=== PATIENT | female | born 1955 | race Caucasian/White ===

== ENCOUNTER 2016-10-15 10:05 | Outpatient (CLI) | payer OTHER, MEDICARE | END 2016-10-15 10:06 | disposition home or self-care (01) | DX: D86.0 Sarcoidosis of lung (principal) ==

== ENCOUNTER 2017-03-07 14:47 | Outpatient (CLI) | payer OTHER, MEDICARE | END 2017-03-07 14:48 | disposition home or self-care (01) | LOC: RT 14:47 | PROVIDERS: ATTEND Orthopaedic Surgery | DX: Z01.818 Encounter for other preprocedural examination (principal); N39.0 Urinary tract infection, site not specified; R73.09 Other abnormal glucose | CPT/HCPCS: 93005 ==

== ENCOUNTER 2018-04-19 14:45 | Outpatient (CLI) | payer OTHER, MEDICARE ==
[2018-04-19] MEDS ORDERED: IOPAMIDOL-300 100 ML VIAL ONE (14:52)
[2018-04-19] MEDS ORDERED: IOPAMIDOL-300 50 ML VIAL ONE (14:52)
[2018-04-19] MEDS ORDERED: IOPAMIDOL-300 100 ML VIAL IVP ONE (17:52)
[2018-04-19] MEDS ORDERED: IOPAMIDOL-300 50 ML VIAL PO ONE (17:52)
--- NOTE | 2018-04-19 22:22 | CT Report ---
Reason: ABDOMINAL PAIN, RIGHT LOWER QUADRANT Procedure Date: 04/19/2018 Accession Number: [id number] / [id number] Procedure: CT - Abdomen/Pelvis W/ CPT Code: FULL RESULT: EXAM: CT ABDOMEN AND PELVIS EXAM DATE: 04/19/2018 05:04 PM. CLINICAL HISTORY: ABDOMINAL PAIN, RIGHT LOWER QUADRANT. COMPARISONS: None. TECHNIQUE: Routine helical CT imaging was performed through the abdomen and pelvis. IV contrast: ISOVUE 300 100mL. Enteric contrast: Yes. Reconstructions: Coronal and sagittal. In accordance with CT protocol optimization, one or more of the following dose reduction techniques were utilized for this exam: automated exposure control, adjustment of mA and/or KV based on patient size, or use of iterative reconstructive technique. FINDINGS: ABDOMEN: Lung Bases: Incompletely included lower lungs are grossly clear. Calcified granuloma in the left lower lobe. Heart size is within normal limits. Dense coronary artery calcification is present. No basilar effusions. Liver: Unremarkable. Spleen: Unremarkable. Pancreas: Unremarkable aside from atrophy. Gallbladder/Bile Ducts: Gallbladder is unremarkable. Biliary tree is normal caliber. Adrenal Glands: Unremarkable. Kidneys: No mass, calculi, or hydronephrosis. Peritoneum/Mesentery/Bowel: No free fluid, free air, or collection. No intestinal obstruction or inflammation. Scattered occasional colonic diverticula. Terminal ileum appears unremarkable. Appendix not definitely identified. No pericecal inflammatory changes. No evidence for appendicitis. Lymph nodes: No mesenteric, periportal, or retroperitoneal lymphadenopathy. Vasculature: Abdominal aorta is nonaneurysmal. Portal vein is patent. Hepatic veins are patent. PELVIS: The bladder is unremarkable for the degree of distention. Uterus is absent. No free pelvic fluid. No pelvic lymphadenopathy. Bones: No suspicious osseous lesions. Total right hip arthroplasty is present. Mild lumbar levocurvature is present. Lucent structure in the T12 vertebral body is likely a hemangioma. IMPRESSION: No acute abnormalities. RADIA
== END 2018-04-19 14:46 | disposition home or self-care (01) ==
LOC: DI 14:45
PROVIDERS: ATTEND Physician Assistant Medical
DX: R10.31 Right lower quadrant pain (principal)
CPT/HCPCS: 74177; Q9967

== ENCOUNTER 2019-03-19 11:18 | Outpatient (CLI) | payer OTHER, MEDICARE ==
--- NOTE | 2019-03-20 14:28 | XRAY Report ---
Reason: FOOT SPRAIN Procedure Date: 03/19/2019 Accession Number: [id number] / [id number] Procedure: XR - Foot 3 View LT CPT Code: FULL RESULT: EXAM: LEFT FOOT RADIOGRAPHY EXAM DATE: 03/19/2019 11:39 AM. CLINICAL HISTORY: Foot sprain. Edema and pain x 1 week. Status post bunion surgery. COMPARISON: None. TECHNIQUE: 3 views. FINDINGS: Bones: Postoperative screw and screw/plate fixation of the proximal and distal first metatarsal, the heads of the second and third metatarsals, and a screw through the phalanges of the second toe. Bone loss at the lateral aspect of the first metatarsal head, and at the second metatarsophalangeal articulation, perhaps accentuated by postsurgical changes. There is moderate to severe narrowing of the first metatarsal phalangeal articulation. Joints: There is mild lateral subluxation of the third and fourth proximal phalanges at the metatarsal phalangeal articulations. Soft Tissues: Normal. No soft tissue swelling. IMPRESSION: Postoperative changes, with bone loss seen at the head of the first metatarsal and at the second metatarsophalangeal articulation. RADIA
== END 2019-03-19 11:19 | disposition home or self-care (01) ==
LOC: DI 11:18
PROVIDERS: ATTEND Podiatrist
DX: M79.672 Pain in left foot (principal); M79.89 Other specified soft tissue disorders; Z98.890 Other specified postprocedural states

== ENCOUNTER 2019-06-22 11:00 | Outpatient (CLI) | payer OTHER, MEDICARE ==
--- NOTE | 2019-06-25 10:58 | Mammography Report ---
Reason: ROUTINE MAMMO Procedure Date: 06/22/2019 Accession Number: [id number] / [id number] Procedure: MGN - Screening Mammo Dig Bilat CPT Code: Final Report FULL RESULT: EXAM: Screening Mammo Dig Bilat DATE: 06/22/2019 11:18 AM CLINICAL HISTORY: The patient is an asymptomatic 64-year-old female. Second degree family history of breast cancer. TECHNIQUE: (B) - Bilateral CC and MLO views were obtained. COMPARISON: 06/01/2016, 10/21/2014, 11/06/2012, 10/14/2009 PARENCHYMAL PATTERN: (A) - The breasts demonstrate scattered fibroglandular densities bilaterally. FINDINGS: The pattern of asymmetry is stable given positional variation. There are no suspicious masses, calcifications, or areas of distortion. IMPRESSION: Negative examination. BI-RADS category 1. RECOMMENDATION: (ANNUAL) - Recommend routine annual screening mammography. BI-RADS CATEGORY: (1) - Negative. STANDARD QUALIFYING STATEMENTS: 1. This examination was not reviewed with the aid of Computer-Aided Detection (CAD). 2. A negative or benign imaging report should not preclude biopsy if clinically suspicious findings are present. 3. Dense breasts may obscure an underlying neoplasm.
== END 2019-06-22 11:01 | disposition home or self-care (01) ==
LOC: DI.N 11:00
DX: Z12.31 Encounter for screening mammogram for malignant neoplasm of breast (principal); Z80.3 Family history of malignant neoplasm of breast
CPT/HCPCS: 77067

== ENCOUNTER 2019-08-31 12:05 | Outpatient (CLI) | payer OTHER, MEDICARE ==
--- NOTE | 2019-08-31 14:50 | MRI Report ---
Reason: LEFT FOOT DROP Procedure Date: 08/31/2019 Accession Number: [id number] / [id number] Procedure: MRI - Lumbar Spine W/O CPT Code: Final Report FULL RESULT: EXAM: MRI LUMBAR SPINE WITHOUT CONTRAST EXAM DATE: 08/31/2019 01:03 PM. CLINICAL HISTORY: Left foot drop. COMPARISON: None. TECHNIQUE: Multiplanar, multisequence T1-weighted and fluid-sensitive sequences of the lumbar spine from T12 to S1 without contrast. Other: None. FINDINGS: Spinal Canal: The conus terminates at L1. The conus medullaris and cauda equina are unremarkable. Alignment: Normal alignment. No spondylolisthesis. Bone Marrow: Five [id number]-svldbdh lumbar vertebral bodies are assumed. No gross fractures or bone lesions. No bone marrow replacement. Disk Levels/Facets: T12-L1: Unremarkable. L1-L2: Mild disk dehydration. Minimal disk bulge. No stenosis. L2-L3: Mild disk height loss and dehydration. Annular disk bulge and small osteophyte formation. Mild degenerative facet arthropathy. No significant stenosis. L3-L4: Mild disk height loss and dehydration. Annular disk bulge with tiny left paracentral protrusion and mild to moderate facet arthropathy with ligamentum flavum buckling. Mild effacement of the thecal sac. Mild inferior foraminal narrowing bilaterally. L4-L5: Mild disk height loss and dehydration. Annular disk bulge and mild degenerative facet arthropathy. No significant stenosis. L5-S1: Mild to moderate degenerative facet arthropathy. No stenosis. Musculature: Unremarkable. Other: Unremarkable. IMPRESSION: 1. Mild multilevel lumbar degenerative disk and facet arthropathy. Mild canal and foraminal narrowing most pronounced at L3-L4 without a significant degree of stenosis. Comment: The following findings are so common in adults without low back pain that while we report their presence, they must be interpreted with caution and in the context of the clinical situation. (Reference Tannerk et al, Spine 2001) Prevalence of findings in patients without low back pain: Disk degeneration (any evidence): 92% Disk desiccation/T2 signal loss: 83% Disk height loss: 56% Disk bulge: 64% Disk protrusion: 32% Annular tear/high intensity zone: 38% RADIA
== END 2019-08-31 12:06 | disposition home or self-care (01) ==
LOC: DI 12:05
PROVIDERS: ATTEND Physician Assistant Medical
DX: M51.36 Other intervertebral disc degeneration, lumbar region (principal); M47.816 Spondylosis without myelopathy or radiculopathy, lumbar region; M47.817 Spondylosis without myelopathy or radiculopathy, lumbosacral region; M51.26 Other intervertebral disc displacement, lumbar region
CPT/HCPCS: 72148

== ENCOUNTER 2019-11-15 09:49 | Outpatient (CLI) | payer OTHER, MEDICARE ==
--- NOTE | 2019-11-15 14:32 | XRAY Report ---
Reason: COUGH, ASTHMA Procedure Date: 11/15/2019 Accession Number: [id number] / [id number] Procedure: WCP - Chest 2 View X-Ray CPT Code: 52870 Final Report FULL RESULT: EXAM: CHEST RADIOGRAPHY EXAM DATE: 11/15/2019 09:49 AM. CLINICAL HISTORY: Cough, asthma. COMPARISON: CHEST 2 VIEW PA/LAT 10/15/2016 10:[address] THORAX W/ CONT 10/16/2012 9:51 AM. TECHNIQUE: 2 views. FINDINGS: Lungs/Pleura: Stable asymmetric elevation of the right hemidiaphragm. Stable appearance of moderately dense scattered areas of interstitial opacification with nodularity predominantly in the upper lungs. Previous exam indicated a history of sarcoidosis. No acute consolidations identified. Mediastinum: Heart and mediastinal contours are unremarkable. Other: None. IMPRESSION: Stable airspace opacifications in the upper lungs, compatible with a history of sarcoidosis. No new areas of consolidation identified. RADIA
== END 2019-11-15 23:59 | disposition home or self-care (01) ==
LOC: DI.WCP 09:49
PROVIDERS: ATTEND Internal Medicine
DX: R05 Cough (principal)
CPT/HCPCS: 71046

== ENCOUNTER 2020-05-27 14:33 | Outpatient (CLI) | payer OTHER, MEDICARE | END 2020-05-27 14:34 | disposition critical access hospital (66) | LOC: EMS 14:33 | PROVIDERS: ATTEND Surgery | DX: R41.89 Other symptoms and signs involving cognitive functions and awareness (principal); R25.3 Fasciculation | CPT/HCPCS: A0425; A0429 ==

== ENCOUNTER 2020-05-27 14:48 | Observation (INO) | payer OTHER, MEDICARE ==
--- NOTE | 2020-05-27 15:11 | ED Physician Documentation ---
History of Present Illness - Stated complaint Stated Complaint: MONO SYMPTOMS - Chief complaint Chief Complaint: Neuro - History obtained from History obtained from: Patient - Additonal information Additional information: 64-year-old female presents to the emergency department with chief complaint that she is not herself. She reports that for quite some time she has become increasingly forgetful and sometimes feels like she is disoriented. She reports going to the grocery store today paying for the groceries having all the groceries bag but then asking the agency cashier she needed to pay. She denies any sudden headache, no focal neuro deficits. No slurred speech arm or leg weakness. She reports that she constantly has to use the bathroom but denies dysuria. She does have a history of sarcoidosis and interstitial lung disease. She is currently taking prednisone 40 mg daily. 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 She denies any recent fevers, no new cough. She does have dyspnea with any exertion at baseline but this is not new. She denies any history of previous [place] or stroke in the past. At the time of evaluation in the room the patient appears well she has at times and inappropriate affect and will begin giggling for no reason. Pt did report to the RN that she ate a lollipop that a friend had given her Review of Systems Constitutional: reports: Fatigue. denies: Fever, Chills, Myalgias, Weight Loss Eyes: denies: Loss of vision, Decreased vision, Photophobia Ears: denies: Loss of hearing Nose: denies: Rhinorrhea / runny nose, Congestion Throat: denies: Dental pain / toothache, Oral lesions / sores, Sore throat Cardiac: denies: Chest pain / pressure, Palpitations, Pedal edema, Calf pain Respiratory: reports: Dyspnea, Cough. denies: Hemoptysis, Wheezing GI: denies: Abdominal Pain, Nausea : reports: Frequency, Hesitancy. denies: Dysuria, Unable to Void, Hematuria, LMP, Vaginal bleeding Skin: reports: Reviewed and negative Musculoskeletal: reports: Reviewed and negative Neurologic: reports: Confused. denies: Generalized weakness, Focal weakness, Numbness, Difficulty speaking, Near syncope, Syncope, Altered mental status, Unresponsive, Headache, Head injury PD PAST MEDICAL HISTORY - Past Medical History Musculoskeletal: Osteoarthritis - Past Surgical History Past Surgical History: Yes /RETORT COOLER: Hysterectomy Cardiovascular: Cardiac catheterization HEENT: Tonsil/Adenoidectomy - Present Medications Home Medications: Ambulatory Orders Medication Instructions Recorded Confirmed Adalimumab [Humira] 80 mg 01/19/14 06/20/14 Amitriptyline [Elavil] 10 mg PO DAILY 01/19/14 06/20/14 Gabapentin 600 mg PO TID 01/19/14 06/20/14 HYDROcodone/ACET 10/325 [[place] 10 1 tab PO DAILY PRN 01/19/14 06/20/14 mg/325 mg] Hydroxychloroquine [Plaquenil] 200 mg PO DAILY 01/19/14 06/20/14 Magnesium Oxide 500 mg PO DAILY PRN 01/19/14 06/20/14 Melatonin/Pyridoxine [Melatonin 3 1 tab PO DAILY 01/19/14 06/20/14 mg Tablet] Methotrexate 7.5 mg PO DAILY 01/19/14 06/20/14 Oxycodone HCl/Acetaminophen 1 - 2 each PO Q6HR PRN #14 tablet 01/19/14 06/20/14 [Percocet 5-325 mg Tablet] Simvastatin 10 mg PO DAILY 01/19/14 06/20/14 - Allergies Allergies/Adverse Reactions: Allergies Allergy/AdvReac Type Severity Reaction Status Date / Time No Known Drug Allergies Allergy Verified 05/27/20 15:00 - Social History Does the pt smoke?: No Smoking Status: Never smoker Does the pt drink ETOH?: No Does the pt have substance abuse?: No - Immunizations Immunizations are current?: Yes PD ED PE EXPANDED - General General: No acute distress - HEENT HEENT: Atraumatic, PERRL, Dry mucous membranes - Neck Neck: Supple w/out meningeal sx, No tenderness. No: Adenopathy - Cardiac Cardiac: Regular Rate, Radial strong equal, Cap refill < 2 sec - Respiratory Respiratory: Clear to ausultation prasad. No: Distress, Labored - Abdomen Abdomen: Normal Bowel sounds. No: Tender to palpation - Derm Derm: Normal color. No: Rash, Petecchiae, Purpura - Extremities Extremities: Normal - Neuro Neuro: Alert and Oriented X 3 (Ataxic gait. The patient very unbalanced unable to stand for long period of time without falling backwards. She appears to drag the left foot somewhat when allowed to ambulate. Unable to complete the Romberg.), CN deficit (tongue fasciculations with extension), Normal finger nose, Normal speech. No: Cerebellar nl, Normal gait - GCS Eye Opening: Spontaneous Motor: Obeys Commands Verbal: Oriented Total: 15 - Psych Psych: Other (Intermittently abnormal affect with bouts of giggling for no discernible reason) Results - Vitals Vitals: Vital Signs - 24 hr 05/27/20 14:50 Temperature 36.8 C Heart Rate 89 Respiratory 20 Rate Blood Pressure 159/86 H O2 Saturation 100 Oxygen O2 Source Room air - Labs Labs: Laboratory Tests 05/27/20 05/27/20 05/27/20 15:27 15:27 15:27 WBC 7.4 RBC 4.29 Hgb 14.1 Hct 43.8 MCV 102.1 H MCH 32.9 H MCHC 32.2 RDW 13.9 Plt Count 200 MPV 8.5 Neut # (Auto) 6.5 Lymph # (Auto) 0.5 L Sully # (Auto) 0.1 Eos # (Auto) 0.0 Baso # (Auto) 0.0 Absolute Nucleated RBC 0.00 Nucleated RBC % 0.0 Sodium 135 Potassium 4.1 Chloride 101 Carbon Dioxide 23 Anion Gap 11.0 BUN 23 H Creatinine 0.8 Estimated GFR (MDRD) 72 L Glucose 137 H Calcium 9.2 Total Bilirubin 0.8 AST 33 ALT 44 Alkaline Phosphatase 76 Total Protein 7.0 Albumin 4.2 Globulin 2.8 Albumin/Globulin Ratio 1.5 Lipase 25 TSH 0.37 Urine Color Urine Clarity Urine pH Ur Specific Warren Urine Protein Urine Glucose (UA) Urine Ketones Urine Occult Blood Urine Nitrite Urine Bilirubin Urine Urobilinogen Ur Leukocyte Esterase Ur Microscopic Review Urine Culture Comments Urine Opiates Screen Ur Oxycodone Screen Urine Methadone Screen Ur Propoxyphene Screen Ur Barbiturates Screen Ur Tricyclics Screen Ur Phencyclidine Scrn Ur Amphetamine Screen U Methamphetamines Scrn U Benzodiazepines Scrn Urine Cocaine Screen U Cannabinoids Screen Ethyl Alcohol < 5.0 05/27/20 16:05 WBC RBC Hgb Hct MCV MCH MCHC RDW Plt Count MPV Neut # (Auto) Lymph # (Auto) Sully # (Auto) Eos # (Auto) Baso # (Auto) Absolute Nucleated RBC Nucleated RBC % Sodium Potassium Chloride Carbon Dioxide Anion Gap BUN Creatinine Estimated GFR (MDRD) Glucose Calcium Total Bilirubin AST ALT Alkaline Phosphatase Total Protein Albumin Globulin Albumin/Globulin Ratio Lipase TSH Urine Color YELLOW Urine Clarity CLEAR Urine pH 7.5 Ur Specific Warren 1.015 Urine Protein NEGATIVE Urine Glucose (UA) NEGATIVE Urine Ketones NEGATIVE Urine Occult Blood NEGATIVE Urine Nitrite NEGATIVE Urine Bilirubin NEGATIVE Urine Urobilinogen 0.2 (NORMAL) Ur Leukocyte Esterase NEGATIVE Ur Microscopic Review NOT INDICATED Urine Culture Comments NOT INDICATED Urine Opiates Screen NEGATIVE Ur Oxycodone Screen NEGATIVE Urine Methadone Screen NEGATIVE Ur Propoxyphene Screen NEGATIVE Ur Barbiturates Screen NEGATIVE Ur Tricyclics Screen POSITIVE H Ur Phencyclidine Scrn NEGATIVE Ur Amphetamine Screen NEGATIVE U Methamphetamines Scrn NEGATIVE U Benzodiazepines Scrn NEGATIVE Urine Cocaine Screen NEGATIVE U Cannabinoids Screen NEGATIVE Ethyl Alcohol - Rads (name of study) CT head Radiology: Final report received (No acute intracranial process) PD MEDICAL DECISION MAKING - ED course Complexity details: reviewed old records, reviewed results, re-evaluated billy ent, considered differential, d/w patient, d/w family ED course: 64-year-old female presents to the emergency department because she does not feel like she is herself. She reports to me that she has become increasingly confused. She was at the grocery store this morning and though she had already paid for the grocery she asked the archival records clerk if she needed to pay for them again. She does have a history of sarcoidosis and interstitial lung disease and is currently taking prednisone 40 mg daily for control of this. On exam in the room she has an ataxia and unablanced stance. She does not have slurred speech or obvious focal neuro deficits. Urine toxicology is negative with the exception of tricyclic antidepressants. No findings consistent with a urinary tract infec tion. Head CT was negative for acute findings. I have discussed this case with Dr. Garcia the admitting hospitalist. Unfortunately this woman has had abnormal cerebellar signs ongoing for nearly 2 to 3 weeks. We will bring her in for strokelike symptoms with the plan to have an MRI completed in the a.m. and if further evaluation thereof. Departure - Departure Disposition: 65 [facility] DC/[place] Clinical Impression: Stroke-like symptoms
[2020-05-27 15:32] LABS: BASOPHILS % (AUTO) 0.4 %; EOSINOPHILS % (AUTO) 0.1 %; HGB - HEMOGLOBIN 14.1 g/dL (12.0-16.0); LYMPHOCYTES # (AUTO) 0.5 10^3/uL (1.5-3.5); LYMPHOCYTES % (AUTO) 7.2 %; MEAN CORPUSCULAR HEMOGLOBIN 32.9 pg (27.0-31.0); MEAN CORPUSCULAR HGB CONC 32.2 g/dL (32.0-36.0); MEAN CORPUSCULAR VOLUME 102.1 fL (81.0-99.0); MEAN PLATELET VOLUME 8.5 fL (7.9-10.8); MONOCYTES # (AUTO) 0.1 10^3/uL (0.0-1.0); MONOCYTES % (AUTO) 1.5 %; NEUTROPHILS # (AUTO) 6.5 10^3/uL (1.5-6.6); NEUTROPHILS % (AUTO) 88.6 %; PLT - PLATELET COUNT 200 10^3/uL (130-450); RED BLOOD COUNT 4.29 10^6/uL (4.20-5.40); RED CELL DISTRIBUTION WIDTH 13.9 % (12.0-15.0); WHITE BLOOD COUNT 7.4 x10^3/uL (4.8-10.8)
[2020-05-27 15:46] LABS: ALBUMIN 4.2 g/dL (3.2-5.5); ALBUMIN/GLOBULIN RATIO 1.5 (1.0-2.2); ALKALINE PHOSPHATASE 76 IU/L (42-121); ALT ALANINE AMINOTRANSFERASE 44 IU/L (10-60); AST ASPARTATE AMINOTRANSFERASE 33 IU/L (10-42); BILIRUBIN,TOTAL 0.8 mg/dL (0.2-1.0); BUN - BLOOD UREA NITROGEN 23 mg/dL (6-20); CALCIUM 9.2 mg/dL (8.5-10.3); CARBON DIOXIDE - CO2 23 mmol/L (21-32); CHLORIDE 101 mmol/L (101-111); CREATININE 0.8 mg/dL (0.4-1.0); GLUCOSE 137 mg/dL (70-100); LIPASE 25 U/L (22-51); SODIUM 135 mmol/L (135-145)
--- NOTE | 2020-05-27 15:47 | CT Report ---
PROCEDURE: HEAD WO INDICATIONS: confusion TECHNIQUE: Noncontrast 4.5 mm thick angled axial sections acquired from the foramen magnum to the vertex. For r adiation dose reduction, the following was used: automated exposure control, adjustment of mA and/or kV according to patient size. COMPARISON: None. FINDINGS: Image quality: Excellent. CSF spaces: Basal cisterns are patent. No extra-axial fluid collections. Ventricles are normal in size and shape. Brain: No midline shift. No intracranial masses or hemorrhage. Dolan-white matter interface is norm al. Skull and face: Calvarium and visualized facial bones are intact, without suspicious lesions. Sinuses: Visualized sinuses and mastoids are clear. IMPRESSION: No acute intracranial process. Reviewed by: Cynthia Rodriguez MD on 05/27/2020 3:46 PM [facility] Approved by: Cynthia Rodriguez MD on 05/27/2020 3:46 PM [facility] Station ID: [id number]
[2020-05-27 16:18] LABS: MUDS CUTOFF CONCENTRATIONS CUTOFF CONC BELOW:
[2020-05-27 16:22] LABS: BILIRUBIN,URINE NEGATIVE (NEGATIVE); GLUCOSE, URINE (UA) NEGATIVE (NEGATIVE); KETONES,URINE (UA) NEGATIVE (NEGATIVE); LEUKOCYTE ESTERASE, URINE NEGATIVE (NEGATIVE); NITRITE,URINE NEGATIVE (NEGATIVE); OCCULT BLOOD,URINE NEGATIVE (NEGATIVE); PH,URINE 7.5 PH (5.0-7.5); PROTEIN,URINE NEGATIVE (NEGATIVE); UROBILINOGEN,URINE 0.2 (NORMAL) E.U./dL (NORMAL)
[2020-05-27 16:23] LABS: CLARITY,URINE CLEAR (CLEAR)
[2020-05-27 16:31] LABS: AMPHETAMINE SCREEN,URINE NEGATIVE (NEGATIVE); BENZODIAZEPINES SCREEN, URINE NEGATIVE (NEGATIVE); COCAINE SCREEN URINE NEGATIVE (NEGATIVE); METHADONE SCREEN, URINE NEGATIVE (NEGATIVE); METHAMPHETAMINES SCREEN, URINE NEGATIVE (NEGATIVE); OPIATE SCREEN, URINE NEGATIVE (NEGATIVE); OXYCODONE SCREEN, URINE NEGATIVE (NEGATIVE); PROPOXYPHENE SCREEN, URINE NEGATIVE (NEGATIVE); TRICYCLIC ANTIDEPRESSANT,URINE POSITIVE (NEGATIVE)
[2020-05-27] MEDS ORDERED: ONDANSETRON 4 MG/2 ML VIAL IVP PRN (17:01)
[2020-05-27] MEDS ORDERED: SODIUM CHLORIDE FLUSH 0.9% 10 ML SYRINGE IVP PRN (17:01)
[2020-05-27] MEDS ORDERED: ACETAMINOPHEN 325 MG TABLET PO PRN (17:01)
--- NOTE | 2020-05-27 19:14 | HISTORY & PHYSICAL EXAMINATION ---
DATE OF SERVICE: 05/27/2020 Physician: Ivette Tierney MD HISTORY OF PRESENT ILLNESS: This is a 64-year-old white female with a history of sarcoidosis, on Plaquenil and 6 weeks of Prednisone, history of interstitial lung disease, who is followed by a director of exhibits. She presents with complaints of several weeks of weakness, poor gait, and most recently "feels off and forgetful." In the ER, her neurology exam was significant for having inappropriate affect with giggling and laughing occasionally. Tongue fasciculations were reported as well as a left foot dragging with walking and she could not walk, she swayed. Her head CT was unremarkable. The thought that the symptoms were about 1 day, but patient states that he was not aware of her having these for several weeks. In her past record it indicates that she had foot drop in Aug, and evaluation with diagnostic imaging in August of this year showed lumbar findings. She is also having poor sleep currently and was started on Amitriptyline for this. She states that her friend gave her a lollipop, which contained marijuana recently. Her drug screen was not positive for marijuana on presentation, however. Patient is being placed in Observation status for stroke-like symptoms, to undergo further evaluation. PAST MEDICAL HISTORY 1. Sarcoidosis, on Plaquenil and Prednisone. 2. Interstitial lung disease; her Regulatory Intern in [place] had her undergo cardiac cath with results being "normal". 3. Foot drop per the chart, as far back as 08/2019. ALLERGIES: NONE. MEDICATIONS 1. Humira 80 mg unknown frequency. 2. Amitriptyline 10 mg daily. 3. Gabapentin 600 mg t.i.d. 4. Tylenol with codeine 10/325 mg daily p.r.n. 5. Plaquenil 200 mg daily. 6. Magnesium oxide 500 mg daily. 7. Melatonin 3 mg daily. 8. Methotrexate 7.5 mg daily. 9. Simvastatin 10 mg daily. 10. Unknown prednisone dose. FAMILY HISTORY: No inherited diseases are in the family. SOCIAL HISTORY: Patient lives with her second , who weighs 400 lbs. The ex- just and she is concerned over how her son (with the erx- ) is handling that. She is a nonsmoker, who has not smoked, drinks no alcohol. No illicit drug use history. 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 REVIEW OF SYSTEMS: There has been no recent fever, she denies cough, chest complaints. She is "always short of breath and this has not changed". There is no leg edema. A comprehensive review of systems was performed, and the pertinent positives are listed. The rest are negative. PHYSICAL EXAMINATION GENERAL: Thin white female, sitting at edge of bed, who has bursts of inappropriate laughter. VITAL SIGNS: Blood pressure 160/80, heart rate 89 in sinus rhythm, afebrile, room air saturation 100%. HEENT: Unremarkable except flushed cheeks. NECK: No JVD or carotid bruits. CHEST: Scattered velcro rales. HEART: Normal heart sounds. No murmur. ABDOMEN: Soft, nontender. Normal bowel sounds. EXTREMITIES: No clubbing, cyanosis, or edema. NEUROLOGIC: Tongue is not motionless purposefully, moving left and right or has fasciculations of the muscles of the tongue. The facial muscles are symmetric without droop. Extraocular movements are intact. Other than the tongue, her cranial nerves appear intact. Motor exam is 5/5 and symmetric at rest. Her gait was not reassessed after it was done in the emergency room, but it was reported that she was ataxic ("swaying") and her left foot was "dragging". She has negative Babinski and normal DTRs. FNF was normal. LABORATORY/DATA Normal electrolytes. Normal BUN and creatinine. Normal liver tests. Normal CBC except for MCV of 102. Normal urinalysis. Her toxicology showed positive tricyclics only. Her serum alcohol was negative. CAT scan of the head showed no intracranial abnormality. No EKG was done. No Chest x-ray was done. IMPRESSION/DIAGNOSES 1. Stroke-like symptoms. 2. Sarcoidosis. 3. Interstitial lung disease. PLAN: Place patient in Observation status on telemetry watching for dysrhythmias such as atrial fibrillation. Recheck brain imaging with a brain MRI. Evaluate with PT and OT, and consider speech therapy because of the tongue findings. Check orthostatic vital signs. Obtain an Echo with Bubble study for possible cardiac source of embolus in case stroke is found on the brain imaging. Consider obtaining a baseline chest x-ray and a baseline EKG. DEEP VENOUS THROMBOSIS PROPHYLAXIS: SCDs. CODE STATUS: FULL CODE. ATTESTATION: Patient is expected to be discharged or transferred to another facility within 96 hours: Yes. TD: 05/27/2020 18:53 RAYSA
[2020-05-27] MEDS: FAMOTIDINE 20 MG TABLET PO SCH (20:23)
[2020-05-28] MEDS: SODIUM CHLORIDE FLUSH 0.9% 10 ML SYRINGE IVP SCH ×2 (00:59→08:00)
[2020-05-28 05:27] LABS: BASOPHILS # (AUTO) 0.1 10^3/uL (0.0-0.1); BASOPHILS % (AUTO) 0.9 %; EOSINOPHILS # (AUTO) 0.1 10^3/uL (0.0-0.7); EOSINOPHILS % (AUTO) 1.1 %; LYMPHOCYTES # (AUTO) 2.7 10^3/uL (1.5-3.5); LYMPHOCYTES % (AUTO) 33.8 %; MEAN CORPUSCULAR HEMOGLOBIN 32.3 pg (27.0-31.0); MEAN CORPUSCULAR HGB CONC 31.6 g/dL (32.0-36.0); MEAN CORPUSCULAR VOLUME 102.3 fL (81.0-99.0); MEAN PLATELET VOLUME 8.4 fL (7.9-10.8); MONOCYTES # (AUTO) 0.7 10^3/uL (0.0-1.0); MONOCYTES % (AUTO) 9.2 %; NEUTROPHILS # (AUTO) 4.3 10^3/uL (1.5-6.6); NEUTROPHILS % (AUTO) 53.6 %; PLT - PLATELET COUNT 230 10^3/uL (130-450); RED BLOOD COUNT 4.33 10^6/uL (4.20-5.40); RED CELL DISTRIBUTION WIDTH 13.9 % (12.0-15.0)
[2020-05-28 05:32] LABS: CALCIUM 8.8 mg/dL (8.5-10.3); CREATININE 0.8 mg/dL (0.4-1.0)
[2020-05-28] MEDS: FAMOTIDINE 20 MG TABLET PO SCH (08:00)
--- NOTE | 2020-05-28 10:37 | PHARMACY PROGRESS NOTE ---
- Best Possible Medication History Admit Date and Time: 05/27/20 1700 Processed by: Pharmacy Medication History completed: Yes Patient Interview: Completed Secondary Source(s): Physician records, Pharmacy records, Insurance records As the person ultimately responsible for medication therapy, providers are able to order a medication from an existing home medication list in [facility] via the "Reconcile Routine" prior to Confirmation of that medication by it application support analyst. Such practice is discouraged except when the physician, in their clinical judgment, deems that a medical need exists for a medication without regard to previous use. PATIENT INTERVIEWED BY HOISTING MACHINE OPERATOR. PATIENT ABLE TO CONFIRM HOME MEDICATIONS. PATIENT REPORTS METHOTREXATE AND HUMIRA ARE ON HOLD PER THE PCP PA. CAIN.
[2020-05-28] MEDS ORDERED: MELATONIN PO PRN (11:55)
[2020-05-28] MEDS ORDERED: PYRIDOXINE PO PRN (11:55)
[2020-05-28] MEDS ORDERED: ALBUTEROL NEB 2.5 MG/3 ML INH PRN (11:57)
[2020-05-28] MEDS ORDERED: HYDROXYCHLOROQUINE 200 MG TABLET PO SCH (12:00)
[2020-05-28] MEDS ORDERED: MAGNESIUM OXIDE 400 MG TABLET PO PRN (12:00)
--- NOTE | 2020-05-28 12:49 | MRI Report ---
PROCEDURE: Brain W/O INDICATIONS: ataxia TECHNIQUE: Noncontrast axial T1 spin echo, axial T2 fast spin echo, sagittal and axial FLAIR, coronal T2 fast sp in echo, axial gradient echo, axial diffusion and ADC through the brain. COMPARISON: Correlation is made with prior head CT, 05/27/2020. FINDINGS: Image quality: Excellent. CSF Spaces: Basal cisterns are patent. No extra-axial fluid collections. Ventricles are normal in size and shape. Brain: No intracranial masses or hemorrhage. Dolan/white matter interface is normal. Brainstem appe ars normal. Brain parenchymal volume loss is seen. Chronic small vessel ischemic changes are seen. Di ffusion-weighted images demonstrate no acute ischemic insult. No chronic ischemic insults. Normal i ntravascular flow voids are present. Skull and face: Calvarium has normal marrow signal. Orbits appear normal. Sinuses: Sinuses and mastoids are clear. Bilateral bj bullosa are incidentally noted. IMPRESSION: No findings of acute or subacute infarction are seen. Age-appropriate brain parenchymal volume loss and chronic small vessel ischemic change can be seen. Reviewed by: Colby Richard MD on 05/28/2020 11:47 AM [facility] Approved by: Colby Richard MD on 05/28/2020 11:47 AM [facility] Station ID: [id number]
[2020-05-28] MEDS ORDERED: GABAPENTIN 300 MG CAPSULE PO SCH ×2 (13:00→21:00)
--- NOTE | 2020-05-28 15:58 | Discharge Plan ---
Discharge Plan Problem Reviewed?: Yes Disposition: Home, Self Care Condition: Fair Diet: Low Sodium Activity Restrictions: Activity as Tolerated Shower Restrictions: No Driving Restrictions: Yes (With your poor balance, you should not be driving a car til cleared by PCP) Assistance Devices: [facility] Concerns: You were in Observation status to evaluate "abnormal gait and brain fog". The brain MRI showed "small vessel ischemic changes" but there was no signs of a stroke. You need Neurology evaluation JEFERSON, with a referral from your PCP. Please bring the MRI report, that you were provided, to the Neurology visit. You was seen by Physical Therapy and Occupational Therapy and both recommended outpatient rehab which needs to be ordered by Neurology or your PCP. Resume all your prehospital medications. Continue taking 1 baby aspirin daily. It appears that the Prednisone may be adding to the "brain fog" and raising your blood pressure. Please see your Disintegrator Feeder regarding starting a taper of Prednisone. Plan of Treatment: As above. Care Goals: Improvement in symptoms and stabilization are the goals. Assessment: She understands. This written reminder was provided at discharge. Follow-Up Care: Outpatient Rehab - PT, Outpatient Rehab - OT No Smoking: If you smoke, Please STOP! Call for help. Follow-up with: Ghazal Desir PA-C [Primary Care Provider] -
--- NOTE | 2020-05-28 16:02 | DISCHARGE SUMMARY ---
Discharge Summary Admit Date: 05/27/20 Discharge Date: 05/28/20 Discharging Provider: Dr Ivette Tierney Primary Care Provider: BOBBI Desir Code Status: Attempt Resuscitation Condition at Discharge: Fair Discharge Disposition: 01 Home, Self Care - HPI History of Present Illness: This is a 64-year-old white female with a history of sarcoidosis on Plaquenil and history of interstitial lung disease, who started prednisone 6 weeks ago by her Research Pharmacist. She complains of several months of generalized weakness, worsening gait, several falls in her home and feeling like she is forgetful and "in a brain fog". She had especially bad gait and bad memory today and therefore came to the ER, brought in by her . Her vital signs are stable, there is no orthostasis, labs are essentially normal. The head CT was unremarkable. She is being placed in Observation status for work-up of stroke- like symptoms. - HOSPITAL COURSE Hospital Course: 1) Stroke-like symptoms The patient was seen by Physical Therapy who felt she had severe ataxia and recommended outpatient rehab, after Neurology evaluation. She was seen by Occupational Therapy who agreed that she had marked limitations, was distractable and had occasionally poor memory, and recommended outpatient OT for rehab. Her brain MRI was done that showed no evidence of acute or prior stroke but small vessel chronic microangiopathy was seen. She was advised to be on 1 baby aspirin daily which she says she already takes. Possibly the Prednisone is adding to her brain fog. She needs a Neurology evaluation for further and complete evaluation of her symptoms. The brain MRI report was handed to the patient to take to her Neurologist. 2) Sarcoid She was kept on her same meds and management while here. 3) Interstitial lung disease She was kept on her same meds and management while here. She is about to re-see her Research Pharmacist in 2 weeks; I advised that they discuss starting a Prednisone taper. - ALLERGIES Allergies/Adverse Reactions: Allergies Allergy/AdvReac Type Severity Reaction Status Date / Time No Known Drug Allergies Allergy Verified 05/27/20 15:00 - MEDICATIONS Home Medications: Ambulatory Orders Medication Instructions Recorded Confirmed Gabapentin 600 mg PO .0900, 1200 01/19/14 05/28/20 Hydroxychloroquine [Plaquenil] 400 mg PO DAILY 01/19/14 05/28/20 Magnesium Oxide 500 mg PO DAILY PRN 01/19/14 05/28/20 Melatonin/Pyridoxine [Melatonin 3 1 tab PO DAILY PRN 01/19/14 05/28/20 mg Tablet] Albuterol Sulfate [Proair 2 puffs IH TID 05/28/20 05/28/20 Respiclick] Amitriptyline [Elavil] 50 mg PO QPM 05/28/20 05/28/20 Ciclesonide [Alvesco] 1 puffs INH BID 05/28/20 05/28/20 Folic Acid 2 - 5 tab PO DAILY 05/28/20 05/28/20 Gabapentin 1,200 mg PO QPM 05/28/20 05/28/20 Meloxicam [Mobic] 7.5 mg PO BID 05/28/20 05/28/20 Montelukast [Singulair] 10 mg PO DAILY 05/28/20 05/28/20 Omeprazole [PriLOSEC] 20 mg PO BID 05/28/20 05/28/20 Ropinirole HCl [Requip] 3 mg PO QPM 05/28/20 05/28/20 predniSONE [Deltasone] 40 mg PO DAILY 05/28/20 05/28/20 - PHYSICAL EXAM AT DISCHARGE General Appearance: positive: No acute distress, Alert, Other (Thin female, has flushed cheeks, appears younger than her age) Eyes Bilateral: positive: Normal inspection, EOMI ENT: positive: ENT inspection nml, No signs of dehydration Neck: positive: Nml inspection, No JVD Respiratory: positive: No respiratory distress, Rhonchi (Velcro-rales scattered in all lung schwab) Cardiovascular: positive: Regular rate & rhythm, No murmur Abdomen: positive: Non-tender, No distention Skin: positive: Warm, Dry Extremities: positive: Non-tender, No pedal edema Neurologic/Psychiatric: positive: Oriented x3, Other (Strength is normal th roughout, DTRs are normal, Romberg was normal but she had very ataxic gait) - LABS Result Diagrams: 05/28/20 05:20 05/28/20 05:20 - DIAGNOSTIC IMAGING Diagnostic Imaging Results: Final report reviewed - FOLLOW UP Follow Up: See PCP soon for a referral to Neurology soon. - TIME SPENT Time Spent in Discharge (Minutes): 30
[2020-05-28 17:45] VITALS: BP 137/89
[2020-05-28] MEDS ORDERED: MELOXICAM 7.5 MG TABLET PO SCH (21:00)
[2020-05-28] MEDS ORDERED: rOPINIRole 1 MG TABLET PO SCH (21:00)
[2020-05-28] MEDS ORDERED: AMITRIPTYLINE 25 MG TABLET PO SCH (21:00)
[2020-05-29] MEDS ORDERED: predniSONE 20 MG TABLET PO SCH (08:00)
[2020-05-29] MEDS ORDERED: FOLIC ACID 1 MG TABLET PO SCH (09:00)
[2020-05-29] MEDS ORDERED: MONTELUKAST 10 MG TABLET PO SCH (09:00)
== END 2020-05-28 17:50 | disposition home or self-care (01) ==
LOC: EDUNIT# → ED 14:48 → MS2 17:00
PROVIDERS: ADMIT Internal Medicine; ATTEND Internal Medicine
DX: R27.0 Ataxia, unspecified (principal); R41.0 Disorientation, unspecified; R41.3 Other amnesia; D86.9 Sarcoidosis, unspecified; J84.9 Interstitial pulmonary disease, unspecified; Z79.52 Long term (current) use of systemic steroids; R53.1 Weakness; M21.372 Foot drop, left foot; I67.82 Cerebral ischemia; Z20.828 Contact with and (suspected) exposure to other viral communicable diseases
CPT/HCPCS: 36415; 70450; 70551; 80048; 80306; 80320; 81003; 82607; 82746; 83690; 85025; 87635; 92523; 93306; 97162; 97165; 99284; 99285; A9270; G0378; 80053; 81001; 84443; 87086

== ENCOUNTER 2020-06-27 17:33 | Outpatient (CLI) | payer OTHER, MEDICARE ==
--- NOTE | 2020-06-27 21:17 | XRAY Report ---
PROCEDURE: Foot 3 View RT INDICATIONS: EVAL FOR CELLULITIS BWTWEEN 1,2 TOES TECHNIQUE: 3 views of the foot were acquired. COMPARISON: Not available. FINDINGS: Bones: No fractures or dislocations. No suspicious bony lesions. Bipartite medial sesamoid. Soft tissues: No tibiotalar joint effusion. Achilles tendon appears normal. Soft tissue swelling a djacent to the base of the wrist and second toes. Possible subcutaneous gas in the area. IMPRESSION: Soft tissue swelling and possible subcutaneous gas at the base of the first and second toes. Reviewed by: Darnell Ragland MD on 06/27/2020 9:16 PM PST Approved by: Darnell Ragland MD on 06/27/2020 9:16 PM PST Station ID: [id number]
== END 2020-06-27 17:34 | disposition home or self-care (01) ==
LOC: DI 17:33
PROVIDERS: ATTEND Physician Assistant Medical
DX: L03.115 Cellulitis of right lower limb (principal)

== ENCOUNTER → 2020-06-27 | Outpatient (CLI) | payer OTHER, MEDICARE | LOC: LAB.WCP 08:00 | PROVIDERS: ATTEND Physician Assistant Medical | DX: L03.115 Cellulitis of right lower limb (principal) | CPT/HCPCS: 87070; 87077; 87181; 87205 ==

== ENCOUNTER 2020-07-23 14:08 | Outpatient (CLI) | payer MEDICARE ==
[2020-07-23 14:36] LABS: CALCIUM 9.1 mg/dL (8.5-10.3); CREATININE 0.8 mg/dL (0.4-1.0); POTASSIUM 4.1 mmol/L (3.5-5.0)
== END 2020-07-23 14:09 | disposition home or self-care (01) ==
LOC: LAB 14:08
PROVIDERS: ATTEND Psychiatry & Neurology Neurology
DX: R27.0 Ataxia, unspecified (principal)
CPT/HCPCS: 36415; 80048

== ENCOUNTER 2020-07-24 13:23 | Outpatient (CLI) | payer MEDICARE ==
--- NOTE | 2020-07-24 14:23 | DEXA Report ---
PROCEDURE: Dexa Spine and/or Hip INDICATIONS: POSTMENOPAUSAL TECHNIQUE: Dual energy x-ray absorptiometry (DXA) was performed on a Miira System. Regions measur ed are the AP Spine, femoral neck, and if needed forearm. COMPARISON: None. FINDINGS: Lumbar Spine: Bone Mineral Density 1.179 g/cm/cm,T score 0.0, normal Left total Hip: Bone Mineral Density 0.850 g/cm/cm,T score -1.3, osteopenia Left Femoral Neck: Bone Mineral Density 0.896 g/cm/cm, T score -1.0, normal (T score greater or equal to -1.0: NORMAL) (T score from -1.1 to -2.4: OSTEOPENIA) (T score less than or equal to -2.5 to: OSTEOPOROSIS) Impression: Bone mineral density consistent with osteopenia. Patients with diagnosis of osteoporosis or osteopenia should have regular bone mineral density assess ment. For those eligible for Medicare, routine testing is allowed once every 2 years. Testing frequ ency can be increased for patients who have rapidly progressing disease or for those who are receivin g medical therapy to restore bone mass. Reviewed by: Ramy Moralez on 07/24/2020 2:21 PM PST Approved by: Ramy Moralez on 07/24/2020 2:21 PM PST Station ID: [id number]
== END 2020-07-24 13:24 | disposition home or self-care (01) ==
LOC: DI 13:23
PROVIDERS: ATTEND Physician Assistant Medical
DX: M85.89 Other specified disorders of bone density and structure, multiple sites (principal); Z78.0 Asymptomatic menopausal state

== ENCOUNTER 2020-08-05 15:43 | Outpatient (CLI) | payer MEDICARE ==
[2020-08-05] MEDS ORDERED: GADOBUTROL 7.5 MMOL/7.5 ML VIAL ONE (16:06)
[2020-08-05] MEDS ORDERED: GADOBUTROL 7.5 MMOL/7.5 ML VIAL IVP ONE (17:57)
--- NOTE | 2020-08-05 18:40 | MRI Report ---
PROCEDURE: Brain W/WO INDICATIONS: ATAXIA, BILAT ARM WEAKNESS CONTRAST: IV CONTRAST: Gadavist ml: 6 TECHNIQUE: Noncontrast axial T1 spin echo, axial T2 fast spin echo, sagittal and axial FLAIR, coronal T2 fast sp in echo, axial gradient echo, axial diffusion and ADC through the brain. After the administration of contrast, axial and coronal T1 spin echo with fat saturation through the brain. COMPARISON: Prior brain MRI, 05/28/2020. Relation is also made with the prior head CT, 05/27/2020. C orrelation is also made with the accompanying cervical spine MRI, 08/05/2020. FINDINGS: Image quality: Excellent. CSF spaces: Basal cisterns are patent. No extra-axial fluid collections. Ventricles are normal in size and shape. Brain: No midline shift. No intracranial bleeds or masses. No abnormal intracranial enhancement. There is cerebral volume loss for age. Scattered, stable T2 hyperintense white matter lesions are see n. The brainstem appears normal. Diffusion-weighted images demonstrate no acute ischemic insults. N o chronic ischemic insults. Normal intravascular flow voids are present. Skull and face: Calvarial marrow is normal in signal. Orbits appear normal. Sinuses: Sinuses and mastoids appear clear. Bilateral bj bullosa are incidentally noted. IMPRESSION: No significant intracranial abnormality is seen. No masses or abnormal enhancement can be seen. No findings of acute or subacute infarction are seen. T2 hyperintense white matter lesions are seen. In a patient of this age, these are most consistent wi th chronic small vessel ischemic change. A demyelinating process is possible, yet considered to be le ss likely. Age-appropriate brain parenchymal volume loss can be seen. Reviewed by: Colby Richard MD on 08/05/2020 5:39 PM [place] Approved by: Colby Richard MD on 08/05/2020 5:39 PM [facility] Station ID: [id number]
--- NOTE | 2020-08-05 18:45 | MRI Report ---
PROCEDURE: Cervical Spine W/O INDICATIONS: ATAXIA, BILAT ARM WEAKNESS TECHNIQUE: Noncontrast sagittal T1 spin echo and T2 fast spin echo, sagittal STIR, foraminal oblique sagittal T2 fast spin echo, and axial gradient echo or T2 fast spin echo through the cervical spine. COMPARISON: Correlation is made with prior cervical spine radiographs, 08/25/2017. Correlation is al so made with the accompanying brain MRI, 08/05/2020. FINDINGS: Image quality: Excellent. Alignment and Curvature: There is normal bony alignment. Bone Marrow: Marrow demonstrates normal overall signal. Spinal Cord: Visualized spinal cord has normal size and signal. No cerebellar tonsillar herniation. Paraspinous Soft Tissues: No paravertebral masses. Prevertebral soft tissues are normal in thicknes s. C2-C3: Normal in appearance. C3-C4: The disc height is well-preserved. There is loss of disc signal seen. Mild disc osteophyte complex is seen. There is moderate to prominent right-sided and moderate left-sided facet hypertrop hy seen. There is at least moderate bilateral neuroforaminal narrowing seen. Minimal central canal na rrowing is seen. C4-C5: The disc height is well-preserved. There is loss of disc signal seen. Mild disc osteophyte c omplex is seen. There is moderate right-sided and mild left-sided facet hypertrophy seen. There is m ild left-sided and no significant right-sided neuroforaminal narrowing seen. No significant central c anal narrowing is seen. C5-C6: Mild to moderate loss of disc height and disc signal can be seen. Mild to moderate disc osteo phyte complex is seen. Uncovertebral joint hypertrophy is seen at this level. Moderate facet hyper trophy is seen, left worse than right. There is moderate right-sided and moderate to severe left-side d neuroforaminal narrowing seen. Mild central canal narrowing is seen. C6-C7: Mild to moderate loss of disc height and disc signal can be seen. Mild disc osteophyte compl ex is seen. There is moderate left-sided and [id number] right-sided neuroforaminal narrowing s een. Mild central canal narrowing is seen. C7-T1: The disc height is well-preserved. There is loss of disc signal seen. No significant neural f oraminal or central canal narrowing can be seen. IMPRESSION: Multiple levels of cervical spine degenerative change are seen, which are most prominent at C5-C6 and C6-C7. Reviewed by: Colby Richard MD on 08/05/2020 5:43 PM [facility] Approved by: Colby Richard MD on 08/05/2020 5:43 PM [facility] Station ID: [id number]
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
== END 2020-08-05 15:44 | disposition home or self-care (01) ==
LOC: DI 15:43
PROVIDERS: ATTEND Psychiatry & Neurology Neurology
DX: R27.0 Ataxia, unspecified (principal); R29.898 Other symptoms and signs involving the musculoskeletal system; D86.9 Sarcoidosis, unspecified; M47.812 Spondylosis without myelopathy or radiculopathy, cervical region
CPT/HCPCS: 70553; 72141; A9585

== ENCOUNTER 2020-09-11 13:57 | Outpatient (CLI) | payer MEDICARE ==
--- NOTE | 2020-09-15 10:17 | Mammography Report ---
BILATERAL DIGITAL SCREENING MAMMOGRAM 3D/2D: 09/11/2020 CLINICAL: Routine screening. Comparison is made to exams dated: 06/22/2019 mammogram, 06/01/2016 mammogram, and 10/24/2014 mammogram - [facility]. The tissue of both breasts is predominantly fatty. No significant masses, calcifications, or other findings are seen in either breast. There has been no significant interval change. IMPRESSION: NEGATIVE There is no mammographic evidence of malignancy. A 1 year screening mammogram is recommended. This exam was interpreted at Station ID: [id number]. NOTE: For mammograms, a report in lay terms will be sent to the patient. Approximately 15% of breast malignancies will not be visualized mammographically. In the management of a palpable breast mass, a negative mammogram must not discourage biopsy of a clinically suspicious lesion. Electronically Signed By: Ramy Moralez acr/penrad:09/12/2020 19:31:23 ACR BI-RADS Category 1: Negative 3341F PARENCHYMAL PATTERN: (F) - The breast(s) demonstrate(s) diffuse fatty replacement. BI-RADS CATEGORY: (1) - 1 RECOMMENDATION: (ANNUAL) - Recommend routine annual screening mammography. [id number] 1 year screening LATERALITY: (B)
== END 2020-09-11 13:58 | disposition home or self-care (01) ==
LOC: DI 13:57
DX: Z12.31 Encounter for screening mammogram for malignant neoplasm of breast (principal)

== ENCOUNTER 2020-09-26 09:34 | Outpatient (CLI) | payer MEDICARE ==
--- NOTE | 2020-09-26 14:59 | XRAY Report ---
PROCEDURE: Hand 3 View BILAT INDICATIONS: BLAT HAND PAIN TECHNIQUE: 4 views of each hand acquired. COMPARISON: None. FINDINGS: Bones: No fractures or dislocations. There is bilateral narrowing of the proximal and distal interp halangeal joints including moderate narrowing of the left third and fourth proximal interphalangeal j oints with associated subchondral cystic changes and sclerosis. Milder degeneration demonstrated in t he remaining interphalangeal joints. No definite bony erosions. There is a small circumscribed cyst w ithin the right. Metacarpal head likely representing a ganglion cyst. There is mild degeneration at t he first carpal metacarpal joints bilaterally. Soft tissues: No suspicious soft tissue calcifications. IMPRESSION: 1. Bilateral osteoarthritic changes of the interphalangeal joints most prominent in the left third an d fourth PIP joints. Reviewed by: Hector Hutton MD on 09/26/2020 1:58 PM AKST Approved by: Hector Hutton MD on 09/26/2020 1:58 PM [place] Station ID: [id number]
--- NOTE | 2020-09-26 15:02 | XRAY Report ---
PROCEDURE: Hip w/Pelvis 2-3V LT INDICATIONS: BLAT HAND L HIP PAIN TECHNIQUE: AP pelvis with lateral view of the left hip. COMPARISON: None. FINDINGS: Bones: No fractures or dislocations. There is severe axial joint space narrowing in the left hip wi th subchondral sclerosis and cystic changes and osteophytosis. A right hip prosthesis is present and partially visualized. Pelvic ring appears intact. No suspicious bony lesions. Soft tissues: The visualized bowel gas pattern is normal. No suspicious soft tissue calcifications. IMPRESSION: 1. Severe osteoarthritic changes of the left hip. Reviewed by: Hector Hutton MD on 09/26/2020 2:01 PM [place] Approved by: Hector Hutton MD on 09/26/2020 2:01 PM [place] Station ID: [id number]
== END 2020-09-26 09:35 | disposition home or self-care (01) ==
LOC: DI 09:34
PROVIDERS: ATTEND Internal Medicine Rheumatology
DX: M16.12 Unilateral primary osteoarthritis, left hip (principal); M18.0 Bilateral primary osteoarthritis of first carpometacarpal joints; M19.042 Primary osteoarthritis, left hand; M19.041 Primary osteoarthritis, right hand

== ENCOUNTER 2021-03-20 10:45 | Outpatient (CLI) | payer MEDICARE | END 2021-03-20 10:46 | disposition short-term general hospital (02) | LOC: EMS 10:45 | DX: M25.552 Pain in left hip (principal) | CPT/HCPCS: A0425; A0429 ==

== ENCOUNTER 2022-03-26 15:56 | Outpatient (CLI) | payer MEDICARE | END 2022-03-26 15:57 | disposition short-term general hospital (02) | LOC: EMS 15:56 | DX: M25.552 Pain in left hip (principal); W18.39XA Other fall on same level, initial encounter; Y92.000 Kitchen of unspecified non-institutional (private) residence as the place of occurrence of the external cause; Z96.643 Presence of artificial hip joint, bilateral | CPT/HCPCS: A0425; A0427 ==

== ENCOUNTER 2022-05-26 16:00 | Outpatient (CLI) | payer MEDICARE, OTHER | END 2022-05-26 16:01 | disposition critical access hospital (66) | LOC: EMS 16:00 | DX: M25.552 Pain in left hip (principal); Z96.642 Presence of left artificial hip joint | CPT/HCPCS: A0425; A0429 ==

== ENCOUNTER 2022-05-26 16:38 | Emergency (ER) | payer MEDICARE, OTHER ==
[2022-05-26] MEDS ORDERED: HYDROmorphone 1 MG/ML CARPUJECT IVP STA (16:42)
[2022-05-26] MEDS ORDERED: PROPOFOL 200 MG/20 ML VIAL IVP STA (16:42)
--- NOTE | 2022-05-26 16:45 | ED Physician Documentation ---
PD HPI LOWER EXT INJURY - Stated complaint Stated Complaint: DISLOCATED - History obtained from History obtained from: Patient, EMS - History of Present Illness PD HPI LOW EXT INJURY LOCATION: Left, Hip - Additional information Additional information: Had L THR about 1 year ago by Evelyn Orourke. Had dislocation x 1. Dislocated today just standing there. Severe L hip pain. No meds or IV [employer]. 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 : None HEENT: None Psych: None Musculoskeletal: Osteoarthritis Derm: None - Past Surgical History Past Surgical History: Yes Ortho: Hip replacement /SAIL REPAIRER: Hysterectomy Cardiovascular: Cardiac catheterization HEENT: Tonsil/Adenoidectomy - Present Medications Home Medications: Ambulatory Orders Medication Instructions Recorded Confirmed Gabapentin 600 mg PO .0900, 1200 01/19/14 05/28/20 Hydroxychloroquine [Plaquenil] 400 mg PO DAILY 01/19/14 05/28/20 Magnesium Oxide 500 mg PO DAILY PRN 01/19/14 05/28/20 Melatonin/Pyridoxine [Melatonin 3 1 tab PO DAILY PRN 01/19/14 05/28/20 mg Tablet] Albuterol Sulfate [Proair 2 puffs IH TID 05/28/20 05/28/20 Respiclick] Amitriptyline [Elavil] 50 mg PO QPM 05/28/20 05/28/20 Ciclesonide [Alvesco] 1 puffs INH BID 05/28/20 05/28/20 Folic Acid 2 - 5 tab PO DAILY 05/28/20 05/28/20 Gabapentin 1,200 mg PO QPM 05/28/20 05/28/20 Meloxicam [Mobic] 7.5 mg PO BID 05/28/20 05/28/20 Montelukast [Singulair] 10 mg PO DAILY 05/28/20 05/28/20 Omeprazole [PriLOSEC] 20 mg PO BID 05/28/20 05/28/20 Ropinirole HCl [Requip] 3 mg PO QPM 05/28/20 05/28/20 predniSONE [Deltasone] 40 mg PO DAILY 05/28/20 05/28/20 Oxycodone HCl/Acetaminophen 1 - 2 each PO Q6H PRN #14 tablet 05/26/22 [Percocet 5-325 mg Tablet] - Allergies Allergies/Adverse Reactions: Allergies Allergy/AdvReac Type Severity Reaction Status Date / Time No Known Drug Allergies Allergy Verified 05/26/22 16:45 - Social History Does the pt smoke?: No Smoking Status: Never smoker Does the pt drink ETOH?: No Does the pt have substance abuse?: No - Immunizations Immunizations are current?: Yes PD ED PE NORMAL - Vitals Vital signs reviewed: Yes - General General: Alert and oriented X 3, Other (Laying R lat decum, svere pain with any motion.) - HEENT HEENT: PERRL, EOMI, Other (mallampati 1) - Cardiac Cardiac: RRR, No murmur - Respiratory Respiratory: No respiratory distress, Clear bilaterally - Abdomen Abdomen: Soft, Non tender - Back Back: No CVA TTP, No spinal TTP - Derm Derm: Normal color, Warm and dry - Extremities Extremities: Other (Can't range LLE at all) - Neuro Neuro: Alert and oriented X 3 Eye Opening: Spontaneous Motor: Obeys Commands Verbal: Oriented GCS Score: 15 - Psych Psych: Normal mood, Normal affect Results - Vitals Vitals: Vital Signs - 24 hr 05/26/22 05/26/22 05/26/22 16:43 16:59 17:42 Temperature 36.7 C Heart Rate 83 78 88 Respiratory 16 16 16 Rate Blood Pressure 134/66 H 134/64 H 130/68 O2 Saturation 98 94 98 If not protocol : Oxygen Flow, liters/minute 05/26/22 05/26/22 05/26/22 17:55 18:03 18:06 Temperature Heart Rate 77 91 81 Respiratory 16 14 12 Rate Blood Pressure 120/77 131/74 H 126/87 H O2 Saturation 99 99 If not protocol 2 : Oxygen Flow, liters/minute 05/26/22 05/26/22 18:14 18:17 Temperature Heart Rate 86 81 Respiratory 16 14 Rate Blood Pressure 111/65 114/66 O2 Saturation 97 98 If not protocol 2 : Oxygen Flow, liters/minute Oxygen O2 Source Nasal cannula Procedures - Reduction Body part reduced: Left, Hip, prosthetic Fracture or dislocation: Dislocation Hip reduction technique: Allis - flex/pull/rotate Reduction aftercare: Xray confirms reduction - Procedural sedation Sedation prep: Informed consent, Time out completed, Last meal (12PM), PE performed, ASA 1 - healthy Sedation Medications: propofol (TOTAL 200MG IN DIVIDIED DOSING) Mallampati classification: I Patient status during sedation: Responds to tactile Time in sedation (Minutes): 15 Departure - Departure Disposition: 01 Home, Self Care Clinical Impression: Hip dislocation, left Qualifiers: Encounter type: initial encounter Qualified Code(s): S73.005A - Unspecified dislocation of left hip, initial encounter Condition: Good Record reviewed to determine appropriate education?: Yes Instructions: ED Hip Replace Dislocation Reduc Prescriptions: Oxycodone HCl/Acetaminophen [Percocet 5-325 mg Tablet] 1 - 2 each PO Q6H PRN #14 tablet PRN Reason: pain Comments: I sent your prescription electronically to [facility] in [place]. Follow-up with Dr. 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 I am prescribing a short course of narcotic pain medication for you. These are potentially dangerous and addictive medications that should be used carefully. These medications may constipate you. Take an [id number] stool softener (docusate) twice daily with plenty of water while taking these medications. If you go 24 hours without a bowel movement, take [id number] miralax, per package instructions. Do not drink or drive while taking these medications. If you received narcotic or sedating medications while in the emergency de partment, do not drive for 24 hours. Store this medication in a safe, secure place and out of reach of children. It is a violation of federal law to give or sell this medication to another person or to use in a manner other than prescribed. The ED will not refill narcotic prescriptions, including prescriptions lost or stolen. To dispose of unwanted medications: 1. [facility] at [address] in [place] has a medication drop box. They accept prescription medications (in pill form) Tuesday through Tuesday 9:00 a.m. to 5:00 p.m. 2. The [facility] accepts prescription medications (in pill form only) for disposal year round. Call for more information. 3. Contact the [facility] for the next [facility] sponsored prescription drug collection event. , [phone], or [phone]; Note that many narcotic pain relievers also contain Tylenol/acetaminophen. Please ensure that your total dose of acetaminophen from all sources does not exceed 3 g (3000 mg) per day.
--- NOTE | 2022-05-26 17:05 | XRAY Report ---
PROCEDURE: Hip w/Pelvis 2-3V LT INDICATIONS: dislocation TECHNIQUE: AP pelvis with lateral view(s) of the left hip(s). COMPARISON: None. FINDINGS: Bones: Patient is status post prior bilateral total hip arthroplasty. There is superior and likely a nterior dislocation at left hip joint. No gross acute fracture is seen. Pelvic ring appears intact. No suspicious bony lesions. Soft tissues: The visualized bowel gas pattern is normal. No suspicious soft tissue calcifications. IMPRESSION: Prior bilateral total hip arthroplasty with superior dislocation of left hip joint. No gr oss fracture is seen. Reviewed by: Mauro Adame MD on 05/26/2022 5:04 PM PDT Approved by: Mauro Adame MD on 05/26/2022 5:04 PM PDT Station ID: [id number]
--- OUTSIDE RECORDS SUMMARY | 2022-05-26 17:57 | EXTERNAL MEDICAL SUMMARY RPT | Continuity of Care Document ---
:1955 Author Organization [facility] Address [address] [place] [address] Phone Care Team Providers Name Role Phone Ghazal Desir Unavailable Unavailable Allergies No information. Encounters No information. Functional Status No information. Immunizations No information. Medications No information. Problems No information. Procedures date description facility [id number] XR hip w pel if done LT 2V [facility] pital Results/Labs test date author facility value unit interpret ation Result panel 1 (unknown) (no (unknown) (unknown) (no value) (units (unk nown) date) unknown) (unknown) (no (unknown) (unknown) 03/26/22 (units (unkno wn) date) unknown) (unknown) (no (unknown) (unknown) [address] [place] [address] (units (unknown) date) unknown) (unknown) (no (unknown) (unknown) Accession (units (unkn own) date) Number: unknown) [id number] (unknown) (no (unknown) (unknown) Age/Sex: 66 / F (units (unknown) date) Date of Service: unknown) (unknown) (no (unknown) (unknown) [place], [place] (units ( unknown) date) [id number] unknown) (unknown) (no (unknown) (unknown) Approved by: (units (u nknown) date) akosua Munguia M.D. on 03/26/2022 at 16:56 (unknown) (no (unknown) (unknown) Bones: Bilateral (units (unknown) date) hip prosthesis unknown) present. There is superior dislocation of the (unknown) (no (unknown) (unknown) COMPARISON: (units (un known) date) , unknown) CR, XR HIP W PEL IF DONE LT 2V, 03/20/2021, 12:24. (unknown) (no (unknown) (unknown) : 1955 (units (unknown) date) Acct:[id number] unknown) (unknown) (no (unknown) (unknown) Dislocated left (units (unknown) date) total hip unknown) arthroplasty (unknown) (no (unknown) (unknown) FINDINGS: (units (unkn own) date) unknown) (unknown) (no (unknown) (unknown) IMPRESSION: (units (un known) date) unknown) (unknown) (no (unknown) (unknown) INDICATIONS: hip (units (unknown) date) pain,short/rotate unknown) d (unknown) (no (unknown) (unknown) (units (unknown) date) unknown) (unknown) (no (unknown) (unknown) Loc: ED (units (unkno wn) date) unknown) (unknown) (no (unknown) (unknown) [id number] (units (unk nown) date) unknown) (unknown) (no (unknown) (unknown) Ordering (units (unkno wn) date) Provider: unknown) Christopher Watson D.O. (unknown) (no (unknown) (unknown) Osteopenia (units (unk nown) date) without fracture unknown) (unknown) (no (unknown) (unknown) PROCEDURE: XR (units ( unknown) date) HIP W PEL IF DONE unknown) LT 2V (unknown) (no (unknown) (unknown) Patient: (units (unkno wn) date) Gita Garcia unknown) A MR#: (unknown) (no (unknown) (unknown) Procedure: XR (units ( unknown) date) hip w pel if done unknown) LT 2V (unknown) (no (unknown) (unknown) Signed (units (unkno wn) date) unknown) (unknown) (no (unknown) (unknown) Soft tissues: No (units (unknown) date) suspicious soft unknown) tissue calcifications or masses. (unknown) (no (unknown) (unknown) TECHNIQUE: 2 (units (u nknown) date) views of the hip unknown) were acquired. (unknown) (no (unknown) (unknown) Total right hip (units (unknown) date) arthroplasty in unknown) place (unknown) (no (unknown) (unknown) XRay Report (units (un known) date) unknown) (unknown) (no (unknown) (unknown) in (units (unkno wn) date) unknown) (unknown) (no (unknown) (unknown) left (units (unkno wn) date) unknown) (unknown) (no (unknown) (unknown) osseous (units (unkno wn) date) mineralization unknown) noted. (unknown) (no (unknown) (unknown) prosthesis. No (units (unknown) date) evidence of unknown) fracture. Pelvic ring intact. Generalized decrease Result panel 2 (unknown) (no (unknown) (unknown) (no value) (units (unk nown) date) unknown) (unknown) (no (unknown) (unknown) 03/26/22 (units (unkno wn) date) unknown) (unknown) (no (unknown) (unknown) [address] [place] [address] (units (unknown) date) unknown) (unknown) (no (unknown) (unknown) Accession (units (unkn own) date) Number: unknown) [id number] (unknown) (no (unknown) (unknown) Age/Sex: 66 / F (units (unknown) date) Date of Service: unknown) (unknown) (no (unknown) (unknown) [place] (units ( unknown) date) [id number] unknown) (unknown) (no (unknown) (unknown) Approved by: (units (u nknown) date) ricky Haynes) Denilson on 03/26/2022 at 19:06 (unknown) (no (unknown) (unknown) Bones: (units (unkno wn) date) Postreduction unknown) views demonstrate interval reduction of the left hip (unknown) (no (unknown) (unknown) COMPARISON: (units (un known) date) , unknown) CR, XR HIP W PEL IF DONE LT 2V, 03/26/2022, 16:52. (unknown) (no (unknown) (unknown) : 1955 (units (unknown) date) Acct:[id number] unknown) (unknown) (no (unknown) (unknown) Dictated by: (units (u nknown) date) ricky Haynes) Denilson on 03/26/2022 at 19:06 (unknown) (no (unknown) (unknown) FINDINGS: (units (unkn own) date) unknown) (unknown) (no (unknown) (unknown) IMPRESSION: (units (un known) date) Successful unknown) reduction of the left hip replacement. (unknown) (no (unknown) (unknown) INDICATIONS: (units (u nknown) date) post reduction unknown) (unknown) (no (unknown) (unknown) (units (unknown) date) unknown) (unknown) (no (unknown) (unknown) Loc: ED (units (unkno wn) date) unknown) (unknown) (no (unknown) (unknown) [id number] (units (unk nown) date) unknown) (unknown) (no (unknown) (unknown) Ordering (units (unkno wn) date) Provider: unknown) Sami Mcmahan D.O. (unknown) (no (unknown) (unknown) PROCEDURE: XR (units ( unknown) date) HIP W PEL IF DONE unknown) LT 2V (unknown) (no (unknown) (unknown) Patient: (units (unkno wn) date) Gita Garcia unknown) Dk MR#: (unknown) (no (unknown) (unknown) Procedure: XR (units ( unknown) date) hip w pel if done unknown) LT 2V (unknown) (no (unknown) (unknown) Signed (units (unkno wn) date) unknown) (unknown) (no (unknown) (unknown) Soft tissues: (units ( unknown) date) Overlying unknown) postoperative changes are noted. No suspicious soft (unknown) (no (unknown) (unknown) TECHNIQUE: 2 (units (u nknown) date) view(s) of the unknown) hip acquired. (unknown) (no (unknown) (unknown) XRay Report (units (un known) date) unknown) (unknown) (no (unknown) (unknown) densities. (units (unk nown) date) unknown) (unknown) (no (unknown) (unknown) dislocation. (units (u nknown) date) unknown) (unknown) (no (unknown) (unknown) prosthesis (units (unk nown) date) unknown) (unknown) (no (unknown) (unknown) tissue (units (unkno wn) date) unknown) Result panel 3 (unknown) (no (unknown) (unknown) (no value) (units (unk nown) date) unknown) (unknown) (no (unknown) (unknown) (4-6) #60 tabs (units (unknown) date) unknown) (unknown) (no (unknown) (unknown) (Neurontin) (units (un known) date) unknown) (unknown) (no (unknown) (unknown) (Plaquenil) (units (un known) date) unknown) (unknown) (no (unknown) (unknown) 03/26/22 16:50 (units (unknown) date) unknown) (unknown) (no (unknown) (unknown) 03/26/22 18:30 (units (unknown) date) unknown) (unknown) (no (unknown) (unknown) 03/26/22 (units (unkno wn) date) unknown) (unknown) (no (unknown) (unknown) 1 - 5 mg PO DAILY (units (unknown) date) unknown) (unknown) (no (unknown) (unknown) 1 puff INHALATION (units (unknown) date) BID unknown) (unknown) (no (unknown) (unknown) 1-3 tablets p.o. (units (unknown) date) every 3 hours as unknown) needed for pain (unknown) (no (unknown) (unknown) 10 mg PO BID (units (u nknown) date) unknown) (unknown) (no (unknown) (unknown) 10 mg PO DAILY Qty: (unit s (unknown) date) 10 0RF unknown) (unknown) (no (unknown) (unknown) 10 mg PO TID PRN (units (unknown) date) (Reason: Muscle unknown) Spasm) Qty: 0 (unknown) (no (unknown) (unknown) 16:48 (units (unkno wn) date) unknown) (unknown) (no (unknown) (unknown) 17 gm PO DAILY PRN (units (unknown) date) (Reason: unknown) Constipation) Qty: 10 0RF (unknown) (no (unknown) (unknown) 2 puff INHALATION (units (unknown) date) Q4-6H PRN (Reason: unknown) Shortness Of Breath) (unknown) (no (unknown) (unknown) 20 mg PO BID (units (u nknown) date) unknown) (unknown) (no (unknown) (unknown) 220 mg PO BID PRN (units (unknown) date) (Reason: Pain) unknown) (unknown) (no (unknown) (unknown) 3 mg PO BEDTIME (units (unknown) date) unknown) (unknown) (no (unknown) (unknown) 400 mg PO QDAY Qty: (unit s (unknown) date) 0 unknown) (unknown) (no (unknown) (unknown) 5 mg PO BID (units (un known) date) unknown) (unknown) (no (unknown) (unknown) 5 mg PO Q3HR PRN (units (unknown) date) (Reason: Pain, unknown) Moderate (4-6)) Qty: 60 0RF (unknown) (no (unknown) (unknown) 50 mg PO BEDTIME (units (unknown) date) unknown) (unknown) (no (unknown) (unknown) 50 mg PO BID (units (u nknown) date) unknown) (unknown) (no (unknown) (unknown) 600 mg PO SEEINSTR (units (unknown) date) Qty: 0 unknown) (unknown) (no (unknown) (unknown) 600mg qam, qnoon, (units (unknown) date) 900mg hs unknown) (unknown) (no (unknown) (unknown) 650 mg PO TID Qty: (units (unknown) date) 60 0RF unknown) (unknown) (no (unknown) (unknown) 81 mg PO BID Qty: (units (unknown) date) 60 0RF unknown) (unknown) (no (unknown) (unknown) Abrasion (02/16/21) (unit s (unknown) date) unknown) (unknown) (no (unknown) (unknown) Age/Sex: 66 / F (units (unknown) date) unknown) (unknown) (no (unknown) (unknown) Alcohol type: wine (units (unknown) date) unknown) (unknown) (no (unknown) (unknown) Allergies (units (unkn own) date) unknown) (unknown) (no (unknown) (unknown) Allergy/AdvReac (units (unknown) date) Type Severity unknown) Reaction Status Date / Time (unknown) (no (unknown) (unknown) Anxiety (units (unkno wn) date) unknown) (unknown) (no (unknown) (unknown) Asthma (units (unkno wn) date) unknown) (unknown) (no (unknown) (unknown) Blood Pressure (units (unknown) date) 172/72 H 03/26/22 unknown) 16:48 (unknown) (no (unknown) (unknown) Blood Pressure (units (unknown) date) 172/72 H unknown) (unknown) (no (unknown) (unknown) Cancer (units (unkno wn) date) unknown) (unknown) (no (unknown) (unknown) Chief Complaint: (units (unknown) date) Fall unknown) (unknown) (no (unknown) (unknown) Chronic pain (units (u nknown) date) disorder unknown) (unknown) (no (unknown) (unknown) Course (units (unkno wn) date) unknown) (unknown) (no (unknown) (unknown) : 1955 (units (unknown) date) Acct:[id number] unknown) (unknown) (no (unknown) (unknown) Date of Service: (units (unknown) date) 03/26/22 unknown) (unknown) (no (unknown) (unknown) Departure (units (unkn own) date) unknown) (unknown) (no (unknown) (unknown) Depression (units (unk nown) date) unknown) (unknown) (no (unknown) (unknown) Discharge Plan (units (unknown) date) unknown) (unknown) (no (unknown) (unknown) Discontinued (units (u nknown) date) Medications unknown) (unknown) (no (unknown) (unknown) ED Orders (units (unkn own) date) unknown) (unknown) (no (unknown) (unknown) ER Physician: (units ( unknown) date) Sami Mcmahan D.O. unknown) (unknown) (no (unknown) (unknown) Easy bruisability (units (unknown) date) unknown) (unknown) (no (unknown) (unknown) Elevated coronary (units (unknown) date) artery calcium score unknown) (unknown) (no (unknown) (unknown) Emergency Report (units (unknown) date) unknown) (unknown) (no (unknown) (unknown) Exam (units (unkno wn) date) unknown) (unknown) (no (unknown) (unknown) Family History (units (unknown) date) (Reviewed 02/21/21 @ unknown) 09:57 by Isidro Ordaz PA-C) (unknown) (no (unknown) (unknown) Father (units (unknown) date) Aneurysm unknown) (unknown) (no (unknown) (unknown) Fibromyalgia (units (u nknown) date) unknown) (unknown) (no (unknown) (unknown) GERD (units (unkno wn) date) (gastroesophageal unknown) reflux disease) (unknown) (no (unknown) (unknown) General (units (unkno wn) date) unknown) (unknown) (no (unknown) (unknown) H/O total hip (units ( unknown) date) arthroplasty unknown) (04/12/17) (unknown) (no (unknown) (unknown) HPI - Fall (units (unk nown) date) unknown) (unknown) (no (unknown) (unknown) HTN (hypertension) (units (unknown) date) unknown) (unknown) (no (unknown) (unknown) History of (units (unk nown) date) bunionectomy of left unknown) great toe (09/2015) (unknown) (no (unknown) (unknown) History of (units (unk nown) date) hysterectomy unknown) (unknown) (no (unknown) (unknown) History of lung (units (unknown) date) biopsy unknown) (unknown) (no (unknown) (unknown) Home Medications (units (unknown) date) unknown) (unknown) (no (unknown) (unknown) Hx of cardiac cath (units (unknown) date) unknown) (unknown) (no (unknown) (unknown) Hx of tonsillectomy (unit s (unknown) date) unknown) (unknown) (no (unknown) (unknown) Hyperlipidemia (units (unknown) date) unknown) (unknown) (no (unknown) (unknown) Hypertension (units (u nknown) date) unknown) (unknown) (no (unknown) (unknown) ILD (interstitial (units (unknown) date) lung disease) unknown) (unknown) (no (unknown) (unknown) Initial Vital Signs (unit s (unknown) date) unknown) (unknown) (no (unknown) (unknown) Initial Vital (units ( unknown) date) Signs: unknown) (unknown) (no (unknown) (unknown) (units (unknown) date) [address] unknown) [place] [address] (unknown) (no (unknown) (unknown) [id number] (units (unk nown) date) unknown) (unknown) (no (unknown) (unknown) Medical History (units (unknown) date) (Reviewed 02/21/21 @ unknown) 09:57 by Isidro Ordaz PA-C) (unknown) (no (unknown) (unknown) Medication (units (unk nown) date) Instructions unknown) Recorded Confirmed (unknown) (no (unknown) (unknown) Medication (units (unk nown) date) Instructions unknown) Recorded (unknown) (no (unknown) (unknown) Mother (units (unknown) date) COPD (chronic unknown) obstructive pulmonary disease) (unknown) (no (unknown) (unknown) No Action (units (unkn own) date) unknown) (unknown) (no (unknown) (unknown) Ordered: (units (unkno wn) date) unknown) (unknown) (no (unknown) (unknown) Orders (units (unkno wn) date) unknown) (unknown) (no (unknown) (unknown) Osteoarthritis (units (unknown) date) unknown) (unknown) (no (unknown) (unknown) Oxygen Delivery (units (unknown) date) Method 03/26/22 unknown) 16:48 (unknown) (no (unknown) (unknown) Oxygen Delivery (units (unknown) date) Method Room Air unknown) (unknown) (no (unknown) (unknown) Patient History (units (unknown) date) unknown) (unknown) (no (unknown) (unknown) Patient: (units (unkno wn) date) Gita Garcia unknown) MR#: (unknown) (no (unknown) (unknown) Prescriptions: (units (unknown) date) unknown) (unknown) (no (unknown) (unknown) Previous Rx's (units ( unknown) date) unknown) (unknown) (no (unknown) (unknown) Propofol (Propofol (units (unknown) date) 200 Mg/20 Ml Vial) unknown) 130 mg 2 mg/kg (130 mg) IV NOW ONE (unknown) (no (unknown) (unknown) Pulse Oximetry 97 (units (unknown) date) 03/26/22 16:48 unknown) (unknown) (no (unknown) (unknown) Pulse Oximetry 97 (units (unknown) date) unknown) (unknown) (no (unknown) (unknown) Pulse Rate 78 (units ( unknown) date) 03/26/22 16:48 unknown) (unknown) (no (unknown) (unknown) Pulse Rate 78 (units ( unknown) date) unknown) (unknown) (no (unknown) (unknown) RBBB (right bundle (units (unknown) date) branch block) unknown) (unknown) (no (unknown) (unknown) Referrals: (units (unk nown) date) unknown) (unknown) (no (unknown) (unknown) Related Data (units (u nknown) date) unknown) (unknown) (no (unknown) (unknown) Respiratory Rate 16 (unit s (unknown) date) 03/26/22 16:48 unknown) (unknown) (no (unknown) (unknown) Respiratory Rate 16 (unit s (unknown) date) unknown) (unknown) (no (unknown) (unknown) Rx Instructions: (units (unknown) date) unknown) (unknown) (no (unknown) (unknown) Sarcoid neuropathy (units (unknown) date) unknown) (unknown) (no (unknown) (unknown) Sarcoidosis (units (un known) date) unknown) (unknown) (no (unknown) (unknown) Signed By: (units (unk nown) date) unknown) (unknown) (no (unknown) (unknown) Smoking Status: (units (unknown) date) Never smoker unknown) (unknown) (no (unknown) (unknown) Social History (units (unknown) date) (Reviewed 02/21/21 @ unknown) 09:57 by Isidro Ordaz PA-C) (unknown) (no (unknown) (unknown) Stated Complaint: (units (unknown) date) GLF Left hip unknown) (unknown) (no (unknown) (unknown) Stop: 03/26/22 (units (unknown) date) 18:12 unknown) (unknown) (no (unknown) (unknown) Substance Use Type: (unit s (unknown) date) does not use unknown) (unknown) (no (unknown) (unknown) Surgical History (units (unknown) date) (Reviewed 02/21/21 @ unknown) 09:57 by Isidro Ordaz PA-C) (unknown) (no (unknown) (unknown) Temperature 97.8 F (units (unknown) date) 03/26/22 16:48 unknown) (unknown) (no (unknown) (unknown) Temperature 97.8 F (units (unknown) date) unknown) (unknown) (no (unknown) (unknown) Time Seen by (units (u nknown) date) Provider: 03/26/22 unknown) 18:04 (unknown) (no (unknown) (unknown) Vital Signs - 8 hr (units (unknown) date) unknown) (unknown) (no (unknown) (unknown) Vital Signs (units (un known) date) unknown) (unknown) (no (unknown) (unknown) Vital signs: (units (u nknown) date) unknown) (unknown) (no (unknown) (unknown) XR hip LT 1V Stat (units (unknown) date) unknown) (unknown) (no (unknown) (unknown) XR hip w pel if (units (unknown) date) done LT 2V Stat unknown) (unknown) (no (unknown) (unknown) Ghazal Desir, (units (unknown) date) PA-C [Primary Care unknown) Provider] (unknown) (no (unknown) (unknown) acetaminophen 325 (units (unknown) date) mg Tablet unknown) (unknown) (no (unknown) (unknown) acetaminophen 325 (units (unknown) date) mg tablet 650 mg PO unknown) TID #60 tabs 02/21/21 (unknown) (no (unknown) (unknown) adhesive AdvReac (units (unknown) date) Mild Rash Verified unknown) 02/19/21 06:49 (unknown) (no (unknown) (unknown) aerosol inhaler (units (unknown) date) Shortness Of Breath unknown) (unknown) (no (unknown) (unknown) aerosol inhaler (units (unknown) date) unknown) (unknown) (no (unknown) (unknown) albuterol sulfate 90 (unit s (unknown) date) mcg/actuation 2 puff unknown) inhalation Q4-6H PRN 02/17/21 02/19/21 (unknown) (no (unknown) (unknown) albuterol sulfate (units (unknown) date) 90 mcg/actuation Hfa unknown) Aerosol Inhaler (unknown) (no (unknown) (unknown) alcohol intake (units (unknown) date) frequency: 0-2 unknown) drinks per day (unknown) (no (unknown) (unknown) alcohol intake: (units (unknown) date) current (1 glass of unknown) wine Qnight) (unknown) (no (unknown) (unknown) amitriptyline 50 mg (unit s (unknown) date) Tablet unknown) (unknown) (no (unknown) (unknown) amitriptyline 50 mg (unit s (unknown) date) tablet 50 mg PO unknown) BEDTIME 02/17/21 02/19/21 (unknown) (no (unknown) (unknown) amlodipine 5 mg (units (unknown) date) Tablet unknown) (unknown) (no (unknown) (unknown) amlodipine 5 mg (units (unknown) date) tablet 5 mg PO BID unknown) 02/17/21 02/19/21 (unknown) (no (unknown) (unknown) aspirin 81 mg (units ( unknown) date) Tablet,Delayed unknown) Release (Dr/Ec) (unknown) (no (unknown) (unknown) aspirin 81 mg (units ( unknown) date) tablet,delayed 81 mg unknown) PO BID #60 tabs 02/21/21 (unknown) (no (unknown) (unknown) ciclesonide 80 (units (unknown) date) mcg/actuation 1 puff unknown) inhalation BID 02/17/21 02/19/21 (unknown) (no (unknown) (unknown) ciclesonide 80 (units (unknown) date) mcg/actuation Hfa unknown) Aerosol Inhaler (unknown) (no (unknown) (unknown) cyclobenzaprine 10 (units (unknown) date) MG tablet unknown) (unknown) (no (unknown) (unknown) cyclobenzaprine 10 (units (unknown) date) mg tablet 10 mg PO unknown) TID PRN Muscle Spasm ##0 03/22/17 02/19/21 (unknown) (no (unknown) (unknown) folic acid 1 mg (units (unknown) date) Tablet unknown) (unknown) (no (unknown) (unknown) folic acid 1 mg (units (unknown) date) tablet 1 - 5 mg PO unknown) DAILY Mouth sores 02/17/21 02/19/21 (unknown) (no (unknown) (unknown) gabapentin 600 mg (units (unknown) date) tablet 600 mg PO unknown) SEEINSTR ##0 03/22/17 02/19/21 (unknown) (no (unknown) (unknown) gabapentin (units (unk nown) date) [Neurontin] 600 MG unknown) tablet (unknown) (no (unknown) (unknown) household members: (units (unknown) date) children unknown) (unknown) (no (unknown) (unknown) hydroxychloroquine (units (unknown) date) 200 mg tablet 400 mg unknown) PO QDAY ##0 03/22/17 02/19/21 (unknown) (no (unknown) (unknown) hydroxychloroquine (units (unknown) date) [Plaquenil] 200 MG unknown) tablet (unknown) (no (unknown) (unknown) losartan 50 mg (units (unknown) date) Tablet unknown) (unknown) (no (unknown) (unknown) losartan 50 mg (units (unknown) date) tablet 50 mg PO BID unknown) 02/17/21 02/19/21 (unknown) (no (unknown) (unknown) montelukast 10 mg (units (unknown) date) Tablet unknown) (unknown) (no (unknown) (unknown) montelukast 10 mg (units (unknown) date) tablet 10 mg PO BID unknown) 02/17/21 02/19/21 (unknown) (no (unknown) (unknown) naproxen sodium 220 (unit s (unknown) date) mg Tablet unknown) (unknown) (no (unknown) (unknown) naproxen sodium 220 (unit s (unknown) date) mg tablet 220 mg PO unknown) BID PRN Pain 02/17/21 02/19/21 (unknown) (no (unknown) (unknown) occupational (units (u nknown) date) status: other unknown) (Retired) (unknown) (no (unknown) (unknown) omeprazole 20 mg (units (unknown) date) Tablet,Delayed unknown) Release (Dr/Ec) (unknown) (no (unknown) (unknown) omeprazole 20 mg (units (unknown) date) tablet,delayed 20 mg unknown) PO BID 02/17/21 02/19/21 (unknown) (no (unknown) (unknown) oral powder packet (units (unknown) date) #10 ea unknown) (unknown) (no (unknown) (unknown) oxycodone 5 mg (units (unknown) date) Tablet unknown) (unknown) (no (unknown) (unknown) oxycodone 5 mg (units (unknown) date) tablet 5 mg PO Q3HR unknown) PRN Pain, Moderate 02/21/21 (unknown) (no (unknown) (unknown) polyethylene glycol (unit s (unknown) date) 3350 17 gram 17 gm unknown) PO DAILY PRN Constipation 02/21/21 (unknown) (no (unknown) (unknown) polyethylene glycol (unit s (unknown) date) 3350 17 gram Powder unknown) In Packet (unknown) (no (unknown) (unknown) prednisone 10 mg (units (unknown) date) tablet 10 mg PO unknown) DAILY #10 tabs 02/21/21 (unknown) (no (unknown) (unknown) prednisone 10 mg (units (unknown) date) tablet unknown) (unknown) (no (unknown) (unknown) release (units (unkno wn) date) unknown) (unknown) (no (unknown) (unknown) ropinirole 3 mg (units (unknown) date) Tablet unknown) (unknown) (no (unknown) (unknown) ropinirole 3 mg (units (unknown) date) tablet 3 mg PO unknown) BEDTIME RLS 02/17/21 02/19/21 Result panel 4 (unknown) (no (unknown) (unknown) (no value) (units (unk nown) date) unknown) (unknown) (no (unknown) (unknown) (4-6) #60 tabs (units (unknown) date) unknown) (unknown) (no (unknown) (unknown) (Neurontin) (units (un known) date) unknown) (unknown) (no (unknown) (unknown) (Plaquenil) (units (un known) date) unknown) (unknown) (no (unknown) (unknown) * please resume (units (unknown) date) precautions that unknown) were given in the postoperative phase which (unknown) (no (unknown) (unknown) *Please continue to (unit s (unknown) date) take your regular unknown) medications as directed. (unknown) (no (unknown) (unknown) *Please follow up (units (unknown) date) with your primary unknown) orthopedic provider in 2-3 days, call for an (unknown) (no (unknown) (unknown) *Return to (units (unk nown) date) Emergency Department unknown) if you should have any new, worsening or (unknown) (no (unknown) (unknown) *What to do: (units (u nknown) date) unknown) (unknown) (no (unknown) (unknown) *You have been (units (unknown) date) diagnosed with [left unknown) hip dislocation with successful reduction (unknown) (no (unknown) (unknown) 03/26/22 16:50 (units (unknown) date) unknown) (unknown) (no (unknown) (unknown) 03/26/22 18:30 (units (unknown) date) unknown) (unknown) (no (unknown) (unknown) 03/26/22 (units (unkno wn) date) unknown) (unknown) (no (unknown) (unknown) 1 - 5 mg PO DAILY (units (unknown) date) unknown) (unknown) (no (unknown) (unknown) 1 puff INHALATION (units (unknown) date) BID unknown) (unknown) (no (unknown) (unknown) 1-3 tablets p.o. (units (unknown) date) every 3 hours as unknown) needed for pain (unknown) (no (unknown) (unknown) 10 mg PO BID (units (u nknown) date) unknown) (unknown) (no (unknown) (unknown) 10 mg PO DAILY Qty: (unit s (unknown) date) 10 0RF unknown) (unknown) (no (unknown) (unknown) 10 mg PO TID PRN (units (unknown) date) (Reason: Muscle unknown) Spasm) Qty: 0 (unknown) (no (unknown) (unknown) 12 point review of (units (unknown) date) systems is negative unknown) except for those stated above (unknown) (no (unknown) (unknown) 16:48 (units (unkno wn) date) unknown) (unknown) (no (unknown) (unknown) 17 gm PO DAILY PRN (units (unknown) date) (Reason: unknown) Constipation) Qty: 10 0RF (unknown) (no (unknown) (unknown) 2 puff INHALATION (units (unknown) date) Q4-6H PRN (Reason: unknown) Shortness Of Breath) (unknown) (no (unknown) (unknown) 20 mg PO BID (units (u nknown) date) unknown) (unknown) (no (unknown) (unknown) 220 mg PO BID PRN (units (unknown) date) (Reason: Pain) unknown) (unknown) (no (unknown) (unknown) 3 mg PO BEDTIME (units (unknown) date) unknown) (unknown) (no (unknown) (unknown) 400 mg PO QDAY Qty: (unit s (unknown) date) 0 unknown) (unknown) (no (unknown) (unknown) 5 mg PO BID (units (un known) date) unknown) (unknown) (no (unknown) (unknown) 5 mg PO Q3HR PRN (units (unknown) date) (Reason: Pain, unknown) Moderate (4-6)) Qty: 60 0RF (unknown) (no (unknown) (unknown) 50 mg PO BEDTIME (units (unknown) date) unknown) (unknown) (no (unknown) (unknown) 50 mg PO BID (units (u nknown) date) unknown) (unknown) (no (unknown) (unknown) 600 mg PO SEEINSTR (units (unknown) date) Qty: 0 unknown) (unknown) (no (unknown) (unknown) 600mg qam, qnoon, (units (unknown) date) 900mg hs unknown) (unknown) (no (unknown) (unknown) 650 mg PO TID Qty: (units (unknown) date) 60 0RF unknown) (unknown) (no (unknown) (unknown) 66-year-old female (units (unknown) date) nonsmoker with unknown) history of left hip arthroplasty presents with (unknown) (no (unknown) (unknown) 81 mg PO BID Qty: (units (unknown) date) 60 0RF unknown) (unknown) (no (unknown) (unknown) Abrasion (02/16/21) (unit s (unknown) date) unknown) (unknown) (no (unknown) (unknown) Activity (units (unkno wn) date) Restrictions/Additio unknown) nal Instructions: (unknown) (no (unknown) (unknown) Age/Sex: 66 / F (units (unknown) date) unknown) (unknown) (no (unknown) (unknown) Alcohol type: wine (units (unknown) date) unknown) (unknown) (no (unknown) (unknown) Allergies (units (unkn own) date) unknown) (unknown) (no (unknown) (unknown) Allergy/AdvReac (units (unknown) date) Type Severity unknown) Reaction Status Date / Time (unknown) (no (unknown) (unknown) Anxiety (units (unkno wn) date) unknown) (unknown) (no (unknown) (unknown) Asthma (units (unkno wn) date) unknown) (unknown) (no (unknown) (unknown) BACK: Nontender (units (unknown) date) without deformity or unknown) crepitance. No flank tenderness. (unknown) (no (unknown) (unknown) Blood Pressure (units (unknown) date) 172/72 H 03/26/22 unknown) 16:48 (unknown) (no (unknown) (unknown) Blood Pressure (units (unknown) date) 172/72 H unknown) (unknown) (no (unknown) (unknown) CARDIOVASCULAR: (units (unknown) date) Denies chest pain, unknown) palpitations, orthopnea, edema, (unknown) (no (unknown) (unknown) CARDIOVASCULAR: (units (unknown) date) Regular rate and unknown) rhythm without murmurs, gallops, or rubs. (unknown) (no (unknown) (unknown) Cancer (units (unkno wn) date) unknown) (unknown) (no (unknown) (unknown) Chief Complaint: (units (unknown) date) Fall unknown) (unknown) (no (unknown) (unknown) Chronic pain (units (u nknown) date) disorder unknown) (unknown) (no (unknown) (unknown) Clinical (units (unkno wn) date) Impression: unknown) (unknown) (no (unknown) (unknown) Course (units (unkno wn) date) unknown) (unknown) (no (unknown) (unknown) : 1955 (units (unknown) date) Acct:[id number] unknown) (unknown) (no (unknown) (unknown) Date of Service: (units (unknown) date) 03/26/22 unknown) (unknown) (no (unknown) (unknown) Departure (units (unkn own) date) unknown) (unknown) (no (unknown) (unknown) Depression (units (unk nown) date) unknown) (unknown) (no (unknown) (unknown) Discharge Plan (units (unknown) date) unknown) (unknown) (no (unknown) (unknown) Discontinued (units (u nknown) date) Medications unknown) (unknown) (no (unknown) (unknown) ED Orders (units (unkn own) date) unknown) (unknown) (no (unknown) (unknown) ENT: Nose without (units (unknown) date) bleeding, purulent unknown) drainage. Throat without erythema, (unknown) (no (unknown) (unknown) ER Physician: (units ( unknown) date) Sami Mcmahan D.O. unknown) (unknown) (no (unknown) (unknown) EXTREMITIES: (units (u nknown) date) Shortening external unknown) rotation of left hip with tenderness to (unknown) (no (unknown) (unknown) EYES: Pupils equal (units (unknown) date) round and reactive. unknown) Extraocular motions intact. No scleral (unknown) (no (unknown) (unknown) Easy bruisability (units (unknown) date) unknown) (unknown) (no (unknown) (unknown) Elevated coronary (units (unknown) date) artery calcium score unknown) (unknown) (no (unknown) (unknown) Emergency Report (units (unknown) date) unknown) (unknown) (no (unknown) (unknown) Exam Narrative: (units (unknown) date) unknown) (unknown) (no (unknown) (unknown) Exam (units (unkno wn) date) unknown) (unknown) (no (unknown) (unknown) Family History (units (unknown) date) (Reviewed 03/26/22 @ unknown) 18:37 by Sami Mcmahan DO) (unknown) (no (unknown) (unknown) Father (units (unknown) date) Aneurysm unknown) (unknown) (no (unknown) (unknown) Fibromyalgia (units (u nknown) date) unknown) (unknown) (no (unknown) (unknown) GASTROINTESTINAL: (units (unknown) date) Abdomen soft, unknown) non-tender, nondistended. (unknown) (no (unknown) (unknown) GASTROINTESTINAL: (units (unknown) date) Denies nausea, unknown) vomiting, abdominal pain, diarrhea, (unknown) (no (unknown) (unknown) GENERAL: Denies (units (unknown) date) chills, fatigue, unknown) malaise, fever, sweats. (unknown) (no (unknown) (unknown) GENERAL: [66] year (units (unknown) date) old patient appears unknown) stated age. Well-developed patient, in (unknown) (no (unknown) (unknown) GERD (units (unkno wn) date) (gastroesophageal unknown) reflux disease) (unknown) (no (unknown) (unknown) : Denies dysuria, (unit s (unknown) date) frequency, unknown) incontinence, hematuria, urinary retention. (unknown) (no (unknown) (unknown) General (units (unkno wn) date) unknown) (unknown) (no (unknown) (unknown) H/O total hip (units ( unknown) date) arthroplasty unknown) (04/12/17) (unknown) (no (unknown) (unknown) HEAD: Atraumatic. (units (unknown) date) Normocephalic. unknown) (unknown) (no (unknown) (unknown) HEENT: Denies sinus (unit s (unknown) date) pain, ear pain, sore unknown) throat, difficulty swallowing, (unknown) (no (unknown) (unknown) HPI - Fall (units (unk nown) date) unknown) (unknown) (no (unknown) (unknown) HPI Narrative: (units (unknown) date) unknown) (unknown) (no (unknown) (unknown) HTN (hypertension) (units (unknown) date) unknown) (unknown) (no (unknown) (unknown) Hip dislocation, (units (unknown) date) left unknown) (unknown) (no (unknown) (unknown) History of Present (units (unknown) date) Illness unknown) (unknown) (no (unknown) (unknown) History of (units (unk nown) date) bunionectomy of left unknown) great toe (09/2015) (unknown) (no (unknown) (unknown) History of (units (unk nown) date) hysterectomy unknown) (unknown) (no (unknown) (unknown) History of lung (units (unknown) date) biopsy unknown) (unknown) (no (unknown) (unknown) Home Medications (units (unknown) date) unknown) (unknown) (no (unknown) (unknown) Hx of cardiac cath (units (unknown) date) unknown) (unknown) (no (unknown) (unknown) Hx of tonsillectomy (unit s (unknown) date) unknown) (unknown) (no (unknown) (unknown) Hyperlipidemia (units (unknown) date) unknown) (unknown) (no (unknown) (unknown) Hypertension (units (u nknown) date) unknown) (unknown) (no (unknown) (unknown) ILD (interstitial (units (unknown) date) lung disease) unknown) (unknown) (no (unknown) (unknown) Initial Vital Signs (unit s (unknown) date) unknown) (unknown) (no (unknown) (unknown) Initial Vital (units ( unknown) date) Signs: unknown) (unknown) (no (unknown) (unknown) Instructions: DI (units (unknown) date) for Hip Dislocation unknown) -- Adult (unknown) (no (unknown) (unknown) (units (unknown) date) [address] [place] [address] Street unknown) [place] [address] (unknown) (no (unknown) (unknown) [id number] (units (unk nown) date) unknown) (unknown) (no (unknown) (unknown) MUSCULOSKELETAL: (units (unknown) date) See HPI unknown) (unknown) (no (unknown) (unknown) Medical History (units (unknown) date) (Reviewed 03/26/22 @ unknown) 18:37 by Sami Mcmahan DO) (unknown) (no (unknown) (unknown) Medication (units (unk nown) date) Instructions unknown) Recorded Confirmed (unknown) (no (unknown) (unknown) Medication (units (unk nown) date) Instructions unknown) Recorded (unknown) (no (unknown) (unknown) Mother (units (unknown) date) COPD (chronic unknown) obstructive pulmonary disease) (unknown) (no (unknown) (unknown) NECK: Trachea (units ( unknown) date) midline. Non tender unknown) (unknown) (no (unknown) (unknown) NEURO: AOx3. (units (u nknown) date) unknown) (unknown) (no (unknown) (unknown) NEUROLOGIC: Denies (units (unknown) date) weakness, headache, unknown) numbness, change in speech, confusion, (unknown) (no (unknown) (unknown) Narrative (units (unkn own) date) unknown) (unknown) (no (unknown) (unknown) Narrative: (units (unk nown) date) unknown) (unknown) (no (unknown) (unknown) No Action (units (unkn own) date) unknown) (unknown) (no (unknown) (unknown) Ordered: (units (unkno wn) date) unknown) (unknown) (no (unknown) (unknown) Orders (units (unkno wn) date) unknown) (unknown) (no (unknown) (unknown) Osteoarthritis (units (unknown) date) unknown) (unknown) (no (unknown) (unknown) Oxygen Delivery (units (unknown) date) Method 03/26/22 unknown) 16:48 (unknown) (no (unknown) (unknown) Oxygen Delivery (units (unknown) date) Method Room Air unknown) (unknown) (no (unknown) (unknown) PSYCHIATRIC: No (units (unknown) date) concerning unknown) psychosocial issues. (unknown) (no (unknown) (unknown) Patient (units (unkno wn) date) Disposition: Home unknown) (unknown) (no (unknown) (unknown) Patient History (units (unknown) date) unknown) (unknown) (no (unknown) (unknown) Patient: (units (unkno wn) date) Gita Garcia unknown) MR#: (unknown) (no (unknown) (unknown) Prescriptions: (units (unknown) date) unknown) (unknown) (no (unknown) (unknown) Previous Rx's (units ( unknown) date) unknown) (unknown) (no (unknown) (unknown) Propofol (Propofol (units (unknown) date) 200 Mg/20 Ml Vial) unknown) 130 mg 2 mg/kg (130 mg) IV NOW ONE (unknown) (no (unknown) (unknown) Pulse Oximetry 97 (units (unknown) date) 03/26/22 16:48 unknown) (unknown) (no (unknown) (unknown) Pulse Oximetry 97 (units (unknown) date) unknown) (unknown) (no (unknown) (unknown) Pulse Rate 78 (units ( unknown) date) 03/26/22 16:48 unknown) (unknown) (no (unknown) (unknown) Pulse Rate 78 (units ( unknown) date) unknown) (unknown) (no (unknown) (unknown) RBBB (right bundle (units (unknown) date) branch block) unknown) (unknown) (no (unknown) (unknown) RESPIRATORY: Clear (units (unknown) date) to auscultation. unknown) Breath sounds equal bilaterally. No wheezes, (unknown) (no (unknown) (unknown) RESPIRATORY: Denies (unit s (unknown) date) dyspnea, cough, unknown) wheezing, hemoptysis, sputum. (unknown) (no (unknown) (unknown) Referrals: (units (unk nown) date) unknown) (unknown) (no (unknown) (unknown) Related Data (units (u nknown) date) unknown) (unknown) (no (unknown) (unknown) Respiratory Rate 16 (unit s (unknown) date) 03/26/22 16:48 unknown) (unknown) (no (unknown) (unknown) Respiratory Rate 16 (unit s (unknown) date) unknown) (unknown) (no (unknown) (unknown) Review of Systems (units (unknown) date) unknown) (unknown) (no (unknown) (unknown) Rx Instructions: (units (unknown) date) unknown) (unknown) (no (unknown) (unknown) SKIN: Denies rash, (units (unknown) date) skin lesions, or unknown) other (unknown) (no (unknown) (unknown) SKIN: No rash or (units (unknown) date) erythema of visible unknown) areas (unknown) (no (unknown) (unknown) Sarcoid neuropathy (units (unknown) date) unknown) (unknown) (no (unknown) (unknown) Sarcoidosis (units (un known) date) unknown) (unknown) (no (unknown) (unknown) Signed By: (units (unk nown) date) unknown) (unknown) (no (unknown) (unknown) Smoking Status: (units (unknown) date) Never smoker unknown) (unknown) (no (unknown) (unknown) Social History (units (unknown) date) (Reviewed 03/26/22 @ unknown) 18:37 by Sami Mcmahan DO) (unknown) (no (unknown) (unknown) Stated Complaint: (units (unknown) date) GLF Left hip unknown) (unknown) (no (unknown) (unknown) Stop: 03/26/22 (units (unknown) date) 18:12 unknown) (unknown) (no (unknown) (unknown) Substance Use Type: (unit s (unknown) date) does not use unknown) (unknown) (no (unknown) (unknown) Surgical History (units (unknown) date) (Reviewed 03/26/22 @ unknown) 18:37 by Sami Mcmahan DO) (unknown) (no (unknown) (unknown) Temperature 97.8 F (units (unknown) date) 03/26/22 16:48 unknown) (unknown) (no (unknown) (unknown) Temperature 97.8 F (units (unknown) date) unknown) (unknown) (no (unknown) (unknown) Time Seen by (units (u nknown) date) Provider: 03/26/22 unknown) 18:04 (unknown) (no (unknown) (unknown) Vital Signs - 8 hr (units (unknown) date) unknown) (unknown) (no (unknown) (unknown) Vital Signs (units (un known) date) unknown) (unknown) (no (unknown) (unknown) Vital signs: (units (u nknown) date) unknown) (unknown) (no (unknown) (unknown) XR hip LT 1V Stat (units (unknown) date) unknown) (unknown) (no (unknown) (unknown) XR hip w pel if (units (unknown) date) done LT 2V Stat unknown) (unknown) (no (unknown) (unknown) Ghazal Desir, (units (unknown) date) [facility] [Primary Care unknown) Provider] (unknown) (no (unknown) (unknown) [ ] New medication (units (unknown) date) prescriptions sent unknown) to your pharmacy: [ ] (unknown) (no (unknown) (unknown) [ ] New medication (units (unknown) date) written as a paper unknown) prescription (unknown) (no (unknown) (unknown) [ ] No new (units (unk nown) date) medications given unknown) (unknown) (no (unknown) (unknown) a chief complaint (units (unknown) date) of severe left hip unknown) pain after reaching and feeling a pop in (unknown) (no (unknown) (unknown) acetaminophen 325 (units (unknown) date) mg Tablet unknown) (unknown) (no (unknown) (unknown) acetaminophen 325 (units (unknown) date) mg tablet 650 mg PO unknown) TID #60 tabs 02/21/21 (unknown) (no (unknown) (unknown) adhesive AdvReac (units (unknown) date) Mild Rash Verified unknown) 02/19/21 06:49 (unknown) (no (unknown) (unknown) aerosol inhaler (units (unknown) date) Shortness Of Breath unknown) (unknown) (no (unknown) (unknown) aerosol inhaler (units (unknown) date) unknown) (unknown) (no (unknown) (unknown) albuterol sulfate 90 (unit s (unknown) date) mcg/actuation 2 puff unknown) inhalation Q4-6H PRN 02/17/21 02/19/21 (unknown) (no (unknown) (unknown) albuterol sulfate (units (unknown) date) 90 mcg/actuation Hfa unknown) Aerosol Inhaler (unknown) (no (unknown) (unknown) alcohol intake (units (unknown) date) frequency: 0-2 unknown) drinks per day (unknown) (no (unknown) (unknown) alcohol intake: (units (unknown) date) current (1 glass of unknown) wine Qnight) (unknown) (no (unknown) (unknown) amitriptyline 50 mg (unit s (unknown) date) Tablet unknown) (unknown) (no (unknown) (unknown) amitriptyline 50 mg (unit s (unknown) date) tablet 50 mg PO unknown) BEDTIME 02/17/21 02/19/21 (unknown) (no (unknown) (unknown) amlodipine 5 mg (units (unknown) date) Tablet unknown) (unknown) (no (unknown) (unknown) amlodipine 5 mg (units (unknown) date) tablet 5 mg PO BID unknown) 02/17/21 02/19/21 (unknown) (no (unknown) (unknown) appointment. Let (units (unknown) date) them know you were unknown) seen in the Emergency Department and that we (unknown) (no (unknown) (unknown) ask that you be (units (unknown) date) seen in follow up. unknown) We will electronically transmit a record of (unknown) (no (unknown) (unknown) aspirin 81 mg (units ( unknown) date) Tablet,Delayed unknown) Release (Dr/Ec) (unknown) (no (unknown) (unknown) aspirin 81 mg (units ( unknown) date) tablet,delayed 81 mg unknown) PO BID #60 tabs 02/21/21 (unknown) (no (unknown) (unknown) ciclesonide 80 (units (unknown) date) mcg/actuation 1 puff unknown) inhalation BID 02/17/21 02/19/21 (unknown) (no (unknown) (unknown) ciclesonide 80 (units (unknown) date) mcg/actuation Hfa unknown) Aerosol Inhaler (unknown) (no (unknown) (unknown) concerning (units (unk nown) date) symptoms, such as unknown) [fever greater than 101 F, shaking chills, (unknown) (no (unknown) (unknown) constipation, (units ( unknown) date) melena. unknown) (unknown) (no (unknown) (unknown) cyclobenzaprine 10 (units (unknown) date) MG tablet unknown) (unknown) (no (unknown) (unknown) cyclobenzaprine 10 (units (unknown) date) mg tablet 10 mg PO unknown) TID PRN Muscle Spasm ##0 03/22/17 02/19/21 (unknown) (no (unknown) (unknown) dislocations. She (units (unknown) date) is otherwise well unknown) and free of complaint (unknown) (no (unknown) (unknown) dizziness. (units (unk nown) date) unknown) (unknown) (no (unknown) (unknown) folic acid 1 mg (units (unknown) date) Tablet unknown) (unknown) (no (unknown) (unknown) folic acid 1 mg (units (unknown) date) tablet 1 - 5 mg PO unknown) DAILY Mouth sores 02/17/21 02/19/21 (unknown) (no (unknown) (unknown) gabapentin 600 mg (units (unknown) date) tablet 600 mg PO unknown) SEEINSTR ##0 03/22/17 02/19/21 (unknown) (no (unknown) (unknown) gabapentin (units (unk nown) date) [Neurontin] 600 MG unknown) tablet (unknown) (no (unknown) (unknown) her hip. She now (units (unknown) date) has significant pain unknown) and inability to ambulate due to this (unknown) (no (unknown) (unknown) household members: (units (unknown) date) children unknown) (unknown) (no (unknown) (unknown) hydroxychloroquine (units (unknown) date) 200 mg tablet 400 mg unknown) PO QDAY ##0 03/22/17 02/19/21 (unknown) (no (unknown) (unknown) hydroxychloroquine (units (unknown) date) [Plaquenil] 200 MG unknown) tablet (unknown) (no (unknown) (unknown) icterus. No (units (un known) date) injection or unknown) drainage. (unknown) (no (unknown) (unknown) includes being (units ( unknown) date) careful when your unknown) flexing at the hip, getting out of chairs etc.. (unknown) (no (unknown) (unknown) losartan 50 mg (units (unknown) date) Tablet unknown) (unknown) (no (unknown) (unknown) losartan 50 mg (units (unknown) date) tablet 50 mg PO BID unknown) 02/17/21 02/19/21 (unknown) (no (unknown) (unknown) mild distress. (units (unknown) date) unknown) (unknown) (no (unknown) (unknown) montelukast 10 mg (units (unknown) date) Tablet unknown) (unknown) (no (unknown) (unknown) montelukast 10 mg (units (unknown) date) tablet 10 mg PO BID unknown) 02/17/21 02/19/21 (unknown) (no (unknown) (unknown) naproxen sodium 220 (unit s (unknown) date) mg Tablet unknown) (unknown) (no (unknown) (unknown) naproxen sodium 220 (unit s (unknown) date) mg tablet 220 mg PO unknown) BID PRN Pain 02/17/21 02/19/21 (unknown) (no (unknown) (unknown) occupational (units (u nknown) date) status: other unknown) (Retired) (unknown) (no (unknown) (unknown) omeprazole 20 mg (units (unknown) date) Tablet,Delayed unknown) Release (Dr/Ec) (unknown) (no (unknown) (unknown) omeprazole 20 mg (units (unknown) date) tablet,delayed 20 mg unknown) PO BID 02/17/21 02/19/21 (unknown) (no (unknown) (unknown) oral powder packet (units (unknown) date) #10 ea unknown) (unknown) (no (unknown) (unknown) oxycodone 5 mg (units (unknown) date) Tablet unknown) (unknown) (no (unknown) (unknown) oxycodone 5 mg (units (unknown) date) tablet 5 mg PO Q3HR unknown) PRN Pain, Moderate 02/21/21 (unknown) (no (unknown) (unknown) pain. Denies any (units (unknown) date) numbness, tingling unknown) or weakness. She denies any prior (unknown) (no (unknown) (unknown) pain. She denies (units (unknown) date) any other injury or unknown) complaints. She has no head neck or back (unknown) (no (unknown) (unknown) palpation (units (unkn own) date) unknown) (unknown) (no (unknown) (unknown) polyethylene glycol (unit s (unknown) date) 3350 17 gram 17 gm unknown) PO DAILY PRN Constipation 02/21/21 (unknown) (no (unknown) (unknown) polyethylene glycol (unit s (unknown) date) 3350 17 gram Powder unknown) In Packet (unknown) (no (unknown) (unknown) prednisone 10 mg (units (unknown) date) tablet 10 mg PO unknown) DAILY #10 tabs 02/21/21 (unknown) (no (unknown) (unknown) prednisone 10 mg (units (unknown) date) tablet unknown) (unknown) (no (unknown) (unknown) rales, or rhonchi. (units (unknown) date) unknown) (unknown) (no (unknown) (unknown) release (units (unkno wn) date) unknown) (unknown) (no (unknown) (unknown) ropinirole 3 mg (units (unknown) date) Tablet unknown) (unknown) (no (unknown) (unknown) ropinirole 3 mg (units (unknown) date) tablet 3 mg PO unknown) BEDTIME RLS 02/17/21 02/19/21 (unknown) (no (unknown) (unknown) seizures, (units (unkn own) date) incoordination. unknown) (unknown) (no (unknown) (unknown) today's note if (units (unknown) date) your PCP is in our unknown) system (unknown) (no (unknown) (unknown) tonsillar (units (unkn own) date) hypertrophy or unknown) exudate. Airway patent. (unknown) (no (unknown) (unknown) worsening pain, (units (unknown) date) persistent vomiting unknown) or other bothersome symptoms] Result panel 5 (unknown) (no (unknown) (unknown) (no value) (units (unk nown) date) unknown) (unknown) (no (unknown) (unknown) (4-6) #60 tabs (units (unknown) date) unknown) (unknown) (no (unknown) (unknown) (Neurontin) (units (un known) date) unknown) (unknown) (no (unknown) (unknown) (Plaquenil) (units (un known) date) unknown) (unknown) (no (unknown) (unknown) * please resume (units (unknown) date) precautions that unknown) were given in the postoperative phase which (unknown) (no (unknown) (unknown) *Please continue to (unit s (unknown) date) take your regular unknown) medications as directed. (unknown) (no (unknown) (unknown) *Please follow up (units (unknown) date) with your primary unknown) orthopedic provider in 2-3 days, call for an (unknown) (no (unknown) (unknown) *Return to (units (unk nown) date) Emergency Department unknown) if you should have any new, worsening or (unknown) (no (unknown) (unknown) *What to do: (units (u nknown) date) unknown) (unknown) (no (unknown) (unknown) *You have been (units (unknown) date) diagnosed with [left unknown) hip dislocation with successful reduction (unknown) (no (unknown) (unknown) 03/26/22 (units (unkno wn) date) unknown) (unknown) (no (unknown) (unknown) 1 - 5 mg PO DAILY (units (unknown) date) unknown) (unknown) (no (unknown) (unknown) 1 puff INHALATION (units (unknown) date) BID unknown) (unknown) (no (unknown) (unknown) 1-3 tablets p.o. (units (unknown) date) every 3 hours as unknown) needed for pain (unknown) (no (unknown) (unknown) 10 mg PO BID (units (u nknown) date) unknown) (unknown) (no (unknown) (unknown) 10 mg PO DAILY Qty: (unit s (unknown) date) 10 0RF unknown) (unknown) (no (unknown) (unknown) 10 mg PO TID PRN (units (unknown) date) (Reason: Muscle unknown) Spasm) Qty: 0 (unknown) (no (unknown) (unknown) 12 point review of (units (unknown) date) systems is negative unknown) except for those stated above (unknown) (no (unknown) (unknown) 16:48 (units (unkno wn) date) unknown) (unknown) (no (unknown) (unknown) 17 gm PO DAILY PRN (units (unknown) date) (Reason: unknown) Constipation) Qty: 10 0RF (unknown) (no (unknown) (unknown) 2 puff INHALATION (units (unknown) date) Q4-6H PRN (Reason: unknown) Shortness Of Breath) (unknown) (no (unknown) (unknown) 20 mg PO BID (units (u nknown) date) unknown) (unknown) (no (unknown) (unknown) 220 mg PO BID PRN (units (unknown) date) (Reason: Pain) unknown) (unknown) (no (unknown) (unknown) 3 mg PO BEDTIME (units (unknown) date) unknown) (unknown) (no (unknown) (unknown) 400 mg PO QDAY Qty: (unit s (unknown) date) 0 unknown) (unknown) (no (unknown) (unknown) 5 mg PO BID (units (un known) date) unknown) (unknown) (no (unknown) (unknown) 5 mg PO Q3HR PRN (units (unknown) date) (Reason: Pain, unknown) Moderate (4-6)) Qty: 60 0RF (unknown) (no (unknown) (unknown) 50 mg PO BEDTIME (units (unknown) date) unknown) (unknown) (no (unknown) (unknown) 50 mg PO BID (units (u nknown) date) unknown) (unknown) (no (unknown) (unknown) 600 mg PO SEEINSTR (units (unknown) date) Qty: 0 unknown) (unknown) (no (unknown) (unknown) 600mg qam, qnoon, (units (unknown) date) 900mg hs unknown) (unknown) (no (unknown) (unknown) 650 mg PO TID Qty: (units (unknown) date) 60 0RF unknown) (unknown) (no (unknown) (unknown) 66-year-old female (units (unknown) date) nonsmoker with unknown) history of left hip arthroplasty presents with (unknown) (no (unknown) (unknown) 81 mg PO BID Qty: (units (unknown) date) 60 0RF unknown) (unknown) (no (unknown) (unknown) Abrasion (02/16/21) (unit s (unknown) date) unknown) (unknown) (no (unknown) (unknown) Activity (units (unkno wn) date) Restrictions/Additio unknown) nal Instructions: (unknown) (no (unknown) (unknown) Age/Sex: 66 / F (units (unknown) date) unknown) (unknown) (no (unknown) (unknown) Alcohol type: wine (units (unknown) date) unknown) (unknown) (no (unknown) (unknown) Allergies (units (unkn own) date) unknown) (unknown) (no (unknown) (unknown) Allergy/AdvReac (units (unknown) date) Type Severity unknown) Reaction Status Date / Time (unknown) (no (unknown) (unknown) Anxiety (units (unkno wn) date) unknown) (unknown) (no (unknown) (unknown) Asthma (units (unkno wn) date) unknown) (unknown) (no (unknown) (unknown) BACK: Nontender (units (unknown) date) without deformity or unknown) crepitance. No flank tenderness. (unknown) (no (unknown) (unknown) Blood Pressure (units (unknown) date) 172/72 H unknown) (unknown) (no (unknown) (unknown) CARDIOVASCULAR: (units (unknown) date) Denies chest pain, unknown) palpitations, orthopnea, edema, (unknown) (no (unknown) (unknown) CARDIOVASCULAR: (units (unknown) date) Regular rate and unknown) rhythm without murmurs, gallops, or rubs. (unknown) (no (unknown) (unknown) Cancer (units (unkno wn) date) unknown) (unknown) (no (unknown) (unknown) Chief Complaint: (units (unknown) date) Fall unknown) (unknown) (no (unknown) (unknown) Chronic pain (units (u nknown) date) disorder unknown) (unknown) (no (unknown) (unknown) Clinical (units (unkno wn) date) Impression: unknown) (unknown) (no (unknown) (unknown) Course (units (unkno wn) date) unknown) (unknown) (no (unknown) (unknown) : 1955 (units (unknown) date) Acct:[id number] unknown) (unknown) (no (unknown) (unknown) Date of Service: (units (unknown) date) 03/26/22 unknown) (unknown) (no (unknown) (unknown) Departure (units (unkn own) date) unknown) (unknown) (no (unknown) (unknown) Depression (units (unk nown) date) unknown) (unknown) (no (unknown) (unknown) Discharge Plan (units (unknown) date) unknown) (unknown) (no (unknown) (unknown) Discontinued (units (u nknown) date) Medications unknown) (unknown) (no (unknown) (unknown) Documented By: CTS (units (unknown) date) unknown) (unknown) (no (unknown) (unknown) ENT: Nose without (units (unknown) date) bleeding, purulent unknown) drainage. Throat without erythema, (unknown) (no (unknown) (unknown) ER Physician: (units ( unknown) date) Sami Mcmahan D.O. unknown) (unknown) (no (unknown) (unknown) EXTREMITIES: (units (u nknown) date) Shortening external unknown) rotation of left hip with tenderness to (unknown) (no (unknown) (unknown) EYES: Pupils equal (units (unknown) date) round and reactive. unknown) Extraocular motions intact. No scleral (unknown) (no (unknown) (unknown) Easy bruisability (units (unknown) date) unknown) (unknown) (no (unknown) (unknown) Elevated coronary (units (unknown) date) artery calcium score unknown) (unknown) (no (unknown) (unknown) Emergency Report (units (unknown) date) unknown) (unknown) (no (unknown) (unknown) Exam Narrative: (units (unknown) date) unknown) (unknown) (no (unknown) (unknown) Exam (units (unkno wn) date) unknown) (unknown) (no (unknown) (unknown) Family History (units (unknown) date) (Reviewed 03/26/22 @ unknown) 18:37 by Sami Mcmahan DO) (unknown) (no (unknown) (unknown) Father (units (unknown) date) Aneurysm unknown) (unknown) (no (unknown) (unknown) Fibromyalgia (units (u nknown) date) unknown) (unknown) (no (unknown) (unknown) GASTROINTESTINAL: (units (unknown) date) Abdomen soft, unknown) non-tender, nondistended. (unknown) (no (unknown) (unknown) GASTROINTESTINAL: (units (unknown) date) Denies nausea, unknown) vomiting, abdominal pain, diarrhea, (unknown) (no (unknown) (unknown) GENERAL: Denies (units (unknown) date) chills, fatigue, unknown) malaise, fever, sweats. (unknown) (no (unknown) (unknown) GENERAL: [66] year (units (unknown) date) old patient appears unknown) stated age. Well-developed patient, in (unknown) (no (unknown) (unknown) GERD (units (unkno wn) date) (gastroesophageal unknown) reflux disease) (unknown) (no (unknown) (unknown) : Denies dysuria, (unit s (unknown) date) frequency, unknown) incontinence, hematuria, urinary retention. (unknown) (no (unknown) (unknown) General (units (unkno wn) date) unknown) (unknown) (no (unknown) (unknown) H/O total hip (units ( unknown) date) arthroplasty unknown) (04/12/17) (unknown) (no (unknown) (unknown) HEAD: Atraumatic. (units (unknown) date) Normocephalic. unknown) (unknown) (no (unknown) (unknown) HEENT: Denies sinus (unit s (unknown) date) pain, ear pain, sore unknown) throat, difficulty swallowing, (unknown) (no (unknown) (unknown) HPI - Fall (units (unk nown) date) unknown) (unknown) (no (unknown) (unknown) HPI Narrative: (units (unknown) date) unknown) (unknown) (no (unknown) (unknown) HTN (hypertension) (units (unknown) date) unknown) (unknown) (no (unknown) (unknown) Hip dislocation, (units (unknown) date) left unknown) (unknown) (no (unknown) (unknown) History of Present (units (unknown) date) Illness unknown) (unknown) (no (unknown) (unknown) History of (units (unk nown) date) bunionectomy of left unknown) great toe (09/2015) (unknown) (no (unknown) (unknown) History of (units (unk nown) date) hysterectomy unknown) (unknown) (no (unknown) (unknown) History of lung (units (unknown) date) biopsy unknown) (unknown) (no (unknown) (unknown) Home Medications (units (unknown) date) unknown) (unknown) (no (unknown) (unknown) Hx of cardiac cath (units (unknown) date) unknown) (unknown) (no (unknown) (unknown) Hx of tonsillectomy (unit s (unknown) date) unknown) (unknown) (no (unknown) (unknown) Hyperlipidemia (units (unknown) date) unknown) (unknown) (no (unknown) (unknown) Hypertension (units (u nknown) date) unknown) (unknown) (no (unknown) (unknown) ILD (interstitial (units (unknown) date) lung disease) unknown) (unknown) (no (unknown) (unknown) Initial Vital Signs (unit s (unknown) date) unknown) (unknown) (no (unknown) (unknown) Initial Vital (units ( unknown) date) Signs: unknown) (unknown) (no (unknown) (unknown) Instructions: DI (units (unknown) date) for Hip Dislocation unknown) -- Adult (unknown) (no (unknown) (unknown) (units (unknown) date) [address] unknown) [place] [address] (unknown) (no (unknown) (unknown) Lab Data (units (unkno wn) date) unknown) (unknown) (no (unknown) (unknown) Labs: (units (unkno wn) date) unknown) (unknown) (no (unknown) (unknown) Last Admin: (units (un known) date) 03/26/22 18:23 Dose: unknown) 140 mg (unknown) (no (unknown) (unknown) Last Admin: (units (un known) date) 03/26/22 18:49 Dose: unknown) Not Given (unknown) (no (unknown) (unknown) [id number] (units (unk nown) date) unknown) (unknown) (no (unknown) (unknown) MDM - Fall (units (unk nown) date) unknown) (unknown) (no (unknown) (unknown) MUSCULOSKELETAL: (units (unknown) date) See HPI unknown) (unknown) (no (unknown) (unknown) Medical History (units (unknown) date) (Reviewed 03/26/22 @ unknown) 18:37 by Sami Mcmahan DO) (unknown) (no (unknown) (unknown) Medication (units (unk nown) date) Instructions unknown) Recorded Confirmed (unknown) (no (unknown) (unknown) Medication (units (unk nown) date) Instructions unknown) Recorded (unknown) (no (unknown) (unknown) Mother (units (unknown) date) COPD (chronic unknown) obstructive pulmonary disease) (unknown) (no (unknown) (unknown) NECK: Trachea (units ( unknown) date) midline. Non tender unknown) (unknown) (no (unknown) (unknown) NEURO: AOx3. (units (u nknown) date) unknown) (unknown) (no (unknown) (unknown) NEUROLOGIC: Denies (units (unknown) date) weakness, headache, unknown) numbness, change in speech, confusion, (unknown) (no (unknown) (unknown) Narrative (units (unkn own) date) unknown) (unknown) (no (unknown) (unknown) Narrative: (units (unk nown) date) unknown) (unknown) (no (unknown) (unknown) No Action (units (unkn own) date) unknown) (unknown) (no (unknown) (unknown) Ordered: (units (unkno wn) date) unknown) (unknown) (no (unknown) (unknown) Orders (units (unkno wn) date) unknown) (unknown) (no (unknown) (unknown) Osteoarthritis (units (unknown) date) unknown) (unknown) (no (unknown) (unknown) Oxygen Delivery (units (unknown) date) Method Room Air unknown) (unknown) (no (unknown) (unknown) PSYCHIATRIC: No (units (unknown) date) concerning unknown) psychosocial issues. (unknown) (no (unknown) (unknown) Patient (units (unkno wn) date) Disposition: Home unknown) (unknown) (no (unknown) (unknown) Patient History (units (unknown) date) unknown) (unknown) (no (unknown) (unknown) Patient: (units (unkno wn) date) Gita Garcia A unknown) MR#: (unknown) (no (unknown) (unknown) Point of Care (units ( unknown) date) Testing unknown) (unknown) (no (unknown) (unknown) Test (units (unknown) date) Results Negative unknown) (unknown) (no (unknown) (unknown) Prescriptions: (units (unknown) date) unknown) (unknown) (no (unknown) (unknown) Previous Rx's (units ( unknown) date) unknown) (unknown) (no (unknown) (unknown) Propofol (Propofol (units (unknown) date) 200 Mg/20 Ml Vial) unknown) 130 mg 2 mg/kg (130 mg) IV NOW ONE (unknown) (no (unknown) (unknown) Propofol (Propofol (units (unknown) date) 200 Mg/20 Ml Vial) unknown) 140 mg IV NOW ONE (unknown) (no (unknown) (unknown) Pulse Oximetry 95 (units (unknown) date) 03/26/22 16:47 unknown) (unknown) (no (unknown) (unknown) Pulse Oximetry 97 (units (unknown) date) unknown) (unknown) (no (unknown) (unknown) Pulse Rate 78 (units ( unknown) date) unknown) (unknown) (no (unknown) (unknown) RBBB (right bundle (units (unknown) date) branch block) unknown) (unknown) (no (unknown) (unknown) RESPIRATORY: Clear (units (unknown) date) to auscultation. unknown) Breath sounds equal bilaterally. No wheezes, (unknown) (no (unknown) (unknown) RESPIRATORY: Denies (unit s (unknown) date) dyspnea, cough, unknown) wheezing, hemoptysis, sputum. (unknown) (no (unknown) (unknown) Referrals: (units (unk nown) date) unknown) (unknown) (no (unknown) (unknown) Related Data (units (u nknown) date) unknown) (unknown) (no (unknown) (unknown) Respiratory Rate 16 (unit s (unknown) date) unknown) (unknown) (no (unknown) (unknown) Review of Systems (units (unknown) date) unknown) (unknown) (no (unknown) (unknown) Rx Instructions: (units (unknown) date) unknown) (unknown) (no (unknown) (unknown) SKIN: Denies rash, (units (unknown) date) skin lesions, or unknown) other (unknown) (no (unknown) (unknown) SKIN: No rash or (units (unknown) date) erythema of visible unknown) areas (unknown) (no (unknown) (unknown) Sarcoid neuropathy (units (unknown) date) unknown) (unknown) (no (unknown) (unknown) Sarcoidosis (units (un known) date) unknown) (unknown) (no (unknown) (unknown) Signed By: (units (unk nown) date) unknown) (unknown) (no (unknown) (unknown) Smoking Status: (units (unknown) date) Never smoker unknown) (unknown) (no (unknown) (unknown) Social History (units (unknown) date) (Reviewed 03/26/22 @ unknown) 18:37 by Sami Mcmahan DO) (unknown) (no (unknown) (unknown) Stated Complaint: (units (unknown) date) GLF Left hip unknown) (unknown) (no (unknown) (unknown) Stop: 03/26/22 (units (unknown) date) 18:12 unknown) (unknown) (no (unknown) (unknown) Stop: 03/26/22 (units (unknown) date) 18:49 unknown) (unknown) (no (unknown) (unknown) Substance Use Type: (unit s (unknown) date) does not use unknown) (unknown) (no (unknown) (unknown) Surgical History (units (unknown) date) (Reviewed 03/26/22 @ unknown) 18:37 by Sami Mcmahan DO) (unknown) (no (unknown) (unknown) Temperature 97.8 F (units (unknown) date) unknown) (unknown) (no (unknown) (unknown) Time Seen by (units (u nknown) date) Provider: 03/26/22 unknown) 18:04 (unknown) (no (unknown) (unknown) Visit Report Forms: (unit s (unknown) date) Patient Portal/API unknown) (unknown) (no (unknown) (unknown) Vital Signs - 8 hr (units (unknown) date) unknown) (unknown) (no (unknown) (unknown) Vital Signs (units (un known) date) unknown) (unknown) (no (unknown) (unknown) Vital signs: (units (u nknown) date) unknown) (unknown) (no (unknown) (unknown) Ghazal Desir, (units (unknown) date) TYLER [Primary Care unknown) Provider] (unknown) (no (unknown) (unknown) [ ] New medication (units (unknown) date) prescriptions sent unknown) to your pharmacy: [ ] (unknown) (no (unknown) (unknown) [ ] New medication (units (unknown) date) written as a paper unknown) prescription (unknown) (no (unknown) (unknown) [x ] No new (units (un known) date) medications given unknown) (unknown) (no (unknown) (unknown) a chief complaint (units (unknown) date) of severe left hip unknown) pain after reaching and feeling a pop in (unknown) (no (unknown) (unknown) acetaminophen 325 (units (unknown) date) mg Tablet unknown) (unknown) (no (unknown) (unknown) acetaminophen 325 (units (unknown) date) mg tablet 650 mg PO unknown) TID #60 tabs 02/21/21 (unknown) (no (unknown) (unknown) adhesive AdvReac (units (unknown) date) Mild Rash Verified unknown) 02/19/21 06:49 (unknown) (no (unknown) (unknown) aerosol inhaler (units (unknown) date) Shortness Of Breath unknown) (unknown) (no (unknown) (unknown) aerosol inhaler (units (unknown) date) unknown) (unknown) (no (unknown) (unknown) albuterol sulfate 90 (unit s (unknown) date) mcg/actuation 2 puff unknown) inhalation Q4-6H PRN 02/17/21 02/19/21 (unknown) (no (unknown) (unknown) albuterol sulfate (units (unknown) date) 90 mcg/actuation Hfa unknown) Aerosol Inhaler (unknown) (no (unknown) (unknown) alcohol intake (units (unknown) date) frequency: 0-2 unknown) drinks per day (unknown) (no (unknown) (unknown) alcohol intake: (units (unknown) date) current (1 glass of unknown) wine Qnight) (unknown) (no (unknown) (unknown) amitriptyline 50 mg (unit s (unknown) date) Tablet unknown) (unknown) (no (unknown) (unknown) amitriptyline 50 mg (unit s (unknown) date) tablet 50 mg PO unknown) BEDTIME 02/17/21 02/19/21 (unknown) (no (unknown) (unknown) amlodipine 5 mg (units (unknown) date) Tablet unknown) (unknown) (no (unknown) (unknown) amlodipine 5 mg (units (unknown) date) tablet 5 mg PO BID unknown) 02/17/21 02/19/21 (unknown) (no (unknown) (unknown) appointment. Let (units (unknown) date) them know you were unknown) seen in the Emergency Department and that we (unknown) (no (unknown) (unknown) ask that you be (units (unknown) date) seen in follow up. unknown) We will electronically transmit a record of (unknown) (no (unknown) (unknown) aspirin 81 mg (units ( unknown) date) Tablet,Delayed unknown) Release (Dr/Ec) (unknown) (no (unknown) (unknown) aspirin 81 mg (units ( unknown) date) tablet,delayed 81 mg unknown) PO BID #60 tabs 02/21/21 (unknown) (no (unknown) (unknown) ciclesonide 80 (units (unknown) date) mcg/actuation 1 puff unknown) inhalation BID 02/17/21 02/19/21 (unknown) (no (unknown) (unknown) ciclesonide 80 (units (unknown) date) mcg/actuation Hfa unknown) Aerosol Inhaler (unknown) (no (unknown) (unknown) concerning (units (unk nown) date) symptoms, such as unknown) [fever greater than 101 F, shaking chills, (unknown) (no (unknown) (unknown) constipation, (units ( unknown) date) melena. unknown) (unknown) (no (unknown) (unknown) cyclobenzaprine 10 (units (unknown) date) MG tablet unknown) (unknown) (no (unknown) (unknown) cyclobenzaprine 10 (units (unknown) date) mg tablet 10 mg PO unknown) TID PRN Muscle Spasm ##0 03/22/17 02/19/21 (unknown) (no (unknown) (unknown) dislocations. She (units (unknown) date) is otherwise well unknown) and free of complaint (unknown) (no (unknown) (unknown) dizziness. (units (unk nown) date) unknown) (unknown) (no (unknown) (unknown) folic acid 1 mg (units (unknown) date) Tablet unknown) (unknown) (no (unknown) (unknown) folic acid 1 mg (units (unknown) date) tablet 1 - 5 mg PO unknown) DAILY Mouth sores 02/17/21 02/19/21 (unknown) (no (unknown) (unknown) gabapentin 600 mg (units (unknown) date) tablet 600 mg PO unknown) SEEINSTR ##0 03/22/17 02/19/21 (unknown) (no (unknown) (unknown) gabapentin (units (unk nown) date) [Neurontin] 600 MG unknown) tablet (unknown) (no (unknown) (unknown) her hip. She now (units (unknown) date) has significant pain unknown) and inability to ambulate due to this (unknown) (no (unknown) (unknown) household members: (units (unknown) date) children unknown) (unknown) (no (unknown) (unknown) hydroxychloroquine (units (unknown) date) 200 mg tablet 400 mg unknown) PO QDAY ##0 03/22/17 02/19/21 (unknown) (no (unknown) (unknown) hydroxychloroquine (units (unknown) date) [Plaquenil] 200 MG unknown) tablet (unknown) (no (unknown) (unknown) icterus. No (units (un known) date) injection or unknown) drainage. (unknown) (no (unknown) (unknown) includes being (units ( unknown) date) careful when your unknown) flexing at the hip, getting out of chairs etc.. (unknown) (no (unknown) (unknown) losartan 50 mg (units (unknown) date) Tablet unknown) (unknown) (no (unknown) (unknown) losartan 50 mg (units (unknown) date) tablet 50 mg PO BID unknown) 02/17/21 02/19/21 (unknown) (no (unknown) (unknown) mild distress. (units (unknown) date) unknown) (unknown) (no (unknown) (unknown) montelukast 10 mg (units (unknown) date) Tablet unknown) (unknown) (no (unknown) (unknown) montelukast 10 mg (units (unknown) date) tablet 10 mg PO BID unknown) 02/17/21 02/19/21 (unknown) (no (unknown) (unknown) naproxen sodium 220 (unit s (unknown) date) mg Tablet unknown) (unknown) (no (unknown) (unknown) naproxen sodium 220 (unit s (unknown) date) mg tablet 220 mg PO unknown) BID PRN Pain 02/17/21 02/19/21 (unknown) (no (unknown) (unknown) occupational (units (u nknown) date) status: other unknown) (Retired) (unknown) (no (unknown) (unknown) omeprazole 20 mg (units (unknown) date) Tablet,Delayed unknown) Release (Dr/Ec) (unknown) (no (unknown) (unknown) omeprazole 20 mg (units (unknown) date) tablet,delayed 20 mg unknown) PO BID 02/17/21 02/19/21 (unknown) (no (unknown) (unknown) oral powder packet (units (unknown) date) #10 ea unknown) (unknown) (no (unknown) (unknown) oxycodone 5 mg (units (unknown) date) Tablet unknown) (unknown) (no (unknown) (unknown) oxycodone 5 mg (units (unknown) date) tablet 5 mg PO Q3HR unknown) PRN Pain, Moderate 02/21/21 (unknown) (no (unknown) (unknown) pain. Denies any (units (unknown) date) numbness, tingling unknown) or weakness. She denies any prior (unknown) (no (unknown) (unknown) pain. She denies (units (unknown) date) any other injury or unknown) complaints. She has no head neck or back (unknown) (no (unknown) (unknown) palpation (units (unkn own) date) unknown) (unknown) (no (unknown) (unknown) polyethylene glycol (unit s (unknown) date) 3350 17 gram 17 gm unknown) PO DAILY PRN Constipation 02/21/21 (unknown) (no (unknown) (unknown) polyethylene glycol (unit s (unknown) date) 3350 17 gram Powder unknown) In Packet (unknown) (no (unknown) (unknown) prednisone 10 mg (units (unknown) date) tablet 10 mg PO unknown) DAILY #10 tabs 02/21/21 (unknown) (no (unknown) (unknown) prednisone 10 mg (units (unknown) date) tablet unknown) (unknown) (no (unknown) (unknown) rales, or rhonchi. (units (unknown) date) unknown) (unknown) (no (unknown) (unknown) release (units (unkno wn) date) unknown) (unknown) (no (unknown) (unknown) ropinirole 3 mg (units (unknown) date) Tablet unknown) (unknown) (no (unknown) (unknown) ropinirole 3 mg (units (unknown) date) tablet 3 mg PO unknown) BEDTIME RLS 02/17/21 02/19/21 (unknown) (no (unknown) (unknown) seizures, (units (unkn own) date) incoordination. unknown) (unknown) (no (unknown) (unknown) today's note if (units (unknown) date) your PCP is in our unknown) system (unknown) (no (unknown) (unknown) tonsillar (units (unkn own) date) hypertrophy or unknown) exudate. Airway patent. (unknown) (no (unknown) (unknown) worsening pain, (units (unknown) date) persistent vomiting unknown) or other bothersome symptoms] Result panel 6 (unknown) (no (unknown) (unknown) (no value) (units (unk nown) date) unknown) (unknown) (no (unknown) (unknown) <Electronically (units (unknown) date) signed by Sami unknown) Maribeth Mcmahan> (unknown) (no (unknown) (unknown) (4-6) #60 tabs (units (unknown) date) unknown) (unknown) (no (unknown) (unknown) (Neurontin) (units (un known) date) unknown) (unknown) (no (unknown) (unknown) (Plaquenil) (units (un known) date) unknown) (unknown) (no (unknown) (unknown) * please resume (units (unknown) date) precautions that unknown) were given in the postoperative phase which (unknown) (no (unknown) (unknown) *Please continue to (unit s (unknown) date) take your regular unknown) medications as directed. (unknown) (no (unknown) (unknown) *Please follow up (units (unknown) date) with your primary unknown) orthopedic provider in 2-3 days, call for an (unknown) (no (unknown) (unknown) *Return to (units (unk nown) date) Emergency Department unknown) if you should have any new, worsening or (unknown) (no (unknown) (unknown) *What to do: (units (u nknown) date) unknown) (unknown) (no (unknown) (unknown) *You have been (units (unknown) date) diagnosed with [left unknown) hip dislocation with successful reduction (unknown) (no (unknown) (unknown) 10/25/20 (units (unkno wn) date) unknown) (unknown) (no (unknown) (unknown) 01/05/21 (units (unkno wn) date) unknown) (unknown) (no (unknown) (unknown) 02/19/21 (units (unkno wn) date) unknown) (unknown) (no (unknown) (unknown) 03/07/17 (units (unkno wn) date) unknown) (unknown) (no (unknown) (unknown) 03/20/21 (units (unkno wn) date) unknown) (unknown) (no (unknown) (unknown) 03/26/22 (units (unkno wn) date) unknown) (unknown) (no (unknown) (unknown) 03/27/22 0546 (units ( unknown) date) unknown) (unknown) (no (unknown) (unknown) 1 - 5 mg PO DAILY (units (unknown) date) unknown) (unknown) (no (unknown) (unknown) 1 puff INHALATION (units (unknown) date) BID unknown) (unknown) (no (unknown) (unknown) 1-3 tablets p.o. (units (unknown) date) every 3 hours as unknown) needed for pain (unknown) (no (unknown) (unknown) 10 mg PO BID (units (u nknown) date) unknown) (unknown) (no (unknown) (unknown) 10 mg PO DAILY Qty: (unit s (unknown) date) 10 0RF unknown) (unknown) (no (unknown) (unknown) 10 mg PO TID PRN (units (unknown) date) (Reason: Muscle unknown) Spasm) Qty: 0 (unknown) (no (unknown) (unknown) 06/04/19 (units (unkno wn) date) unknown) (unknown) (no (unknown) (unknown) 12 point review of (units (unknown) date) systems is negative unknown) except for those stated above (unknown) (no (unknown) (unknown) 07/24/19 (units (unkno wn) date) unknown) (unknown) (no (unknown) (unknown) [address] [place] [address] (units (unknown) date) unknown) (unknown) (no (unknown) (unknown) 16:48 (units (unkno wn) date) unknown) (unknown) (no (unknown) (unknown) 17 gm PO DAILY PRN (units (unknown) date) (Reason: unknown) Constipation) Qty: 10 0RF (unknown) (no (unknown) (unknown) 2 puff INHALATION (units (unknown) date) Q4-6H PRN (Reason: unknown) Shortness Of Breath) (unknown) (no (unknown) (unknown) 20 mg PO BID (units (u nknown) date) unknown) (unknown) (no (unknown) (unknown) 220 mg PO BID PRN (units (unknown) date) (Reason: Pain) unknown) (unknown) (no (unknown) (unknown) 3 mg PO BEDTIME (units (unknown) date) unknown) (unknown) (no (unknown) (unknown) 400 mg PO QDAY Qty: (unit s (unknown) date) 0 unknown) (unknown) (no (unknown) (unknown) 5 mg PO BID (units (un known) date) unknown) (unknown) (no (unknown) (unknown) 5 mg PO Q3HR PRN (units (unknown) date) (Reason: Pain, unknown) Moderate (4-6)) Qty: 60 0RF (unknown) (no (unknown) (unknown) 50 mg PO BEDTIME (units (unknown) date) unknown) (unknown) (no (unknown) (unknown) 50 mg PO BID (units (u nknown) date) unknown) (unknown) (no (unknown) (unknown) 600 mg PO SEEINSTR (units (unknown) date) Qty: 0 unknown) (unknown) (no (unknown) (unknown) 600mg qam, qnoon, (units (unknown) date) 900mg hs unknown) (unknown) (no (unknown) (unknown) 650 mg PO TID Qty: (units (unknown) date) 60 0RF unknown) (unknown) (no (unknown) (unknown) 66-year-old female (units (unknown) date) nonsmoker with unknown) history of left hip arthroplasty presents with (unknown) (no (unknown) (unknown) 81 mg PO BID Qty: (units (unknown) date) 60 0RF unknown) (unknown) (no (unknown) (unknown) ? (units (unkno wn) date) unknown) (unknown) (no (unknown) (unknown) ? (units (unkno wn) date) unknown) (unknown) (no (unknown) (unknown) ASA Class: II (units ( unknown) date) unknown) (unknown) (no (unknown) (unknown) Abrasion (02/16/21) (unit s (unknown) date) unknown) (unknown) (no (unknown) (unknown) Accession Number: (units (unknown) date) [id number] ?? unknown) (unknown) (no (unknown) (unknown) Accession Number: (units (unknown) date) [id number] ?? unknown) (unknown) (no (unknown) (unknown) Acct:[id number] (units (unknown) date) unknown) (unknown) (no (unknown) (unknown) Activity (units (unkno wn) date) Restrictions/Additio unknown) nal Instructions: (unknown) (no (unknown) (unknown) Age/Sex: 66 / F (units (unknown) date) unknown) (unknown) (no (unknown) (unknown) Alcohol type: wine (units (unknown) date) unknown) (unknown) (no (unknown) (unknown) Allergies (units (unkn own) date) unknown) (unknown) (no (unknown) (unknown) Allergy/Adv: (units (u nknown) date) adhesive unknown) (unknown) (no (unknown) (unknown) Allergy/AdvReac (units (unknown) date) Type Severity unknown) Reaction Status Date / Time (unknown) (no (unknown) (unknown) [place] [address] (unit s (unknown) date) unknown) (unknown) (no (unknown) (unknown) Anxiety (units (unkno wn) date) unknown) (unknown) (no (unknown) (unknown) Approved by: Ramy (unit s (unknown) date) Denilson Moralez on unknown) 03/26/2022 at 19:06 ? (unknown) (no (unknown) (unknown) Approved by: Brandin (units (unknown) date) Denilson [place] on unknown) 03/26/2022 at 16:56? (unknown) (no (unknown) (unknown) Asthma (units (unkno wn) date) unknown) (unknown) (no (unknown) (unknown) BACK: Nontender (units (unknown) date) without deformity or unknown) crepitance. No flank tenderness. (unknown) (no (unknown) (unknown) Blood Pressure (units (unknown) date) 172/72 H unknown) (unknown) (no (unknown) (unknown) Bones:? Bilateral (units (unknown) date) hip prosthesis unknown) present.? There is superior dislocation of the (unknown) (no (unknown) (unknown) Bones:? (units (unkno wn) date) Postreduction views unknown) demonstrate interval reduction of the left hip (unknown) (no (unknown) (unknown) CARDIOVASCULAR: (units (unknown) date) Denies chest pain, unknown) palpitations, orthopnea, edema, (unknown) (no (unknown) (unknown) CARDIOVASCULAR: (units (unknown) date) Regular rate and unknown) rhythm without murmurs, gallops, or rubs. (unknown) (no (unknown) (unknown) COMPARISON: [place] (units (unknown) date) [facility], CR, XR HIP unknown) W PEL IF DONE LT 2V, 03/26/2022, 16:52. (unknown) (no (unknown) (unknown) COMPARISON:? [place] (unit s (unknown) date) [facility], CR, XR HIP unknown) W PEL IF DONE LT 2V, 03/20/2021, 12:24. (unknown) (no (unknown) (unknown) Cancer (units (unkno wn) date) unknown) (unknown) (no (unknown) (unknown) Cervical Spine MRI (units (unknown) date) (Signed) unknown) (unknown) (no (unknown) (unknown) Chief Complaint: (units (unknown) date) Fall unknown) (unknown) (no (unknown) (unknown) Chronic pain (units (u nknown) date) disorder unknown) (unknown) (no (unknown) (unknown) Clinical (units (unkno wn) date) Impression: unknown) (unknown) (no (unknown) (unknown) Close (units (unkno wn) date) unknown) (unknown) (no (unknown) (unknown) Complications: none (unit s (unknown) date) unknown) (unknown) (no (unknown) (unknown) Consent signed: Yes (unit s (unknown) date) unknown) (unknown) (no (unknown) (unknown) Course (units (unkno wn) date) unknown) (unknown) (no (unknown) (unknown) : 1955 (units (unknown) date) Acct:[id number] unknown) (unknown) (no (unknown) (unknown) : 1955 (units (unknown) date) unknown) (unknown) (no (unknown) (unknown) Date of Service: (units (unknown) date) 03/26/22 unknown) (unknown) (no (unknown) (unknown) Departure (units (unkn own) date) unknown) (unknown) (no (unknown) (unknown) Depression (units (unk nown) date) unknown) (unknown) (no (unknown) (unknown) Dictated by: Ramy (unit s (unknown) date) Denilson Moralez on unknown) 03/26/2022 at 19:06 ? ? (unknown) (no (unknown) (unknown) Discharge Plan (units (unknown) date) unknown) (unknown) (no (unknown) (unknown) Discontinued (units (u nknown) date) Medications unknown) (unknown) (no (unknown) (unknown) Dislocated left (units (unknown) date) total hip unknown) arthroplasty (unknown) (no (unknown) (unknown) Documented By: CTS (units (unknown) date) unknown) (unknown) (no (unknown) (unknown) ED Sedation Level: (units (unknown) date) Moderate (Concious) unknown) (unknown) (no (unknown) (unknown) ENT: Nose without (units (unknown) date) bleeding, purulent unknown) drainage. Throat without erythema, (unknown) (no (unknown) (unknown) ER Physician: (units ( unknown) date) [place],Sami D.O. unknown) (unknown) (no (unknown) (unknown) EXTREMITIES: (units (u nknown) date) Shortening external unknown) rotation of left hip with tenderness to (unknown) (no (unknown) (unknown) EYES: Pupils equal (units (unknown) date) round and reactive. unknown) Extraocular motions intact. No scleral (unknown) (no (unknown) (unknown) Easy bruisability (units (unknown) date) unknown) (unknown) (no (unknown) (unknown) Elevated coronary (units (unknown) date) artery calcium score unknown) (unknown) (no (unknown) (unknown) Emergency Report (units (unknown) date) unknown) (unknown) (no (unknown) (unknown) Exam Narrative: (units (unknown) date) unknown) (unknown) (no (unknown) (unknown) Exam (units (unkno wn) date) unknown) (unknown) (no (unknown) (unknown) Extremity x-ray #1: (unit s (unknown) date) unknown) (unknown) (no (unknown) (unknown) Extremity x-ray #2: (unit s (unknown) date) unknown) (unknown) (no (unknown) (unknown) FINDINGS:? (units (unk nown) date) unknown) (unknown) (no (unknown) (unknown) Family History (units (unknown) date) (Reviewed 03/26/22 @ unknown) 18:37 by Sami Mcmahan DO) (unknown) (no (unknown) (unknown) Father (units (unknown) date) Aneurysm unknown) (unknown) (no (unknown) (unknown) Fibromyalgia (units (u nknown) date) unknown) (unknown) (no (unknown) (unknown) GASTROINTESTINAL: (units (unknown) date) Abdomen soft, unknown) non-tender, nondistended. (unknown) (no (unknown) (unknown) GASTROINTESTINAL: (units (unknown) date) Denies nausea, unknown) vomiting, abdominal pain, diarrhea, (unknown) (no (unknown) (unknown) GENERAL: Denies (units (unknown) date) chills, fatigue, unknown) malaise, fever, sweats. (unknown) (no (unknown) (unknown) GENERAL: [66] year (units (unknown) date) old patient appears unknown) stated age. Well-developed patient, in (unknown) (no (unknown) (unknown) GERD (units (unkno wn) date) (gastroesophageal unknown) reflux disease) (unknown) (no (unknown) (unknown) : Denies dysuria, (unit s (unknown) date) frequency, unknown) incontinence, hematuria, urinary retention. (unknown) (no (unknown) (unknown) General (units (unkno wn) date) unknown) (unknown) (no (unknown) (unknown) H/O total hip (units ( unknown) date) arthroplasty unknown) (04/12/17) (unknown) (no (unknown) (unknown) HEAD: Atraumatic. (units (unknown) date) Normocephalic. unknown) (unknown) (no (unknown) (unknown) HEENT: Denies sinus (unit s (unknown) date) pain, ear pain, sore unknown) throat, difficulty swallowing, (unknown) (no (unknown) (unknown) HPI - Fall (units (unk nown) date) unknown) (unknown) (no (unknown) (unknown) HPI Narrative: (units (unknown) date) unknown) (unknown) (no (unknown) (unknown) HTN (hypertension) (units (unknown) date) unknown) (unknown) (no (unknown) (unknown) Hip MRI (Signed) (units (unknown) date) unknown) (unknown) (no (unknown) (unknown) Hip X-Ray (Signed) (units (unknown) date) unknown) (unknown) (no (unknown) (unknown) Hip dislocation, (units (unknown) date) left unknown) (unknown) (no (unknown) (unknown) History of Present (units (unknown) date) Illness unknown) (unknown) (no (unknown) (unknown) History of (units (unk nown) date) bunionectomy of left unknown) great toe (09/2015) (unknown) (no (unknown) (unknown) History of (units (unk nown) date) hysterectomy unknown) (unknown) (no (unknown) (unknown) History of lung (units (unknown) date) biopsy unknown) (unknown) (no (unknown) (unknown) Home Medications (units (unknown) date) unknown) (unknown) (no (unknown) (unknown) Hx of cardiac cath (units (unknown) date) unknown) (unknown) (no (unknown) (unknown) Hx of tonsillectomy (unit s (unknown) date) unknown) (unknown) (no (unknown) (unknown) Hyperlipidemia (units (unknown) date) unknown) (unknown) (no (unknown) (unknown) Hypertension (units (u nknown) date) unknown) (unknown) (no (unknown) (unknown) ILD (interstitial (units (unknown) date) lung disease) unknown) (unknown) (no (unknown) (unknown) IMPRESSION:? (units (u nknown) date) Successful reduction unknown) of the left hip replacement. (unknown) (no (unknown) (unknown) IMPRESSION:? (units (u nknown) date) unknown) (unknown) (no (unknown) (unknown) INDICATIONS:? hip (units (unknown) date) pain,short/rotated unknown) (unknown) (no (unknown) (unknown) INDICATIONS:? post (units (unknown) date) reduction unknown) (unknown) (no (unknown) (unknown) IV Propofol dose (units (unknown) date) (mg): 140 unknown) (unknown) (no (unknown) (unknown) Imaging Data (units (u nknown) date) unknown) (unknown) (no (unknown) (unknown) Indication: (units (un known) date) fracture/dislocation unknown) reduction (unknown) (no (unknown) (unknown) Initial Vital Signs (unit s (unknown) date) unknown) (unknown) (no (unknown) (unknown) Initial Vital (units ( unknown) date) Signs: unknown) (unknown) (no (unknown) (unknown) Instructions: DI (units (unknown) date) for Hip Dislocation unknown) -- Adult (unknown) (no (unknown) (unknown) Intraservice (units (u nknown) date) time/total sedation unknown) time (min): 11 (unknown) (no (unknown) (unknown) (units (unknown) date) [address] unknown) [place] [address] (unknown) (no (unknown) (unknown) (units (unknown) date) unknown) (unknown) (no (unknown) (unknown) Joint #1: (units (unkn own) date) unknown) (unknown) (no (unknown) (unknown) Joint Reduction (units (unknown) date) Location: hip unknown) (unknown) (no (unknown) (unknown) [place] (units ( unknown) date) unknown) (unknown) (no (unknown) (unknown) Lab Data (units (unkno wn) date) unknown) (unknown) (no (unknown) (unknown) Labs: (units (unkno wn) date) unknown) (unknown) (no (unknown) (unknown) Last Admin: (units (un known) date) 03/26/22 18:23 Dose: unknown) 140 mg (unknown) (no (unknown) (unknown) Last Admin: (units (un known) date) 03/26/22 18:49 Dose: unknown) Not Given (unknown) (no (unknown) (unknown) Launch?Image (units (u nknown) date) unknown) (unknown) (no (unknown) (unknown) Mauro Adame (units (unkno wn) date) unknown) (unknown) (no (unknown) (unknown) Loc: ED (units (unkno wn) date) unknown) (unknown) (no (unknown) (unknown) Lower Extremity (units (unknown) date) Ultrasound (Signed) unknown) (unknown) (no (unknown) (unknown) Lumbar Spine MRI (units (unknown) date) (Signed) unknown) (unknown) (no (unknown) (unknown) [id number] (units (unk nown) date) unknown) (unknown) (no (unknown) (unknown) MDM - Fall (units (unk nown) date) unknown) (unknown) (no (unknown) (unknown) MR#: [id number] (units (unknown) date) unknown) (unknown) (no (unknown) (unknown) MUSCULOSKELETAL: (units (unknown) date) See HPI unknown) (unknown) (no (unknown) (unknown) Mallampati Airway (units (unknown) date) Classification: unknown) Class II (unknown) (no (unknown) (unknown) Medical History (units (unknown) date) (Reviewed 03/26/22 @ unknown) 18:37 by Sami Mcmahan DO) (unknown) (no (unknown) (unknown) Medication (units (unk nown) date) Instructions unknown) Recorded Confirmed (unknown) (no (unknown) (unknown) Medication (units (unk nown) date) Instructions unknown) Recorded (unknown) (no (unknown) (unknown) Mother (units (unknown) date) COPD (chronic unknown) obstructive pulmonary disease) (unknown) (no (unknown) (unknown) NECK: Trachea (units ( unknown) date) midline. Non tender unknown) (unknown) (no (unknown) (unknown) NEURO: AOx3. (units (u nknown) date) unknown) (unknown) (no (unknown) (unknown) NEUROLOGIC: Denies (units (unknown) date) weakness, headache, unknown) numbness, change in speech, confusion, (unknown) (no (unknown) (unknown) Narrative (units (unkn own) date) unknown) (unknown) (no (unknown) (unknown) Narrative: (units (unk nown) date) unknown) (unknown) (no (unknown) (unknown) No Action (units (unkn own) date) unknown) (unknown) (no (unknown) (unknown) Ordered: (units (unkno wn) date) unknown) (unknown) (no (unknown) (unknown) Ordering Provider: (units (unknown) date) Sami Mcmahan D.O. unknown) (unknown) (no (unknown) (unknown) Ordering Provider: (units (unknown) date) Christopher Watson D.O. unknown) (unknown) (no (unknown) (unknown) Orders (units (unkno wn) date) unknown) (unknown) (no (unknown) (unknown) Orthopedic Joint (units (unknown) date) Reduction unknown) (unknown) (no (unknown) (unknown) Osteoarthritis (units (unknown) date) unknown) (unknown) (no (unknown) (unknown) Osteopenia without (units (unknown) date) fracture unknown) (unknown) (no (unknown) (unknown) Outside EKG (units (un known) date) unknown) (unknown) (no (unknown) (unknown) Oxygen Delivery (units (unknown) date) Method Room Air unknown) (unknown) (no (unknown) (unknown) PROCEDURE:? XR HIP (units (unknown) date) W PEL IF DONE LT 2V unknown) (unknown) (no (unknown) (unknown) PSYCHIATRIC: No (units (unknown) date) concerning unknown) psychosocial issues. (unknown) (no (unknown) (unknown) Patient (units (unkno wn) date) Disposition: Home unknown) (unknown) (no (unknown) (unknown) Patient History (units (unknown) date) unknown) (unknown) (no (unknown) (unknown) Patient Tolerated (units (unknown) date) Procedure: Well unknown) (unknown) (no (unknown) (unknown) Patient: (units (unkno wn) date) Gita Gacria unknown) MR#: (unknown) (no (unknown) (unknown) Patient: (units (unkno wn) date) Gita Garcia unknown) (unknown) (no (unknown) (unknown) Point of Care (units ( unknown) date) Testing unknown) (unknown) (no (unknown) (unknown) Post Reduction (units (unknown) date) X-Ray Obtained: Yes unknown) (unknown) (no (unknown) (unknown) Post Reduction (units (unknown) date) X-Ray Results: unknown) reduced (unknown) (no (unknown) (unknown) Post-reduction (units (unknown) date) neuro exam: intact unknown) (unknown) (no (unknown) (unknown) Post-reduction (units (unknown) date) vascular: intact unknown) (unknown) (no (unknown) (unknown) Test (units (unknown) date) Results Negative unknown) (unknown) (no (unknown) (unknown) Prescriptions: (units (unknown) date) unknown) (unknown) (no (unknown) (unknown) Previous Rx's (units ( unknown) date) unknown) (unknown) (no (unknown) (unknown) Procedural Sedation (unit s (unknown) date) unknown) (unknown) (no (unknown) (unknown) Procedure: XR hip w (unit s (unknown) date) pel if done LT 2V unknown) (unknown) (no (unknown) (unknown) Procedures (units (unk nown) date) unknown) (unknown) (no (unknown) (unknown) Propofol (Propofol (units (unknown) date) 200 Mg/20 Ml Vial) unknown) 130 mg 2 mg/kg (130 mg) IV NOW ONE (unknown) (no (unknown) (unknown) Propofol (Propofol (units (unknown) date) 200 Mg/20 Ml Vial) unknown) 140 mg IV NOW ONE (unknown) (no (unknown) (unknown) Pulse Oximetry 95 (units (unknown) date) 03/26/22 16:47 unknown) (unknown) (no (unknown) (unknown) Pulse Oximetry 97 (units (unknown) date) unknown) (unknown) (no (unknown) (unknown) Pulse Rate 78 (units ( unknown) date) unknown) (unknown) (no (unknown) (unknown) RBBB (right bundle (units (unknown) date) branch block) unknown) (unknown) (no (unknown) (unknown) RESPIRATORY: Clear (units (unknown) date) to auscultation. unknown) Breath sounds equal bilaterally. No wheezes, (unknown) (no (unknown) (unknown) RESPIRATORY: Denies (unit s (unknown) date) dyspnea, cough, unknown) wheezing, hemoptysis, sputum. (unknown) (no (unknown) (unknown) Radiologist's (units ( unknown) date) Impression: unknown) (unknown) (no (unknown) (unknown) Referrals: (units (unk nown) date) unknown) (unknown) (no (unknown) (unknown) Related Data (units (u nknown) date) unknown) (unknown) (no (unknown) (unknown) Respiratory Rate 16 (unit s (unknown) date) unknown) (unknown) (no (unknown) (unknown) Review of Systems (units (unknown) date) unknown) (unknown) (no (unknown) (unknown) Aleks Dee (units (unknown) date) unknown) (unknown) (no (unknown) (unknown) aRmy Moralez (units (unknown) date) unknown) (unknown) (no (unknown) (unknown) Rx Instructions: (units (unknown) date) unknown) (unknown) (no (unknown) (unknown) SKIN: Denies rash, (units (unknown) date) skin lesions, or unknown) other (unknown) (no (unknown) (unknown) SKIN: No rash or (units (unknown) date) erythema of visible unknown) areas (unknown) (no (unknown) (unknown) Sarcoid neuropathy (units (unknown) date) unknown) (unknown) (no (unknown) (unknown) Sarcoidosis (units (un known) date) unknown) (unknown) (no (unknown) (unknown) Side: left (units (unk nown) date) unknown) (unknown) (no (unknown) (unknown) Signed By: (units (unk nown) date) unknown) (unknown) (no (unknown) (unknown) Signed (units (unkno wn) date) unknown) (unknown) (no (unknown) (unknown) Smoking Status: (units (unknown) date) Never smoker unknown) (unknown) (no (unknown) (unknown) Social History (units (unknown) date) (Reviewed 03/26/22 @ unknown) 18:37 by Sami Mcmahan DO) (unknown) (no (unknown) (unknown) Soft tissues:? No (units (unknown) date) suspicious soft unknown) tissue calcifications or masses.? (unknown) (no (unknown) (unknown) Soft tissues:? (units (unknown) date) Overlying unknown) postoperative changes are noted.? No suspicious soft (unknown) (no (unknown) (unknown) Splint Applied: No (units (unknown) date) unknown) (unknown) (no (unknown) (unknown) Stated Complaint: (units (unknown) date) GLF Left hip unknown) (unknown) (no (unknown) (unknown) Stop: 03/26/22 (units (unknown) date) 18:12 unknown) (unknown) (no (unknown) (unknown) Stop: 03/26/22 (units (unknown) date) 18:49 unknown) (unknown) (no (unknown) (unknown) Gita Garcia (units (unknown) date) [id number]??[id number] unknown) (unknown) (no (unknown) (unknown) Substance Use Type: (unit s (unknown) date) does not use unknown) (unknown) (no (unknown) (unknown) Surgical History (units (unknown) date) (Reviewed 03/26/22 @ unknown) 18:37 by Sami Mcmahan DO) (unknown) (no (unknown) (unknown) TECHNIQUE:? 2 (units ( unknown) date) view(s) of the hip unknown) acquired.? (unknown) (no (unknown) (unknown) TECHNIQUE:? 2 views (unit s (unknown) date) of the hip were unknown) acquired.? (unknown) (no (unknown) (unknown) Technique used: (units (unknown) date) direct manipulation unknown) (unknown) (no (unknown) (unknown) Temperature 97.8 F (units (unknown) date) unknown) (unknown) (no (unknown) (unknown) Time Out Performed: (unit s (unknown) date) Yes unknown) (unknown) (no (unknown) (unknown) Time Seen by (units (u nknown) date) Provider: 03/26/22 unknown) 18:04 (unknown) (no (unknown) (unknown) Time out performed: (unit s (unknown) date) Yes unknown) (unknown) (no (unknown) (unknown) Total right hip (units (unknown) date) arthroplasty in unknown) place (unknown) (no (unknown) (unknown) Visit Report Forms: (unit s (unknown) date) Patient Portal/API unknown) (unknown) (no (unknown) (unknown) Vital Signs - 8 hr (units (unknown) date) unknown) (unknown) (no (unknown) (unknown) Vital Signs (units (un known) date) unknown) (unknown) (no (unknown) (unknown) Vital signs: (units (u nknown) date) unknown) (unknown) (no (unknown) (unknown) Brandin [place] (units (u nknown) date) unknown) (unknown) (no (unknown) (unknown) Gabriel Barahona (units (unk nown) date) unknown) (unknown) (no (unknown) (unknown) XRay Report (units (un known) date) unknown) (unknown) (no (unknown) (unknown) Henry Ragland (units (unkn own) date) unknown) (unknown) (no (unknown) (unknown) Ghazal Desir, (units (unknown) date) [facility] [Primary Care unknown) Provider] (unknown) (no (unknown) (unknown) [ ] New medication (units (unknown) date) prescriptions sent unknown) to your pharmacy: [ ] (unknown) (no (unknown) (unknown) [ ] New medication (units (unknown) date) written as a paper unknown) prescription (unknown) (no (unknown) (unknown) [x ] No new (units (un known) date) medications given unknown) (unknown) (no (unknown) (unknown) a chief complaint (units (unknown) date) of severe left hip unknown) pain after reaching and feeling a pop in (unknown) (no (unknown) (unknown) acetaminophen 325 (units (unknown) date) mg Tablet unknown) (unknown) (no (unknown) (unknown) acetaminophen 325 (units (unknown) date) mg tablet 650 mg PO unknown) TID #60 tabs 02/21/21 (unknown) (no (unknown) (unknown) adhesive AdvReac (units (unknown) date) Mild Rash Verified unknown) 02/19/21 06:49 (unknown) (no (unknown) (unknown) aerosol inhaler (units (unknown) date) Shortness Of Breath unknown) (unknown) (no (unknown) (unknown) aerosol inhaler (units (unknown) date) unknown) (unknown) (no (unknown) (unknown) albuterol sulfate 90 (unit s (unknown) date) mcg/actuation 2 puff unknown) inhalation Q4-6H PRN 02/17/21 02/19/21 (unknown) (no (unknown) (unknown) albuterol sulfate (units (unknown) date) 90 mcg/actuation Hfa unknown) Aerosol Inhaler (unknown) (no (unknown) (unknown) alcohol intake (units (unknown) date) frequency: 0-2 unknown) drinks per day (unknown) (no (unknown) (unknown) alcohol intake: (units (unknown) date) current (1 glass of unknown) wine Qnight) (unknown) (no (unknown) (unknown) amitriptyline 50 mg (unit s (unknown) date) Tablet unknown) (unknown) (no (unknown) (unknown) amitriptyline 50 mg (unit s (unknown) date) tablet 50 mg PO unknown) BEDTIME 02/17/21 02/19/21 (unknown) (no (unknown) (unknown) amlodipine 5 mg (units (unknown) date) Tablet unknown) (unknown) (no (unknown) (unknown) amlodipine 5 mg (units (unknown) date) tablet 5 mg PO BID unknown) 02/17/21 02/19/21 (unknown) (no (unknown) (unknown) appointment. Let (units (unknown) date) them know you were unknown) seen in the Emergency Department and that we (unknown) (no (unknown) (unknown) ask that you be (units (unknown) date) seen in follow up. unknown) We will electronically transmit a record of (unknown) (no (unknown) (unknown) aspirin 81 mg (units ( unknown) date) Tablet,Delayed unknown) Release (Dr/Ec) (unknown) (no (unknown) (unknown) aspirin 81 mg (units ( unknown) date) tablet,delayed 81 mg unknown) PO BID #60 tabs 02/21/21 (unknown) (no (unknown) (unknown) ciclesonide 80 (units (unknown) date) mcg/actuation 1 puff unknown) inhalation BID 02/17/21 02/19/21 (unknown) (no (unknown) (unknown) ciclesonide 80 (units (unknown) date) mcg/actuation Hfa unknown) Aerosol Inhaler (unknown) (no (unknown) (unknown) concerning (units (unk nown) date) symptoms, such as unknown) [fever greater than 101 F, shaking chills, (unknown) (no (unknown) (unknown) constipation, (units ( unknown) date) melena. unknown) (unknown) (no (unknown) (unknown) cyclobenzaprine 10 (units (unknown) date) MG tablet unknown) (unknown) (no (unknown) (unknown) cyclobenzaprine 10 (units (unknown) date) mg tablet 10 mg PO unknown) TID PRN Muscle Spasm ##0 03/22/17 02/19/21 (unknown) (no (unknown) (unknown) densities.? (units (un known) date) unknown) (unknown) (no (unknown) (unknown) dislocation. (units (u nknown) date) unknown) (unknown) (no (unknown) (unknown) dislocations. She (units (unknown) date) is otherwise well unknown) and free of complaint (unknown) (no (unknown) (unknown) dizziness. (units (unk nown) date) unknown) (unknown) (no (unknown) (unknown) folic acid 1 mg (units (unknown) date) Tablet unknown) (unknown) (no (unknown) (unknown) folic acid 1 mg (units (unknown) date) tablet 1 - 5 mg PO unknown) DAILY Mouth sores 02/17/21 02/19/21 (unknown) (no (unknown) (unknown) gabapentin 600 mg (units (unknown) date) tablet 600 mg PO unknown) SEEINSTR ##0 03/22/17 02/19/21 (unknown) (no (unknown) (unknown) gabapentin (units (unk nown) date) [Neurontin] 600 MG unknown) tablet (unknown) (no (unknown) (unknown) her hip. She now (units (unknown) date) has significant pain unknown) and inability to ambulate due to this (unknown) (no (unknown) (unknown) household members: (units (unknown) date) children unknown) (unknown) (no (unknown) (unknown) hydroxychloroquine (units (unknown) date) 200 mg tablet 400 mg unknown) PO QDAY ##0 03/22/17 02/19/21 (unknown) (no (unknown) (unknown) hydroxychloroquine (units (unknown) date) [Plaquenil] 200 MG unknown) tablet (unknown) (no (unknown) (unknown) icterus. No (units (un known) date) injection or unknown) drainage. (unknown) (no (unknown) (unknown) in (units (unkno wn) date) unknown) (unknown) (no (unknown) (unknown) includes being (units ( unknown) date) careful when your unknown) flexing at the hip, getting out of chairs etc.. (unknown) (no (unknown) (unknown) left (units (unkno wn) date) unknown) (unknown) (no (unknown) (unknown) losartan 50 mg (units (unknown) date) Tablet unknown) (unknown) (no (unknown) (unknown) losartan 50 mg (units (unknown) date) tablet 50 mg PO BID unknown) 02/17/21 02/19/21 (unknown) (no (unknown) (unknown) mild distress. (units (unknown) date) unknown) (unknown) (no (unknown) (unknown) montelukast 10 mg (units (unknown) date) Tablet unknown) (unknown) (no (unknown) (unknown) montelukast 10 mg (units (unknown) date) tablet 10 mg PO BID unknown) 02/17/21 02/19/21 (unknown) (no (unknown) (unknown) naproxen sodium 220 (unit s (unknown) date) mg Tablet unknown) (unknown) (no (unknown) (unknown) naproxen sodium 220 (unit s (unknown) date) mg tablet 220 mg PO unknown) BID PRN Pain 02/17/21 02/19/21 (unknown) (no (unknown) (unknown) occupational (units (u nknown) date) status: other unknown) (Retired) (unknown) (no (unknown) (unknown) omeprazole 20 mg (units (unknown) date) Tablet,Delayed unknown) Release (Dr/Ec) (unknown) (no (unknown) (unknown) omeprazole 20 mg (units (unknown) date) tablet,delayed 20 mg unknown) PO BID 02/17/21 02/19/21 (unknown) (no (unknown) (unknown) oral powder packet (units (unknown) date) #10 ea unknown) (unknown) (no (unknown) (unknown) osseous (units (unkno wn) date) mineralization unknown) noted. (unknown) (no (unknown) (unknown) oxycodone 5 mg (units (unknown) date) Tablet unknown) (unknown) (no (unknown) (unknown) oxycodone 5 mg (units (unknown) date) tablet 5 mg PO Q3HR unknown) PRN Pain, Moderate 02/21/21 (unknown) (no (unknown) (unknown) pain. Denies any (units (unknown) date) numbness, tingling unknown) or weakness. She denies any prior (unknown) (no (unknown) (unknown) pain. She denies (units (unknown) date) any other injury or unknown) complaints. She has no head neck or back (unknown) (no (unknown) (unknown) palpation (units (unkn own) date) unknown) (unknown) (no (unknown) (unknown) polyethylene glycol (unit s (unknown) date) 3350 17 gram 17 gm unknown) PO DAILY PRN Constipation 02/21/21 (unknown) (no (unknown) (unknown) polyethylene glycol (unit s (unknown) date) 3350 17 gram Powder unknown) In Packet (unknown) (no (unknown) (unknown) prednisone 10 mg (units (unknown) date) tablet 10 mg PO unknown) DAILY #10 tabs 02/21/21 (unknown) (no (unknown) (unknown) prednisone 10 mg (units (unknown) date) tablet unknown) (unknown) (no (unknown) (unknown) prosthesis (units (unk nown) date) unknown) (unknown) (no (unknown) (unknown) prosthesis.? No (units (unknown) date) evidence of unknown) fracture.? Pelvic ring intact. Generalized decrease (unknown) (no (unknown) (unknown) rales, or rhonchi. (units (unknown) date) unknown) (unknown) (no (unknown) (unknown) release (units (unkno wn) date) unknown) (unknown) (no (unknown) (unknown) ropinirole 3 mg (units (unknown) date) Tablet unknown) (unknown) (no (unknown) (unknown) ropinirole 3 mg (units (unknown) date) tablet 3 mg PO unknown) BEDTIME RLS 02/17/21 02/19/21 (unknown) (no (unknown) (unknown) seizures, (units (unkn own) date) incoordination. unknown) (unknown) (no (unknown) (unknown) tissue (units (unkno wn) date) unknown) (unknown) (no (unknown) (unknown) today's note if (units (unknown) date) your PCP is in our unknown) system (unknown) (no (unknown) (unknown) tonsillar (units (unkn own) date) hypertrophy or unknown) exudate. Airway patent. (unknown) (no (unknown) (unknown) worsening pain, (units (unknown) date) persistent vomiting unknown) or other bothersome symptoms] Social History date description facility +0000 Never smoked tobacco ([facility] Vital Signs date measurement value units +0000 BMI BMI 24.9 kg/m2 +0000 BP_diastolic BP_diastolic 71 mmHg +0000 BP_systolic BP_systolic 165 mmHg +0000 heart_rate heart_rate 72 /min +0000 height_metric height_metric 162.56 cm +0000 height_standard height_standard 64 in +0000 respiration_rate respiration_rate 16 /min +0000 temperature_metric temperature_metric 36.56 C +0000 temperature_standard temperature_standard 9 7.8 F +0000 weight_metric weight_metric 65.77 kg [id number]+0000 weight_standard weight_standard 145 lb
[2022-05-26] MEDS ORDERED: PROPOFOL 200 MG/20 ML VIAL IVP ONE (18:06)
--- NOTE | 2022-05-26 18:33 | XRAY Report ---
PROCEDURE: Hip w/Pelvis 2-3V LT INDICATIONS: POST REDUCTION TECHNIQUE: AP pelvis with lateral view(s) of the left hip(s). COMPARISON: None. FINDINGS: Bones: There is interval reduction of earlier noted left hip prosthesis dislocation. Left hip alignme nt is now anatomic. No acute fracture is seen. No gross hardware loosening or failure. Pelvic ring ap pears intact. No suspicious bony lesions. Soft tissues: The visualized bowel gas pattern is normal. No suspicious soft tissue calcifications. IMPRESSION: Interval reduction of early and noted left hip prosthesis dislocation. Left hip alignment is now anatomic. No gross acute fracture is seen. Reviewed by: Mauro Adame MD on 05/26/2022 6:32 PM PDT Approved by: Mauro Adame MD on 05/26/2022 6:32 PM PDT Station ID: [id number]
[2022-05-26 19:45] VITALS: BP 119/81
== END 2022-05-26 19:51 | disposition home or self-care (01) ==
LOC: EDUNIT# → ED 16:38
DX: T84.021A Dislocation of internal left hip prosthesis, initial encounter (principal); X58.XXXA Exposure to other specified factors, initial encounter; Y93.89 Activity, other specified
CPT/HCPCS: 27265; 73502; 96374; 99152; 99282; 99285; J1170; 94770

== ENCOUNTER → 2022-07-07 | Outpatient (CLI) | payer MEDICARE, OTHER | END | disposition critical access hospital (66) | LOC: EMS 18:10 | DX: T84.021A Dislocation of internal left hip prosthesis, initial encounter (principal) | CPT/HCPCS: A0425; A0427; A0888 ==

== ENCOUNTER 2022-08-06 23:39 | Outpatient (CLI) | payer MEDICARE, OTHER | END 2022-08-06 23:40 | disposition critical access hospital (66) | LOC: EMS 23:39 | DX: R45.851 Suicidal ideations (principal) | CPT/HCPCS: A0425; A0429 ==

== ENCOUNTER 2022-08-06 23:54 | Emergency (ER) | payer MEDICARE, OTHER ==
--- NOTE | 2022-08-06 23:59 | ED Physician Documentation ---
PD HPI MHE - Stated complaint Stated Complaint: MHE - History obtained from History obtained from: Patient, EMS - History of Present Illness Primary symptom: Suicidal ideation, Anxiety Pain level now: 8 Contributing factors: Sig other Recently seen: Surgery - Additional information Additional information: Patient is brought in by ambulance for anxiety and suicidal ideation. HPI is gathered from patient as well as from EMS report. Patient tells me that her called 911 manuel. When I ask why he did so, she says "I do not know, you have to ask him". EMS report indicates that patient has admitted to having suicidal thoughts manuel, and went I asked her about this, she does admit to having suicidal thoughts manuel and tells me "I have done it before, I can do it again". She says to me that she had been admitted many years ago to a hospital in [place] for suicidal ideation and intentional overdose. Note that much of my HPI is limited due to patient being in obvious distress, anxious and crying throughout the H&P. 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 Patient tells me part of her frustration that led to manuel's visit is due to feeling like she was discharged too early as well as denied SNF placement, which patient says is due to insurance coverage issues. Furthermore, patient says she feels that her spouse had not been supportive of late, and, as she is her 's primary caregiver, she feels all the more frustrated with what she says is a lack of support at home even though she is only few days postoperative. Patient told ED RN during triage process that if she were to try to kill herself, she would overdose on pain medications.EMS that she had "1 glass of wine" tonbeena. Review of Systems Unable to obtain: Other (Patient is able to provide some ROS information, although it is limited due to sobbing and obvious anxiety.) Constitutional: denies: Fever Psychiatric: reports: Depressed, Suicidal, Anxiety, Insomnia PD PAST MEDICAL HISTORY - Past Medical History Cardiovascular: None Respiratory: None Neuro: Tremors Endocrine/Autoimmune: None GI: None HEALTH DATA ADMINISTRATOR: None : None HEENT: None Psych: None Musculoskeletal: Osteoarthritis Derm: None - Past Surgical History Past Surgical History: Yes Ortho: Hip replacement /HEALTH DATA ADMINISTRATOR: Hysterectomy Cardiovascular: Cardiac catheterization HEENT: Tonsil/Adenoidectomy - Present Medications Home Medications: Ambulatory Orders Medication Instructions Recorded Confirmed Gabapentin 600 mg PO .0900, 1200 01/19/14 08/07/22 Hydroxychloroquine [Plaquenil] 400 mg PO DAILY 01/19/14 08/07/22 Magnesium Oxide 500 mg PO DAILY PRN 01/19/14 08/07/22 Melatonin/Pyridoxine [Melatonin 3 1 tab PO DAILY PRN 01/19/14 08/07/22 mg Tablet] Albuterol Sulfate [Proair 2 puffs IH TID 05/28/20 08/07/22 Respiclick] Amitriptyline [Elavil] 50 mg PO QPM 05/28/20 08/07/22 Ciclesonide [Alvesco] 1 puffs INH BID 05/28/20 08/07/22 Folic Acid 2 - 5 tab PO DAILY 05/28/20 08/07/22 Gabapentin 1,200 mg PO QPM 05/28/20 08/07/22 Meloxicam [Mobic] 7.5 mg PO BID 05/28/20 08/07/22 Montelukast [Singulair] 10 mg PO DAILY 05/28/20 08/07/22 Omeprazole [PriLOSEC] 20 mg PO BID 05/28/20 08/07/22 Ropinirole HCl [Requip] 3 mg PO QPM 05/28/20 08/07/22 predniSONE [Deltasone] 40 mg PO DAILY 05/28/20 08/07/22 Oxycodone HCl/Acetaminophen 1 - 2 each PO Q6H PRN #14 tablet 05/26/22 08/07/22 [Percocet 5-325 mg Tablet] - Allergies Allergies/Adverse Reactions: Allergies Allergy/AdvReac Type Severity Reaction Status Date / Time No Known Drug Allergies Allergy Verified 08/07/22 00:13 - Social History Does the pt smoke?: No Smoking Status: Never smoker Does the pt drink ETOH?: No Does the pt have substance abuse?: No - Immunizations Immunizations are current?: Yes PD ED PE NORMAL - Vitals Vital signs reviewed: Yes - General General: Alert and oriented X 3, Well developed/nourished, Other (Restless throughout HPI and exam, also she is crying through most of the H&P. She is obviously anxious and distressed, but she is polite and cooperative.) - HEENT HEENT: Moist mucous membranes - Neck Neck: Supple, no meningeal sign - Cardiac Cardiac: RRR, No murmur - Respiratory Respiratory: No respiratory distress, Clear bilaterally - Abdomen Abdomen: Soft, Non tender - Extremities Extremities: Other (Left hip surgical site dressing has a small amount of blood on the dressing; there is no significant surrounding swelling and there is no erythema noted.) PD ED PE EXPANDED - Psych Psych: Depressed, Tearful, Anxious Results - Vitals Vitals: Vital Signs - 24 hr 08/07/22 08/07/22 08/07/22 06:30 12:38 16:24 Temperature 36.6 C 36.7 C 36.9 C Heart Rate 82 88 86 Respiratory 16 20 20 Rate Blood Pressure 143/70 H 137/91 H 137/53 H O2 Saturation 98 95 97 08/08/22 00:00 Temperature 36.7 C Heart Rate 75 Respiratory 15 Rate Blood Pressure 144/57 H O2 Saturation 93 Oxygen O2 Source Room air - Labs Labs: Laboratory Tests 08/07/22 08/07/22 08/07/22 00:17 01:05 01:05 WBC RBC Hgb Hct MCV MCH MCHC RDW Plt Count MPV Neut # (Auto) Lymph # (Auto) Russell # (Auto) Eos # (Auto) Baso # (Auto) Absolute Nucleated RBC Nucleated RBC % Sodium 140 Potassium 3.9 Chloride 103 Carbon Dioxide 24 Anion Gap 13.0 BUN 24 H Creatinine 0.6 Estimated GFR (MDRD) 99 Glucose 81 Calcium 8.9 Total Bilirubin 0.6 AST 27 ALT 19 Alkaline Phosphatase 70 Total Protein 6.1 L Albumin 3.4 Globulin 2.7 Albumin/Globulin Ratio 1.3 Lipase 24 TSH 2.86 Urine Color YELLOW Urine Clarity CLEAR Urine pH 6.0 Ur Specific Whitman 1.025 Urine Protein NEGATIVE Urine Glucose (UA) NEGATIVE Urine Ketones NEGATIVE Urine Occult Blood NEGATIVE Urine Nitrite NEGATIVE Urine Bilirubin NEGATIVE Urine Urobilinogen 0.2 (NORMAL) Ur Leukocyte Esterase NEGATIVE Ur Microscopic Review NOT INDICATED Urine Culture Comments NOT INDICATED Salicylates < 6.0 Urine Opiates Screen NEGATIVE Ur Oxycodone Screen POSITIVE H Urine Methadone Screen NEGATIVE Ur Propoxyphene Screen NEGATIVE Acetaminophen < 10 L Ur Barbiturates Screen NEGATIVE Ur Tricyclics Screen POSITIVE H Ur Phencyclidine Scrn NEGATIVE Ur Amphetamine Screen NEGATIVE U Methamphetamines Scrn NEGATIVE U Benzodiazepines Scrn NEGATIVE Urine Cocaine Screen NEGATIVE U Cannabinoids Screen NEGATIVE Ethyl Alcohol < 5.0 08/07/22 01:31 WBC 11.5 H RBC 4.17 L Hgb 12.7 Hct 40.2 MCV 96.4 MCH 30.5 MCHC 31.6 L RDW 16.2 H Plt Count 285 MPV 9.0 Neut # (Auto) 8.7 H Lymph # (Auto) 1.5 Russell # (Auto) 1.1 H Eos # (Auto) 0.1 Baso # (Auto) 0.0 Absolute Nucleated RBC 0.00 Nucleated RBC % 0.0 Sodium Potassium Chloride Carbon Dioxide Anion Gap BUN Creatinine Estimated GFR (MDRD) Glucose Calcium Total Bilirubin AST ALT Alkaline Phosphatase Total Protein Albumin Globulin Albumin/Globulin Ratio Lipase TSH Urine Color Urine Clarity Urine pH Ur Specific Whitman Urine Protein Urine Glucose (UA) Urine Ketones Urine Occult Blood Urine Nitrite Urine Bilirubin Urine Urobilinogen Ur Leukocyte Esterase Ur Microscopic Review Urine Culture Comments Salicylates Urine Opiates Screen Ur Oxycodone Screen Urine Methadone Screen Ur Propoxyphene Screen Acetaminophen Ur Barbiturates Screen Ur Tricyclics Screen Ur Phencyclidine Scrn Ur Amphetamine Screen U Methamphetamines Scrn U Benzodiazepines Scrn Urine Cocaine Screen U Cannabinoids Screen Ethyl Alcohol PD Medical Decision Making - ED course Complexity details: reviewed old records (Discharge summary and operative report from [facility] (08/03/22) is requested from , faxed to [facility] ED , and reviewed by me), reviewed results, re-evaluated patient, considered differential, d/w patient ED course: Tests ordered and results reviewed by me: CBC, ER abdominal panel, urine drug screen, acetaminophen level, salicylate level, ethanol level. There are no concerning findings on any of these tests, and notably, her ethanol level is undetectable. Telepsychiatry consult was obtained and recommendation is voluntary inpatient treatment. I reevaluated patient and patient confirms that she would like inpatient treatment for her anxiety, depression, and SI. Early in her ED stay, she is given 5 mg p.o. oxycodone as well as 1 mg p.o. Ativan, and on reevaluation, she is significantly improved in regards to her anxiety and tearfulness and she reports feeling improved as well. Social work consult was ordered and should take place later this morning. Dis position is pending at end of my shift and care of patient is turned over to the oncoming emergency physician.
--- OUTSIDE RECORDS SUMMARY | 2022-08-07 00:05 | EXTERNAL MEDICAL SUMMARY RPT | Continuity of Care Document ---
:1955 Author Organization [facility] Address [address] [place] [address] Phone Care Team Providers Name Role Phone Unavailable Unavailable Unavailable Ghazal Desir Unavailable Unavailable Allergies and Intolerances date description facility type (no date) [facility] (unknown) (no date) adhesive [facility] (unknown) Encounters No information. Functional Status No information. Immunizations No information. Medications date description facility 2022-08-05 00:00 Oxycodone [facility] 2022-08-03 00:00 Methotrexate Sodium [facility] 2022-08-03 00:00 Fluticasone Propion-Salmeterol [facility] 2022-08-05 00:00 Aspirin [facility] 2022-07-07 00:00 Hydrocodone-Acetaminophen [facility] Problems date description facility 2022-07-07 00:00 [facility] 2022-07-26 20:51 Age-related osteoporosis without [facility] pathological fractu 2022-07-27 13:31 Unspecified dislocation of left hip, in [facility] encounter 2022-07-27 14:35 Age-related osteoporosis without [facility] pathological fractu 2022-07-29 00:00 Dislocation of hip [facility] 2022-08-03 08[facility]36 [facility]:36 Presence of left artificial hip joint [facility] 2022-08-03 08:39 [facility]03 08:39 Presence of left artificial hip joint [facility] 2022-08-03 10:27 Unspecified complication of internal or opedic [facility] prosthetic d 2022-08-03 10:27 Presence of left artificial hip joint [facility] 2022-08-03 11:52 [facility] 11:52 Presence of left artificial hip joint [facility] 2022-08-03 14:26 Unspecified complication of internal or thopedic [facility] prosthetic d 2022-08-03 14:26 Presence of left artificial hip joint [facility] 2022-08-04 09:31 Unspecified dislocation of unspecified hip, [facility] initial encounte 2022-08-04 09:31 Unspecified complication of internal or thopedic [facility] prosthetic d 2022-08-04 09:31 Presence of left artificial hip joint [facility] 2022-08-04 09:31 Presence of unspecified artificial hip joint [facility] 2022-08-04 10:26 Unspecified dislocation of unspecified hip, [facility] initial encounte 2022-08-04 10:26 Unspecified complication of internal or thopedic [facility] prosthetic d 2022-08-04 10:26 Presence of left artificial hip joint [facility] 2022-08-04 10:26 Presence of unspecified artificial hip joint [facility] 2022-08-04 11:01 Unspecified dislocation of unspecified hip, [facility] initial encounte 2022-08-04 11:01 Unspecified complication of internal or thopedic [facility] prosthetic d 2022-08-04 11:01 Presence of left artificial hip joint [facility] 2022-08-04 11:01 Presence of unspecified artificial hip joint [facility] 2022-08-04 15:16 Unspecified dislocation of unspecified hip, [facility] initial encounte 2022-08-04 15:16 Unspecified complication of internal or thopedic [facility] prosthetic d 2022-08-04 15:16 Presence of left artificial hip joint [facility] 2022-08-04 15:16 Presence of unspecified artificial hip joint [facility] 2022-08-05 09:31 Unspecified dislocation of unspecified hip, [facility] initial encounte 2022-08-05 09:31 Unspecified complication of internal or thopedic [facility] prosthetic d 2022-08-05 09:31 Presence of left artificial hip joint [facility] 2022-08-05 09:31 Presence of unspecified artificial hip joint [facility] 2022-08-05 11:06 Unspecified dislocation of unspecified hip, [facility] initial encounte 2022-08-05 11:06 Unspecified complication of internal or thopedic [facility] prosthetic d 2022-08-05 11:06 Presence of left artificial hip joint [facility] 2022-08-05 11:06 Presence of unspecified artificial hip joint [facility] 2022-08-05 11:10 Unspecified dislocation of unspecified hip, [facility] initial encounte 2022-08-05 11:10 Unspecified complication of internal or thopedic [facility] prosthetic d 2022-08-05 11:10 Presence of left artificial hip joint [facility] 2022-08-05 11:10 Presence of unspecified artificial hip joint [facility] 2022-08-05 12:33 Unspecified dislocation of unspecified hip, [facility] initial encounte 2022-08-05 12:33 Unspecified complication of internal or thopedic [facility] prosthetic d 2022-08-05 12:33 Presence of left artificial hip joint [facility] 2022-08-05 12:33 Presence of unspecified artificial hip joint [facility] 2022-08-05 13:08 Unspecified dislocation of unspecified hip, [facility] initial encounte 2022-08-05 13:08 Unspecified complication of internal or thopedic [facility] prosthetic d 2022-08-05 13:08 Presence of left artificial hip joint [facility] 2022-08-05 13:08 Presence of unspecified artificial hip joint [facility] 2022-08-06 08:43 Unspecified dislocation of unspecified hip, [facility] initial encounte 2022-08-06 08:43 Unspecified complication of internal or thopedic [facility] prosthetic d 2022-08-06 08:43 Presence of left artificial hip joint [facility] 2022-08-06 08:43 Presence of unspecified artificial hip joint [facility] 2022-08-06 12:48 Unspecified dislocation of unspecified hip, [facility] initial encounte 2022-08-06 12:48 Unspecified complication of internal or thopedic [facility] prosthetic d 2022-08-06 12:48 Presence of left artificial hip joint [facility] 2022-08-06 12:48 Presence of unspecified artificial hip joint [facility] 2022-08-06 13:24 Unspecified dislocation of unspecified hip, [facility] initial encounte 2022-08-06 13:24 Unspecified complication of internal or thopedic [facility] prosthetic d 2022-08-06 13:24 Presence of left artificial hip joint [facility] 2022-08-06 13:24 Presence of unspecified artificial hip joint [facility] Procedures date description facility 2022-08-03 00:00 Removal of Synthetic Substitute from Le ft Hip [facility] Joint, Open Approach 2022-08-03 00:00 Replacement of Left Hip Joint with Synt hetic [facility] Substitute, Open Approach 2022-08-06 00:00 Anaerobic Culture [facility] 2022-06-16 00:00 Computed tomography of left lower extre [facility] without contrast 2022-07-27 00:00 Dual energy x-ray photon absorptiometry (DEXA) [facility] scan of axial skeleton 2022-07-07 00:00 XR pelvis, 1-2 views [facility] 2022-07-07 00:00 Computed tomography of head or brain wi [facility] contrast 2022-08-06 00:00 Gram Stain [facility] 2022-06-16 00:00 CT pelvis wo [facility] 2022-07-07 00:00 X-ray of chest, single [facility] 2022-07-07 00:00 Computed tomography of cervical spine w [facility] contrast 2022-07-07 00:00 Unilateral x-ray of hip, two views, wit h x-ray [facility] of pelvis 2022-08-03 00:00 Unilateral x-ray of hip, two views, [facility] x-ray [facility] of pelvis Results/Labs test date author facility value unit interpret ation Result panel 1 (unknown) (no date) (unknown[facility] Result panel 2 (unknown) (no date) (unknown) [facility] Result panel 3 (unknown) (no date) (unknown[facility]) Result panel 4 (unknown) (no date) (unknown[facility]) Result panel 5 (unknown) (no date) (unknown[facility]) Result panel 6 (unknown) (no date) (unknown) [facility]) Result panel 7 (unknown) (no date) (unknown[facility]) Result panel 8 (unknown) (no date) (unknown[facility]) Result panel 9 (unknown) (no date) (unknown[facility]) Result panel 10 (unknown) (no date) (unknown[facility]) Result panel 11 (unknown) (no date) (unknown[facility] Result panel 12 (unknown) (no date) (unknown[facility]) Result panel 13 (unknown) (no date) (unknown[facility] Result panel 14 (unknown) (no date) (unknown[facility]) Result panel 15 (unknown) (no date) (unknown[facility]) Result panel 16 (unknown) (no date) (unknown[facility]) Result panel 17 (unknown) (no date) (unknown[facility]) Result panel 18 (unknown) (no date) (unknown[facility]) Result panel 19 (unknown) (no date) (unknown[facility]) Result panel 20 (unknown) (no date) (unknown[facility]) Result panel 21 (unknown) (no date) (unknown[facility]) Result panel 22 (unknown) (no date) (unknown[facility]) Result panel 23 (unknown) (no date) (unknown[facility]) Result panel 24 (unknown) (no date) (unknown[facility]) Result panel 25 (unknown) (no date) (unknown[facility]) Result panel 26 (unknown) (no date) (unknown[facility]) Result panel 27 (unknown) (no date) (unknown[facility]) Result panel 28 (unknown) (no date) (unknown[facility]) Result panel 29 (unknown) (no date) (unknown[facility]) Result panel 30 (unknown) (no date) (unknown[facility]) Result panel 31 (unknown) (no date) (unknown[facility]) Result panel 32 (unknown) (no date) (unknown[facility]) Result panel 33 (unknown) (no date) (unknown[facility]) Result panel 34 (unknown) (no date) (unknown) [facility]) Result panel 35 (unknown) (no date) (unknown[facility]) Result panel 36 (unknown) (no date) (unknown[facility]) Result panel 37 (unknown) (no date) (unknown[facility]) Result panel 38 (unknown) (no date) (unknown[facility]) Result panel 39 (unknown) (no date) (unknown[facility]) Result panel 40 (unknown) (no date) (unknown) [facility]) Result panel 41 (unknown) (no date) (unknown[facility]) Result panel 42 (unknown) (no date) (unknown[facility]) Result panel 43 (unknown) (no date) (unknown[facility]) Result panel 44 (unknown) (no date) (unknown[facility]) Result panel 45 (unknown) (no date) (unknown[facility]) Result panel 46 (unknown) (no date) (unknown[facility]) Result panel 47 (unknown) (no date) (unknown) [facility]) Result panel 48 (unknown) (no date) (unknown[facility]) Result panel 49 (unknown) (no date) (unknown) [facility]) Result panel 50 (unknown) (no date) (unknown) [facility]) Result panel 51 (unknown) (no date) (unknown) [facility]) Result panel 52 (unknown) (no date) (unknown) [facility]) Result panel 53 (unknown) (no date) (unknown) [facility]) Result panel 54 (unknown) (no date) (unknown) [facility]) Result panel 55 (unknown) (no date) (unknown[facility]) Result panel 56 (unknown) (no date) (unknown) [facility]) Result panel 57 (unknown) (no date) (unknown) [facility]) Result panel 58 (unknown) (no date) (unknown) [facility]) Result panel 59 (unknown) (no date) (unknown) [facility]) Result panel 60 (unknown) (no date) (unknown) [facility]) Result panel 61 (unknown) (no date) (unknown) [facility]) Result panel 62 (unknown) (no date) (unknown) [facility]) Result panel 63 (unknown) (no date) (unknown) [facility]) Result panel 64 (unknown) (no date) (unknown) [facility]) Result panel 65 (unknown) (no date) (unknown) [facility]) Result panel 66 (unknown) (no date) (unknown) [facility]) Result panel 67 (unknown) (no date) (unknown) [facility]) Result panel 68 (unknown) (no date) (unknown) [facility]) Result panel 69 (unknown) (no date) (unknown[facility]) Result panel 70 (unknown) (no date) (unknown) [facility]) Result panel 71 (unknown) (no date) (unknown) [facility]) Result panel 72 (unknown) (no date) (unknown) [facility]) Result panel 73 (unknown) (no date) (unknown[facility]) Result panel 74 (unknown) (no date) (unknown) [facility]) Result panel 75 (unknown) (no date) (unknown) [facility]) Result panel 76 (unknown) (no date) (unknown) [facility]) Result panel 77 (unknown) (no date) (unknown) [facility]) Result panel 78 (unknown) (no date) (unknown) [facility]) Result panel 79 (unknown) (no date) (unknown) [facility]) Result panel 80 (unknown) (no date) (unknown) [facility]) Result panel 81 (unknown) (no date) (unknown) [facility]) Result panel 82 (unknown) (no date) (unknown[facility]) Result panel 83 (unknown) (no date) (unknown[facility]) Result panel 84 (unknown) (no date) (unknown[facility]) Result panel 85 (unknown) (no date) (unknown[facility]) Result panel 86 (unknown) (no date) (unknown[facility]) Result panel 87 (unknown) (no date) (unknown[facility]) Result panel 88 (unknown) (no date) (unknown[facility]) Result panel 89 (unknown) (no date) (unknown[facility]) Result panel 90 (unknown) (no date) (unknown[facility]) Result panel 91 (unknown) (no date) (unknown[facility]) Result panel 92 (unknown) (no date) (unknown) [facility]) Result panel 93 (unknown) (no date) (unknown) [facility]) Result panel 94 (unknown) (no date) (unknown) [facility]) Result panel 95 (unknown) (no date) (unknown[facility]) Result panel 96 (unknown) (no date) (unknown) [facility]) Result panel 97 (unknown) (no date) (unknown) [facility]) Result panel 98 (unknown) (no date) (unknown) [facility]) Result panel 99 (unknown) (no date) (unknown) [facility]) Result panel 100 (unknown) (no date) (unknown) [facility]) Result panel 101 (unknown) (no date) (unknown[facility]) Result panel 102 (unknown) (no date) (unknown) [facility]) Result panel 103 (unknown) (no date) (unknown) [facility]) Result panel 104 (unknown) (no date) (unknown) [facility]) Result panel 105 (unknown) (no date) (unknown) [facility]) Result panel 106 (unknown) (no date) (unknown) [facility]) Result panel 107 (unknown) (no date) (unknown) [facility]) Result panel 108 (unknown) (no date) (unknown) [facility]) Result panel 109 (unknown) (no date) (unknown) [facility]) Result panel 110 (unknown) (no date) (unknown) [facility]) Result panel 111 (unknown) (no date) (unknown) [facility]) Result panel 112 (unknown) (no date) (unknown) [facility]) Result panel 113 (unknown) (no date) (unknown) [facility]) Result panel 114 (unknown) (no date) (unknown) [facility]) Result panel 115 (unknown) (no date) (unknown) [facility]) Result panel 116 (unknown) (no date) (unknown) [facility]) Result panel 117 (unknown) (no date) (unknown) [facility]) Result panel 118 (unknown) (no date) (unknown) [facility]) Result panel 119 (unknown) (no date) (unknown) [facility]) Result panel 120 (unknown) (no date) (unknown) [facility]) Result panel 121 (unknown) (no date) (unknown) [facility]) Result panel 122 (unknown) (no date) (unknown) [facility]) Result panel 123 (unknown) (no date) (unknown) [facility]) Result panel 124 (unknown) (no date) (unknown) [facility]) Result panel 125 (unknown) (no date) (unknown) [facility]) Result panel 126 (unknown) (no date) (unknown) [facility]) Result panel 127 (unknown) (no date) (unknown) [facility]) Result panel 128 (unknown) (no date) (unknown[facility]) Result panel 129 (unknown) (no date) (unknown) [facility]) Result panel 130 (unknown) (no date) (unknown) [facility]) Result panel 131 (unknown) (no date) (unknown) [facility]) Result panel 132 (unknown) (no date) (unknown) [facility]) Result panel 133 (unknown) (no date) (unknown) [facility]) Result panel 134 (unknown) (no date) (unknown) [facility]) Result panel 135 (unknown) (no date) (unknown) [facility]) Result panel 136 (unknown) (no date) (unknown) [facility]) Result panel 137 (unknown) (no date) (unknown) [facility]) Result panel 138 (unknown) (no date) (unknown) [facility]) Result panel 139 (unknown) (no date) (unknown) [facility]) Result panel 140 (unknown) (no date) (unknown) [facility]) Result panel 141 (unknown) (no date) (unknown) [facility]) Result panel 142 (unknown) (no date) (unknown) [facility]) Result panel 143 (unknown) (no date) (unknown) [facility]) Result panel 144 (unknown) (no date) (unknown) [facility]) Result panel 145 (unknown) (no date) (unknown) [facility]) Result panel 146 (unknown) (no date) (unknown) [facility]) Result panel 147 (unknown) (no date) (unknown) [facility]) Result panel 148 (unknown) (no date) (unknown) [facility]) Result panel 149 (unknown) (no date) (unknown) [facility]) Result panel 150 (unknown) (no date) (unknown) [facility]) Result panel 151 (unknown) (no date) (unknown) [facility]) Result panel 152 (unknown) (no date) (unknown) [facility]) Result panel 153 (unknown) (no date) (unknown) [facility]) Result panel 154 (unknown) (no date) (unknown) [facility]) Result panel 155 (unknown) (no (unknown) (unknown) (no value) (units (unk nown) date) unknown) (unknown) (no (unknown) (unknown) 1. Postsurgical (units (unknown) date) changes from unknown) bilateral hip arthroplasties. No acute hardware (unknown) (no (unknown) (unknown) 06/16/22 (units (unkno wn) date) unknown) (unknown) (no (unknown) (unknown) [address] [place] [address] (units (unknown) date) unknown) (unknown) (no (unknown) (unknown) 2. Colonic (units (unk nown) date) diverticulosis. unknown) (unknown) (no (unknown) (unknown) Accession (units (unkn own) date) Number: unknown) [id number] (unknown) (no (unknown) (unknown) Accession (units (unkn own) date) Number: unknown) [id number] (unknown) (no (unknown) (unknown) Age/Sex: 66 / F (units (unknown) date) Date of Service: unknown) (unknown) (no (unknown) (unknown) [place] (units ( unknown) date) [id number] unknown) (unknown) (no (unknown) (unknown) Approved by: (units (u nknown) date) akosua Glaser M.D. on 06/16/2022 at 20:21 (unknown) (no (unknown) (unknown) Bones: (units (unkno wn) date) Postsurgical unknown) changes are again seen from left total hip arthroplasty. (unknown) (no (unknown) (unknown) Bones: (units (unkno wn) date) Postsurgical unknown) changes are seen from bilateral hip arthroplasties with (unknown) (no (unknown) (unknown) COMPARISON: [facility] (units (unknown) date) Outside Film, CR, unknown) XR HIP 2 VIEWS LEFT, 05/26/2022, 17:36. (unknown) (no (unknown) (unknown) CT Scan Report (units (unknown) date) unknown) (unknown) (no (unknown) (unknown) : 1955 (units (unknown) date) Acct:[id number] unknown) (unknown) (no (unknown) (unknown) FINDINGS: (units (unkn own) date) unknown) (unknown) (no (unknown) (unknown) IMPRESSION: (units (un known) date) unknown) (unknown) (no (unknown) (unknown) INDICATIONS: (units (u nknown) date) Left hip anterior unknown) instability (unknown) (no (unknown) (unknown) Image quality: (units (unknown) date) Excellent. unknown) (unknown) (no (unknown) (unknown) [facility] (units (unknown) date) unknown) (unknown) (no (unknown) (unknown) Loc: CT (units (unkno wn) date) unknown) (unknown) (no (unknown) (unknown) [id number] (units (unk nown) date) unknown) (unknown) (no (unknown) (unknown) Metallic (units (unkno wn) date) unknown) (unknown) (no (unknown) (unknown) Musculature (units (un known) date) unknown) (unknown) (no (unknown) (unknown) Noncontrast 3 mm (units (unknown) date) axial sections unknown) acquired through the bony pelvis, with coronal (unknown) (no (unknown) (unknown) Noncontrast 3 mm (units (unknown) date) axial sections unknown) acquired through the bony pelvis. Additional 3 (unknown) (no (unknown) (unknown) Ordering (units (unkno wn) date) Provider: unknown) Evelyn Orourke MD (unknown) (no (unknown) (unknown) PROCEDURE: CT LE (units (unknown) date) LT W CON unknown) (unknown) (no (unknown) (unknown) PROCEDURE: CT (units ( unknown) date) PEL WO CON unknown) (unknown) (no (unknown) (unknown) Patient: (units (unkno wn) date) Gita Garcia unknown) A MR#: (unknown) (no (unknown) (unknown) Postsurgical (units (u nknown) date) changes from left unknown) hip arthroplasty with hardware components in (unknown) (no (unknown) (unknown) Procedure: CT LE (units (unknown) date) LT wo con unknown) (unknown) (no (unknown) (unknown) Procedure: CT (units ( unknown) date) pelvis wo con unknown) (unknown) (no (unknown) (unknown) Signed (units (unkno wn) date) unknown) (unknown) (no (unknown) (unknown) Soft tissues: No (units (unknown) date) significant left unknown) hip effusion or periarticular mass. (unknown) (no (unknown) (unknown) Soft tissues: (units ( unknown) date) The musculature unknown) surrounding the hips is normal in bulk. Soft (unknown) (no (unknown) (unknown) Status post (units (un known) date) hysterectomy. unknown) (unknown) (no (unknown) (unknown) TECHNIQUE: (units (unk nown) date) unknown) (unknown) (no (unknown) (unknown) and (units (unkno wn) date) unknown) (unknown) (no (unknown) (unknown) associated (units (unk nown) date) unknown) (unknown) (no (unknown) (unknown) centered within (units (unknown) date) unknown) (unknown) (no (unknown) (unknown) changes are (units (un known) date) unknown) (unknown) (no (unknown) (unknown) complication or (units (unknown) date) osseous fracture unknown) identified. (unknown) (no (unknown) (unknown) component (units (unkn own) date) appears unknown) (unknown) (no (unknown) (unknown) demonstrate (units (un known) date) colonic unknown) diverticulosis. (unknown) (no (unknown) (unknown) diverticulitis. (units (unknown) date) unknown) (unknown) (no (unknown) (unknown) expected (units (unkno wn) date) unknown) (unknown) (no (unknown) (unknown) fracture. (units (unkn own) date) unknown) (unknown) (no (unknown) (unknown) hardware (units (unkno wn) date) components are unknown) intact without signs of loosening. Acetabular (unknown) (no (unknown) (unknown) in the (units (unkno wn) date) unknown) (unknown) (no (unknown) (unknown) intact. (units (unkno wn) date) unknown) (unknown) (no (unknown) (unknown) left medial (units (un known) date) femorotibial unknown) compartment. Visualized osseous structures otherwise (unknown) (no (unknown) (unknown) loosening or (units (u nknown) date) perihardware unknown) fracture. Pelvic bones are intact. Degenerative (unknown) (no (unknown) (unknown) metallic streak (units (unknown) date) artifact. unknown) Hardware alignment appears normal bilaterally (unknown) (no (unknown) (unknown) mm axial (units (unkno wn) date) unknown) (unknown) (no (unknown) (unknown) normally (units (unkno wn) date) positioned unknown) without malrotation. Femoral head component is well (unknown) (no (unknown) (unknown) pelvis (units (unkno wn) date) unknown) (unknown) (no (unknown) (unknown) positions. No (units ( unknown) date) acute hardware unknown) complication identified. No acute osseous (unknown) (no (unknown) (unknown) reformats. (units (unk nown) date) unknown) (unknown) (no (unknown) (unknown) sagittal (units (unkno wn) date) reformatting. unknown) (unknown) (no (unknown) (unknown) sections (units (unkno wn) date) acquired through unknown) the symptomatic hip joint, with coronal and sagittal (unknown) (no (unknown) (unknown) seen in the (units (un known) date) lower lumbar unknown) spine. (unknown) (no (unknown) (unknown) surrounding the (units (unknown) date) left hip is unknown) normal in bulk. The included soft tissues of the (unknown) (no (unknown) (unknown) the acetabular (units (unknown) date) cup. No acute unknown) osseous fracture. Joint space narrowing is seen (unknown) (no (unknown) (unknown) the pelvis (units (unk nown) date) demonstrate unknown) colonic diverticulosis without signs of acute (unknown) (no (unknown) (unknown) tissues of (units (unk nown) date) unknown) (unknown) (no (unknown) (unknown) without signs of (units (unknown) date) unknown) Result panel 156 (unknown) (no date) (unknown) (unknown) (no value) (units (un known) unknown) (unknown) (no date) (unknown) (unknown) 07/07/22 (units (unkn own) unknown) (unknown) (no date) (unknown) (unknown) [address] (units (unk nown) [address] unknown) (unknown) (no date) (unknown) (unknown) Accession (units (unk nown) Number: unknown) [id number] (unknown) (no date) (unknown) (unknown) Age/Sex: 67 / (units (unknown) F Date of unknown) Service: (unknown) (no date) (unknown) (unknown) [place], [place] (units (unknown) [address] unknown) (unknown) (no date) (unknown) (unknown) Approved by: (units ( unknown) ricky Buchanan) Denilson on 07/07/2022 at 20:02 (unknown) (no date) (unknown) (unknown) Bilateral (units (unk nown) total hip unknown) arthroplasties. Complete superior dislocation of the left (unknown) (no date) (unknown) (unknown) [facility], XR HIP W PEL IF DONE LT 2V, 03/26/2022, 18:27. (unknown) (no date) (unknown) (unknown) : (units (unkn own) 1955 unknown) Acct:[id number] (unknown) (no date) (unknown) (unknown) Dictated by: (units ( unknown) akosua Buchanan M.D. on 07/07/2022 at 19:59 (unknown) (no date) (unknown) (unknown) FINDINGS: (units (unk nown) unknown) (unknown) (no date) (unknown) (unknown) IMPRESSION: (units (u nknown) Complete unknown) superior dislocation of the left hip prosthesis femoral (unknown) (no date) (unknown) (unknown) INDICATIONS: (units ( unknown) left hip unknown) dislocation. History of same (unknown) (no date) (unknown) (unknown) [facility] (unknown) (no date) (unknown) (unknown) Loc: ED (units (unkn own) unknown) (unknown) (no date) (unknown) (unknown) [id number] (units (un known) unknown) (unknown) (no date) (unknown) (unknown) Ordering (units (unkn own) Provider: unknown) Lisandra Roy D.O. (unknown) (no date) (unknown) (unknown) PROCEDURE: XR (units (unknown) HIP W PEL IF unknown) DONE LT 2V (unknown) (no date) (unknown) (unknown) Patient: (units (unkn own) Asmita Garcia unknown) tyler Root MR#: (unknown) (no date) (unknown) (unknown) Procedure: XR (units (unknown) hip w pel if unknown) done LT 2V (unknown) (no date) (unknown) (unknown) Signed (units (unkn own) unknown) (unknown) (no date) (unknown) (unknown) TECHNIQUE: Two (units (unknown) views of the unknown) hip were acquired. (unknown) (no date) (unknown) (unknown) XRay Report (units (u nknown) unknown) (unknown) (no date) (unknown) (unknown) component. (units (un known) unknown) (unknown) (no date) (unknown) (unknown) hip (units (unkn own) unknown) (unknown) (no date) (unknown) (unknown) prosthesis (units (un known) femoral unknown) component. Result panel 157 (unknown) (no (unknown) (unknown) (no value) (units (unk nown) date) unknown) (unknown) (no (unknown) (unknown) (4-6) #60 tabs (units (unknown) date) unknown) (unknown) (no (unknown) (unknown) (Neurontin) (units (un known) date) unknown) (unknown) (no (unknown) (unknown) (Plaquenil) (units (un known) date) unknown) (unknown) (no (unknown) (unknown) 1 [...] Spasm) Qty: 0 (unknown) (no (unknown) (unknown) 07/07/22 18:55 (units (unknown) date) unknown) (unknown) (no (unknown) (unknown) 17 [...] date) unknown) (unknown) (no (unknown) (unknown) Age/Sex: 67 / F (units (unknown) date) unknown) (unknown) [...] wn) date) unknown) (unknown) (no (unknown) (unknown) Cancer (units (unkno wn) date) unknown) (unknown) (no (unknown) (unknown) Chief Complaint: (units (unknown) date) Extremity Injury, unknown) Lower (unknown) (no (unknown) (unknown) Chronic pain (units (u nknown) date) disorder unknown) (unknown) (no (unknown) (unknown) Course (units (unkno wn) date) unknown) (unknown) (no (unknown) (unknown) : 1955 (units (unknown) date) Acct:[id number] unknown) (unknown) (no (unknown) (unknown) Date of Service: (units (unknown) date) 07/07/22 unknown) (unknown) (no (unknown) (unknown) Departure (units (unkn own) date) unknown) (unknown) (no (unknown) (unknown) Depression (units (unk nown) date) unknown) (unknown) (no (unknown) (unknown) Discharge Plan (units (unknown) date) unknown) (unknown) (no (unknown) (unknown) ED Orders (units (unkn own) date) unknown) (unknown) (no (unknown) (unknown) ER Physician: (units ( unknown) date) Lisandra Roy D.O. unknown) (unknown) (no (unknown) (unknown) Easy bruisability (units (unknown) date) unknown) (unknown) (no (unknown) (unknown) Elevated coronary (units (unknown) date) artery calcium score unknown) (unknown) (no (unknown) (unknown) Emergency Report (units (unknown) date) unknown) (unknown) (no (unknown) (unknown) Family [...] (04/12/17) (unknown) (no (unknown) (unknown) HPI - Extremity (units (unknown) date) Injury (Lower) unknown) (unknown) (no (unknown) (unknown) HTN (hypertension) [...] lung disease) unknown) (unknown) (no (unknown) (unknown) [facility] (units (unknown) date) [address] [place] [address] Street unknown) [place] [address] (unknown) (no (unknown) (unknown) [id number] (units (unk nown) date) unknown) (unknown) (no (unknown) (unknown) Medical History (units (unknown) date) (Reviewed 03/26/22 @ unknown) 18:37 by Sami Mcmahan DO) (unknown) (no (unknown) (unknown) Medication (units (unk nown) date) Instructions unknown) Recorded Confirmed (unknown) (no (unknown) (unknown) Medication (units (unk nown) date) Instructions unknown) Recorded (unknown) (no (unknown) (unknown) Mode of arrival: (units (unknown) date) EMS unknown) (unknown) (no (unknown) (unknown) Mother (units (unknown) date) COPD (chronic unknown) obstructive pulmonary disease) (unknown) (no (unknown) (unknown) No Action (units (unkn own) date) unknown) (unknown) (no (unknown) (unknown) Ordered: (units (unkno wn) date) unknown) (unknown) (no (unknown) (unknown) Orders (units (unkno wn) date) unknown) (unknown) (no (unknown) (unknown) Osteoarthritis (units (unknown) date) unknown) (unknown) (no (unknown) (unknown) Patient History [...] nknown) date) unknown) (unknown) (no (unknown) (unknown) Rx [...] Sami Mcmahan DO) (unknown) (no (unknown) (unknown) Source: EMS (units (un known) date) unknown) (unknown) (no (unknown) (unknown) Stated Complaint: (units (unknown) date) Left hip dislocation unknown) (unknown) (no (unknown) (unknown) Substance Use Type: (unit s (unknown) date) does not use unknown) (unknown) (no (unknown) (unknown) Surgical History (units (unknown) date) (Reviewed 03/26/22 @ unknown) 18:37 by Sami Mcmahan DO) (unknown) (no (unknown) (unknown) Time Seen by (units (u nknown) date) Provider: 07/07/22 unknown) 18:51 (unknown) (no (unknown) (unknown) XR hip w [...] unknown) BEDTIME RLS 02/17/21 02/19/21 Result panel 158 (unknown) (no (unknown) (unknown) (no value) (units (unk nown) date) unknown) (unknown) (no (unknown) (unknown) 07/07/22 (units (unkno wn) date) unknown) (unknown) (no (unknown) (unknown) [address] [place] [address] (units (unknown) date) unknown) (unknown) (no (unknown) (unknown) Accession Number: (units (unknown) date) [id number] unknown) (unknown) (no (unknown) (unknown) Accession Number: (units (unknown) date) [id number] unknown) (unknown) (no (unknown) (unknown) Age/Sex: 67 / F (units (unknown) date) Date of Service: unknown) (unknown) (no (unknown) (unknown) [place], [place] (units ( unknown) date) [address] unknown) (unknown) (no (unknown) (unknown) Approved by: (units (u nknown) date) Eduardo Swartz M.D. unknown) on 07/07/2022 at 19:29 (unknown) (no (unknown) (unknown) Approved by: (units (u nknown) date) Eduardo Swartz M.D. unknown) on 07/07/2022 at 19:32 (unknown) (no (unknown) (unknown) Brain: No (units (unkn own) date) intracranial unknown) bleeds or masses. There is cerebral volume loss for (unknown) (no (unknown) (unknown) COMPARISON: (units (un known) date) [facility], unknown) CR, XR CHEST 1V, 07/07/2022, 19:15. (unknown) (no (unknown) (unknown) COMPARISON: None. (units (unknown) date) unknown) (unknown) (no (unknown) (unknown) CSF spaces: Basal (units (unknown) date) cisterns are unknown) patent. No extra-axial fluid collections. The (unknown) (no (unknown) (unknown) CT Scan Report (units (unknown) date) unknown) (unknown) (no (unknown) (unknown) : 1955 (units (unknown) date) Acct:[id number] unknown) (unknown) (no (unknown) (unknown) Dictated by: (units (u nknown) date) Eduardo Swartz M.D. unknown) on 07/07/2022 at 19:28 (unknown) (no (unknown) (unknown) Dictated by: (units (u nknown) date) Eduardo Swartz M.D. unknown) on 07/07/2022 at 19:29 (unknown) (no (unknown) (unknown) FINDINGS: (units (unkn own) date) unknown) (unknown) (no (unknown) (unknown) IMPRESSION: No CT (units (unknown) date) evidence of acute unknown) traumatic cervical spine injury. (unknown) (no (unknown) (unknown) IMPRESSION: No (units (unknown) date) acute intracranial unknown) finding. (unknown) (no (unknown) (unknown) INDICATIONS: Fall (units (unknown) date) unknown) (unknown) (no (unknown) (unknown) INDICATIONS: (units (u nknown) date) Trauma, fall unknown) (unknown) (no (unknown) (unknown) Image quality: (units (unknown) date) Excellent. unknown) (unknown) (no (unknown) (unknown) [facility] (units (unknown) date) unknown) (unknown) (no (unknown) (unknown) Loc: ED (units (unkno wn) date) unknown) (unknown) (no (unknown) (unknown) [id number] (units (unk nown) date) unknown) (unknown) (no (unknown) (unknown) No acute (units (unkno wn) date) fracture. unknown) Vertebral body heights maintained. Presumably degenerative (unknown) (no (unknown) (unknown) Noncontrast 3 mm (units (unknown) date) thick sections unknown) acquired from the skull base to the T4 level. (unknown) (no (unknown) (unknown) Noncontrast 4.5 (units (unknown) date) mm thick angled unknown) axial sections acquired from the foramen magnum (unknown) (no (unknown) (unknown) Normal (units (unkno wn) date) unknown) (unknown) (no (unknown) (unknown) Ordering (units (unkno wn) date) Provider: unknown) Lisandra Roy D.O. (unknown) (no (unknown) (unknown) PROCEDURE: CT (units ( unknown) date) CERVICAL SPINE WO unknown) CON (unknown) (no (unknown) (unknown) PROCEDURE: CT (units ( unknown) date) HEAD/BRAIN WO CON unknown) (unknown) (no (unknown) (unknown) Patient: (units (unkno wn) date) Gita Garcia A unknown) MR#: (unknown) (no (unknown) (unknown) Procedure: CT (units ( unknown) date) cervical spine wo unknown) con (unknown) (no (unknown) (unknown) Procedure: CT (units ( unknown) date) head/brain wo con unknown) (unknown) (no (unknown) (unknown) Sagittal (units (unkno wn) date) unknown) (unknown) (no (unknown) (unknown) Signed (units (unkno wn) date) unknown) (unknown) (no (unknown) (unknown) Sinuses: (units (unkno wn) date) Visualized sinuses unknown) and mastoids are clear. (unknown) (no (unknown) (unknown) Skull and face: (units (unknown) date) Calvarium and unknown) visualized facial bones appear intact, without (unknown) (no (unknown) (unknown) TECHNIQUE: (units (unk nown) date) unknown) (unknown) (no (unknown) (unknown) age, with (units (unkn own) date) unknown) (unknown) (no (unknown) (unknown) and coronal (units (un known) date) reformats were unknown) then constructed. For radiation dose reduction, the (unknown) (no (unknown) (unknown) anterolisthesis (units (unknown) date) of C3 on C4 unknown) measuring 3 mm and of C4 on C5 measuring 6 mm. (unknown) (no (unknown) (unknown) artery (units (unkno wn) date) atherosclerosis. unknown) (unknown) (no (unknown) (unknown) carotid (units (unkno wn) date) unknown) (unknown) (no (unknown) (unknown) configuration of (units (unknown) date) the craniocervical unknown) junction. No suspicious bone lesion. (unknown) (no (unknown) (unknown) deep white (units (unk nown) date) unknown) (unknown) (no (unknown) (unknown) following (units (unkn own) date) unknown) (unknown) (no (unknown) (unknown) lesions. (units (unkno wn) date) unknown) (unknown) (no (unknown) (unknown) matter chronic (units (unknown) date) small vessel unknown) ischemic changes. There is intracranial internal (unknown) (no (unknown) (unknown) patient (units (unkno wn) date) unknown) (unknown) (no (unknown) (unknown) resultant (units (unkn own) date) ventricular and unknown) sulcal prominence. There are periventricular and (unknown) (no (unknown) (unknown) size. (units (unkno wn) date) unknown) (unknown) (no (unknown) (unknown) suspicious (units (unk nown) date) unknown) (unknown) (no (unknown) (unknown) to the (units (unkno wn) date) unknown) (unknown) (no (unknown) (unknown) ventricles are (units (unknown) date) symmetric in size unknown) and shape. (unknown) (no (unknown) (unknown) vertex, with (units (u nknown) date) coronal and unknown) sagittal reformats. For radiation dose reduction, the (unknown) (no (unknown) (unknown) was used: (units (unkn own) date) automated exposure unknown) control, adjustment of mA and/or kV according to Result panel 159 (unknown) (no (unknown) (unknown) (no value) (units (unk nown) date) unknown) (unknown) (no (unknown) (unknown) 07/07/22 (units (unkno wn) date) unknown) (unknown) (no (unknown) (unknown) [address] (units (unkn own) date) Street unknown) (unknown) (no (unknown) (unknown) Accession (units (unkn own) date) Number: unknown) [id number] (unknown) (no (unknown) (unknown) Age/Sex: 67 / F (units (unknown) date) Date of Service: unknown) (unknown) (no (unknown) (unknown) [place] (units ( unknown) date) [address] unknown) (unknown) (no (unknown) (unknown) Approved by: (units (u nknown) date) ricky Buchanan) Denilson on 07/07/2022 at 20:04 (unknown) (no (unknown) (unknown) COMPARISON: (units (un known) date) None. unknown) (unknown) (no (unknown) (unknown) : 1955 (units (unknown) date) Acct:[id number] unknown) (unknown) (no (unknown) (unknown) Dictated by: (units (u nknown) date) ricky Buchanan) Denilson on 07/07/2022 at 20:03 (unknown) (no (unknown) (unknown) Exam limited by (units (unknown) date) patient body unknown) habitus. Bilateral airspace opacities which are (unknown) (no (unknown) (unknown) FINDINGS: (units (unkn own) date) unknown) (unknown) (no (unknown) (unknown) IMPRESSION: (units (un known) date) Exam limited by unknown) body habitus and single-view technique. No (unknown) (no (unknown) (unknown) INDICATIONS: (units (u nknown) date) Trauma, fall unknown) (unknown) (no (unknown) (unknown) [facility] (units (unknown) date) unknown) (unknown) (no (unknown) (unknown) Loc: ED (units (unkno wn) date) unknown) (unknown) (no (unknown) (unknown) [id number] (units (unk nown) date) unknown) (unknown) (no (unknown) (unknown) Ordering (units (unkno wn) date) Provider: unknown) Lisandra Roy D.O. (unknown) (no (unknown) (unknown) PROCEDURE: XR (units ( unknown) date) CHEST 1V unknown) (unknown) (no (unknown) (unknown) Patient: (units (unkno wn) date) Gita Garcia unknown) A MR#: (unknown) (no (unknown) (unknown) Procedure: XR (units ( unknown) date) chest 1V unknown) (unknown) (no (unknown) (unknown) Signed (units (unkno wn) date) unknown) (unknown) (no (unknown) (unknown) TECHNIQUE: One (units (unknown) date) view of the unknown) chest was acquired. (unknown) (no (unknown) (unknown) XRay Report (units (un known) date) unknown) (unknown) (no (unknown) (unknown) abnormality. (units (u nknown) date) unknown) (unknown) (no (unknown) (unknown) comparison (units (unk nown) date) examination. unknown) (unknown) (no (unknown) (unknown) no (units (unkno wn) date) unknown) (unknown) (no (unknown) (unknown) nonspecific. No (units (unknown) date) pleural effusion unknown) or pneumothorax. No obvious bone (unknown) (no (unknown) (unknown) obvious (units (unkno wn) date) unknown) (unknown) (no (unknown) (unknown) traumatic (units (unkn own) date) finding. unknown) Nonspecific bilateral interstitial airspace opacities with Result panel 160 (unknown) (no date) (unknown) (unknown) Negative (units (unkn own) unknown) (unknown) (no date) (unknown) (unknown) Negative (units (unkn own) unknown) Result panel 161 (unknown) (no date) (unknown) (unknown) 1.2 % (unkn own) (unknown) (no date) (unknown) (unknown) 1.5 % (unkn own) (unknown) (no date) (unknown) (unknown) 100 /ul (unkn own) (unknown) (no date) (unknown) (unknown) 100 /ul (unkn own) (unknown) (no date) (unknown) (unknown) 11.5 g/dl (unkn own) (unknown) (no date) (unknown) (unknown) 1100 /ul (unkn own) (unknown) (no date) (unknown) (unknown) 14.0 % (unkn own) (unknown) (no date) (unknown) (unknown) 17.2 % (unkn own) (unknown) (no date) (unknown) (unknown) 3.73 x10 6/ul (unkn own) (unknown) (no date) (unknown) (unknown) 30.8 pg (unkn own) (unknown) (no date) (unknown) (unknown) 313 x10 3/ul (unkn own) (unknown) (no date) (unknown) (unknown) 33.0 % (unkn own) (unknown) (no date) (unknown) (unknown) 34.8 % (unkn own) (unknown) (no date) (unknown) (unknown) 5700 /ul (unkn own) (unknown) (no date) (unknown) (unknown) 600 /ul (unkn own) (unknown) (no date) (unknown) (unknown) 7.3 % (unkn own) (unknown) (no date) (unknown) (unknown) 7.5 x10 3/ul (unkn own) (unknown) (no date) (unknown) (unknown) 76.0 % (unkn own) (unknown) (no date) (unknown) (unknown) 93.5 fl (unkn own) Result panel 162 (unknown) (no (unknown) (unknown) (no value) (units (unk nown) date) unknown) (unknown) (no (unknown) (unknown) (4-6) #60 tabs (units (unknown) date) unknown) (unknown) (no (unknown) (unknown) (Neurontin) (units (un known) date) unknown) (unknown) (no (unknown) (unknown) (Plaquenil) (units (un known) date) unknown) (unknown) (no (unknown) (unknown) 1 [...] Spasm) Qty: 0 (unknown) (no (unknown) (unknown) 07/07/22 07/07/22 (units (unknown) date) Range/Units unknown) (unknown) (no (unknown) (unknown) 07/07/22 18:55 (units (unknown) date) unknown) (unknown) (no (unknown) (unknown) 07/07/22 19:04 (units (unknown) date) unknown) (unknown) (no (unknown) (unknown) 07/07/22 19:06 (units (unknown) date) unknown) (unknown) (no (unknown) (unknown) 07/07/22 19:12 (units (unknown) date) unknown) (unknown) (no (unknown) (unknown) 07/07/22 20:49 (units (unknown) date) unknown) (unknown) (no (unknown) (unknown) 07/07/22 20:50 (units (unknown) date) unknown) (unknown) (no (unknown) (unknown) 07/07/22 (units (unkno wn) date) unknown) (unknown) (no (unknown) (unknown) 17 gm PO DAILY PRN (units (unknown) date) (Reason: unknown) Constipation) Qty: 10 0RF (unknown) (no (unknown) (unknown) 18:53 07/07/22 (units (unknown) date) unknown) (unknown) (no (unknown) (unknown) 19:06 20:50 (units (un known) date) unknown) (unknown) (no (unknown) (unknown) 19:35 07/07/22 (units (unknown) date) unknown) (unknown) (no (unknown) (unknown) 2 puff INHALATION (units (unknown) date) Q4-6H PRN (Reason: unknown) Shortness Of Breath) (unknown) (no (unknown) (unknown) 20 mg PO BID (units (u nknown) date) unknown) (unknown) (no (unknown) (unknown) 20:55 (units (unkno wn) date) unknown) (unknown) (no (unknown) (unknown) 220 [...] date) unknown) (unknown) (no (unknown) (unknown) Age/Sex: 67 / F (units (unknown) date) unknown) (unknown) [...] wn) date) unknown) (unknown) (no (unknown) (unknown) Baso # (Auto) 100 (units (unknown) date) (0-100) /uL unknown) (unknown) (no (unknown) (unknown) Baso % (Auto) 1.2 (units (unknown) date) (0-2) % unknown) (unknown) (no (unknown) (unknown) Blood Pressure (units (unknown) date) 178/71 H 07/07/22 unknown) 18:53 (unknown) (no (unknown) (unknown) Blood Pressure (units (unknown) date) 178/71 H 146/67 H unknown) 162/75 H (unknown) (no (unknown) (unknown) CBC Auto Diff (units ( unknown) date) [Complete Blood unknown) Count AUTO DIFF] Stat (unknown) (no (unknown) (unknown) CMP [Comprehensive (units (unknown) date) Metabolic Panel] unknown) Stat (unknown) (no (unknown) (unknown) COVID19 -Nasal (units (unknown) date) RAPID/Pre-Proc Stat unknown) (unknown) (no (unknown) (unknown) CT cervical spine (units (unknown) date) wo con Stat unknown) (unknown) (no (unknown) (unknown) CT head/brain wo (units (unknown) date) con Stat unknown) (unknown) (no (unknown) (unknown) Cancer (units (unkno wn) date) unknown) (unknown) (no (unknown) (unknown) Chest [XR chest 1V] (unit s (unknown) date) Stat unknown) (unknown) (no (unknown) (unknown) Chief Complaint: (units (unknown) date) Extremity Injury, unknown) Lower (unknown) (no (unknown) (unknown) Chronic pain (units (u nknown) date) disorder unknown) (unknown) (no (unknown) (unknown) Course (units (unkno wn) date) unknown) (unknown) (no (unknown) (unknown) : 1955 (units (unknown) date) Acct:[id number] unknown) (unknown) (no (unknown) (unknown) Date of Service: (units (unknown) date) 07/07/22 unknown) (unknown) (no (unknown) (unknown) Departure (units (unkn own) date) unknown) (unknown) (no (unknown) (unknown) Depression (units (unk nown) date) unknown) (unknown) (no (unknown) (unknown) Discharge Plan (units (unknown) date) unknown) (unknown) (no (unknown) (unknown) Discontinued (units (u nknown) date) Medications unknown) (unknown) (no (unknown) (unknown) ED Orders (units (unkn own) date) unknown) (unknown) (no (unknown) (unknown) ER Physician: (units ( unknown) date) Lisandra Roy D.O. unknown) (unknown) (no (unknown) (unknown) Easy bruisability (units (unknown) date) unknown) (unknown) (no (unknown) (unknown) Elevated coronary (units (unknown) date) artery calcium score unknown) (unknown) (no (unknown) (unknown) Emergency Report (units (unknown) date) unknown) (unknown) (no (unknown) (unknown) Eos # (Auto) 100 (units (unknown) date) (0-450) /uL unknown) (unknown) (no (unknown) (unknown) Eos % (Auto) 1.5 L (units (unknown) date) (2-4) % unknown) (unknown) (no (unknown) (unknown) Exam (units [...] (04/12/17) (unknown) (no (unknown) (unknown) HPI - Extremity (units (unknown) date) Injury (Lower) unknown) (unknown) (no (unknown) (unknown) HTN (hypertension) (units (unknown) date) unknown) (unknown) (no (unknown) (unknown) Hct 34.8 L (36-46) (units (unknown) date) % unknown) (unknown) (no (unknown) (unknown) Hgb 11.5 L (units (unk nown) date) (12.0-16.0) g/dL unknown) (unknown) (no (unknown) (unknown) History of [...] date) Signs: unknown) (unknown) (no (unknown) (unknown) [facility] (units (unknown) date) [address] unknown) [place] [address] (unknown) (no (unknown) (unknown) Lab Data (units (unkno wn) date) unknown) (unknown) (no (unknown) (unknown) Lab Results (units (un known) date) unknown) (unknown) (no (unknown) (unknown) Labs: (units (unkno wn) date) unknown) (unknown) (no (unknown) (unknown) Lymph # (Auto) 1100 (unit s (unknown) date) ([phone]) /uL unknown) (unknown) (no (unknown) (unknown) Lymph % (Auto) 14.0 (unit s (unknown) date) L (25-40) % unknown) (unknown) (no (unknown) (unknown) [id number] (units (unk nown) date) unknown) (unknown) (no (unknown) (unknown) MCH 30.8 (26-34) PG (unit s (unknown) date) unknown) (unknown) (no (unknown) (unknown) MCHC 33.0 (30-36) % (unit s (unknown) date) unknown) (unknown) (no (unknown) (unknown) MCV 93.5 (80-100) (units (unknown) date) fL unknown) (unknown) (no (unknown) (unknown) MDM - Extremity (units (unknown) date) Injury (Lower) unknown) (unknown) (no (unknown) (unknown) Medical History (units (unknown) date) (Reviewed 03/26/22 @ unknown) 18:37 by Sami Mcmahan DO) (unknown) (no (unknown) (unknown) Medication (units (unk nown) date) Instructions unknown) Recorded Confirmed (unknown) (no (unknown) (unknown) Medication (units (unk nown) date) Instructions unknown) Recorded (unknown) (no (unknown) (unknown) Mode of arrival: (units (unknown) date) EMS unknown) (unknown) (no (unknown) (unknown) [place] # (Auto) 600 (units (unknown) date) (0-900) /uL unknown) (unknown) (no (unknown) (unknown) [place] % (Auto) 7.3 (units (unknown) date) (3-14) % unknown) (unknown) (no (unknown) (unknown) Mother (units (unknown) date) COPD (chronic unknown) obstructive pulmonary disease) (unknown) (no (unknown) (unknown) Neut # (Auto) 5700 (units (unknown) date) (6646-7844) /uL unknown) (unknown) (no (unknown) (unknown) Neut % (Auto) 76.0 (units (unknown) date) H (50-75) % unknown) (unknown) (no (unknown) (unknown) No Action (units (unkn own) date) unknown) (unknown) (no (unknown) (unknown) Ordered: (units (unkno wn) date) unknown) (unknown) (no (unknown) (unknown) Orders (units (unkno wn) date) unknown) (unknown) (no (unknown) (unknown) Osteoarthritis (units (unknown) date) unknown) (unknown) (no (unknown) (unknown) Oxygen Delivery (units (unknown) date) Method 07/07/22 unknown) 18:53 (unknown) (no (unknown) (unknown) Oxygen Delivery (units (unknown) date) Method Room Air Room unknown) Air (unknown) (no (unknown) (unknown) Patient History (units (unknown) date) unknown) (unknown) (no (unknown) (unknown) Patient: (units (unkno wn) date) Gita Garcia unknown) MR#: (unknown) (no (unknown) (unknown) Plt Count 313 (units ( unknown) date) (150-400) X103/uL unknown) (unknown) (no (unknown) (unknown) Point of Care (units ( unknown) date) Testing unknown) (unknown) (no (unknown) (unknown) Test (units (unknown) date) Results Not unknown) applicable (unknown) (no (unknown) (unknown) Prescriptions: (units (unknown) date) unknown) (unknown) (no (unknown) (unknown) Previous Rx's (units ( unknown) date) unknown) (unknown) (no (unknown) (unknown) Propofol (Propofol (units (unknown) date) 200 Mg/20 Ml Vial) unknown) 135 mg 2 mg/kg (135 mg) IV NOW ONE (unknown) (no (unknown) (unknown) Propofol (Propofol (units (unknown) date) 200 Mg/20 Ml Vial) unknown) 70 mg 1 mg/kg (70 mg) IV NOW ONE (unknown) (no (unknown) (unknown) Pulse Oximetry 99 (units (unknown) date) 07/07/22 18:53 unknown) (unknown) (no (unknown) (unknown) Pulse Oximetry 99 (units (unknown) date) 94 98 unknown) (unknown) (no (unknown) (unknown) Pulse Rate 78 (units ( unknown) date) 07/07/22 18:53 unknown) (unknown) (no (unknown) (unknown) Pulse Rate 78 77 80 (unit s (unknown) date) unknown) (unknown) (no (unknown) (unknown) RBBB (right bundle (units (unknown) date) branch block) unknown) (unknown) (no (unknown) (unknown) RBC 3.73 L (units (unk nown) date) (4.0-5.2) X106/uL unknown) (unknown) (no (unknown) (unknown) RDW 17.2 H (units (unk nown) date) (11.6-14.8) % unknown) (unknown) (no (unknown) (unknown) Referrals: (units (unk nown) date) unknown) (unknown) (no (unknown) (unknown) Related Data (units (u nknown) date) unknown) (unknown) (no (unknown) (unknown) Respiratory Rate 18 (unit s (unknown) date) 07/07/22 18:53 unknown) (unknown) (no (unknown) (unknown) Respiratory Rate 18 (unit s (unknown) date) 24 24 unknown) (unknown) (no (unknown) (unknown) Result diagrams: (units (unknown) date) unknown) (unknown) (no (unknown) (unknown) Rx Instructions: (units (unknown) date) unknown) (unknown) (no (unknown) (unknown) SARS-CoV-2 (PCR) (units (unknown) date) Negative (Negative) unknown) (unknown) (no (unknown) (unknown) Sarcoid neuropathy [...] Sami Mcmahan DO) (unknown) (no (unknown) (unknown) Source: EMS (units (un known) date) unknown) (unknown) (no (unknown) (unknown) Stated Complaint: (units (unknown) date) Left hip dislocation unknown) (unknown) (no (unknown) (unknown) Stop: 07/07/22 (units (unknown) date) 20:37 unknown) (unknown) (no (unknown) (unknown) Stop: 07/07/22 (units (unknown) date) 20:51 unknown) (unknown) (no (unknown) (unknown) Substance Use Type: (unit s (unknown) date) does not use unknown) (unknown) (no (unknown) (unknown) Surgical History (units (unknown) date) (Reviewed 03/26/22 @ unknown) 18:37 by Sami Mcmahan DO) (unknown) (no (unknown) (unknown) Temperature 98.1 F (units (unknown) date) 07/07/22 18:53 unknown) (unknown) (no (unknown) (unknown) Temperature 98.1 F (units (unknown) date) unknown) (unknown) (no (unknown) (unknown) Time Seen by (units (u nknown) date) Provider: 07/07/22 unknown) 18:51 (unknown) (no (unknown) (unknown) Vital Signs - 8 hr (units (unknown) date) unknown) (unknown) (no (unknown) (unknown) Vital Signs (units (un known) date) unknown) (unknown) (no (unknown) (unknown) Vital signs: (units (u nknown) date) unknown) (unknown) (no (unknown) (unknown) WBC 7.5 (4.5-11.0) (units (unknown) date) X103/uL unknown) (unknown) (no (unknown) (unknown) XR hip w pel if (units (unknown) date) done LT 2V Stat unknown) (unknown) (no (unknown) (unknown) Ghazal Desir, (units (unknown) date) [facility] [Primary Care unknown) Provider] (unknown) (no (unknown) (unknown) [Embedded Image Not (unit s (unknown) date) Available] unknown) (unknown) (no (unknown) (unknown) acetaminophen 325 [...] unknown) BEDTIME RLS 02/17/21 02/19/21 Result panel 163 (unknown) (no date) (unknown) (unknown) > 60 ml/min (unkn own) (unknown) (no date) (unknown) (unknown) > 60 ml/min (unkn own) (unknown) (no date) (unknown) (unknown) 0.2 mg/dl (unkn own) (unknown) (no date) (unknown) (unknown) 0.76 mg/dl (unkn own) (unknown) (no date) (unknown) (unknown) 1.6 (units unknown) (unknown) (unknown) (no date) (unknown) (unknown) 102 mmol/l (unkn own) (unknown) (no date) (unknown) (unknown) 138 mmol/l (unkn own) (unknown) (no date) (unknown) (unknown) 18 mg/dl (unkn own) (unknown) (no date) (unknown) (unknown) 2.5 g/dl (unkn own) (unknown) (no date) (unknown) (unknown) 23.7 (units unknown) (unknown) (unknown) (no date) (unknown) (unknown) 24 mmol/l (unkn own) (unknown) (no date) (unknown) (unknown) 29 iu/l (unkn own) (unknown) (no date) (unknown) (unknown) 33 iu/l (unkn own) (unknown) (no date) (unknown) (unknown) 4.0 g/dl (unkn own) (unknown) (no date) (unknown) (unknown) 4.0 mmol/l (unkn own) (unknown) (no date) (unknown) (unknown) 6.5 g/dl (unkn own) (unknown) (no date) (unknown) (unknown) 8.5 mg/dl (unkn own) (unknown) (no date) (unknown) (unknown) 84 mg/dl (unkn own) (unknown) (no date) (unknown) (unknown) 84 mg/dl (unkn own) (unknown) (no date) (unknown) (unknown) 92 u/l (unkn own) Result panel 164 (unknown) (no date) (unknown) (unknown) (no value) (units (un known) unknown) (unknown) (no date) (unknown) (unknown) 1. Interval (units (u nknown) reduction of unknown) the previously dislocated left hip prosthesis. (unknown) (no date) (unknown) (unknown) 07/07/22 (units (unkn own) unknown) (unknown) (no date) (unknown) (unknown) [address]units (unk nown) [address] unknown) (unknown) (no date) (unknown) (unknown) 19:06. (units (unkn own) unknown) (unknown) (no date) (unknown) (unknown) Accession (units (unk nown) Number: unknown) [id number] (unknown) (no date) (unknown) (unknown) Age/Sex: 67 / (units (unknown) F Date of unknown) Service: (unknown) (no date) (unknown) (unknown) [place] (units (unknown) [address] unknown) (unknown) (no date) (unknown) (unknown) Approved by: (units ( unknown) Hector Hutton, unknown) [place] on 07/07/2022 at 23:24 (unknown) (no date) (unknown) (unknown) Bones: There (units ( unknown) is interval unknown) reduction of the previously dislocated left hip (unknown) (no date) (unknown) (unknown) [facility], XR HIP W PEL IF DONE LT 2V, 07/07/2022, (unknown) (no date) (unknown) (unknown) : (units (unkn own) 1955 unknown) Acct:[id number] (unknown) (no date) (unknown) (unknown) Dictated by: (units ( unknown) Hector Hutton, unknown) Denilson on 07/07/2022 at 23:23 (unknown) (no date) (unknown) (unknown) FINDINGS: (units (unk nown) unknown) (unknown) (no date) (unknown) (unknown) IMPRESSION: (units (u nknown) unknown) (unknown) (no date) (unknown) (unknown) INDICATIONS: (units ( unknown) POST REDUCTION unknown) (unknown) (no date) (unknown) (unknown) [facility] (unknown) (no date) (unknown) (unknown) Loc: ED (units (unkn own) unknown) (unknown) (no date) (unknown) (unknown) [id number] (units (un known) unknown) (unknown) (no date) (unknown) (unknown) Ordering (units (unkn own) Provider: unknown) Lisandra Roy D.O. (unknown) (no date) (unknown) (unknown) PROCEDURE: XR (units (unknown) PELVIS 1-2V unknown) (unknown) (no date) (unknown) (unknown) Patient: (units (unkn own) Asmita Garcia unknown) tyler Root MR#: (unknown) (no date) (unknown) (unknown) Procedure: XR (units (unknown) pelvis 1-2V unknown) (unknown) (no date) (unknown) (unknown) Signed (units (unkn own) unknown) (unknown) (no date) (unknown) (unknown) Soft tissues: (units (unknown) Visualized unknown) bowel gas pattern is normal. No suspicious soft (unknown) (no date) (unknown) (unknown) TECHNIQUE: (units (un known) Single-view of unknown) the pelvis acquired. (unknown) (no date) (unknown) (unknown) XRay Report (units (u nknown) unknown) (unknown) (no date) (unknown) (unknown) calcifications (units (unknown) . unknown) (unknown) (no date) (unknown) (unknown) definite (units (unkn own) fracture unknown) identified on the current limited study. Right hip (unknown) (no date) (unknown) (unknown) prosthesis is (units (unknown) unknown) (unknown) (no date) (unknown) (unknown) prosthesis. No (units (unknown) unknown) (unknown) (no date) (unknown) (unknown) redemonstrated (units (unknown) . unknown) (unknown) (no date) (unknown) (unknown) tissue (units (unkn own) unknown) Result panel 165 (unknown) (no (unknown) (unknown) (no value) (units (unk nown) date) unknown) (unknown) (no (unknown) (unknown) (4-6) #60 tabs (units (unknown) date) unknown) (unknown) (no (unknown) (unknown) (Neurontin) (units (un known) date) unknown) (unknown) (no (unknown) (unknown) ([place]) (units (un known) date) unknown) (unknown) (no (unknown) (unknown) 1 [...] Spasm) Qty: 0 (unknown) (no (unknown) (unknown) 07/07/22 07/07/22 (units (unknown) date) 07/07/22 Range/Units unknown) (unknown) (no (unknown) (unknown) 07/07/22 18:55 (units (unknown) date) unknown) (unknown) (no (unknown) (unknown) 07/07/22 19:04 (units (unknown) date) unknown) (unknown) (no (unknown) (unknown) 07/07/22 19:06 (units (unknown) date) unknown) (unknown) (no (unknown) (unknown) 07/07/22 19:12 (units (unknown) date) unknown) (unknown) (no (unknown) (unknown) 07/07/22 20:50 (units (unknown) date) unknown) (unknown) (no (unknown) (unknown) 07/07/22 21:18 (units (unknown) date) unknown) (unknown) (no (unknown) (unknown) 07/07/22 (units (unkno wn) date) unknown) (unknown) (no (unknown) (unknown) 17 gm PO DAILY PRN (units (unknown) date) (Reason: unknown) Constipation) Qty: 10 0RF (unknown) (no (unknown) (unknown) 18:53 07/07/22 (units (unknown) date) unknown) (unknown) (no (unknown) (unknown) 19:06 20:50 20:50 (units (unknown) date) unknown) (unknown) (no (unknown) (unknown) 19:35 07/07/22 (units (unknown) date) unknown) (unknown) (no (unknown) (unknown) 2 puff INHALATION (units (unknown) date) Q4-6H PRN (Reason: unknown) Shortness Of Breath) (unknown) (no (unknown) (unknown) 20 mg PO BID (units (u nknown) date) unknown) (unknown) (no (unknown) (unknown) 20:55 (units (unkno wn) date) unknown) (unknown) (no (unknown) (unknown) 21:06 07/07/22 (units (unknown) date) unknown) (unknown) (no (unknown) (unknown) 21:10 (units (unkno wn) date) unknown) (unknown) (no (unknown) (unknown) 21:15 07/07/22 (units (unknown) date) unknown) (unknown) (no (unknown) (unknown) 21:20 07/07/22 (units (unknown) date) unknown) (unknown) (no (unknown) (unknown) 21:25 (units (unkno wn) date) unknown) (unknown) (no (unknown) (unknown) 21:34 07/07/22 (units (unknown) date) unknown) (unknown) (no (unknown) (unknown) 21:36 07/07/22 (units (unknown) date) unknown) (unknown) (no (unknown) (unknown) 21:40 07/07/22 (units (unknown) date) unknown) (unknown) (no (unknown) (unknown) 21:45 (units (unkno wn) date) unknown) (unknown) (no (unknown) (unknown) 21:50 07/07/22 (units (unknown) date) unknown) (unknown) (no (unknown) (unknown) 220 mg PO BID PRN (units (unknown) date) (Reason: Pain) unknown) (unknown) (no (unknown) (unknown) 22:00 07/07/22 (units (unknown) date) unknown) (unknown) (no (unknown) (unknown) 22:09 (units (unkno wn) date) unknown) (unknown) (no (unknown) (unknown) 22:15 07/07/22 (units (unknown) date) unknown) (unknown) (no (unknown) (unknown) 22:30 (units (unkno wn) date) unknown) (unknown) (no (unknown) (unknown) 3 mg [...] 60 0RF unknown) (unknown) (no (unknown) (unknown) ALT 29 (<35) IU/L (units (unknown) date) unknown) (unknown) (no (unknown) (unknown) AST 33 (14-36) IU/L (unit s (unknown) date) unknown) (unknown) (no (unknown) (unknown) Abrasion (02/16/21) (unit s (unknown) date) unknown) (unknown) (no (unknown) (unknown) Age/Sex: 67 / F (units (unknown) date) unknown) (unknown) (no (unknown) (unknown) Albumin 4.0 (units (un known) date) (3.5-5.0) g/dL unknown) (unknown) (no (unknown) (unknown) Albumin/Globulin (units (unknown) date) Ratio 1.6 (1.0-2.8) unknown) (unknown) (no (unknown) (unknown) Alcohol type: wine (units (unknown) date) unknown) (unknown) (no (unknown) (unknown) Alkaline (units (unkno wn) date) Phosphatase 92 unknown) (38-126) U/L (unknown) (no (unknown) (unknown) Allergies (units (unkn own) date) unknown) (unknown) (no (unknown) (unknown) Allergy/AdvReac (units (unknown) date) Type Severity unknown) Reaction Status Date / Time (unknown) (no (unknown) (unknown) Anxiety (units (unkno wn) date) unknown) (unknown) (no (unknown) (unknown) Asthma (units (unkno wn) date) unknown) (unknown) (no (unknown) (unknown) BUN 18 H (7-17) (units (unknown) date) mg/dL unknown) (unknown) (no (unknown) (unknown) BUN/Creatinine (units (unknown) date) Ratio 23.7 H (6-22) unknown) (unknown) (no (unknown) (unknown) Baso # (Auto) 100 (units (unknown) date) (0-100) /uL unknown) (unknown) (no (unknown) (unknown) Baso % (Auto) 1.2 (units (unknown) date) (0-2) % unknown) (unknown) (no (unknown) (unknown) Blood Pressure (units (unknown) date) 130/60 118/62 135/63 unknown) (unknown) (no (unknown) (unknown) Blood Pressure (units (unknown) date) 138/68 138/68 unknown) (unknown) (no (unknown) (unknown) Blood Pressure (units (unknown) date) 139/69 142/65 H unknown) 156/68 H (unknown) (no (unknown) (unknown) Blood Pressure (units (unknown) date) 147/70 H 142/67 H unknown) 133/64 (unknown) (no (unknown) (unknown) Blood Pressure (units (unknown) date) 164/76 H 132/78 unknown) 166/82 H (unknown) (no (unknown) (unknown) Blood Pressure (units (unknown) date) 178/71 H 12/ unknown) 18:53 (unknown) (no (unknown) (unknown) Blood Pressure (units (unknown) date) 178/71 H 146/67 H unknown) 162/75 H (unknown) (no (unknown) (unknown) Blood Pressure (units (unknown) date) unknown) (unknown) (no (unknown) (unknown) CBC Auto Diff (units ( unknown) date) [Complete Blood unknown) Count AUTO DIFF] Stat (unknown) (no (unknown) (unknown) CMP [Comprehensive (units (unknown) date) Metabolic Panel] unknown) Stat (unknown) (no (unknown) (unknown) COVID19 -Nasal (units (unknown) date) RAPID/Pre-Proc Stat unknown) (unknown) (no (unknown) (unknown) CT cervical spine (units (unknown) date) wo con Stat unknown) (unknown) (no (unknown) (unknown) CT head/brain wo (units (unknown) date) con Stat unknown) (unknown) (no (unknown) (unknown) Calcium 8.5 (units (un known) date) (8.4-10.2) mg/dL unknown) (unknown) (no (unknown) (unknown) Cancer (units (unkno wn) date) unknown) (unknown) (no (unknown) (unknown) Carbon Dioxide 24 (units (unknown) date) (22-32) mmol/L unknown) (unknown) (no (unknown) (unknown) Chest [XR chest 1V] (unit s (unknown) date) Stat unknown) (unknown) (no (unknown) (unknown) Chief Complaint: (units (unknown) date) Extremity Injury, unknown) Lower (unknown) (no (unknown) (unknown) Chloride 102 (units (u nknown) date) (98-107) mmol/L unknown) (unknown) (no (unknown) (unknown) Chronic pain (units (u nknown) date) disorder unknown) (unknown) (no (unknown) (unknown) Course (units (unkno wn) date) unknown) (unknown) (no (unknown) (unknown) Creatinine 0.76 (units (unknown) date) (0.52-1.04) mg/dL unknown) (unknown) (no (unknown) (unknown) : 1955 (units (unknown) date) Acct:[id number] unknown) (unknown) (no (unknown) (unknown) Date of Service: (units (unknown) date) 07/07/22 unknown) (unknown) (no (unknown) (unknown) Departure (units (unkn own) date) unknown) (unknown) (no (unknown) (unknown) Depression (units (unk nown) date) unknown) (unknown) (no (unknown) (unknown) Discharge Plan (units (unknown) date) unknown) (unknown) (no (unknown) (unknown) Discontinued (units (u nknown) date) Medications unknown) (unknown) (no (unknown) (unknown) Documented By: OW (units (unknown) date) unknown) (unknown) (no (unknown) (unknown) ED Orders (units (unkn own) date) unknown) (unknown) (no (unknown) (unknown) ER Physician: (units ( unknown) date) Lisandra Roy D.O. unknown) (unknown) (no (unknown) (unknown) Easy bruisability (units (unknown) date) unknown) (unknown) (no (unknown) (unknown) Elevated coronary (units (unknown) date) artery calcium score unknown) (unknown) (no (unknown) (unknown) Emergency Report (units (unknown) date) unknown) (unknown) (no (unknown) (unknown) Eos # (Auto) 100 (units (unknown) date) (0-450) /uL unknown) (unknown) (no (unknown) (unknown) Eos % (Auto) 1.5 L (units (unknown) date) (2-4) % unknown) (unknown) (no (unknown) (unknown) Estimated GFR > 60 (units (unknown) date) (>60) mL/min unknown) (unknown) (no (unknown) (unknown) Exam (units [...] wn) date) unknown) (unknown) (no (unknown) (unknown) Globulin 2.5 (units (u nknown) date) (1.7-4.1) g/dL unknown) (unknown) (no (unknown) (unknown) Glucose 84 (80-110) (unit s (unknown) date) mg/dL unknown) (unknown) (no (unknown) (unknown) H/O total hip (units ( unknown) date) arthroplasty unknown) (04/12/17) (unknown) (no (unknown) (unknown) HPI - Extremity (units (unknown) date) Injury (Lower) unknown) (unknown) (no (unknown) (unknown) HTN (hypertension) (units (unknown) date) unknown) (unknown) (no (unknown) (unknown) Hct 34.8 L (36-46) (units (unknown) date) % unknown) (unknown) (no (unknown) (unknown) Hgb 11.5 L (units (unk nown) date) (12.0-16.0) g/dL unknown) (unknown) (no (unknown) (unknown) History of [...] date) Signs: unknown) (unknown) (no (unknown) (unknown) [facility] (units (unknown) date) [address] unknown) [place] [address] (unknown) (no (unknown) (unknown) Ketorolac (units (unkn own) date) Tromethamine unknown) (Ketorolac 30 Mg/Ml Vial) 15 mg IV NOW ONE (unknown) (no (unknown) (unknown) Lab Data (units (unkno wn) date) unknown) (unknown) (no (unknown) (unknown) Lab Results (units (un known) date) unknown) (unknown) (no (unknown) (unknown) Labs: (units (unkno wn) date) unknown) (unknown) (no (unknown) (unknown) Last Admin: (units (un known) date) 07/07/22 21:06 Dose: unknown) 70 mg (unknown) (no (unknown) (unknown) Last Admin: (units (un known) date) 07/07/22 21:38 Dose: unknown) 130 mg (unknown) (no (unknown) (unknown) Last Admin: (units (un known) date) 07/07/22 21:45 Dose: unknown) 100 mg (unknown) (no (unknown) (unknown) Last Admin: (units (un known) date) 07/07/22 22:09 Dose: unknown) 15 mg (unknown) (no (unknown) (unknown) Lymph # (Auto) 1100 (unit s (unknown) date) ([id number]) /uL unknown) (unknown) (no (unknown) (unknown) Lymph % (Auto) 14.0 (unit s (unknown) date) L (25-40) % unknown) (unknown) (no (unknown) (unknown) [id number] (units (unk nown) date) unknown) (unknown) (no (unknown) (unknown) MCH 30.8 (26-34) PG (unit s (unknown) date) unknown) (unknown) (no (unknown) (unknown) MCHC 33.0 (30-36) % (unit s (unknown) date) unknown) (unknown) (no (unknown) (unknown) MCV 93.5 (80-100) (units (unknown) date) fL unknown) (unknown) (no (unknown) (unknown) MDM - Extremity (units (unknown) date) Injury (Lower) unknown) (unknown) (no (unknown) (unknown) Medical History (units (unknown) date) (Reviewed 03/26/22 @ unknown) 18:37 by Sami Mcmahan DO) (unknown) (no (unknown) (unknown) Medication (units (unk nown) date) Instructions unknown) Recorded Confirmed (unknown) (no (unknown) (unknown) Medication (units (unk nown) date) Instructions unknown) Recorded (unknown) (no (unknown) (unknown) Mode of arrival: (units (unknown) date) EMS unknown) (unknown) (no (unknown) (unknown) [place] # (Auto) 600 (units (unknown) date) (0-900) /uL unknown) (unknown) (no (unknown) (unknown) [place] % (Auto) 7.3 (units (unknown) date) (3-14) % unknown) (unknown) (no (unknown) (unknown) Mother (units (unknown) date) COPD (chronic unknown) obstructive pulmonary disease) (unknown) (no (unknown) (unknown) Neut # (Auto) 5700 (units (unknown) date) (1429-6915) /uL unknown) (unknown) (no (unknown) (unknown) Neut % (Auto) 76.0 (units (unknown) date) H (50-75) % unknown) (unknown) (no (unknown) (unknown) No Action (units (unkn own) date) unknown) (unknown) (no (unknown) (unknown) Ordered: (units (unkno wn) date) unknown) (unknown) (no (unknown) (unknown) Orders (units (unkno wn) date) unknown) (unknown) (no (unknown) (unknown) Osteoarthritis (units (unknown) date) unknown) (unknown) (no (unknown) (unknown) Oxygen Delivery (units (unknown) date) Method 07/07/22 unknown) 18:53 (unknown) (no (unknown) (unknown) Oxygen Delivery (units (unknown) date) Method Nasal Cannula unknown) Nasal Cannula Nasal Cannula (unknown) (no (unknown) (unknown) Oxygen Delivery (units (unknown) date) Method Nasal Cannula unknown) Nasal Cannula (unknown) (no (unknown) (unknown) Oxygen Delivery (units (unknown) date) Method Nasal Cannula unknown) (unknown) (no (unknown) (unknown) Oxygen Delivery (units (unknown) date) Method Room Air Room unknown) Air Room Air (unknown) (no (unknown) (unknown) Oxygen Delivery (units (unknown) date) Method Room Air Room unknown) Air (unknown) (no (unknown) (unknown) Oxygen Delivery (units (unknown) date) Method Room Air unknown) (unknown) (no (unknown) (unknown) Oxygen Delivery (units (unknown) date) Method unknown) (unknown) (no (unknown) (unknown) Oxygen Flow Rate 2 (units (unknown) date) 2 2 unknown) (unknown) (no (unknown) (unknown) Oxygen Flow Rate 2 (units (unknown) date) unknown) (unknown) (no (unknown) (unknown) Oxygen Flow Rate (units (unknown) date) unknown) (unknown) (no (unknown) (unknown) Patient History (units (unknown) date) unknown) (unknown) (no (unknown) (unknown) Patient: (units (unkno wn) date) Gita Garcia A unknown) MR#: (unknown) (no (unknown) (unknown) Plt Count 313 (units ( unknown) date) (150-400) X103/uL unknown) (unknown) (no (unknown) (unknown) Point of Care (units ( unknown) date) Testing unknown) (unknown) (no (unknown) (unknown) Potassium 4.0 (units ( unknown) date) (3.4-5.1) mmol/L unknown) (unknown) (no (unknown) (unknown) Test (units (unknown) date) Results Not unknown) applicable (unknown) (no (unknown) (unknown) Prescriptions: (units (unknown) date) unknown) (unknown) (no (unknown) (unknown) Previous Rx's (units ( unknown) date) unknown) (unknown) (no (unknown) (unknown) Propofol (Propofol (units (unknown) date) 200 Mg/20 Ml Vial) unknown) 135 mg 2 mg/kg (135 mg) IV NOW ONE (unknown) (no (unknown) (unknown) Propofol (Propofol (units (unknown) date) 200 Mg/20 Ml Vial) unknown) 70 mg 1 mg/kg (70 mg) IV NOW ONE (unknown) (no (unknown) (unknown) Pulse Oximetry 81 L (unit s (unknown) date) 98 91 unknown) (unknown) (no (unknown) (unknown) Pulse Oximetry 88 L (unit s (unknown) date) 96 unknown) (unknown) (no (unknown) (unknown) Pulse Oximetry 94 (units (unknown) date) 97 97 unknown) (unknown) (no (unknown) (unknown) Pulse Oximetry 95 (units (unknown) date) 98 97 unknown) (unknown) (no (unknown) (unknown) Pulse Oximetry 96 (units (unknown) date) unknown) (unknown) (no (unknown) (unknown) Pulse Oximetry 98 (units (unknown) date) unknown) (unknown) (no (unknown) (unknown) Pulse Oximetry 99 (units (unknown) date) 07/07/22 18:53 unknown) (unknown) (no (unknown) (unknown) Pulse Oximetry 99 (units (unknown) date) 94 98 unknown) (unknown) (no (unknown) (unknown) Pulse Rate 76 80 (units (unknown) date) unknown) (unknown) (no (unknown) (unknown) Pulse Rate 77 78 77 (unit s (unknown) date) unknown) (unknown) (no (unknown) (unknown) Pulse Rate 77 (units ( unknown) date) unknown) (unknown) (no (unknown) (unknown) Pulse Rate 78 (units ( unknown) date) 07/07/22 18:53 unknown) (unknown) (no (unknown) (unknown) Pulse Rate 78 77 80 (unit s (unknown) date) unknown) (unknown) (no (unknown) (unknown) Pulse Rate 79 79 (units (unknown) date) unknown) (unknown) (no (unknown) (unknown) Pulse Rate 81 78 83 (unit s (unknown) date) unknown) (unknown) (no (unknown) (unknown) Pulse Rate 82 81 80 (unit s (unknown) date) unknown) (unknown) (no (unknown) (unknown) RBBB (right bundle (units (unknown) date) branch block) unknown) (unknown) (no (unknown) (unknown) RBC 3.73 L (units (unk nown) date) (4.0-5.2) X106/uL unknown) (unknown) (no (unknown) (unknown) RDW 17.2 H (units (unk n) date) (11.6-14.8) % unknown) (unknown) (no (unknown) (unknown) Referrals: (units (unk nown) date) unknown) (unknown) (no (unknown) (unknown) Related Data (units (u nknown) date) unknown) (unknown) (no (unknown) (unknown) Respiratory Rate 15 (unit s (unknown) date) 22 unknown) (unknown) (no (unknown) (unknown) Respiratory Rate 18 (unit s (unknown) date) 07/07/22 18:53 unknown) (unknown) (no (unknown) (unknown) Respiratory Rate 18 (unit s (unknown) date) 18 16 unknown) (unknown) (no (unknown) (unknown) Respiratory Rate 18 (unit s (unknown) date) 20 20 unknown) (unknown) (no (unknown) (unknown) Respiratory Rate 18 (unit s (unknown) date) 24 24 unknown) (unknown) (no (unknown) (unknown) Respiratory Rate 18 (unit s (unknown) date) unknown) (unknown) (no (unknown) (unknown) Respiratory Rate 20 (unit s (unknown) date) 20 26 H unknown) (unknown) (no (unknown) (unknown) Respiratory Rate 20 (unit s (unknown) date) 21 unknown) (unknown) (no (unknown) (unknown) Result diagrams: (units (unknown) date) unknown) (unknown) (no (unknown) (unknown) Rx Instructions: (units (unknown) date) unknown) (unknown) (no (unknown) (unknown) SARS-CoV-2 (PCR) (units (unknown) date) Negative (Negative) unknown) (unknown) (no (unknown) (unknown) Sarcoid neuropathy [...] Sami Mcmahan DO) (unknown) (no (unknown) (unknown) Sodium 138 (units (unk nown) date) (137-145) mmol/L unknown) (unknown) (no (unknown) (unknown) Source: EMS (units (un known) date) unknown) (unknown) (no (unknown) (unknown) Stated Complaint: (units (unknown) date) Left hip dislocation unknown) (unknown) (no (unknown) (unknown) Stop: 07/07/22 (units (unknown) date) 20:37 unknown) (unknown) (no (unknown) (unknown) Stop: 07/07/22 (units (unknown) date) 20:51 unknown) (unknown) (no (unknown) (unknown) Stop: 07/07/22 (units (unknown) date) 21:23 unknown) (unknown) (no (unknown) (unknown) Stop: 07/07/22 (units (unknown) date) 22:01 unknown) (unknown) (no (unknown) (unknown) Substance Use Type: (unit s (unknown) date) does not use unknown) (unknown) (no (unknown) (unknown) Surgical History (units (unknown) date) (Reviewed 03/26/22 @ unknown) 18:37 by Sami Mcmahan DO) (unknown) (no (unknown) (unknown) Temperature 98.1 F (units (unknown) date) 07/07/22 18:53 unknown) (unknown) (no (unknown) (unknown) Temperature 98.1 F (units (unknown) date) unknown) (unknown) (no (unknown) (unknown) Temperature (units (un known) date) unknown) (unknown) (no (unknown) (unknown) Time Seen by (units (u nknown) date) Provider: 07/07/22 unknown) 18:51 (unknown) (no (unknown) (unknown) Total Bilirubin 0.2 (unit s (unknown) date) (0.2-1.3) mg/dL unknown) (unknown) (no (unknown) (unknown) Total Protein 6.5 (units (unknown) date) (6.3-8.2) g/dL unknown) (unknown) (no (unknown) (unknown) Vital Signs - 8 hr (units (unknown) date) unknown) (unknown) (no (unknown) (unknown) Vital Signs (units (un known) date) unknown) (unknown) (no (unknown) (unknown) Vital signs: (units (u nknown) date) unknown) (unknown) (no (unknown) (unknown) WBC 7.5 (4.5-11.0) (units (unknown) date) X103/uL unknown) (unknown) (no (unknown) (unknown) XR hip w pel if (units (unknown) date) done LT 2V Stat unknown) (unknown) (no (unknown) (unknown) XR pelvis 1-2V Stat (unit s (unknown) date) unknown) (unknown) (no (unknown) (unknown) Ghazal Desir, (units (unknown) date) PA-C [Primary Care unknown) Provider] (unknown) (no (unknown) (unknown) [Embedded Image Not (unit s (unknown) date) Available] unknown) (unknown) (no (unknown) (unknown) acetaminophen 325 [...] unknown) BEDTIME RLS 02/17/21 02/19/21 Result panel 166 (unknown) (no (unknown) (unknown) (no value) (units (unk nown) date) unknown) (unknown) (no (unknown) (unknown) (4-6) #60 tabs (units (unknown) date) unknown) (unknown) (no (unknown) (unknown) (Neurontin) (units (un known) date) unknown) (unknown) (no (unknown) (unknown) ([place]) (units (un known) date) unknown) (unknown) (no (unknown) (unknown) 1 [...] Spasm) Qty: 0 (unknown) (no (unknown) (unknown) 07/07/22 07/07/22 (units (unknown) date) 07/07/22 Range/Units unknown) (unknown) (no (unknown) (unknown) 07/07/22 18:55 (units (unknown) date) unknown) (unknown) (no (unknown) (unknown) 07/07/22 19:04 (units (unknown) date) unknown) (unknown) (no (unknown) (unknown) 07/07/22 19:06 (units (unknown) date) unknown) (unknown) (no (unknown) (unknown) 07/07/22 19:12 (units (unknown) date) unknown) (unknown) (no (unknown) (unknown) 07/07/22 20:50 (units (unknown) date) unknown) (unknown) (no (unknown) (unknown) 07/07/22 21:18 (units (unknown) date) unknown) (unknown) (no (unknown) (unknown) 07/07/22 (units (unkno wn) date) unknown) (unknown) (no (unknown) (unknown) 17 gm PO DAILY PRN (units (unknown) date) (Reason: unknown) Constipation) Qty: 10 0RF (unknown) (no (unknown) (unknown) 18:53 07/07/22 (units (unknown) date) unknown) (unknown) (no (unknown) (unknown) 19:06 20:50 20:50 (units (unknown) date) unknown) (unknown) (no (unknown) (unknown) 19:35 07/07/22 (units (unknown) date) unknown) (unknown) (no (unknown) (unknown) 2 puff INHALATION (units (unknown) date) Q4-6H PRN (Reason: unknown) Shortness Of Breath) (unknown) (no (unknown) (unknown) 20 mg PO BID (units (u nknown) date) unknown) (unknown) (no (unknown) (unknown) 20:55 (units (unkno wn) date) unknown) (unknown) (no (unknown) (unknown) 21:06 07/07/22 (units (unknown) date) unknown) (unknown) (no (unknown) (unknown) 21:10 (units (unkno wn) date) unknown) (unknown) (no (unknown) (unknown) 21:15 07/07/22 (units (unknown) date) unknown) (unknown) (no (unknown) (unknown) 21:20 07/07/22 (units (unknown) date) unknown) (unknown) (no (unknown) (unknown) 21:25 (units (unkno wn) date) unknown) (unknown) (no (unknown) (unknown) 21:34 07/07/22 (units (unknown) date) unknown) (unknown) (no (unknown) (unknown) 21:36 07/07/22 (units (unknown) date) unknown) (unknown) (no (unknown) (unknown) 21:40 07/07/22 (units (unknown) date) unknown) (unknown) (no (unknown) (unknown) 21:45 (units (unkno wn) date) unknown) (unknown) (no (unknown) (unknown) 21:50 07/07/22 (units (unknown) date) unknown) (unknown) (no (unknown) (unknown) 220 mg PO BID PRN (units (unknown) date) (Reason: Pain) unknown) (unknown) (no (unknown) (unknown) 22:00 07/07/22 (units (unknown) date) unknown) (unknown) (no (unknown) (unknown) 22:09 (units (unkno wn) date) unknown) (unknown) (no (unknown) (unknown) 22:15 07/07/22 (units (unknown) date) unknown) (unknown) (no (unknown) (unknown) 22:30 (units (unkno wn) date) unknown) (unknown) (no (unknown) (unknown) 3 mg [...] 60 0RF unknown) (unknown) (no (unknown) (unknown) 8 point review of (units (unknown) date) systems is negative unknown) except for those stated above and HPI (unknown) (no (unknown) (unknown) 81 mg PO BID Qty: (units (unknown) date) 60 0RF unknown) (unknown) (no (unknown) (unknown) ABDOMEN: Soft, (units (unknown) date) nontender. unknown) Normoactive bowel sounds all 4 quadrants. No (unknown) (no (unknown) (unknown) ALT 29 (<35) IU/L (units (unknown) date) unknown) (unknown) (no (unknown) (unknown) AST 33 (14-36) IU/L (unit s (unknown) date) unknown) (unknown) (no (unknown) (unknown) Abrasion (02/16/21) (unit s (unknown) date) unknown) (unknown) (no (unknown) (unknown) Age/Sex: 67 / F (units (unknown) date) unknown) (unknown) (no (unknown) (unknown) Albumin 4.0 (units (un known) date) (3.5-5.0) g/dL unknown) (unknown) (no (unknown) (unknown) Albumin/Globulin (units (unknown) date) Ratio 1.6 (1.0-2.8) unknown) (unknown) (no (unknown) (unknown) Alcohol type: wine (units (unknown) date) unknown) (unknown) (no (unknown) (unknown) Alkaline (units (unkno wn) date) Phosphatase 92 unknown) (38-126) U/L (unknown) (no (unknown) (unknown) Allergies (units (unkn own) date) unknown) (unknown) (no (unknown) (unknown) Allergy/AdvReac (units (unknown) date) Type Severity unknown) Reaction Status Date / Time (unknown) (no (unknown) (unknown) Anxiety (units (unkno wn) date) unknown) (unknown) (no (unknown) (unknown) Asthma (units (unkno wn) date) unknown) (unknown) (no (unknown) (unknown) BUN 18 H (7-17) (units (unknown) date) mg/dL unknown) (unknown) (no (unknown) (unknown) BUN/Creatinine (units (unknown) date) Ratio 23.7 H (6-22) unknown) (unknown) (no (unknown) (unknown) Baso # (Auto) 100 (units (unknown) date) (0-100) /uL unknown) (unknown) (no (unknown) (unknown) Baso % (Auto) 1.2 (units (unknown) date) (0-2) % unknown) (unknown) (no (unknown) (unknown) Blood Pressure (units (unknown) date) 130/60 118/62 135/63 unknown) (unknown) (no (unknown) (unknown) Blood Pressure (units (unknown) date) 138/68 138/68 unknown) (unknown) (no (unknown) (unknown) Blood Pressure (units (unknown) date) 139/69 142/65 H unknown) 156/68 H (unknown) (no (unknown) (unknown) Blood Pressure (units (unknown) date) 147/70 H 142/67 H unknown) 133/64 (unknown) (no (unknown) (unknown) Blood Pressure (units (unknown) date) 164/76 H 132/78 unknown) 166/82 H (unknown) (no (unknown) (unknown) Blood Pressure (units (unknown) date) 178/71 H 12 unknown) 18:53 (unknown) (no (unknown) (unknown) Blood Pressure (units (unknown) date) 178/71 H 146/67 H unknown) 162/75 H (unknown) (no (unknown) (unknown) Blood Pressure (units (unknown) date) unknown) (unknown) (no (unknown) (unknown) CARDIOVASCULAR: (units (unknown) date) Denies chest pain, unknown) palpitations (unknown) (no (unknown) (unknown) CARDIOVASCULAR: (units (unknown) date) Regular rate and unknown) rhythm without murmurs, rubs or gallops. (unknown) (no (unknown) (unknown) CBC Auto Diff (units ( unknown) date) [Complete Blood unknown) Count AUTO DIFF] Stat (unknown) (no (unknown) (unknown) CMP [Comprehensive (units (unknown) date) Metabolic Panel] unknown) Stat (unknown) (no (unknown) (unknown) COVID19 -Nasal (units (unknown) date) RAPID/Pre-Proc Stat unknown) (unknown) (no (unknown) (unknown) CT cervical spine (units (unknown) date) wo con Stat unknown) (unknown) (no (unknown) (unknown) CT head/brain wo (units (unknown) date) con Stat unknown) (unknown) (no (unknown) (unknown) Calcium 8.5 (units (un known) date) (8.4-10.2) mg/dL unknown) (unknown) (no (unknown) (unknown) Cancer (units (unkno wn) date) unknown) (unknown) (no (unknown) (unknown) Carbon Dioxide 24 (units (unknown) date) (22-32) mmol/L unknown) (unknown) (no (unknown) (unknown) Chest [XR chest 1V] (unit s (unknown) date) Stat unknown) (unknown) (no (unknown) (unknown) Chief Complaint: (units (unknown) date) Extremity Injury, unknown) Lower (unknown) (no (unknown) (unknown) Chloride 102 (units (u nknown) date) (98-107) mmol/L unknown) (unknown) (no (unknown) (unknown) Chronic pain (units (u nknown) date) disorder unknown) (unknown) (no (unknown) (unknown) Course (units (unkno wn) date) unknown) (unknown) (no (unknown) (unknown) Creatinine 0.76 (units (unknown) date) (0.52-1.04) mg/dL unknown) (unknown) (no (unknown) (unknown) : 1955 (units (unknown) date) Acct:[id number] unknown) (unknown) (no (unknown) (unknown) Date of Service: (units (unknown) date) 07/07/22 unknown) (unknown) (no (unknown) (unknown) Departure (units (unkn own) date) unknown) (unknown) (no (unknown) (unknown) Depression (units (unk nown) date) unknown) (unknown) (no (unknown) (unknown) Discharge Plan (units (unknown) date) unknown) (unknown) (no (unknown) (unknown) Discontinued (units (u nknown) date) Medications unknown) (unknown) (no (unknown) (unknown) Documented By: OW (units (unknown) date) unknown) (unknown) (no (unknown) (unknown) ED Orders (units (unkn own) date) unknown) (unknown) (no (unknown) (unknown) ER Physician: (units ( unknown) date) Lisandra Roy D.O. unknown) (unknown) (no (unknown) (unknown) EXTREMITIES: Normal (unit s (unknown) date) range of motion, no unknown) clubbing or edema. Neurovascularly (unknown) (no (unknown) (unknown) Easy bruisability (units (unknown) date) unknown) (unknown) (no (unknown) (unknown) Elevated coronary (units (unknown) date) artery calcium score unknown) (unknown) (no (unknown) (unknown) Emergency Report (units (unknown) date) unknown) (unknown) (no (unknown) (unknown) [place] # (Auto) 100 (units (unknown) date) (0-450) /uL unknown) (unknown) (no (unknown) (unknown) E[place] % (Auto) 1.5 L (units (unknown) date) (2-4) % unknown) (unknown) (no (unknown) (unknown) Estimated GFR > 60 (units (unknown) date) (>60) mL/min unknown) (unknown) (no (unknown) (unknown) Exam (units (unkno wn) date) unknown) (unknown) (no (unknown) (unknown) Family History (units (unknown) date) (Reviewed 07/07/22 @ unknown) 22:43 by Lisandra Roy DO) (unknown) (no (unknown) (unknown) Father (units (unknown) date) Aneurysm unknown) (unknown) (no (unknown) (unknown) Fibromyalgia (units (u nknown) date) unknown) (unknown) (no (unknown) (unknown) GASTROINTESTINAL: (units (unknown) date) Denies nausea, unknown) vomiting (unknown) (no (unknown) (unknown) GENERAL: Alert (units (unknown) date) pleasant 67-year-old unknown) female and in no acute distress. (unknown) (no (unknown) (unknown) GENERAL: Denies (units (unknown) date) chills,fever unknown) (unknown) (no (unknown) (unknown) GERD (units (unkno wn) date) (gastroesophageal unknown) reflux disease) (unknown) (no (unknown) (unknown) General (units (unkno wn) date) unknown) (unknown) (no (unknown) (unknown) Globulin 2.5 (units (u nknown) date) (1.7-4.1) g/dL unknown) (unknown) (no (unknown) (unknown) Glucose 84 (80-110) (unit s (unknown) date) mg/dL unknown) (unknown) (no (unknown) (unknown) H/O total hip (units ( unknown) date) arthroplasty unknown) (04/12/17) (unknown) (no (unknown) (unknown) HEENT: Denies (units ( unknown) date) throat pain unknown) (unknown) (no (unknown) (unknown) HEENT: Head (units (un known) date) atraumatic,EOMI, unknown) pupils reactive, face symmetric, moist mucous (unknown) (no (unknown) (unknown) HPI - Extremity (units (unknown) date) Injury (Lower) unknown) (unknown) (no (unknown) (unknown) HPI Narrative: (units (unknown) date) unknown) (unknown) (no (unknown) (unknown) HTN (hypertension) (units (unknown) date) unknown) (unknown) (no (unknown) (unknown) Hct 34.8 L (36-46) (units (unknown) date) % unknown) (unknown) (no (unknown) (unknown) Hgb 11.5 L (units (unk nown) date) (12.0-16.0) g/dL unknown) (unknown) (no (unknown) (unknown) History of [...] date) Signs: unknown) (unknown) (no (unknown) (unknown) [facility] (units (unknown) date) [address] unknown) [place] [address] (unknown) (no (unknown) (unknown) Ketorolac (units (unkn own) date) Tromethamine unknown) (Ketorolac 30 Mg/Ml Vial) 15 mg IV NOW ONE (unknown) (no (unknown) (unknown) Lab Data (units (unkno wn) date) unknown) (unknown) (no (unknown) (unknown) Lab Results (units (un known) date) unknown) (unknown) (no (unknown) (unknown) Labs: (units (unkno wn) date) unknown) (unknown) (no (unknown) (unknown) Last Admin: (units (un known) date) 07/07/22 21:06 Dose: unknown) 70 mg (unknown) (no (unknown) (unknown) Last Admin: (units (un known) date) 07/07/22 21:38 Dose: unknown) 130 mg (unknown) (no (unknown) (unknown) Last Admin: (units (un known) date) 07/07/22 21:45 Dose: unknown) 100 mg (unknown) (no (unknown) (unknown) Last Admin: (units (un known) date) 07/07/22 22:09 Dose: unknown) 15 mg (unknown) (no (unknown) (unknown) Left leg shortened (units (unknown) date) externally rotated unknown) (unknown) (no (unknown) (unknown) Lymph # (Auto) 1100 (unit s (unknown) date) (6754-1716) /uL unknown) (unknown) (no (unknown) (unknown) Lymph % (Auto) 14.0 (unit s (unknown) date) L (25-40) % unknown) (unknown) (no (unknown) (unknown) [id number] (units (unk nown) date) unknown) (unknown) (no (unknown) (unknown) MCH 30.8 (26-34) PG (unit s (unknown) date) unknown) (unknown) (no (unknown) (unknown) MCHC 33.0 (30-36) % (unit s (unknown) date) unknown) (unknown) (no (unknown) (unknown) MCV 93.5 (80-100) (units (unknown) date) fL unknown) (unknown) (no (unknown) (unknown) MDM - Extremity (units (unknown) date) Injury (Lower) unknown) (unknown) (no (unknown) (unknown) MUSCULOSKELETAL: (units (unknown) date) See HPI unknown) (unknown) (no (unknown) (unknown) Medical History (units (unknown) date) (Reviewed 07/07/22 @ unknown) 22:43 by Lisandra Roy DO) (unknown) (no (unknown) (unknown) Medication (units (unk nown) date) Instructions unknown) Recorded Confirmed (unknown) (no (unknown) (unknown) Medication (units (unk nown) date) Instructions unknown) Recorded (unknown) (no (unknown) (unknown) Mode of arrival: (units (unknown) date) EMS unknown) (unknown) (no (unknown) (unknown) [place] # (Auto) 600 (units (unknown) date) (0-900) /uL unknown) (unknown) (no (unknown) (unknown) [place] % (Auto) 7.3 (units (unknown) date) (3-14) % unknown) (unknown) (no (unknown) (unknown) Mother (units (unknown) date) COPD (chronic unknown) obstructive pulmonary disease) (unknown) (no (unknown) (unknown) NEUROLOGIC: Denies (units (unknown) date) weakness, dizziness, unknown) headache, numbness (unknown) (no (unknown) (unknown) NEUROLOGICAL: Alert (unit s (unknown) date) and oriented x4 unknown) (unknown) (no (unknown) (unknown) Narrative: (units (unk nown) date) unknown) (unknown) (no (unknown) (unknown) Neut # (Auto) 5700 (units (unknown) date) (4597-8129) /uL unknown) (unknown) (no (unknown) (unknown) Neut % (Auto) 76.0 (units (unknown) date) H (50-75) % unknown) (unknown) (no (unknown) (unknown) No Action (units (unkn own) date) unknown) (unknown) (no (unknown) (unknown) Ordered: (units (unkno wn) date) unknown) (unknown) (no (unknown) (unknown) Orders (units (unkno wn) date) unknown) (unknown) (no (unknown) (unknown) Osteoarthritis (units (unknown) date) unknown) (unknown) (no (unknown) (unknown) Oxygen Delivery (units (unknown) date) Method 07/07/22 unknown) 18:53 (unknown) (no (unknown) (unknown) Oxygen Delivery (units (unknown) date) Method Nasal Cannula unknown) Nasal Cannula Nasal Cannula (unknown) (no (unknown) (unknown) Oxygen Delivery (units (unknown) date) Method Nasal Cannula unknown) Nasal Cannula (unknown) (no (unknown) (unknown) Oxygen Delivery (units (unknown) date) Method Nasal Cannula unknown) (unknown) (no (unknown) (unknown) Oxygen Delivery (units (unknown) date) Method Room Air Room unknown) Air Room Air (unknown) (no (unknown) (unknown) Oxygen Delivery (units (unknown) date) Method Room Air Room unknown) Air (unknown) (no (unknown) (unknown) Oxygen Delivery (units (unknown) date) Method Room Air unknown) (unknown) (no (unknown) (unknown) Oxygen Delivery (units (unknown) date) Method unknown) (unknown) (no (unknown) (unknown) Oxygen Flow Rate 2 (units (unknown) date) 2 2 unknown) (unknown) (no (unknown) (unknown) Oxygen Flow Rate 2 (units (unknown) date) unknown) (unknown) (no (unknown) (unknown) Oxygen Flow Rate (units (unknown) date) unknown) (unknown) (no (unknown) (unknown) Patient History (units (unknown) date) unknown) (unknown) (no (unknown) (unknown) Patient is a (units (u nknown) date) 67-year-old female unknown) with history of bilateral hip replacement the (unknown) (no (unknown) (unknown) Patient: (units (unkno wn) date) Gita Garcia unknown) MR#: (unknown) (no (unknown) (unknown) Plt Count 313 (units ( unknown) date) (150-400) X103/uL unknown) (unknown) (no (unknown) (unknown) Point of Care (units ( unknown) date) Testing unknown) (unknown) (no (unknown) (unknown) Potassium 4.0 (units ( unknown) date) (3.4-5.1) mmol/L unknown) (unknown) (no (unknown) (unknown) Test (units (unknown) date) Results Not unknown) applicable (unknown) (no (unknown) (unknown) Prescriptions: (units (unknown) date) unknown) (unknown) (no (unknown) (unknown) Previous Rx's (units ( unknown) date) unknown) (unknown) (no (unknown) (unknown) Propofol (Propofol (units (unknown) date) 200 Mg/20 Ml Vial) unknown) 135 mg 2 mg/kg (135 mg) IV NOW ONE (unknown) (no (unknown) (unknown) Propofol (Propofol (units (unknown) date) 200 Mg/20 Ml Vial) unknown) 70 mg 1 mg/kg (70 mg) IV NOW ONE (unknown) (no (unknown) (unknown) Pulse Oximetry 81 L (unit s (unknown) date) 98 91 unknown) (unknown) (no (unknown) (unknown) Pulse Oximetry 88 L (unit s (unknown) date) 96 unknown) (unknown) (no (unknown) (unknown) Pulse Oximetry 94 (units (unknown) date) 97 97 unknown) (unknown) (no (unknown) (unknown) Pulse Oximetry 95 (units (unknown) date) 98 97 unknown) (unknown) (no (unknown) (unknown) Pulse Oximetry 96 (units (unknown) date) unknown) (unknown) (no (unknown) (unknown) Pulse Oximetry 98 (units (unknown) date) unknown) (unknown) (no (unknown) (unknown) Pulse Oximetry 99 (units (unknown) date) 07/07/22 18:53 unknown) (unknown) (no (unknown) (unknown) Pulse Oximetry 99 (units (unknown) date) 94 98 unknown) (unknown) (no (unknown) (unknown) Pulse Rate 76 80 (units (unknown) date) unknown) (unknown) (no (unknown) (unknown) Pulse Rate 77 78 77 (unit s (unknown) date) unknown) (unknown) (no (unknown) (unknown) Pulse Rate 77 (units ( unknown) date) unknown) (unknown) (no (unknown) (unknown) Pulse Rate 78 (units ( unknown) date) 07/07/22 18:53 unknown) (unknown) (no (unknown) (unknown) Pulse Rate 78 77 80 (unit s (unknown) date) unknown) (unknown) (no (unknown) (unknown) Pulse Rate 79 79 (units (unknown) date) unknown) (unknown) (no (unknown) (unknown) Pulse Rate 81 78 83 (unit s (unknown) date) unknown) (unknown) (no (unknown) (unknown) Pulse Rate 82 81 80 (unit s (unknown) date) unknown) (unknown) (no (unknown) (unknown) 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 (unknown) (no (unknown) (unknown) RESPIRATORY: Denies (unit s (unknown) date) dyspnea, cough, unknown) wheezing (unknown) (no (unknown) (unknown) Referrals: (units (unk nown) date) unknown) (unknown) (no (unknown) (unknown) Related Data (units (u nknown) date) unknown) (unknown) (no (unknown) (unknown) Respiratory Rate 15 (unit s (unknown) date) 22 unknown) (unknown) (no (unknown) (unknown) Respiratory Rate 18 (unit s (unknown) date) 07/07/22 18:53 unknown) (unknown) (no (unknown) (unknown) Respiratory Rate 18 (unit s (unknown) date) 18 16 unknown) (unknown) (no (unknown) (unknown) Respiratory Rate 18 (unit s (unknown) date) 20 20 unknown) (unknown) (no (unknown) (unknown) Respiratory Rate 18 (unit s (unknown) date) 24 24 unknown) (unknown) (no (unknown) (unknown) Respiratory Rate 18 (unit s (unknown) date) unknown) (unknown) (no (unknown) (unknown) Respiratory Rate 20 (unit s (unknown) date) 20 26 H unknown) (unknown) (no (unknown) (unknown) Respiratory Rate 20 (unit s (unknown) date) 21 unknown) (unknown) (no (unknown) (unknown) Result diagrams: (units (unknown) date) unknown) (unknown) (no (unknown) (unknown) Review of Systems (units (unknown) date) unknown) (unknown) (no (unknown) (unknown) Rx Instructions: (units (unknown) date) unknown) (unknown) (no (unknown) (unknown) SARS-CoV-2 (PCR) (units (unknown) date) Negative (Negative) unknown) (unknown) (no (unknown) (unknown) SKIN: No rash, no (units (unknown) date) laceration, no unknown) pruritus (unknown) (no (unknown) (unknown) SKIN: Warm, dry, no (unit s (unknown) date) laceration, no unknown) petechiae, no rashes or lesions. (unknown) (no (unknown) (unknown) Sarcoid neuropathy (units (unknown) date) unknown) (unknown) (no (unknown) (unknown) Sarcoidosis (units (un known) date) unknown) (unknown) (no (unknown) (unknown) She does admit to (units (unknown) date) drinking some wine unknown) tonight. She did hit her head does not (unknown) (no (unknown) (unknown) Signed By: (units (unk nown) date) unknown) (unknown) (no (unknown) (unknown) Smoking Status: (units (unknown) date) Never smoker unknown) (unknown) (no (unknown) (unknown) Social History (units (unknown) date) (Reviewed 07/07/22 @ unknown) 22:43 by Lisandra Roy DO) (unknown) (no (unknown) (unknown) Sodium 138 (units (unk nown) date) (137-145) mmol/L unknown) (unknown) (no (unknown) (unknown) Source: EMS (units (un known) date) unknown) (unknown) (no (unknown) (unknown) Stated Complaint: (units (unknown) date) Left hip dislocation unknown) (unknown) (no (unknown) (unknown) Stop: 07/07/22 (units (unknown) date) 20:37 unknown) (unknown) (no (unknown) (unknown) Stop: 07/07/22 (units (unknown) date) 20:51 unknown) (unknown) (no (unknown) (unknown) Stop: 07/07/22 (units (unknown) date) 21:23 unknown) (unknown) (no (unknown) (unknown) Stop: 07/07/22 (units (unknown) date) 22:01 unknown) (unknown) (no (unknown) (unknown) Substance Use Type: (unit s (unknown) date) does not use unknown) (unknown) (no (unknown) (unknown) Surgical History (units (unknown) date) (Reviewed 07/07/22 @ unknown) 22:43 by Lisandra Roy DO) (unknown) (no (unknown) (unknown) Temperature 98.1 F (units (unknown) date) 07/07/22 18:53 unknown) (unknown) (no (unknown) (unknown) Temperature 98.1 F (units (unknown) date) unknown) (unknown) (no (unknown) (unknown) Temperature (units (un known) date) unknown) (unknown) (no (unknown) (unknown) Time Seen by (units (u nknown) date) Provider: 07/07/22 unknown) 18:51 (unknown) (no (unknown) (unknown) Total Bilirubin 0.2 (unit s (unknown) date) (0.2-1.3) mg/dL unknown) (unknown) (no (unknown) (unknown) Total Protein 6.5 (units (unknown) date) (6.3-8.2) g/dL unknown) (unknown) (no (unknown) (unknown) Vital Signs - 8 hr (units (unknown) date) unknown) (unknown) (no (unknown) (unknown) Vital Signs (units (un known) date) unknown) (unknown) (no (unknown) (unknown) Vital signs: (units (u nknown) date) unknown) (unknown) (no (unknown) (unknown) WBC 7.5 (4.5-11.0) (units (unknown) date) X103/uL unknown) (unknown) (no (unknown) (unknown) XR hip w pel if (units (unknown) date) done LT 2V Stat unknown) (unknown) (no (unknown) (unknown) XR pelvis 1-2V Stat (unit s (unknown) date) unknown) (unknown) (no (unknown) (unknown) Ghazal Desir, (units (unknown) date) PA-C [Primary Care unknown) Provider] (unknown) (no (unknown) (unknown) [Embedded Image Not (unit s (unknown) date) Available] unknown) (unknown) (no (unknown) (unknown) acetaminophen 325 [...] MG unknown) tablet (unknown) (no (unknown) (unknown) guarding or (units (un known) date) rebound. unknown) (unknown) (no (unknown) (unknown) household members: (units (unknown) date) children unknown) (unknown) (no (unknown) (unknown) hydroxychloroquine (units (unknown) date) 200 mg tablet 400 mg unknown) PO QDAY ##0 03/22/17 02/19/21 (unknown) (no (unknown) (unknown) hydroxychloroquine (units (unknown) date) [Plaquenil] 200 MG unknown) tablet (unknown) (no (unknown) (unknown) intact (units (unkno wn) date) unknown) (unknown) (no (unknown) (unknown) left was done about (unit s (unknown) date) 1 year ago it has unknown) dislocated twice before. She says she was (unknown) (no (unknown) (unknown) losartan 50 mg (units (unknown) date) Tablet unknown) (unknown) (no (unknown) (unknown) losartan 50 mg (units (unknown) date) tablet 50 mg PO BID unknown) 02/17/21 02/19/21 (unknown) (no (unknown) (unknown) membranes (units (unkn own) date) unknown) (unknown) (no (unknown) (unknown) montelukast [...] BID 02/17/21 02/19/21 (unknown) (no (unknown) (unknown) or shortness of (units (unknown) date) breath. unknown) (unknown) (no (unknown) (unknown) oral powder packet [...] RLS 02/17/21 02/19/21 (unknown) (no (unknown) (unknown) standing at the (units (unknown) date) kitchen counter unknown) cutting bread when it suddenly went out on her. (unknown) (no (unknown) (unknown) think she would (units (unknown) date) loss of unknown) consciousness. She denies any chest pain palpitations Result panel 167 (unknown) (no (unknown) (unknown) (no value) (units (unk nown) date) unknown) (unknown) (no (unknown) (unknown) (4-6) #60 tabs (units (unknown) date) unknown) (unknown) (no (unknown) (unknown) (Neurontin) (units (un known) date) unknown) (unknown) (no (unknown) (unknown) (Plaquenil) (units (un known) date) unknown) (unknown) (no (unknown) (unknown) 1 [...] Spasm) Qty: 0 (unknown) (no (unknown) (unknown) 07/07/22 07/07/22 (units (unknown) date) 07/07/22 Range/Units unknown) (unknown) (no (unknown) (unknown) 07/07/22 18:55 (units (unknown) date) unknown) (unknown) (no (unknown) (unknown) 07/07/22 19:04 (units (unknown) date) unknown) (unknown) (no (unknown) (unknown) 07/07/22 19:06 (units (unknown) date) unknown) (unknown) (no (unknown) (unknown) 07/07/22 19:12 (units (unknown) date) unknown) (unknown) (no (unknown) (unknown) 07/07/22 20:50 (units (unknown) date) unknown) (unknown) (no (unknown) (unknown) 07/07/22 21:18 (units (unknown) date) unknown) (unknown) (no (unknown) (unknown) 07/07/22 (units (unkno wn) date) unknown) (unknown) (no (unknown) (unknown) [address] [place] [address] (units (unknown) date) unknown) (unknown) (no (unknown) (unknown) 17 gm PO DAILY PRN (units (unknown) date) (Reason: unknown) Constipation) Qty: 10 0RF (unknown) (no (unknown) (unknown) 18:53 07/07/22 (units (unknown) date) unknown) (unknown) (no (unknown) (unknown) 19:06 20:50 20:50 (units (unknown) date) unknown) (unknown) (no (unknown) (unknown) 19:35 07/07/22 (units (unknown) date) unknown) (unknown) (no (unknown) (unknown) 2 puff INHALATION (units (unknown) date) Q4-6H PRN (Reason: unknown) Shortness Of Breath) (unknown) (no (unknown) (unknown) 20 mg PO BID (units (u nknown) date) unknown) (unknown) (no (unknown) (unknown) 20:55 (units (unkno wn) date) unknown) (unknown) (no (unknown) (unknown) 21:06 07/07/22 (units (unknown) date) unknown) (unknown) (no (unknown) (unknown) 21:10 (units (unkno wn) date) unknown) (unknown) (no (unknown) (unknown) 21:15 07/07/22 (units (unknown) date) unknown) (unknown) (no (unknown) (unknown) 21:20 07/07/22 (units (unknown) date) unknown) (unknown) (no (unknown) (unknown) 21:25 (units (unkno wn) date) unknown) (unknown) (no (unknown) (unknown) 21:34 07/07/22 (units (unknown) date) unknown) (unknown) (no (unknown) (unknown) 21:36 07/07/22 (units (unknown) date) unknown) (unknown) (no (unknown) (unknown) 21:40 07/07/22 (units (unknown) date) unknown) (unknown) (no (unknown) (unknown) 21:45 (units (unkno wn) date) unknown) (unknown) (no (unknown) (unknown) 21:50 07/07/22 (units (unknown) date) unknown) (unknown) (no (unknown) (unknown) 220 mg PO BID PRN (units (unknown) date) (Reason: Pain) unknown) (unknown) (no (unknown) (unknown) 22:00 07/07/22 (units (unknown) date) unknown) (unknown) (no (unknown) (unknown) 22:09 (units (unkno wn) date) unknown) (unknown) (no (unknown) (unknown) 22:15 07/07/22 (units (unknown) date) unknown) (unknown) (no (unknown) (unknown) 22:30 (units (unkno wn) date) unknown) (unknown) (no (unknown) (unknown) 3 mg [...] 60 0RF unknown) (unknown) (no (unknown) (unknown) 8 point review of (units (unknown) date) systems is negative unknown) except for those stated above and HPI (unknown) (no (unknown) (unknown) 81 mg PO BID Qty: (units (unknown) date) 60 0RF unknown) (unknown) (no (unknown) (unknown) ? (units (unkno wn) date) unknown) (unknown) (no (unknown) (unknown) ABDOMEN: Soft, (units (unknown) date) nontender. unknown) Normoactive bowel sounds all 4 quadrants. No (unknown) (no (unknown) (unknown) ALT 29 (<35) IU/L (units (unknown) date) unknown) (unknown) (no (unknown) (unknown) AST 33 (14-36) IU/L (unit s (unknown) date) unknown) (unknown) (no (unknown) (unknown) Abrasion (02/16/21) (unit s (unknown) date) unknown) (unknown) (no (unknown) (unknown) Accession Number: (units (unknown) date) [id number] ?? unknown) (unknown) (no (unknown) (unknown) Accession Number: (units (unknown) date) [id number] ?? unknown) (unknown) (no (unknown) (unknown) Accession Number: (units (unknown) date) [id number] ?? unknown) (unknown) (no (unknown) (unknown) Accession Number: (units (unknown) date) [id number] ?? unknown) (unknown) (no (unknown) (unknown) Acct:[id number] (units (unknown) date) unknown) (unknown) (no (unknown) (unknown) Age/Sex: 67 / F (units (unknown) date) unknown) (unknown) (no (unknown) (unknown) Albumin 4.0 (units (un known) date) (3.5-5.0) g/dL unknown) (unknown) (no (unknown) (unknown) Albumin/Globulin (units (unknown) date) Ratio 1.6 (1.0-2.8) unknown) (unknown) (no (unknown) (unknown) Alcohol type: wine (units (unknown) date) unknown) (unknown) (no (unknown) (unknown) Alkaline (units (unkno wn) date) Phosphatase 92 unknown) (38-126) U/L (unknown) (no (unknown) (unknown) Allergies (units (unkn own) date) unknown) (unknown) (no (unknown) (unknown) Allergy/AdvReac (units (unknown) date) Type Severity unknown) Reaction Status Date / Time (unknown) (no (unknown) (unknown) [place] [address] (unit s (unknown) date) unknown) (unknown) (no (unknown) (unknown) Anxiety (units (unkno wn) date) unknown) (unknown) (no (unknown) (unknown) Approved by: Eduardo (units (unknown) date) Denilson Swartz on unknown) 07/07/2022 at 19:29 ? (unknown) (no (unknown) (unknown) Approved by: Eduardo (units (unknown) date) Denilosn Swartz on unknown) 07/07/2022 at 20:04 ? 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 unknown) Complete superior dislocation of the left (unknown) (no (unknown) (unknown) Blood Pressure (units (unknown) date) 130/60 118/62 135/63 unknown) (unknown) (no (unknown) (unknown) Blood Pressure (units (unknown) date) 138/68 138/68 unknown) (unknown) (no (unknown) (unknown) Blood Pressure (units (unknown) date) 139/69 142/65 H unknown) 156/68 H (unknown) (no (unknown) (unknown) Blood Pressure (units (unknown) date) 147/70 H 142/67 H unknown) 133/64 (unknown) (no (unknown) (unknown) Blood Pressure (units (unknown) date) 164/76 H 132/78 unknown) 166/82 H (unknown) (no (unknown) (unknown) Blood Pressure (units (unknown) date) 178/71 H 07/07/22 unknown) 18:53 (unknown) (no (unknown) (unknown) Blood Pressure (units (unknown) date) 178/71 H 146/67 H unknown) 162/75 H (unknown) (no (unknown) (unknown) Blood Pressure (units (unknown) date) unknown) (unknown) (no (unknown) (unknown) Brain:? No (units (unk nown) date) intracranial bleeds unknown) or masses.? There is cerebral volume loss for (unknown) (no (unknown) (unknown) CARDIOVASCULAR: (units (unknown) date) Denies chest pain, unknown) palpitations (unknown) (no (unknown) (unknown) CARDIOVASCULAR: (units (unknown) date) Regular rate and unknown) rhythm without murmurs, rubs or gallops. (unknown) (no (unknown) (unknown) CBC Auto Diff (units ( unknown) date) [Complete Blood unknown) Count AUTO DIFF] Stat (unknown) (no (unknown) (unknown) CMP [Comprehensive (units (unknown) date) Metabolic Panel] unknown) Stat (unknown) (no (unknown) (unknown) COMPARISON:? [facility] (unit s (unknown) date) [facility], CR, XR unknown) CHEST 1V, 07/07/2022, 19:15. (unknown) (no (unknown) (unknown) COMPARISON:? [facility] (unit s (unknown) date) [facility], CR, XR HIP unknown) W PEL IF DONE LT 2V, 03/26/2022, 18:27. (unknown) (no (unknown) (unknown) COMPARISON:? None. (units (unknown) date) unknown) (unknown) (no (unknown) (unknown) COVID19 -Nasal (units (unknown) date) RAPID/Pre-Proc Stat unknown) (unknown) (no (unknown) (unknown) CSF spaces:? Basal (units (unknown) date) cisterns are unknown) patent.? No extra-axial fluid collections.? The (unknown) (no (unknown) (unknown) CT - cervical (units ( unknown) date) spine: unknown) (unknown) (no (unknown) (unknown) CT cervical spine (units (unknown) date) wo con Stat unknown) (unknown) (no (unknown) (unknown) CT head/brain wo (units (unknown) date) con Stat unknown) (unknown) (no (unknown) (unknown) CT scan - head: (units (unknown) date) unknown) (unknown) (no (unknown) (unknown) Calcium 8.5 (units (un known) date) (8.4-10.2) mg/dL unknown) (unknown) (no (unknown) (unknown) Cancer (units (unkno wn) date) unknown) (unknown) (no (unknown) (unknown) Carbon Dioxide 24 (units (unknown) date) (22-32) mmol/L unknown) (unknown) (no (unknown) (unknown) Chest [XR chest 1V] (unit s (unknown) date) Stat unknown) (unknown) (no (unknown) (unknown) Chest x-ray: (units (u nknown) date) unknown) (unknown) (no (unknown) (unknown) Chief Complaint: (units (unknown) date) Extremity Injury, unknown) Lower (unknown) (no (unknown) (unknown) Chloride 102 (units (u nknown) date) (98-107) mmol/L unknown) (unknown) (no (unknown) (unknown) Chronic pain (units (u nknown) date) disorder unknown) (unknown) (no (unknown) (unknown) Clinical (units (unkno wn) date) Impression: unknown) (unknown) (no (unknown) (unknown) Course (units (unkno wn) date) unknown) (unknown) (no (unknown) (unknown) Creatinine 0.76 (units (unknown) date) (0.52-1.04) mg/dL unknown) (unknown) (no (unknown) (unknown) : 1955 (units (unknown) date) Acct:[id number] unknown) (unknown) (no (unknown) (unknown) : 1955 (units (unknown) date) unknown) (unknown) (no (unknown) (unknown) Date of Service: (units (unknown) date) 07/07/22 unknown) (unknown) (no (unknown) (unknown) Departure (units (unkn own) date) unknown) (unknown) (no (unknown) (unknown) Depression (units (unk nown) date) unknown) (unknown) (no (unknown) (unknown) Dictated by: Eduardo (units (unknown) date) Denilson Swartz on unknown) 07/07/2022 at 19:28 ? ? (unknown) (no (unknown) (unknown) Dictated by: Eduardo (units (unknown) date) Denilson Swartz on unknown) 07/07/2022 at 19:29 ?? (unknown) (no (unknown) (unknown) Dictated by: Eduardo (units (unknown) date) Denilson Swartz on unknown) 07/07/2022 at 19:59 ? ? (unknown) (no (unknown) (unknown) Dictated by: Eduardo (units (unknown) date) Denilson Swartz on unknown) 07/07/2022 at 20:03 ? ? (unknown) (no (unknown) (unknown) Discharge Plan (units (unknown) date) unknown) (unknown) (no (unknown) (unknown) Discontinued (units (u nknown) date) Medications unknown) (unknown) (no (unknown) (unknown) Documented By: OW (units (unknown) date) unknown) (unknown) (no (unknown) (unknown) ED Orders (units (unkn own) date) unknown) (unknown) (no (unknown) (unknown) ER Physician: (units ( unknown) date) Lisandra Roy D.O. unknown) (unknown) (no (unknown) (unknown) EXTREMITIES: Normal (unit s (unknown) date) range of motion, no unknown) clubbing or edema. Neurovascularly (unknown) (no (unknown) (unknown) Easy bruisability (units (unknown) date) unknown) (unknown) (no (unknown) (unknown) Elevated coronary (units (unknown) date) artery calcium score unknown) (unknown) (no (unknown) (unknown) Emergency Report (units (unknown) date) unknown) (unknown) (no (unknown) (unknown) Eos # (Auto) 100 (units (unknown) date) (0-450) /uL unknown) (unknown) (no (unknown) (unknown) Eos % (Auto) 1.5 L (units (unknown) date) (2-4) % unknown) (unknown) (no (unknown) (unknown) Estimated GFR > 60 (units (unknown) date) (>60) mL/min unknown) (unknown) (no (unknown) (unknown) Exam limited by (units (unknown) date) patient body unknown) habitus.? Bilateral airspace opacities which are (unknown) (no (unknown) (unknown) Exam (units (unkno wn) date) unknown) (unknown) (no (unknown) (unknown) Extremity x-ray #1: (unit s (unknown) date) unknown) (unknown) (no (unknown) (unknown) FINDINGS:? (units (unk nown) date) unknown) (unknown) (no (unknown) (unknown) Family History (units (unknown) date) (Reviewed 07/07/22 @ unknown) 22:43 by Lisandra Roy DO) (unknown) (no (unknown) (unknown) Father (units (unknown) date) Aneurysm unknown) (unknown) (no (unknown) (unknown) Fibromyalgia (units (u nknown) date) unknown) (unknown) (no (unknown) (unknown) GASTROINTESTINAL: (units (unknown) date) Denies nausea, unknown) vomiting (unknown) (no (unknown) (unknown) GENERAL: Alert (units (unknown) date) pleasant 67-year-old unknown) female and in no acute distress. (unknown) (no (unknown) (unknown) GENERAL: Denies (units (unknown) date) chills,fever unknown) (unknown) (no (unknown) (unknown) GERD (units (unkno wn) date) (gastroesophageal unknown) reflux disease) (unknown) (no (unknown) (unknown) General (units (unkno wn) date) unknown) (unknown) (no (unknown) (unknown) Globulin 2.5 (units (u nknown) date) (1.7-4.1) g/dL unknown) (unknown) (no (unknown) (unknown) Glucose 84 (80-110) (unit s (unknown) date) mg/dL unknown) (unknown) (no (unknown) (unknown) H/O total hip (units ( unknown) date) arthroplasty unknown) (04/12/17) (unknown) (no (unknown) (unknown) HEENT: Denies (units ( unknown) date) throat pain unknown) (unknown) (no (unknown) (unknown) HEENT: Head (units (un known) date) atraumatic,EOMI, unknown) pupils reactive, face symmetric, moist mucous (unknown) (no (unknown) (unknown) HPI - Extremity (units (unknown) date) Injury (Lower) unknown) (unknown) (no (unknown) (unknown) HPI Narrative: (units (unknown) date) unknown) (unknown) (no (unknown) (unknown) HTN (hypertension) (units (unknown) date) unknown) (unknown) (no (unknown) (unknown) Hct 34.8 L (36-46) (units (unknown) date) % unknown) (unknown) (no (unknown) (unknown) Hgb 11.5 L (units (unk nown) date) (12.0-16.0) g/dL unknown) (unknown) (no (unknown) (unknown) Hip dislocation, [...] (unknown) (unknown) IMPRESSION:? (units (u nknown) date) Complete superior unknown) dislocation of the left hip prosthesis femoral (unknown) (no (unknown) (unknown) IMPRESSION:? Exam (units (unknown) date) limited by body unknown) habitus and single-view technique.? No obvious (unknown) (no (unknown) (unknown) IMPRESSION:? No CT (units (unknown) date) evidence of acute unknown) traumatic cervical spine injury. (unknown) (no (unknown) (unknown) IMPRESSION:? No (units (unknown) date) acute intracranial unknown) finding. (unknown) (no (unknown) (unknown) INDICATIONS:? Fall (units (unknown) date) unknown) (unknown) (no (unknown) (unknown) INDICATIONS:? (units ( unknown) date) Trauma, fall unknown) (unknown) (no (unknown) (unknown) INDICATIONS:? left (units (unknown) date) hip dislocation. unknown) History of same (unknown) (no (unknown) (unknown) Image quality:? (units (unknown) date) Excellent.? unknown) (unknown) (no (unknown) (unknown) Imaging Data (units (u nknown) date) unknown) (unknown) (no (unknown) (unknown) Initial Vital Signs (unit s (unknown) date) unknown) (unknown) (no (unknown) (unknown) Initial Vital (units ( unknown) date) Signs: unknown) (unknown) (no (unknown) (unknown) Initial attempt of (units (unknown) date) left hip reduction unknown) was unsuccessful. Kindly consulted (unknown) (no (unknown) (unknown) [facility] (units (unknown) date) [address] [place] [address] unknown) [place] [address] (unknown) (no (unknown) (unknown) [facility] (units (unknown) date) unknown) (unknown) (no (unknown) (unknown) Ketorolac (units (unkn own) date) Tromethamine unknown) (Ketorolac 30 Mg/Ml Vial) 15 mg IV NOW ONE (unknown) (no (unknown) (unknown) Lab Data (units (unkno wn) date) unknown) (unknown) (no (unknown) (unknown) Lab Results (units (un known) date) unknown) (unknown) (no (unknown) (unknown) Labs: (units (unkno wn) date) unknown) (unknown) (no (unknown) (unknown) Last Admin: (units (un known) date) 07/07/22 21:06 Dose: unknown) 70 mg (unknown) (no (unknown) (unknown) Last Admin: (units (un known) date) 07/07/22 21:38 Dose: unknown) 130 mg (unknown) (no (unknown) (unknown) Last Admin: (units (un known) date) 07/07/22 21:45 Dose: unknown) 100 mg (unknown) (no (unknown) (unknown) Last Admin: (units (un known) date) 07/07/22 22:09 Dose: unknown) 15 mg (unknown) (no (unknown) (unknown) Left leg shortened (units (unknown) date) externally rotated unknown) (unknown) (no (unknown) (unknown) Loc: ED (units (unkno wn) date) unknown) (unknown) (no (unknown) (unknown) Lymph # (Auto) 1100 (unit s (unknown) date) (4275-1576) /uL unknown) (unknown) (no (unknown) (unknown) Lymph % (Auto) 14.0 (unit s (unknown) date) L (25-40) % unknown) (unknown) (no (unknown) (unknown) [id number] (units (unk nown) date) unknown) (unknown) (no (unknown) (unknown) MCH 30.8 (26-34) PG (unit s (unknown) date) unknown) (unknown) (no (unknown) (unknown) MCHC 33.0 (30-36) % (unit s (unknown) date) unknown) (unknown) (no (unknown) (unknown) MCV 93.5 (80-100) (units (unknown) date) fL unknown) (unknown) (no (unknown) (unknown) MDM - Extremity (units (unknown) date) Injury (Lower) unknown) (unknown) (no (unknown) (unknown) MDM Narrative (units ( unknown) date) unknown) (unknown) (no (unknown) (unknown) MR#: [id number] (units (unknown) date) unknown) (unknown) (no (unknown) (unknown) MUSCULOSKELETAL: (units (unknown) date) See HPI unknown) (unknown) (no (unknown) (unknown) Medical History (units (unknown) date) (Reviewed 07/07/22 @ unknown) 22:43 by Lisandra Roy DO) (unknown) (no (unknown) (unknown) Medical decision (units (unknown) date) making narrative: unknown) (unknown) (no (unknown) (unknown) Medication (units (unk nown) date) Instructions unknown) Recorded Confirmed (unknown) (no (unknown) (unknown) Medication (units (unk nown) date) Instructions unknown) Recorded (unknown) (no (unknown) (unknown) Mode of arrival: (units (unknown) date) EMS unknown) (unknown) (no (unknown) (unknown) [place] # (Auto) 600 (units (unknown) date) (0-900) /uL unknown) (unknown) (no (unknown) (unknown) [place] % (Auto) 7.3 (units (unknown) date) (3-14) % unknown) (unknown) (no (unknown) (unknown) Mother (units (unknown) date) COPD (chronic unknown) obstructive pulmonary disease) (unknown) (no (unknown) (unknown) NEUROLOGIC: Denies (units (unknown) date) weakness, dizziness, unknown) headache, numbness (unknown) (no (unknown) (unknown) NEUROLOGICAL: Alert (unit s (unknown) date) and oriented x4 unknown) (unknown) (no (unknown) (unknown) Narrative: (units (unk nown) date) unknown) (unknown) (no (unknown) (unknown) Neut # (Auto) 5700 (units (unknown) date) (5846-2519) /uL unknown) (unknown) (no (unknown) (unknown) Neut % (Auto) 76.0 (units (unknown) date) H (50-75) % unknown) (unknown) (no (unknown) (unknown) No Action (units (unkn own) date) unknown) (unknown) (no (unknown) (unknown) No acute fracture.? (unit s (unknown) date) Vertebral body unknown) heights maintained.? Presumably degenerative (unknown) (no (unknown) (unknown) Noncontrast 3 mm (units (unknown) date) thick sections unknown) acquired from the skull base to the T4 level.? (unknown) (no (unknown) (unknown) Noncontrast 4.5 mm (units (unknown) date) thick angled axial unknown) sections acquired from the foramen magnum (unknown) (no (unknown) (unknown) Normal (units (unkno wn) date) unknown) (unknown) (no (unknown) (unknown) Ordered: (units (unkno wn) date) unknown) (unknown) (no (unknown) (unknown) Ordering Provider: (units (unknown) date) Lisandra Roy D.O. unknown) (unknown) (no (unknown) (unknown) Orders (units (unkno wn) date) unknown) (unknown) (no (unknown) (unknown) Osteoarthritis (units (unknown) date) unknown) (unknown) (no (unknown) (unknown) Oxygen Delivery (units (unknown) date) Method 07/07/22 unknown) 18:53 (unknown) (no (unknown) (unknown) Oxygen Delivery (units (unknown) date) Method Nasal Cannula unknown) Nasal Cannula Nasal Cannula (unknown) (no (unknown) (unknown) Oxygen Delivery (units (unknown) date) Method Nasal Cannula unknown) Nasal Cannula (unknown) (no (unknown) (unknown) Oxygen Delivery (units (unknown) date) Method Nasal Cannula unknown) (unknown) (no (unknown) (unknown) Oxygen Delivery (units (unknown) date) Method Room Air Room unknown) Air Room Air (unknown) (no (unknown) (unknown) Oxygen Delivery (units (unknown) date) Method Room Air Room unknown) Air (unknown) (no (unknown) (unknown) Oxygen Delivery (units (unknown) date) Method Room Air unknown) (unknown) (no (unknown) (unknown) Oxygen Delivery (units (unknown) date) Method unknown) (unknown) (no (unknown) (unknown) Oxygen Flow Rate 2 (units (unknown) date) 2 2 unknown) (unknown) (no (unknown) (unknown) Oxygen Flow Rate 2 (units (unknown) date) unknown) (unknown) (no (unknown) (unknown) Oxygen Flow Rate (units (unknown) date) unknown) (unknown) (no (unknown) (unknown) PROCEDURE:? CT (units (unknown) date) CERVICAL SPINE WO unknown) CON (unknown) (no (unknown) (unknown) PROCEDURE:? CT (units (unknown) date) HEAD/BRAIN WO CON unknown) (unknown) (no (unknown) (unknown) PROCEDURE:? XR (units (unknown) date) CHEST 1V unknown) (unknown) (no (unknown) (unknown) PROCEDURE:? XR HIP (units (unknown) date) W PEL IF DONE LT 2V unknown) (unknown) (no (unknown) (unknown) Patient (units (unkno wn) date) Disposition: Home unknown) (unknown) (no (unknown) (unknown) Patient History (units (unknown) date) unknown) (unknown) (no (unknown) (unknown) Patient is a (units (u nknown) date) 67-year-old female unknown) with history of bilateral hip replacement the (unknown) (no (unknown) (unknown) Patient: (units (unkno wn) date) Gita Garcia unknown) MR#: (unknown) (no (unknown) (unknown) Patient: (units (unkno wn) date) Gita Garcia unknown) (unknown) (no (unknown) (unknown) Plt Count 313 (units ( unknown) date) (150-400) X103/uL unknown) (unknown) (no (unknown) (unknown) Point of Care (units ( unknown) date) Testing unknown) (unknown) (no (unknown) (unknown) Potassium 4.0 (units ( unknown) date) (3.4-5.1) mmol/L unknown) (unknown) (no (unknown) (unknown) Test (units (unknown) date) Results Not unknown) applicable (unknown) (no (unknown) (unknown) Prescriptions: (units (unknown) date) unknown) (unknown) (no (unknown) (unknown) Previous Rx's (units ( unknown) date) unknown) (unknown) (no (unknown) (unknown) Procedure: CT (units ( unknown) date) cervical spine wo unknown) con (unknown) (no (unknown) (unknown) Procedure: CT (units ( unknown) date) head/brain wo con unknown) (unknown) (no (unknown) (unknown) Procedure: XR chest (unit s (unknown) date) 1V unknown) (unknown) (no (unknown) (unknown) Procedure: XR hip w (unit s (unknown) date) pel if done LT 2V unknown) (unknown) (no (unknown) (unknown) Propofol (Propofol (units (unknown) date) 200 Mg/20 Ml Vial) unknown) 135 mg 2 mg/kg (135 mg) IV NOW ONE (unknown) (no (unknown) (unknown) Propofol (Propofol (units (unknown) date) 200 Mg/20 Ml Vial) unknown) 70 mg 1 mg/kg (70 mg) IV NOW ONE (unknown) (no (unknown) (unknown) Pulse Oximetry 81 L (unit s (unknown) date) 98 91 unknown) (unknown) (no (unknown) (unknown) Pulse Oximetry 88 L (unit s (unknown) date) 96 unknown) (unknown) (no (unknown) (unknown) Pulse Oximetry 94 (units (unknown) date) 97 97 unknown) (unknown) (no (unknown) (unknown) Pulse Oximetry 95 (units (unknown) date) 98 97 unknown) (unknown) (no (unknown) (unknown) Pulse Oximetry 96 (units (unknown) date) unknown) (unknown) (no (unknown) (unknown) Pulse Oximetry 98 (units (unknown) date) unknown) (unknown) (no (unknown) (unknown) Pulse Oximetry 99 (units (unknown) date) 07/07/22 18:53 unknown) (unknown) (no (unknown) (unknown) Pulse Oximetry 99 (units (unknown) date) 94 98 unknown) (unknown) (no (unknown) (unknown) Pulse Rate 76 80 (units (unknown) date) unknown) (unknown) (no (unknown) (unknown) Pulse Rate 77 78 77 (unit s (unknown) date) unknown) (unknown) (no (unknown) (unknown) Pulse Rate 77 (units ( unknown) date) unknown) (unknown) (no (unknown) (unknown) Pulse Rate 78 (units ( unknown) date) 07/07/22 18:53 unknown) (unknown) (no (unknown) (unknown) Pulse Rate 78 77 80 (unit s (unknown) date) unknown) (unknown) (no (unknown) (unknown) Pulse Rate 79 79 (units (unknown) date) unknown) (unknown) (no (unknown) (unknown) Pulse Rate 81 78 83 (unit s (unknown) date) unknown) (unknown) (no (unknown) (unknown) Pulse Rate 82 81 80 (unit s (unknown) date) unknown) (unknown) (no (unknown) (unknown) 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 (unknown) (no (unknown) (unknown) RESPIRATORY: Denies (unit s (unknown) date) dyspnea, cough, unknown) wheezing (unknown) (no (unknown) (unknown) Radiologist's (units ( unknown) date) Impression: unknown) (unknown) (no (unknown) (unknown) Referrals: (units (unk nown) date) unknown) (unknown) (no (unknown) (unknown) Related Data (units (u nknown) date) unknown) (unknown) (no (unknown) (unknown) Respiratory Rate 15 (unit s (unknown) date) 22 unknown) (unknown) (no (unknown) (unknown) Respiratory Rate 18 (unit s (unknown) date) 07/07/22 18:53 unknown) (unknown) (no (unknown) (unknown) Respiratory Rate 18 (unit s (unknown) date) 18 16 unknown) (unknown) (no (unknown) (unknown) Respiratory Rate 18 (unit s (unknown) date) 20 20 unknown) (unknown) (no (unknown) (unknown) Respiratory Rate 18 (unit s (unknown) date) 24 24 unknown) (unknown) (no (unknown) (unknown) Respiratory Rate 18 (unit s (unknown) date) unknown) (unknown) (no (unknown) (unknown) Respiratory Rate 20 (unit s (unknown) date) 20 26 H unknown) (unknown) (no (unknown) (unknown) Respiratory Rate 20 (unit s (unknown) date) 21 unknown) (unknown) (no (unknown) (unknown) Result diagrams: (units (unknown) date) unknown) (unknown) (no (unknown) (unknown) Review of Systems (units (unknown) date) unknown) (unknown) (no (unknown) (unknown) Rx Instructions: (units (unknown) date) unknown) (unknown) (no (unknown) (unknown) SARS-CoV-2 (PCR) (units (unknown) date) Negative (Negative) unknown) (unknown) (no (unknown) (unknown) SKIN: No rash, no (units (unknown) date) laceration, no unknown) pruritus (unknown) (no (unknown) (unknown) SKIN: Warm, dry, no (unit s (unknown) date) laceration, no unknown) petechiae, no rashes or lesions. (unknown) (no (unknown) (unknown) Sagittal (units (unkno wn) date) unknown) (unknown) (no (unknown) (unknown) Sarcoid neuropathy (units (unknown) date) unknown) (unknown) (no (unknown) (unknown) Sarcoidosis (units (un known) date) unknown) (unknown) (no (unknown) (unknown) She does admit to (units (unknown) date) drinking some wine unknown) tonight. She did hit her head does not (unknown) (no (unknown) (unknown) Signed By: (units (unk nown) date) unknown) (unknown) (no (unknown) (unknown) Signed (units (unkno wn) date) unknown) (unknown) (no (unknown) (unknown) Sinuses:? (units (unkn own) date) Visualized sinuses unknown) and mastoids are clear.? (unknown) (no (unknown) (unknown) Skull and face:? (units (unknown) date) Calvarium and unknown) visualized facial bones appear intact, without (unknown) (no (unknown) (unknown) Smoking Status: (units (unknown) date) Never smoker unknown) (unknown) (no (unknown) (unknown) Social History (units (unknown) date) (Reviewed 07/07/22 @ unknown) 22:43 by Lisandra Roy DO) (unknown) (no (unknown) (unknown) Sodium 138 (units (unk nown) date) (137-145) mmol/L unknown) (unknown) (no (unknown) (unknown) Source: EMS (units (un known) date) unknown) (unknown) (no (unknown) (unknown) Stated Complaint: (units (unknown) date) Left hip dislocation unknown) (unknown) (no (unknown) (unknown) Stop: 07/07/22 (units (unknown) date) 20:37 unknown) (unknown) (no (unknown) (unknown) Stop: 07/07/22 (units (unknown) date) 20:51 unknown) (unknown) (no (unknown) (unknown) Stop: 07/07/22 (units (unknown) date) 21:23 unknown) (unknown) (no (unknown) (unknown) Stop: 07/07/22 (units (unknown) date) 22:01 unknown) (unknown) (no (unknown) (unknown) Substance Use Type: (unit s (unknown) date) does not use unknown) (unknown) (no (unknown) (unknown) Surgical History (units (unknown) date) (Reviewed 07/07/22 @ unknown) 22:43 by Lisandra Roy DO) (unknown) (no (unknown) (unknown) TECHNIQUE:? One (units (unknown) date) view of the chest unknown) was acquired.? (unknown) (no (unknown) (unknown) TECHNIQUE:? Two (units (unknown) date) views of the hip unknown) were acquired.? (unknown) (no (unknown) (unknown) TECHNIQUE:? (units (un known) date) unknown) (unknown) (no (unknown) (unknown) Temperature 98.1 F (units (unknown) date) 07/07/22 18:53 unknown) (unknown) (no (unknown) (unknown) Temperature 98.1 F (units (unknown) date) unknown) (unknown) (no (unknown) (unknown) Temperature (units (un known) date) unknown) (unknown) (no (unknown) (unknown) Time Seen by (units (u nknown) date) Provider: 07/07/22 unknown) 18:51 (unknown) (no (unknown) (unknown) Total Bilirubin 0.2 (unit s (unknown) date) (0.2-1.3) mg/dL unknown) (unknown) (no (unknown) (unknown) Total Protein 6.5 (units (unknown) date) (6.3-8.2) g/dL unknown) (unknown) (no (unknown) (unknown) Vital Signs - 8 hr (units (unknown) date) unknown) (unknown) (no (unknown) (unknown) Vital Signs (units (un known) date) unknown) (unknown) (no (unknown) (unknown) Vital signs: (units (u nknown) date) unknown) (unknown) (no (unknown) (unknown) WBC 7.5 (4.5-11.0) (units (unknown) date) X103/uL unknown) (unknown) (no (unknown) (unknown) XR hip w pel if (units (unknown) date) done LT 2V Stat unknown) (unknown) (no (unknown) (unknown) XR pelvis 1-2V Stat (unit s (unknown) date) unknown) (unknown) (no (unknown) (unknown) XRay Report (units (un known) date) unknown) (unknown) (no (unknown) (unknown) Ghazal Desir, (units (unknown) date) ROSAC [Primary Care unknown) Provider] (unknown) (no (unknown) (unknown) [Embedded Image Not (unit s (unknown) date) Available] unknown) (unknown) (no (unknown) (unknown) acetaminophen 325 [...] (unknown) date) unknown) (unknown) (no (unknown) (unknown) age, with (units (unkn own) date) unknown) (unknown) (no (unknown) (unknown) albuterol [...] unknown) 02/17/21 02/19/21 (unknown) (no (unknown) (unknown) and coronal (units (un known) date) reformats were then unknown) constructed.? For radiation dose reduction, the (unknown) (no (unknown) (unknown) and not turn them. (units (unknown) date) unknown) (unknown) (no (unknown) (unknown) anterolisthesis of (units (unknown) date) C3 on C4 measuring 3 unknown) mm and of C4 on C5 measuring 6 mm.? (unknown) (no (unknown) (unknown) artery (units (unkno wn) date) atherosclerosis.? unknown) (unknown) (no (unknown) (unknown) aspirin 81 mg (units ( unknown) date) Tablet,Delayed unknown) Release (Dr/Ec) (unknown) (no (unknown) (unknown) aspirin 81 mg (units ( unknown) date) tablet,delayed 81 mg unknown) PO BID #60 tabs 02/21/21 (unknown) (no (unknown) (unknown) atient: (units (unkno wn) date) Gita Garcia unknown) (unknown) (no (unknown) (unknown) carotid (units (unkno wn) date) unknown) (unknown) (no (unknown) (unknown) ciclesonide 80 (units (unknown) date) mcg/actuation 1 puff unknown) inhalation BID 02/17/21 02/19/21 (unknown) (no (unknown) (unknown) ciclesonide 80 (units (unknown) date) mcg/actuation Hfa unknown) Aerosol Inhaler (unknown) (no (unknown) (unknown) comparison (units (unk nown) date) examination.? unknown) (unknown) (no (unknown) (unknown) component.? (units (un known) date) unknown) (unknown) (no (unknown) (unknown) configuration of (units (unknown) date) the craniocervical unknown) junction.? No suspicious bone lesion.? (unknown) (no (unknown) (unknown) cyclobenzaprine 10 (units [...] sores 02/17/21 02/19/21 (unknown) (no (unknown) (unknown) following (units (unkn own) date) unknown) (unknown) (no (unknown) (unknown) gabapentin 600 mg (units (unknown) date) tablet 600 mg PO unknown) SEEINSTR ##0 03/22/17 02/19/21 (unknown) (no (unknown) (unknown) gabapentin (units (unk nown) date) [Neurontin] 600 MG unknown) tablet (unknown) (no (unknown) (unknown) guarding or (units (un known) date) rebound. unknown) (unknown) (no (unknown) (unknown) hip (units (unkno wn) date) unknown) (unknown) (no (unknown) (unknown) household members: (units (unknown) date) children unknown) (unknown) (no (unknown) (unknown) hydroxychloroquine (units (unknown) date) 200 mg tablet 400 mg unknown) PO QDAY ##0 03/22/17 02/19/21 (unknown) (no (unknown) (unknown) hydroxychloroquine (units (unknown) date) [Plaquenil] 200 MG unknown) tablet (unknown) (no (unknown) (unknown) intact (units (unkno wn) date) unknown) (unknown) (no (unknown) (unknown) left was done about (unit s (unknown) date) 1 year ago it has unknown) dislocated twice before. She says she was (unknown) (no (unknown) (unknown) lesions.? (units (unkn own) date) unknown) (unknown) (no (unknown) (unknown) losartan 50 mg (units (unknown) date) Tablet unknown) (unknown) (no (unknown) (unknown) losartan 50 mg (units (unknown) date) tablet 50 mg PO BID unknown) 02/17/21 02/19/21 (unknown) (no (unknown) (unknown) matter chronic (units (unknown) date) small vessel unknown) ischemic changes.? There is intracranial internal (unknown) (no (unknown) (unknown) membranes (units (unkn own) date) unknown) (unknown) (no (unknown) (unknown) montelukast [...] Pain 02/17/21 02/19/21 (unknown) (no (unknown) (unknown) no (units (unkno wn) date) unknown) (unknown) (no (unknown) (unknown) nonspecific.? No (units (unknown) date) pleural effusion or unknown) pneumothorax.? No obvious bone abnormality. (unknown) (no (unknown) (unknown) occupational (units (u nknown) date) status: other unknown) (Retired) (unknown) (no (unknown) (unknown) omeprazole 20 mg (units (unknown) date) Tablet,Delayed unknown) Release (Dr/Ec) (unknown) (no (unknown) (unknown) omeprazole 20 mg (units (unknown) date) tablet,delayed 20 mg unknown) PO BID 02/17/21 02/19/21 (unknown) (no (unknown) (unknown) or shortness of (units (unknown) date) breath. unknown) (unknown) (no (unknown) (unknown) oral powder packet (units (unknown) date) #10 ea unknown) (unknown) (no (unknown) (unknown) oxycodone 5 mg (units (unknown) date) Tablet unknown) (unknown) (no (unknown) (unknown) oxycodone 5 mg (units (unknown) date) tablet 5 mg PO Q3HR unknown) PRN Pain, Moderate 02/21/21 (unknown) (no (unknown) (unknown) patient (units (unkno wn) date) unknown) (unknown) (no (unknown) (unknown) polyethylene [...] tablet unknown) (unknown) (no (unknown) (unknown) prosthesis femoral (units (unknown) date) component. unknown) (unknown) (no (unknown) (unknown) recommended (units (un known) date) different technique unknown) of anterior pressure and pulling on leg. Not (unknown) (no (unknown) (unknown) release (units (unkno wn) date) unknown) (unknown) (no (unknown) (unknown) resultant (units (unkno wn) date) ventricular and unknown) sulcal prominence.? There are periventricular and deep (unknown) (no (unknown) (unknown) ropinirole 3 mg (units (unknown) date) Tablet unknown) (unknown) (no (unknown) (unknown) ropinirole 3 mg (units (unknown) date) tablet 3 mg PO unknown) BEDTIME RLS 02/17/21 02/19/21 (unknown) (no (unknown) (unknown) size.? (units (unkno wn) date) unknown) (unknown) (no (unknown) (unknown) standing at the (units (unknown) date) kitchen counter unknown) cutting bread when it suddenly went out on her. (unknown) (no (unknown) (unknown) suspicious (units (unk nown) date) unknown) (unknown) (no (unknown) (unknown) technique was very (units (unknown) date) successful. Patient unknown) is instructed to keep her toes in front (unknown) (no (unknown) (unknown) think she would (units (unknown) date) loss of unknown) consciousness. She denies any chest pain palpitations (unknown) (no (unknown) (unknown) to the (units (unkno wn) date) unknown) (unknown) (no (unknown) (unknown) traumatic finding.? (unit s (unknown) date) Nonspecific unknown) bilateral interstitial airspace opacities with (unknown) (no (unknown) (unknown) ventricles are (units (unknown) date) symmetric in size unknown) and shape.? (unknown) (no (unknown) (unknown) vertex, with (units (u nknown) date) coronal and sagittal unknown) reformats.? For radiation dose reduction, the (unknown) (no (unknown) (unknown) was used:? (units (unk nown) date) automated exposure unknown) control, adjustment of mA and/or kV according to (unknown) (no (unknown) (unknown) white (units (unkno wn) date) unknown) Result panel 168 (unknown) (no (unknown) (unknown) (no value) (units (unk nown) date) unknown) (unknown) (no (unknown) (unknown) <Electronically (units (unknown) date) signed by Lisandra unknownVj Roy D.O.> (unknown) (no (unknown) (unknown) (4-6) #60 tabs (units (unknown) date) unknown) (unknown) (no (unknown) (unknown) (Neurontin) (units (un known) date) unknown) (unknown) (no (unknown) (unknown) (Plaquenil) (units (un known) date) unknown) (unknown) (no (unknown) (unknown) TRAMADOL DOES (units (unknown) date) NOT CONTAIN TYLENOL unknown) (unknown) (no (unknown) (unknown) *Continue to take (units (unknown) date) medications as unknown) directed (unknown) (no (unknown) (unknown) *Follow up with (units (unknown) date) your primary care unknown) provider in 2-3 days or call [phone] (unknown) (no (unknown) (unknown) *Return to ER if (units (unknown) date) you should have unknown) increasing pain redness pops out again or any (unknown) (no (unknown) (unknown) *What to do: Please (unit s (unknown) date) keep your toes unknown) facing forward. If they start turning this (unknown) (no (unknown) (unknown) *You have been (units (unknown) date) diagnosed with left unknown) hip dislocation (unknown) (no (unknown) (unknown) 1 - 5 mg PO DAILY (units (unknown) date) unknown) (unknown) (no (unknown) (unknown) 1 puff INHALATION (units (unknown) date) BID unknown) (unknown) (no (unknown) (unknown) 1 tab PO Q6H PRN (units (unknown) date) (Reason: pain) Qty: unknown) 10 0RF (unknown) (no (unknown) (unknown) 1-3 tablets p.o. (units (unknown) date) every 3 hours as unknown) needed for pain (unknown) (no (unknown) (unknown) 1. Interval (units (un known) date) reduction of the unknown) previously dislocated left hip prosthesis. (unknown) (no (unknown) (unknown) 1. You have been (units (unknown) date) prescribed narcotic unknown) medications, it does have (unknown) (no (unknown) (unknown) 10 mg PO BID (units (u nknown) date) unknown) (unknown) (no (unknown) (unknown) 10 mg PO DAILY Qty: (unit s (unknown) date) 10 0RF unknown) (unknown) (no (unknown) (unknown) 10 mg PO TID PRN (units (unknown) date) (Reason: Muscle unknown) Spasm) Qty: 0 (unknown) (no (unknown) (unknown) 07/07/22 07/07/22 (units (unknown) date) 07/07/22 Range/Units unknown) (unknown) (no (unknown) (unknown) 07/07/22 20:50 (units (unknown) date) unknown) (unknown) (no (unknown) (unknown) 07/07/22 (units (unkno wn) date) unknown) (unknown) (no (unknown) (unknown) 07/08/22 0748 (units ( unknown) date) unknown) (unknown) (no (unknown) (unknown) [address] [place] [address] (units (unknown) date) unknown) (unknown) (no (unknown) (unknown) 17 gm PO DAILY PRN (units (unknown) date) (Reason: unknown) Constipation) Qty: 10 0RF (unknown) (no (unknown) (unknown) 18:53 07/07/22 (units (unknown) date) unknown) (unknown) (no (unknown) (unknown) 19:06 20:50 20:50 (units (unknown) date) unknown) (unknown) (no (unknown) (unknown) 19:35 07/07/22 (units (unknown) date) unknown) (unknown) (no (unknown) (unknown) 2 puff INHALATION (units (unknown) date) Q4-6H PRN (Reason: unknown) Shortness Of Breath) (unknown) (no (unknown) (unknown) 2. Please (units (unkn own) date) understand that we unknown) cannot provide further refills of narcotics, (unknown) (no (unknown) (unknown) 20 mg PO BID (units (u nknown) date) unknown) (unknown) (no (unknown) (unknown) 20:55 (units (unkno wn) date) unknown) (unknown) (no (unknown) (unknown) 21:06 07/07/22 (units (unknown) date) unknown) (unknown) (no (unknown) (unknown) 21:10 (units (unkno wn) date) unknown) (unknown) (no (unknown) (unknown) 21:15 07/07/22 (units (unknown) date) unknown) (unknown) (no (unknown) (unknown) 21:20 07/07/22 (units (unknown) date) unknown) (unknown) (no (unknown) (unknown) 21:25 (units (unkno wn) date) unknown) (unknown) (no (unknown) (unknown) 21:34 07/07/22 (units (unknown) date) unknown) (unknown) (no (unknown) (unknown) 21:36 07/07/22 (units (unknown) date) unknown) (unknown) (no (unknown) (unknown) 21:40 07/07/22 (units (unknown) date) unknown) (unknown) (no (unknown) (unknown) 21:45 (units (unkno wn) date) unknown) (unknown) (no (unknown) (unknown) 21:50 07/07/22 (units (unknown) date) unknown) (unknown) (no (unknown) (unknown) 220 mg PO BID PRN (units (unknown) date) (Reason: Pain) unknown) (unknown) (no (unknown) (unknown) 22:00 07/07/22 (units (unknown) date) unknown) (unknown) (no (unknown) (unknown) 22:09 (units (unkno wn) date) unknown) (unknown) (no (unknown) (unknown) 22:15 07/07/22 (units (unknown) date) unknown) (unknown) (no (unknown) (unknown) 22:30 (units (unkno wn) date) unknown) (unknown) (no (unknown) (unknown) 3 mg PO BEDTIME (units (unknown) date) unknown) (unknown) (no (unknown) (unknown) 3. While on these (units (unknown) date) medications you unknown) cannot drive or operate heavy machinery. (unknown) (no (unknown) (unknown) 4. You cannot sign (units (unknown) date) legal documents or unknown) perform any duties such as this. (unknown) (no (unknown) (unknown) 400 mg PO QDAY Qty: (unit s (unknown) date) 0 unknown) (unknown) (no (unknown) (unknown) 5 mg PO BID (units (un known) date) unknown) (unknown) (no (unknown) (unknown) 5 mg PO Q3HR PRN (units (unknown) date) (Reason: Pain, unknown) Moderate (4-6)) Qty: 60 0RF (unknown) (no (unknown) (unknown) 5. As long as (units ( unknown) date) you're taking opiate unknown) pain medications he should also be taking a (unknown) (no (unknown) (unknown) 50 mg PO [...] 60 0RF unknown) (unknown) (no (unknown) (unknown) 8 point review of (units (unknown) date) systems is negative unknown) except for those stated above and HPI (unknown) (no (unknown) (unknown) 81 mg PO BID Qty: (units (unknown) date) 60 0RF unknown) (unknown) (no (unknown) (unknown) ? (units (unkno wn) date) unknown) (unknown) (no (unknown) (unknown) ABDOMEN: Soft, (units (unknown) date) nontender. unknown) Normoactive bowel sounds all 4 quadrants. No (unknown) (no (unknown) (unknown) ALT 29 (<35) IU/L (units (unknown) date) unknown) (unknown) (no (unknown) (unknown) AST 33 (14-36) IU/L (unit s (unknown) date) unknown) (unknown) (no (unknown) (unknown) Abrasion (02/16/21) (unit s (unknown) date) unknown) (unknown) (no (unknown) (unknown) Accession Number: (units (unknown) date) [id number] ?? unknown) (unknown) (no (unknown) (unknown) Accession Number: (units (unknown) date) [id number] ?? unknown) (unknown) (no (unknown) (unknown) Accession Number: (units (unknown) date) [id number] ?? unknown) (unknown) (no (unknown) (unknown) Accession Number: (units (unknown) date) [id number] ?? unknown) (unknown) (no (unknown) (unknown) Accession Number: (units (unknown) date) [id number] ?? unknown) (unknown) (no (unknown) (unknown) Acct:[id number] (units (unknown) date) unknown) (unknown) (no (unknown) (unknown) Activity (units (unkno wn) date) Restrictions/Additio unknown) nal Instructions: (unknown) (no (unknown) (unknown) Age/Sex: 67 / F (units (unknown) date) unknown) (unknown) (no (unknown) (unknown) Albumin 4.0 (units (un known) date) (3.5-5.0) g/dL unknown) (unknown) (no (unknown) (unknown) Albumin/Globulin (units (unknown) date) Ratio 1.6 (1.0-2.8) unknown) (unknown) (no (unknown) (unknown) Alcohol type: wine (units (unknown) date) unknown) (unknown) (no (unknown) (unknown) Alkaline (units (unkno wn) date) Phosphatase 92 unknown) (38-126) U/L (unknown) (no (unknown) (unknown) Allergies (units (unkn own) date) unknown) (unknown) (no (unknown) (unknown) Allergy/AdvReac (units (unknown) date) Type Severity unknown) Reaction Status Date / Time (unknown) (no (unknown) (unknown) [place] [address] (unit s (unknown) date) unknown) (unknown) (no (unknown) (unknown) Analgesia: (units (unk nown) date) procedural sedation unknown) (unknown) (no (unknown) (unknown) Anxiety (units (unkno wn) date) unknown) (unknown) (no (unknown) (unknown) Apply antibiotic (units (unknown) date) ointment 1-2 times unknown) daily. (unknown) (no (unknown) (unknown) Approved by: Eduardo (units (unknown) date) Denilson Swartz on unknown) 07/07/2022 at 19:29 ? (unknown) (no (unknown) (unknown) Approved by: Eduardo (units (unknown) date) Denilson Swartz on unknown) 07/07/2022 at 20:04 ? 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 unknown) Complete superior dislocation of the left (unknown) (no (unknown) (unknown) Blood Pressure (units (unknown) date) 130/60 118/62 135/63 unknown) (unknown) (no (unknown) (unknown) Blood Pressure (units (unknown) date) 138/68 138/68 unknown) (unknown) (no (unknown) (unknown) Blood Pressure (units (unknown) date) 139/69 142/65 H unknown) 156/68 H (unknown) (no (unknown) (unknown) Blood Pressure (units (unknown) date) 147/70 H 142/67 H unknown) 133/64 (unknown) (no (unknown) (unknown) Blood Pressure (units (unknown) date) 164/76 H 132/78 unknown) 166/82 H (unknown) (no (unknown) (unknown) Blood Pressure (units (unknown) date) 178/71 H 12// unknown) 18:53 (unknown) (no (unknown) (unknown) Blood Pressure (units (unknown) date) 178/71 H 146/67 H unknown) 162/75 H (unknown) (no (unknown) (unknown) Blood Pressure (units (unknown) date) unknown) (unknown) (no (unknown) (unknown) Bones:? There is (units (unknown) date) interval reduction unknown) of the previously dislocated left hip (unknown) (no (unknown) (unknown) Brain:? No (units (unk nown) date) intracranial bleeds unknown) or masses.? There is cerebral volume loss for (unknown) (no (unknown) (unknown) CARDIOVASCULAR: (units (unknown) date) Denies chest pain, unknown) palpitations (unknown) (no (unknown) (unknown) CARDIOVASCULAR: (units (unknown) date) Regular rate and unknown) rhythm without murmurs, rubs or gallops. (unknown) (no (unknown) (unknown) COM[facility]:? [facility], [facility], XR unknown) CHEST 1V, 07/07/2022, 19:15. (unknown) (no (unknown) (unknown) COMPARISON:? [facility] date[facility], CR, XR HIP unknown) W PEL IF DONE LT 2V, 07/07/2022, 19:06. (unknown) (no (unknown) (unknown) COMPARISON:? [facility] date[facility], CR, XR HIP unknown) W PEL IF DONE LT 2V, 03/26/2022, 18:27. (unknown) (no (unknown) (unknown) COMPARISON:? None. (units (unknown) date) unknown) (unknown) (no (unknown) (unknown) CONTROLLED (units (unk nown) date) SUBSTANCE DISCHARGE unknown) (Narcotoic/benzodiaz epine/Flexeril/Phene rgan) (unknown) (no (unknown) (unknown) CSF spaces:? Basal (units (unknown) date) cisterns are unknown) patent.? No extra-axial fluid collections.? The (unknown) (no (unknown) (unknown) CT - cervical (units ( unknown) date) spine: unknown) (unknown) (no (unknown) (unknown) CT scan - head: (units (unknown) date) unknown) (unknown) (no (unknown) (unknown) Calcium 8.5 (units (un known) date) (8.4-10.2) mg/dL unknown) (unknown) (no (unknown) (unknown) Call Dr. Orourke (units (unknown) date) tomorrow unknown) (unknown) (no (unknown) (unknown) Cancer (units (unkno wn) date) unknown) (unknown) (no (unknown) (unknown) Carbon Dioxide 24 (units (unknown) date) (22-32) mmol/L unknown) (unknown) (no (unknown) (unknown) Chest x-ray: (units (u nknown) date) unknown) (unknown) (no (unknown) (unknown) Chief Complaint: (units (unknown) date) Extremity Injury, unknown) Lower (unknown) (no (unknown) (unknown) Chloride 102 (units (u nknown) date) (98-107) mmol/L unknown) (unknown) (no (unknown) (unknown) Chronic pain (units (u nknown) date) disorder unknown) (unknown) (no (unknown) (unknown) Clinical (units (unkno wn) date) Impression: unknown) (unknown) (no (unknown) (unknown) Course (units (unkno wn) date) unknown) (unknown) (no (unknown) (unknown) Creatinine 0.76 (units (unknown) date) (0.52-1.04) mg/dL unknown) (unknown) (no (unknown) (unknown) : 1955 (units (unknown) date) Acct:[id number] unknown) (unknown) (no (unknown) (unknown) : 1955 (units (unknown) date) unknown) (unknown) (no (unknown) (unknown) Date of Service: (units (unknown) date) 07/07/22 unknown) (unknown) (no (unknown) (unknown) Departure (units (unkn own) date) unknown) (unknown) (no (unknown) (unknown) Depression (units (unk nown) date) unknown) (unknown) (no (unknown) (unknown) Dictated by: Hector (unit s (unknown) date) Pretty Hutton M.D. on unknown) 07/07/2022 at 23:23 ? ? (unknown) (no (unknown) (unknown) Dictated by: Eduardo (units (unknown) date) Denilson Swartz on unknown) 07/07/2022 at 19:28 ? ? (unknown) (no (unknown) (unknown) Dictated by: Eduardo (units (unknown) date) Denilson Swartz on unknown) 07/07/2022 at 19:29 ?? (unknown) (no (unknown) (unknown) Dictated by: Eduardo (units (unknown) date) Denilson Swartz on unknown) 07/07/2022 at 19:59 ? ? (unknown) (no (unknown) (unknown) Dictated by: Eduardo (units (unknown) date) Swartz, M.D. on unknown) 07/07/2022 at 20:03 ? ? (unknown) (no (unknown) (unknown) Discharge Plan (units (unknown) date) unknown) (unknown) (no (unknown) (unknown) Discontinued (units (u nknown) date) Medications unknown) (unknown) (no (unknown) (unknown) Documented By: OW (units (unknown) date) unknown) (unknown) (no (unknown) (unknown) ER Physician: (units ( unknown) date) Lisandra Roy D.O. unknown) (unknown) (no (unknown) (unknown) EXTREMITIES: Normal (unit s (unknown) date) range of motion, no unknown) clubbing or edema. Neurovascularly (unknown) (no (unknown) (unknown) Easy bruisability (units (unknown) date) unknown) (unknown) (no (unknown) (unknown) Elevated coronary (units (unknown) date) artery calcium score unknown) (unknown) (no (unknown) (unknown) Emergency Report (units (unknown) date) unknown) (unknown) (no (unknown) (unknown) Eos # (Auto) 100 (units (unknown) date) (0-450) /uL unknown) (unknown) (no (unknown) (unknown) Eos % (Auto) 1.5 L (units (unknown) date) (2-4) % unknown) (unknown) (no (unknown) (unknown) Estimated GFR > 60 (units (unknown) date) (>60) mL/min unknown) (unknown) (no (unknown) (unknown) Exam limited by (units (unknown) date) patient body unknown) habitus.? Bilateral airspace opacities which are (unknown) (no (unknown) (unknown) Exam (units (unkno wn) date) unknown) (unknown) (no (unknown) (unknown) Expect to be sore (units (unknown) date) for a few days. unknown) Please monitor the skin on that left hip. (unknown) (no (unknown) (unknown) Extremity x-ray #1: (unit s (unknown) date) unknown) (unknown) (no (unknown) (unknown) Extremity x-ray #2: (unit s (unknown) date) unknown) (unknown) (no (unknown) (unknown) FINDINGS:? (units (unk nown) date) unknown) (unknown) (no (unknown) (unknown) Family History (units (unknown) date) (Reviewed 07/07/22 @ unknown) 22:43 by Lisandra Roy DO) (unknown) (no (unknown) (unknown) Father (units (unknown) date) Aneurysm unknown) (unknown) (no (unknown) (unknown) Fibromyalgia (units (u nknown) date) unknown) (unknown) (no (unknown) (unknown) GASTROINTESTINAL: (units (unknown) date) Denies nausea, unknown) vomiting (unknown) (no (unknown) (unknown) GENERAL: Alert (units (unknown) date) pleasant 67-year-old unknown) female and in no acute distress. (unknown) (no (unknown) (unknown) GENERAL: Denies (units (unknown) date) chills,fever unknown) (unknown) (no (unknown) (unknown) GERD (units (unkno wn) date) (gastroesophageal unknown) reflux disease) (unknown) (no (unknown) (unknown) General (units (unkno wn) date) unknown) (unknown) (no (unknown) (unknown) Globulin 2.5 (units (u nknown) date) (1.7-4.1) g/dL unknown) (unknown) (no (unknown) (unknown) Glucose 84 (80-110) (unit s (unknown) date) mg/dL unknown) (unknown) (no (unknown) (unknown) H/O total hip (units ( unknown) date) arthroplasty unknown) (04/12/17) (unknown) (no (unknown) (unknown) HEENT: Denies (units ( unknown) date) throat pain unknown) (unknown) (no (unknown) (unknown) HEENT: Head (units (un known) date) atraumatic,EOMI, unknown) pupils reactive, face symmetric, moist mucous (unknown) (no (unknown) (unknown) HPI - Extremity (units (unknown) date) Injury (Lower) unknown) (unknown) (no (unknown) (unknown) HPI Narrative: (units (unknown) date) unknown) (unknown) (no (unknown) (unknown) HTN (hypertension) (units (unknown) date) unknown) (unknown) (no (unknown) (unknown) Hct 34.8 L (36-46) (units (unknown) date) % unknown) (unknown) (no (unknown) (unknown) Hgb 11.5 L (units (unk nown) date) (12.0-16.0) g/dL unknown) (unknown) (no (unknown) (unknown) Hip dislocation, [...] (unknown) date) unknown) (unknown) (no (unknown) (unknown) Hydrocodone (units (un known) date) Bitart/Acetaminophen unknown) (Hydrocodone/Acet 5/325 Prepack) 1 bottle MISC (unknown) (no (unknown) (unknown) Hydromorphone HCl (units (unknown) date) (Hydromorphone 0.5 unknown) Mg Inj) 0.5 mg IV NOW ONE (unknown) (no (unknown) (unknown) Hyperlipidemia (units (unknown) date) unknown) (unknown) (no (unknown) (unknown) Hypertension (units (u nknown) date) unknown) (unknown) (no (unknown) (unknown) ILD (interstitial (units (unknown) date) lung disease) unknown) (unknown) (no (unknown) (unknown) IMPRESSION:? (units (u nknown) date) Complete superior unknown) dislocation of the left hip prosthesis femoral (unknown) (no (unknown) (unknown) IMPRESSION:? Exam (units (unknown) date) limited by body unknown) habitus and single-view technique.? No obvious (unknown) (no (unknown) (unknown) IMPRESSION:? No CT (units (unknown) date) evidence of acute unknown) traumatic cervical spine injury. (unknown) (no (unknown) (unknown) IMPRESSION:? No (units (unknown) date) acute intracranial unknown) finding. (unknown) (no (unknown) (unknown) IMPRESSION:? (units (u nknown) date) unknown) (unknown) (no (unknown) (unknown) INDICATIONS:? Fall (units (unknown) date) unknown) (unknown) (no (unknown) (unknown) INDICATIONS:? POST (units (unknown) date) REDUCTION unknown) (unknown) (no (unknown) (unknown) INDICATIONS:? (units ( unknown) date) Trauma, fall unknown) (unknown) (no (unknown) (unknown) INDICATIONS:? left (units (unknown) date) hip dislocation. unknown) History of same (unknown) (no (unknown) (unknown) Image quality:? (units (unknown) date) Excellent.? unknown) (unknown) (no (unknown) (unknown) Imaging Data (units (u nknown) date) unknown) (unknown) (no (unknown) (unknown) Indication: (units (un known) date) fracture/dislocation unknown) reduction (unknown) (no (unknown) (unknown) Initial Vital Signs (unit s (unknown) date) unknown) (unknown) (no (unknown) (unknown) Initial Vital (units ( unknown) date) Signs: unknown) (unknown) (no (unknown) (unknown) Initial attempt of (units (unknown) date) left hip reduction unknown) was unsuccessful. Dr. Kelly consulted (unknown) (no (unknown) (unknown) Instructions: DI (units (unknown) date) for Hip Dislocation unknown) -- Adult (unknown) (no (unknown) (unknown) [facility] (units (unknown) date) [address] unknown) [place] [address] (unknown) (no (unknown) (unknown) [facility] (units (unknown) date) unknown) (unknown) (no (unknown) (unknown) Joint #1: (units (unkn own) date) unknown) (unknown) (no (unknown) (unknown) Joint Reduction (units (unknown) date) Location: hip unknown) (unknown) (no (unknown) (unknown) Ketorolac (units (unkn own) date) Tromethamine unknown) (Ketorolac 30 Mg/Ml Vial) 15 mg IV NOW ONE (unknown) (no (unknown) (unknown) Lab Data (units (unkno wn) date) unknown) (unknown) (no (unknown) (unknown) Lab Results (units (un known) date) unknown) (unknown) (no (unknown) (unknown) Labs: (units (unkno wn) date) unknown) (unknown) (no (unknown) (unknown) Last Admin: (units (un known) date) 07/07/22 21:06 Dose: unknown) 70 mg (unknown) (no (unknown) (unknown) Last Admin: (units (un known) date) 07/07/22 21:38 Dose: unknown) 130 mg (unknown) (no (unknown) (unknown) Last Admin: (units (un known) date) 07/07/22 21:45 Dose: unknown) 100 mg (unknown) (no (unknown) (unknown) Last Admin: (units (un known) date) 07/07/22 22:09 Dose: unknown) 15 mg (unknown) (no (unknown) (unknown) Last Admin: (units (un known) date) 07/07/22 22:56 Dose: unknown) 0.5 mg (unknown) (no (unknown) (unknown) Last Admin: (units (un known) date) 07/07/22 23:41 Dose: unknown) 1 bottle (unknown) (no (unknown) (unknown) Left leg shortened (units (unknown) date) externally rotated unknown) (unknown) (no (unknown) (unknown) Loc: ED (units (unkno wn) date) unknown) (unknown) (no (unknown) (unknown) Lymph # (Auto) 1100 (unit s (unknown) date) (3553-6000) /uL unknown) (unknown) (no (unknown) (unknown) Lymph % (Auto) 14.0 (unit s (unknown) date) L (25-40) % unknown) (unknown) (no (unknown) (unknown) [id number] (units (unk nown) date) unknown) (unknown) (no (unknown) (unknown) MCH 30.8 (26-34) PG (unit s (unknown) date) unknown) (unknown) (no (unknown) (unknown) MCHC 33.0 (30-36) % (unit s (unknown) date) unknown) (unknown) (no (unknown) (unknown) MCV 93.5 (80-100) (units (unknown) date) fL unknown) (unknown) (no (unknown) (unknown) MDM - Extremity (units (unknown) date) Injury (Lower) unknown) (unknown) (no (unknown) (unknown) MDM Narrative (units ( unknown) date) unknown) (unknown) (no (unknown) (unknown) MR#: [id number] (units (unknown) date) unknown) (unknown) (no (unknown) (unknown) MUSCULOSKELETAL: (units (unknown) date) See HPI unknown) (unknown) (no (unknown) (unknown) Medical History (units (unknown) date) (Reviewed 07/07/22 @ unknown) 22:43 by Lisandra Roy DO) (unknown) (no (unknown) (unknown) Medical decision (units (unknown) date) making narrative: unknown) (unknown) (no (unknown) (unknown) Medication (units (unk nown) date) Instructions unknown) Recorded Confirmed (unknown) (no (unknown) (unknown) Medication (units (unk nown) date) Instructions unknown) Recorded (unknown) (no (unknown) (unknown) Mode of arrival: (units (unknown) date) EMS unknown) (unknown) (no (unknown) (unknown) [place] # (Auto) 600 (units (unknown) date) (0-900) /uL unknown) (unknown) (no (unknown) (unknown) [place] % (Auto) 7.3 (units (unknown) date) (3-14) % unknown) (unknown) (no (unknown) (unknown) Mother (units (unknown) date) COPD (chronic unknown) obstructive pulmonary disease) (unknown) (no (unknown) (unknown) NEUROLOGIC: Denies (units (unknown) date) weakness, dizziness, unknown) headache, numbness (unknown) (no (unknown) (unknown) NEUROLOGICAL: Alert (unit s (unknown) date) and oriented x4 unknown) (unknown) (no (unknown) (unknown) Narrative: (units (unk nown) date) unknown) (unknown) (no (unknown) (unknown) Neut # (Auto) 5700 (units (unknown) date) (8014-1261) /uL unknown) (unknown) (no (unknown) (unknown) Neut % (Auto) 76.0 (units (unknown) date) H (50-75) % unknown) (unknown) (no (unknown) (unknown) New (units (unkno wn) date) unknown) (unknown) (no (unknown) (unknown) No Action (units (unkn own) date) unknown) (unknown) (no (unknown) (unknown) No acute fracture.? (unit s (unknown) date) Vertebral body unknown) heights maintained.? Presumably degenerative (unknown) (no (unknown) (unknown) Noncontrast 3 mm (units (unknown) date) thick sections unknown) acquired from the skull base to the T4 level.? (unknown) (no (unknown) (unknown) Noncontrast 4.5 mm (units (unknown) date) thick angled axial unknown) sections acquired from the foramen magnum (unknown) (no (unknown) (unknown) Satartia 1 tablet every (unit s (unknown) date) 6 hours if needed unknown) for severe pain --> SENT TO [facility] [place] (unknown) (no (unknown) (unknown) Normal (units (unkno wn) date) unknown) (unknown) (no (unknown) (unknown) FOREST (units (unk nown) date) unknown) (unknown) (no (unknown) (unknown) Ordered: (units (unkno wn) date) unknown) (unknown) (no (unknown) (unknown) Ordering Provider: (units (unknown) date) Lisandra Roy D.O. unknown) (unknown) (no (unknown) (unknown) Orders (units (unkno wn) date) unknown) (unknown) (no (unknown) (unknown) Orthopedic Joint (units (unknown) date) Reduction unknown) (unknown) (no (unknown) (unknown) Osteoarthritis (units (unknown) date) unknown) (unknown) (no (unknown) (unknown) Oxygen Delivery (units (unknown) date) Method 07/07/22 unknown) 18:53 (unknown) (no (unknown) (unknown) Oxygen Delivery (units (unknown) date) Method Nasal Cannula unknown) Nasal Cannula Nasal Cannula (unknown) (no (unknown) (unknown) Oxygen Delivery (units (unknown) date) Method Nasal Cannula unknown) Nasal Cannula (unknown) (no (unknown) (unknown) Oxygen Delivery (units (unknown) date) Method Nasal Cannula unknown) (unknown) (no (unknown) (unknown) Oxygen Delivery (units (unknown) date) Method Room Air Room unknown) Air Room Air (unknown) (no (unknown) (unknown) Oxygen Delivery (units (unknown) date) Method Room Air Room unknown) Air (unknown) (no (unknown) (unknown) Oxygen Delivery (units (unknown) date) Method Room Air unknown) (unknown) (no (unknown) (unknown) Oxygen Delivery (units (unknown) date) Method unknown) (unknown) (no (unknown) (unknown) Oxygen Flow Rate 2 (units (unknown) date) 2 2 unknown) (unknown) (no (unknown) (unknown) Oxygen Flow Rate 2 (units (unknown) date) unknown) (unknown) (no (unknown) (unknown) Oxygen Flow Rate (units (unknown) date) unknown) (unknown) (no (unknown) (unknown) PROCEDURE:? CT (units (unknown) date) CERVICAL SPINE WO unknown) CON (unknown) (no (unknown) (unknown) PROCEDURE:? CT (units (unknown) date) HEAD/BRAIN WO CON unknown) (unknown) (no (unknown) (unknown) PROCEDURE:? XR (units (unknown) date) CHEST 1V unknown) (unknown) (no (unknown) (unknown) PROCEDURE:? XR HIP (units (unknown) date) W PEL IF DONE LT 2V unknown) (unknown) (no (unknown) (unknown) PROCEDURE:? XR (units (unknown) date) PELVIS 1-2V unknown) (unknown) (no (unknown) (unknown) Patient (units (unkno wn) date) Disposition: Home unknown) (unknown) (no (unknown) (unknown) Patient History (units (unknown) date) unknown) (unknown) (no (unknown) (unknown) Patient is a (units (u nknown) date) 67-year-old female unknown) with history of bilateral hip replacement the (unknown) (no (unknown) (unknown) Patient: (units (unkno wn) date) Gita Garcia unknown) MR#: (unknown) (no (unknown) (unknown) Patient: (units (unkno wn) date) Gita Garcia unknown) (unknown) (no (unknown) (unknown) Plt Count 313 (units ( unknown) date) (150-400) X103/uL unknown) (unknown) (no (unknown) (unknown) Point of [...] vascular: intact unknown) (unknown) (no (unknown) (unknown) Potassium 4.0 (units ( unknown) date) (3.4-5.1) mmol/L unknown) (unknown) (no (unknown) (unknown) Test (units (unknown) date) Results Not unknown) applicable (unknown) (no (unknown) (unknown) Preparation: (units (u nknown) date) last trimmer unknown) applied, pulse oximeter, capnometry used, (unknown) (no (unknown) (unknown) Prescriptions: (units (unknown) date) unknown) (unknown) (no (unknown) (unknown) Previous Rx's (units ( unknown) date) unknown) (unknown) (no (unknown) (unknown) Procedural Sedation (unit s (unknown) date) unknown) (unknown) (no (unknown) (unknown) Procedure: CT (units ( unknown) date) cervical spine wo unknown) con (unknown) (no (unknown) (unknown) Procedure: CT (units ( unknown) date) head/brain wo con unknown) (unknown) (no (unknown) (unknown) Procedure: XR chest (unit s (unknown) date) 1V unknown) (unknown) (no (unknown) (unknown) Procedure: XR hip w (unit s (unknown) date) pel if done LT 2V unknown) (unknown) (no (unknown) (unknown) Procedure: XR (units ( unknown) date) pelvis 1-2V unknown) (unknown) (no (unknown) (unknown) Procedures (units (unk nown) date) unknown) (unknown) (no (unknown) (unknown) Propofol (Propofol (units (unknown) date) 200 Mg/20 Ml Vial) unknown) 135 mg 2 mg/kg (135 mg) IV NOW ONE (unknown) (no (unknown) (unknown) Propofol (Propofol (units (unknown) date) 200 Mg/20 Ml Vial) unknown) 70 mg 1 mg/kg (70 mg) IV NOW ONE (unknown) (no (unknown) (unknown) Pulse Oximetry 81 L (unit s (unknown) date) 98 91 unknown) (unknown) (no (unknown) (unknown) Pulse Oximetry 88 L (unit s (unknown) date) 96 unknown) (unknown) (no (unknown) (unknown) Pulse Oximetry 94 (units (unknown) date) 97 97 unknown) (unknown) (no (unknown) (unknown) Pulse Oximetry 95 (units (unknown) date) 98 97 unknown) (unknown) (no (unknown) (unknown) Pulse Oximetry 96 (units (unknown) date) unknown) (unknown) (no (unknown) (unknown) Pulse Oximetry 98 (units (unknown) date) unknown) (unknown) (no (unknown) (unknown) Pulse Oximetry 99 (units (unknown) date) 07/07/22 18:53 unknown) (unknown) (no (unknown) (unknown) Pulse Oximetry 99 (units (unknown) date) 94 98 unknown) (unknown) (no (unknown) (unknown) Pulse Rate 76 80 (units (unknown) date) unknown) (unknown) (no (unknown) (unknown) Pulse Rate 77 78 77 (unit s (unknown) date) unknown) (unknown) (no (unknown) (unknown) Pulse Rate 77 (units ( unknown) date) unknown) (unknown) (no (unknown) (unknown) Pulse Rate 78 (units ( unknown) date) 07/07/22 18:53 unknown) (unknown) (no (unknown) (unknown) Pulse Rate 78 77 80 (unit s (unknown) date) unknown) (unknown) (no (unknown) (unknown) Pulse Rate 79 79 (units (unknown) date) unknown) (unknown) (no (unknown) (unknown) Pulse Rate 81 78 83 (unit s (unknown) date) unknown) (unknown) (no (unknown) (unknown) Pulse Rate 82 81 80 (unit s (unknown) date) unknown) (unknown) (no (unknown) (unknown) 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 (unknown) (no (unknown) (unknown) RESPIRATORY: Denies (unit s (unknown) date) dyspnea, cough, unknown) wheezing (unknown) (no (unknown) (unknown) Radiologist's (units ( unknown) date) Impression: unknown) (unknown) (no (unknown) (unknown) Referrals: (units (unk nown) date) unknown) (unknown) (no (unknown) (unknown) Related Data (units (u nknown) date) unknown) (unknown) (no (unknown) (unknown) Respiratory Rate 15 (unit s (unknown) date) 22 unknown) (unknown) (no (unknown) (unknown) Respiratory Rate 18 (unit s (unknown) date) 07/07/22 18:53 unknown) (unknown) (no (unknown) (unknown) Respiratory Rate 18 (unit s (unknown) date) 18 16 unknown) (unknown) (no (unknown) (unknown) Respiratory Rate 18 (unit s (unknown) date) 20 20 unknown) (unknown) (no (unknown) (unknown) Respiratory Rate 18 (unit s (unknown) date) 24 24 unknown) (unknown) (no (unknown) (unknown) Respiratory Rate 18 (unit s (unknown) date) unknown) (unknown) (no (unknown) (unknown) Respiratory Rate 20 (unit s (unknown) date) 20 26 H unknown) (unknown) (no (unknown) (unknown) Respiratory Rate 20 (unit s (unknown) date) 21 unknown) (unknown) (no (unknown) (unknown) Result diagrams: (units (unknown) date) unknown) (unknown) (no (unknown) (unknown) Review of Systems (units (unknown) date) unknown) (unknown) (no (unknown) (unknown) Rx Instructions: (units (unknown) date) unknown) (unknown) (no (unknown) (unknown) SARS-CoV-2 (PCR) (units (unknown) date) Negative (Negative) unknown) (unknown) (no (unknown) (unknown) SEEINSTR ONE (units (u nknown) date) unknown) (unknown) (no (unknown) (unknown) SKIN: No rash, no (units (unknown) date) laceration, no unknown) pruritus (unknown) (no (unknown) (unknown) SKIN: Warm, dry, no (unit s (unknown) date) laceration, no unknown) petechiae, no rashes or lesions. (unknown) (no (unknown) (unknown) Sagittal (units (unkno wn) date) unknown) (unknown) (no (unknown) (unknown) Sarcoid neuropathy (units (unknown) date) unknown) (unknown) (no (unknown) (unknown) Sarcoidosis (units (un known) date) unknown) (unknown) (no (unknown) (unknown) She does admit to (units (unknown) date) drinking some wine unknown) tonight. She did hit her head does not (unknown) (no (unknown) (unknown) Side: left (units (unk nown) date) unknown) (unknown) (no (unknown) (unknown) Signed By: (units (unk nown) date) unknown) (unknown) (no (unknown) (unknown) Signed (units (unkno wn) date) unknown) (unknown) (no (unknown) (unknown) Sinuses:? (units (unkn own) date) Visualized sinuses unknown) and mastoids are clear.? (unknown) (no (unknown) (unknown) Skull and face:? (units (unknown) date) Calvarium and unknown) visualized facial bones appear intact, without (unknown) (no (unknown) (unknown) Evelyn Orourke MD (units (unknown) date) [Physician] unknown) (unknown) (no (unknown) (unknown) Smoking Status: (units (unknown) date) Never smoker unknown) (unknown) (no (unknown) (unknown) Social History (units (unknown) date) (Reviewed 07/07/22 @ unknown) 22:43 by Lisandra Roy DO) (unknown) (no (unknown) (unknown) Sodium 138 (units (unk nown) date) (137-145) mmol/L unknown) (unknown) (no (unknown) (unknown) Soft tissues:? (units (unknown) date) Visualized bowel gas unknown) pattern is normal.? No suspicious soft (unknown) (no (unknown) (unknown) Source: EMS (units (un known) date) unknown) (unknown) (no (unknown) (unknown) Splint Applied: No (units (unknown) date) unknown) (unknown) (no (unknown) (unknown) Stated Complaint: (units (unknown) date) Left hip dislocation unknown) (unknown) (no (unknown) (unknown) Stop: 07/07/22 (units (unknown) date) 20:37 unknown) (unknown) (no (unknown) (unknown) Stop: 07/07/22 (units (unknown) date) 20:51 unknown) (unknown) (no (unknown) (unknown) Stop: 07/07/22 (units (unknown) date) 21:23 unknown) (unknown) (no (unknown) (unknown) Stop: 07/07/22 (units (unknown) date) 22:01 unknown) (unknown) (no (unknown) (unknown) Stop: 07/07/22 (units (unknown) date) 22:53 unknown) (unknown) (no (unknown) (unknown) Substance Use Type: (unit s (unknown) date) does not use unknown) (unknown) (no (unknown) (unknown) Surgical History (units (unknown) date) (Reviewed 07/07/22 @ unknown) 22:43 by Lisandra Roy DO) (unknown) (no (unknown) (unknown) TECHNIQUE:? One (units (unknown) date) view of the chest unknown) was acquired.? (unknown) (no (unknown) (unknown) TECHNIQUE:? (units (un known) date) Single-view of the unknown) pelvis acquired.? (unknown) (no (unknown) (unknown) TECHNIQUE:? Two (units (unknown) date) views of the hip unknown) were acquired.? (unknown) (no (unknown) (unknown) TECHNIQUE:? (units (un known) date) unknown) (unknown) (no (unknown) (unknown) Technique used: (units (unknown) date) other (Anterior unknown) pressure with pulling on leg) (unknown) (no (unknown) (unknown) Temperature 98.1 F (units (unknown) date) 07/07/22 18:53 unknown) (unknown) (no (unknown) (unknown) Temperature 98.1 F (units (unknown) date) unknown) (unknown) (no (unknown) (unknown) Temperature (units (un known) date) unknown) (unknown) (no (unknown) (unknown) Time Seen by (units (u nknown) date) Provider: 07/07/22 unknown) 18:51 (unknown) (no (unknown) (unknown) Total Bilirubin 0.2 (unit s (unknown) date) (0.2-1.3) mg/dL unknown) (unknown) (no (unknown) (unknown) Total Protein 6.5 (units (unknown) date) (6.3-8.2) g/dL unknown) (unknown) (no (unknown) (unknown) Visit Report Forms: (unit s (unknown) date) Patient Portal/API unknown) (unknown) (no (unknown) (unknown) Vital Signs - 8 hr (units (unknown) date) unknown) (unknown) (no (unknown) (unknown) Vital Signs (units (un known) date) unknown) (unknown) (no (unknown) (unknown) Vital signs: (units (u nknown) date) unknown) (unknown) (no (unknown) (unknown) WBC 7.5 (4.5-11.0) (units (unknown) date) X103/uL unknown) (unknown) (no (unknown) (unknown) XRay Report (units (un known) date) unknown) (unknown) (no (unknown) (unknown) Ghazal Desir, (units (unknown) date) PA-C [Primary Care unknown) Provider] (unknown) (no (unknown) (unknown) [Embedded Image Not (unit s (unknown) date) Available] unknown) (unknown) (no (unknown) (unknown) acetaminophen 325 (units (unknown) date) mg Tablet unknown) (unknown) (no (unknown) (unknown) acetaminophen 325 (units (unknown) date) mg tablet 650 mg PO unknown) TID #60 tabs 02/21/21 (unknown) (no (unknown) (unknown) acetaminophen/Tylen (unit s (unknown) date) ol/paracetamol in unknown) it, DO NOT TAKE MORE THAN 4,00mg in 24 (unknown) (no (unknown) (unknown) adhesive AdvReac (units (unknown) date) Mild Rash Verified unknown) 02/19/21 06:49 (unknown) (no (unknown) (unknown) aerosol inhaler (units (unknown) date) Shortness Of Breath unknown) (unknown) (no (unknown) (unknown) aerosol inhaler (units (unknown) date) unknown) (unknown) (no (unknown) (unknown) age, with (units (unkn own) date) unknown) (unknown) (no (unknown) (unknown) albuterol [...] unknown) 02/17/21 02/19/21 (unknown) (no (unknown) (unknown) and coronal (units (un known) date) reformats were then unknown) constructed.? For radiation dose reduction, the (unknown) (no (unknown) (unknown) and not turn them. (units (unknown) date) unknown) (unknown) (no (unknown) (unknown) anterolisthesis of (units (unknown) date) C3 on C4 measuring 3 unknown) mm and of C4 on C5 measuring 6 mm.? (unknown) (no (unknown) (unknown) artery (units (unkno wn) date) atherosclerosis.? unknown) (unknown) (no (unknown) (unknown) aspirin 81 mg (units ( unknown) date) Tablet,Delayed unknown) Release (Dr/Ec) (unknown) (no (unknown) (unknown) aspirin 81 mg (units ( unknown) date) tablet,delayed 81 mg unknown) PO BID #60 tabs 02/21/21 (unknown) (no (unknown) (unknown) atient: (units (unkno wn) date) Gita Garcia unknown) (unknown) (no (unknown) (unknown) benzodiazepines or (units (unknown) date) controlled unknown) substances through the ED and her pain management (unknown) (no (unknown) (unknown) calcifications.? (units (unknown) date) unknown) (unknown) (no (unknown) (unknown) can pop her hip (units (unknown) date) out. unknown) (unknown) (no (unknown) (unknown) carotid (units (unkno wn) date) unknown) (unknown) (no (unknown) (unknown) ciclesonide 80 (units (unknown) date) mcg/actuation 1 puff unknown) inhalation BID 02/17/21 02/19/21 (unknown) (no (unknown) (unknown) ciclesonide 80 (units (unknown) date) mcg/actuation Hfa unknown) Aerosol Inhaler (unknown) (no (unknown) (unknown) comparison (units (unk nown) date) examination.? unknown) (unknown) (no (unknown) (unknown) component.? (units (un known) date) unknown) (unknown) (no (unknown) (unknown) configuration of (units (unknown) date) the craniocervical unknown) junction.? No suspicious bone lesion.? (unknown) (no (unknown) (unknown) constipation. (units ( unknown) date) unknown) (unknown) (no (unknown) (unknown) cyclobenzaprine 10 (units (unknown) date) MG tablet unknown) (unknown) (no (unknown) (unknown) cyclobenzaprine 10 (units (unknown) date) mg tablet 10 mg PO unknown) TID PRN Muscle Spasm ##0 03/22/17 02/19/21 (unknown) (no (unknown) (unknown) definite fracture (units (unknown) date) identified on the unknown) current limited study.? Right hip prosthesis (unknown) (no (unknown) (unknown) folic acid 1 mg (units (unknown) date) Tablet unknown) (unknown) (no (unknown) (unknown) folic acid 1 mg (units (unknown) date) tablet 1 - 5 mg PO unknown) DAILY Mouth sores 02/17/21 02/19/21 (unknown) (no (unknown) (unknown) following (units (unkn own) date) unknown) (unknown) (no (unknown) (unknown) gabapentin 600 mg (units (unknown) date) tablet 600 mg PO unknown) SEEINSTR ##0 03/22/17 02/19/21 (unknown) (no (unknown) (unknown) gabapentin (units (unk nown) date) [Neurontin] 600 MG unknown) tablet (unknown) (no (unknown) (unknown) guarding or (units (un known) date) rebound. unknown) (unknown) (no (unknown) (unknown) hip (units (unkno wn) date) unknown) (unknown) (no (unknown) (unknown) hours of Tylenol. (units (unknown) date) unknown) (unknown) (no (unknown) (unknown) household members: (units (unknown) date) children unknown) (unknown) (no (unknown) (unknown) hydrocodone 5 (units ( unknown) date) mg-acetaminophen 325 unknown) 1 tab PO Q6H PRN pain #10 tabs 07/07/22 (unknown) (no (unknown) (unknown) hydrocodone-acetami (unit s (unknown) date) nophen 5-325 mg unknown) tablet (unknown) (no (unknown) (unknown) hydroxychloroquine (units (unknown) date) 200 mg tablet 400 mg unknown) PO QDAY ##0 03/22/17 02/19/21 (unknown) (no (unknown) (unknown) hydroxychloroquine (units (unknown) date) [Plaquenil] 200 MG unknown) tablet (unknown) (no (unknown) (unknown) intact (units (unkno wn) date) unknown) (unknown) (no (unknown) (unknown) is (units (unkno wn) date) unknown) (unknown) (no (unknown) (unknown) left was done about (unit s (unknown) date) 1 year ago it has unknown) dislocated twice before. She says she was (unknown) (no (unknown) (unknown) lesions.? (units (unkn own) date) unknown) (unknown) (no (unknown) (unknown) losartan 50 mg (units (unknown) date) Tablet unknown) (unknown) (no (unknown) (unknown) losartan 50 mg (units (unknown) date) tablet 50 mg PO BID unknown) 02/17/21 02/19/21 (unknown) (no (unknown) (unknown) matter chronic (units (unknown) date) small vessel unknown) ischemic changes.? There is intracranial internal (unknown) (no (unknown) (unknown) membranes (units (unkn own) date) unknown) (unknown) (no (unknown) (unknown) mg tablet (units (unkn own) date) unknown) (unknown) (no (unknown) (unknown) montelukast [...] Pain 02/17/21 02/19/21 (unknown) (no (unknown) (unknown) new, worsening or (units (unknown) date) concerning symptoms unknown) (unknown) (no (unknown) (unknown) no (units (unkno wn) date) unknown) (unknown) (no (unknown) (unknown) nonspecific.? No (units (unknown) date) pleural effusion or unknown) pneumothorax.? No obvious bone abnormality. (unknown) (no (unknown) (unknown) occupational (units (u nknown) date) status: other unknown) (Retired) (unknown) (no (unknown) (unknown) omeprazole 20 mg (units (unknown) date) Tablet,Delayed unknown) Release (Dr/Ec) (unknown) (no (unknown) (unknown) omeprazole 20 mg (units (unknown) date) tablet,delayed 20 mg unknown) PO BID 02/17/21 02/19/21 (unknown) (no (unknown) (unknown) or shortness of (units (unknown) date) breath. unknown) (unknown) (no (unknown) (unknown) oral powder packet (units (unknown) date) #10 ea unknown) (unknown) (no (unknown) (unknown) oxycodone 5 mg (units (unknown) date) Tablet unknown) (unknown) (no (unknown) (unknown) oxycodone 5 mg (units (unknown) date) tablet 5 mg PO Q3HR unknown) PRN Pain, Moderate 02/21/21 (unknown) (no (unknown) (unknown) patient (units (unkno wn) date) unknown) (unknown) (no (unknown) (unknown) polyethylene [...] tablet unknown) (unknown) (no (unknown) (unknown) prosthesis femoral (units (unknown) date) component. unknown) (unknown) (no (unknown) (unknown) prosthesis.? No (units (unknown) date) unknown) (unknown) (no (unknown) (unknown) recommended (units (un known) date) different technique unknown) of anterior pressure and pulling on leg. This (unknown) (no (unknown) (unknown) redemonstrated. (units (unknown) date) unknown) (unknown) (no (unknown) (unknown) release (units (unkno wn) date) unknown) (unknown) (no (unknown) (unknown) resultant (units (unkno wn) date) ventricular and unknown) sulcal prominence.? There are periventricular and deep (unknown) (no (unknown) (unknown) ropinirole 3 mg (units (unknown) date) Tablet unknown) (unknown) (no (unknown) (unknown) ropinirole 3 mg (units (unknown) date) tablet 3 mg PO unknown) BEDTIME RLS 02/17/21 02/19/21 (unknown) (no (unknown) (unknown) size.? (units (unkno wn) date) unknown) (unknown) (no (unknown) (unknown) standing at the (units (unknown) date) kitchen counter unknown) cutting bread when it suddenly went out on her. (unknown) (no (unknown) (unknown) stool softener such (unit s (unknown) date) as Colace, Dulcolax, unknown) MiraLAX or prune juice, to help avoid (unknown) (no (unknown) (unknown) supplemental O2 (units (unknown) date) applied and unknown) suction/airway equipment at bedside (unknown) (no (unknown) (unknown) suspicious (units (unk nown) date) unknown) (unknown) (no (unknown) (unknown) technique was very (units (unknown) date) successful. Patient unknown) is instructed to keep her toes in front (unknown) (no (unknown) (unknown) think she would (units (unknown) date) loss of unknown) consciousness. She denies any chest pain palpitations (unknown) (no (unknown) (unknown) tissue (units (unkno wn) date) unknown) (unknown) (no (unknown) (unknown) to the (units (unkno wn) date) unknown) (unknown) (no (unknown) (unknown) traumatic finding.? (unit s (unknown) date) Nonspecific unknown) bilateral interstitial airspace opacities with (unknown) (no (unknown) (unknown) ventricles are (units (unknown) date) symmetric in size unknown) and shape.? (unknown) (no (unknown) (unknown) vertex, with (units (u nknown) date) coronal and sagittal unknown) reformats.? For radiation dose reduction, the (unknown) (no (unknown) (unknown) was used:? (units (unk nown) date) automated exposure unknown) control, adjustment of mA and/or kV according to (unknown) (no (unknown) (unknown) white (units (unkno wn) date) unknown) (unknown) (no (unknown) (unknown) will need to be (units (unknown) date) through your unknown) provider. Result panel 169 (unknown) (no date) (unknown) (unknown) Negative (units (unkn own) unknown) (unknown) (no date) (unknown) (unknown) Negative (units (unkn own) unknown) Result panel 170 (unknown) (no (unknown) (unknown) (no value) (units (unk nown) date) unknown) (unknown) (no (unknown) (unknown) 08/03/22 (units (unkno wn) date) unknown) (unknown) (no (unknown) (unknown) [address] [place] [address] (units (unknown) date) unknown) (unknown) (no (unknown) (unknown) Accession (units (unkn own) date) Number: unknown) [id number] (unknown) (no (unknown) (unknown) Age/Sex: 67 / F (units (unknown) date) Date of Service: unknown) (unknown) (no (unknown) (unknown) [place], [place] (units ( unknown) date) [address] unknown) (unknown) (no (unknown) (unknown) Approved by: (units (u nknown) date) Renee Olsen unknown) MD Eusebia, PhD on 08/03/2022 at 16:53 (unknown) (no (unknown) (unknown) Bones: Patient (units (unknown) date) is status post unknown) revision of left hip arthroplasty, with hardware (unknown) (no (unknown) (unknown) COMPARISON: (units (un known) date) [facility], unknown) CR, XR PELVIS 1-2V, 07/07/2022, 21:39. (unknown) (no (unknown) (unknown) : 1955 (units (unknown) date) Acct:[id number] unknown) (unknown) (no (unknown) (unknown) Dictated by: (units (u nknown) date) Renee Olsen unknown) MD Eusebia, PhD on 08/03/2022 at 16:52 (unknown) (no (unknown) (unknown) FINDINGS: (units (unkn own) date) unknown) (unknown) (no (unknown) (unknown) IMPRESSION: (units (un known) date) Expected unknown) postsurgical change for revision of left hip (unknown) (no (unknown) (unknown) INDICATIONS: (units (u nknown) date) revision malcolm, unknown) left hip (unknown) (no (unknown) (unknown) [facility] (units (unknown) date) unknown) (unknown) (no (unknown) (unknown) Loc: AC 221-1 (units ( unknown) date) unknown) (unknown) (no (unknown) (unknown) [id number] (units (unk nown) date) unknown) (unknown) (no (unknown) (unknown) Ordering (units (unkno wn) date) Provider: unknown) Evelyn Orourke MD (unknown) (no (unknown) (unknown) PROCEDURE: XR (units ( unknown) date) HIP W PEL IF DONE unknown) RT 2V (unknown) (no (unknown) (unknown) Patient: (units (unkno wn) date) Gita Garcia unknown) Dk MR#: (unknown) (no (unknown) (unknown) Procedure: XR (units ( unknown) date) hip w pel if done unknown) RT 2V (unknown) (no (unknown) (unknown) Signed (units (unkno wn) date) unknown) (unknown) (no (unknown) (unknown) Soft tissues: (units ( unknown) date) Overlying unknown) postoperative changes are noted. No suspicious soft (unknown) (no (unknown) (unknown) TECHNIQUE: AP (units ( unknown) date) pelvis and unknown) lateral view of the left hip acquired. (unknown) (no (unknown) (unknown) XRay Report (units (un known) date) unknown) (unknown) (no (unknown) (unknown) appears (units (unkno wn) date) congruent. The unknown) visualized bony structures appear intact. (unknown) (no (unknown) (unknown) arthroplasty. (units ( unknown) date) unknown) (unknown) (no (unknown) (unknown) components in (units ( unknown) date) expected unknown) positions. Right hip arthroplasty is stable. The hip (unknown) (no (unknown) (unknown) densities. (units (unk nown) date) unknown) (unknown) (no (unknown) (unknown) joint (units (unkno wn) date) unknown) (unknown) (no (unknown) (unknown) tissue (units (unkno wn) date) unknown) Result panel 171 (unknown) (no date) (unknown) (unknown) (no value) (units (un known) unknown) (unknown) (no date) (unknown) (unknown) 08/03/22 1337 (units (unknown) unknown) (unknown) (no date) (unknown) (unknown) Age/Sex: 67 / (units (unknown) F unknown) (unknown) (no date) (unknown) (unknown) COVID-19 (units (unkn own) status: unknown) Negative (unknown) (no date) (unknown) (unknown) COVID-19 (units (unkn own) unknown) (unknown) (no date) (unknown) (unknown) Changes to (units (un known) H+P: No unknown) (unknown) (no date) (unknown) (unknown) : (units (unkn own) 1955 unknown) Acct:[id number] (unknown) (no date) (unknown) (unknown) Date of (units (unkn own) Service: unknown) 08/03/22 (unknown) (no date) (unknown) (unknown) History + (units (unk nown) Physical unknown) reviewed/Exam performed by Physician: Yes (unknown) (no date) (unknown) (unknown) Interval Note (units (unknown) unknown) (unknown) (no date) (unknown) (unknown) [facility] (unkn own[facility] unknown) [address] [place] [id number] (unknown) (no date) (unknown) (unknown) [id number] (units (un known) unknown) (unknown) (no date) (unknown) (unknown) Patient: (units (unkn own) JoseEdison unknown) lino Root MR#: (unknown) (no date) (unknown) (unknown) Pre-operative (units (unknown) Note unknown) (unknown) (no date) (unknown) (unknown) Provider: (units (unk nown) Evelyn Orourke unknown) (unknown) (no date) (unknown) (unknown) Signed (units (unkn own) By:<Electronic unknown) ally signed by Evelyn Orourke MD> Result panel 172 (unknown) (no (unknown) (unknown) (no value) (units (unk nown) date) unknown) (unknown) (no (unknown) (unknown) Age/Sex: 67 / F (units (unknown) date) unknown) (unknown) (no (unknown) (unknown) : 1955 (units (unknown) date) Acct:[id number] unknown) (unknown) (no (unknown) (unknown) Date of (units (unkno wn) date) Service: unknown) 08/03/22 (unknown) (no (unknown) (unknown) Date of (units (unkno wn) date) procedure: unknown) 08/03/22 (unknown) (no (unknown) (unknown) [facility] (units (unknown) date) [address] unknown) [place] [address] (unknown) (no (unknown) (unknown) Left total hip (units (unknown) date) revision unknown) posterior approach (unknown) (no (unknown) (unknown) [id number] (units (unk nown) date) unknown) (unknown) (no (unknown) (unknown) Operative (units (unkn own) date) Date/Time/Diagno unknown) ses (unknown) (no (unknown) (unknown) Operative Note (units (unknown) date) unknown) (unknown) (no (unknown) (unknown) Patient: (units (unkno wn) date) Gita Garcia unknown) A MR#: (unknown) (no (unknown) (unknown) Post-op (units (unkno wn) date) diagnosis: same unknown) (unknown) (no (unknown) (unknown) Pre-op (units (unkno wn) date) diagnosis: Left unknown) total hip arthroplasty with prior anterior approach with (unknown) (no (unknown) (unknown) Procedure + (units (un known) date) Clinicians unknown) (unknown) (no (unknown) (unknown) Procedure: (units (unk nown) date) unknown) (unknown) (no (unknown) (unknown) Provider: (units (unkn own) date) Evelyn Orourke unknown) (unknown) (no (unknown) (unknown) Signed By: (units (unk nown) date) unknown) (unknown) (no (unknown) (unknown) Time of (units (unkno wn) date) procedure: 14:30 unknown) (unknown) (no (unknown) (unknown) a prior history (units (unknown) date) of a left foot unknown) drop, degenerative scoliosis, history of (unknown) (no (unknown) (unknown) anterior (units (unkno wn) date) instability and unknown) history of 3 dislocations, severe spinal stenosis with (unknown) (no (unknown) (unknown) sarcoidosis (units (un known) date) unknown) Result panel 173 (unknown) (no (unknown) (unknown) (no value) (units (unk nown) date) unknown) (unknown) (no (unknown) (unknown) Age/Sex: 67 / F (units (unknown) date) unknown) (unknown) (no (unknown) (unknown) : 1955 (units (unknown) date) Acct:[id number] unknown) (unknown) (no (unknown) (unknown) Date of (units (unkno wn) date) Service: unknown) 08/03/22 (unknown) (no (unknown) (unknown) Date of (units (unkno wn) date) procedure: unknown) 08/03/22 (unknown) (no (unknown) (unknown) [facility] (units (unknown) date) [address] [place] [address] unknown) [place] [address] (unknown) (no (unknown) (unknown) Left total hip (units (unknown) date) revision unknown) posterior approach (unknown) (no (unknown) (unknown) [id number] (units (unk nown) date) unknown) (unknown) (no (unknown) (unknown) Operative (units (unkn own) date) Date/Time/Diagno unknown) ses (unknown) (no (unknown) (unknown) Operative Note (units (unknown) date) unknown) (unknown) (no (unknown) (unknown) Patient: (units (unkno wn) date) Edison Garciayl unknown) A MR#: (unknown) (no (unknown) (unknown) Post-op (units (unkno wn) date) diagnosis: same unknown) (unknown) (no (unknown) (unknown) Pre-op (units (unkno wn) date) diagnosis: Left unknown) total hip arthroplasty with prior anterior approach with (unknown) (no (unknown) (unknown) Procedure + (units (un known) date) Clinicians unknown) (unknown) (no (unknown) (unknown) Procedure: (units (unk nown) date) unknown) (unknown) (no (unknown) (unknown) Provider: (units (unkn own) date) Evelyn Orourke unknown) (unknown) (no (unknown) (unknown) Same procedure (units (unknown) date) as scheduled: unknown) Yes (unknown) (no (unknown) (unknown) Signed By: (units (unk nown) date) unknown) (unknown) (no (unknown) (unknown) Time of (units (unkno wn) date) procedure: 14:30 unknown) (unknown) (no (unknown) (unknown) a prior history (units (unknown) date) of a left foot unknown) drop, degenerative scoliosis, history of (unknown) (no (unknown) (unknown) anterior (units (unkno wn) date) instability and unknown) history of 3 dislocations, severe spinal stenosis with (unknown) (no (unknown) (unknown) sarcoidosis (units (un known) date) unknown) Result panel 174 (unknown) (no (unknown) (unknown) (no value) (units (unk nown) date) unknown) (unknown) (no (unknown) (unknown) 08/03/22 1638 (units ( unknown) date) unknown) (unknown) (no (unknown) (unknown) Age/Sex: 67 / F (units (unknown) date) unknown) (unknown) (no (unknown) (unknown) Anesthesia Type: (units (unknown) date) Spinal unknown) (unknown) (no (unknown) (unknown) Vtc Technician: Vani Root (units (unknown) date) Walker unknown) (unknown) (no (unknown) (unknown) At 44? she was (units (unknown) date) stable about 70-80 unknown) degrees of internal rotation and 120? she is (unknown) (no (unknown) (unknown) Blood products (units (unknown) date) transfused: none unknown) (unknown) (no (unknown) (unknown) Closure Type: (units ( unknown) date) primary unknown) (unknown) (no (unknown) (unknown) Complications: (units (unknown) date) none unknown) (unknown) (no (unknown) (unknown) Condition: stable (units (unknown) date) unknown) (unknown) (no (unknown) (unknown) : 1955 (units (unknown) date) Acct:[id number] unknown) (unknown) (no (unknown) (unknown) Date of Service: (units (unknown) date) 08/03/22 unknown) (unknown) (no (unknown) (unknown) Date of (units (unkno wn) date) procedure: unknown) 08/03/22 (unknown) (no (unknown) (unknown) Dislocated the (units (unknown) date) hip posteriorly. unknown) Remove the femoral head. Carefully checked the (unknown) (no (unknown) (unknown) Disposition: (units (u nknown) date) Acute Care unknown) (unknown) (no (unknown) (unknown) Estimated Blood (units (unknown) date) Loss (mL): 100 unknown) (unknown) (no (unknown) (unknown) Findings: (units (unkn own) date) unknown) (unknown) (no (unknown) (unknown) Indications: (units (u nknown) date) unknown) (unknown) (no (unknown) (unknown) [facility] (units (unknown) date) [address] [place] [address] Street unknown) [place] [address] (unknown) (no (unknown) (unknown) Left total hip (units (unknown) date) revision posterior unknown) approach (unknown) (no (unknown) (unknown) [id number] (units (unk nown) date) unknown) (unknown) (no (unknown) (unknown) Mild anterior (units ( unknown) date) instability. unknown) Difficult to dislocate even with maximum (unknown) (no (unknown) (unknown) Operative (units (unkn own) date) Date/Time/Diagnose unknown) s (unknown) (no (unknown) (unknown) Operative Note (units (unknown) date) unknown) (unknown) (no (unknown) (unknown) Operative Notes (units (unknown) date) unknown) (unknown) (no (unknown) (unknown) Patient: (units (unkno wn) date) Gita Garcia A unknown) MR#: (unknown) (no (unknown) (unknown) Plan for (units (unkno wn) date) aftercare: unknown) (unknown) (no (unknown) (unknown) Post-op (units (unkno wn) date) diagnosis: same unknown) (unknown) (no (unknown) (unknown) Post-operative (units (unknown) date) unknown) (unknown) (no (unknown) (unknown) Pre-op diagnosis: (units (unknown) date) Left total hip unknown) arthroplasty with prior anterior approach with (unknown) (no (unknown) (unknown) Procedure + (units (un known) date) Clinicians unknown) (unknown) (no (unknown) (unknown) Procedure in (units (u nknown) date) detail: unknown) (unknown) (no (unknown) (unknown) Procedure: (units (unk nown) date) unknown) (unknown) (no (unknown) (unknown) Prosthetic (units (unk nown) date) devices, grafts, unknown) tissues, transplants, or devices: (unknown) (no (unknown) (unknown) Provider: (units (unkn own) date) Evelyn Orourke MD unknown) (unknown) (no (unknown) (unknown) Same procedure as (units (unknown) date) scheduled: Yes unknown) (unknown) (no (unknown) (unknown) She still came to (units (unknown) date) full extension. unknown) She was stable in maximum extension external (unknown) (no (unknown) (unknown) Signed (units (unkno wn) date) By:<Electronically unknown) signed by Evelyn Orourke MD> (unknown) (no (unknown) (unknown) [place] (units (unknown) date) 32 mm +0 Oxinium unknown) head (unknown) (no (unknown) (unknown) Specimen(s): (units (u nknown) date) other (Cultures) unknown) (unknown) (no (unknown) (unknown) Surgeon: Evelyn Root (units (unknown) date) Sharad unknown) (unknown) (no (unknown) (unknown) The (units (unkno wn) date) capsulomuscular unknown) flap was then repaired to the greater trochanter though an (unknown) (no (unknown) (unknown) The hip was (units (unk nown) date) approached through unknown) an approximately 18 cm incision centered over the (unknown) (no (unknown) (unknown) The hip was (units (un known) date) meticulously unknown) irrigated with normal saline. Finally the femoral head (unknown) (no (unknown) (unknown) The patient has (units (unknown) date) had a history of unknown) an anterior left total hip arthroplasty which (unknown) (no (unknown) (unknown) The patient was (units (unknown) date) seen in the unknown) pre-operative area, where the patient identified the (unknown) (no (unknown) (unknown) The patient will (units (unknown) date) be maintained on a unknown) standard total hip replacement protocol with (unknown) (no (unknown) (unknown) Time of (units (unkno wn) date) procedure: 14:30 unknown) (unknown) (no (unknown) (unknown) a prior history (units (unknown) date) of a left foot unknown) drop, degenerative scoliosis, history of (unknown) (no (unknown) (unknown) and draped (units (unk nown) date) through sterile unknown) drapes. (unknown) (no (unknown) (unknown) and the patient (units (unknown) date) has requested unknown) revision total hip replacement. The risks, (unknown) (no (unknown) (unknown) anterior capsular (units (unknown) date) rent with multiple unknown) interrupted nonabsorbable sutures using a (unknown) (no (unknown) (unknown) anterior (units (unkno wn) date) instability and unknown) history of 3 dislocations, severe spinal stenosis with (unknown) (no (unknown) (unknown) anteriorly. We (units (unknown) date) meticulously unknown) placed the patient has her range of motion. (unknown) (no (unknown) (unknown) applied and the (units (unknown) date) patient was taken unknown) to recovery having tolerated the procedure (unknown) (no (unknown) (unknown) awl hole using the (units (unknown) date) tag sutures. The unknown) short external rotators were repaired with a (unknown) (no (unknown) (unknown) benefits and (units (u nknown) date) alternatives to unknown) surgery were discussed with the patient prior to (unknown) (no (unknown) (unknown) capsule and soft (units (unknown) date) tissues in the unknown) anterior superior capsule. Good stability with (unknown) (no (unknown) (unknown) capsule with the (units (unknown) date) patient had been unknown) dislocating. Deep tissue was sent for (unknown) (no (unknown) (unknown) changed her (units (un known) date) stability. unknown) (unknown) (no (unknown) (unknown) cultures. Did a (units (unknown) date) trial reduction unknown) with a +0 head. Leg lengths looked reasonable. (unknown) (no (unknown) (unknown) damage, deep (units (u nknown) date) venous thrombosis, unknown) pulmonary embolism, stroke, coma, heart attack, (unknown) (no (unknown) (unknown) difficult to (units (u nknown) date) dislocate it unknown) anteriorly. At and anticipated that she was impinging (unknown) (no (unknown) (unknown) environment. (units (u nknown) date) unknown) (unknown) (no (unknown) (unknown) femoral stem was (units (unknown) date) noted that the unknown) stem was stable. Checked the acetabulum there (unknown) (no (unknown) (unknown) find a rent in (units (unknown) date) the anterior unknown) capsule which was along the anterior superior (unknown) (no (unknown) (unknown) fluid and soft (units (unknown) date) tissue. The hip unknown) was dislocated. I placed the patient's her (unknown) (no (unknown) (unknown) greater (units (unkno wn) date) trochanter and unknown) curving gently posteriorly as it went proximally. This (unknown) (no (unknown) (unknown) her hip and could (units (unknown) date) not dislocate it unknown) anteriorly. She had relatively normal Shuck. (unknown) (no (unknown) (unknown) hip relocated one (units (unknown) date) final time. unknown) (unknown) (no (unknown) (unknown) hip was reduced. (units (unknown) date) Posterior capsule unknown) and soft tissues were repaired with (unknown) (no (unknown) (unknown) hyperextension (units (unknown) date) extension and unknown) maximum external rotation. A rent in the anterior (unknown) (no (unknown) (unknown) increased offset (units (unknown) date) with a +0 head, unknown) adequate anterior capsule repair (unknown) (no (unknown) (unknown) instability after (units (unknown) date) the posterior unknown) capsular repair to make sure that we had not (unknown) (no (unknown) (unknown) interrupted (units (un known) date) nonabsorbable unknown) stitches. I specifically checked for anterior (unknown) (no (unknown) (unknown) layer was closed (units (unknown) date) with barbed unknown) sutures and glue. An Aquacel Ag dressing was (unknown) (no (unknown) (unknown) left hip as the (units (unknown) date) operative site and unknown) this was marked with my initials. The patient (unknown) (no (unknown) (unknown) no tendency (units (un known) date) towards unknown) impingement I can not find a source of her instability (unknown) (no (unknown) (unknown) nonabsorbable (units ( unknown) date) suture. The fascia unknown) dago was closed with Vicryl. 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 Risks (units (unknown) date) discussed unknown) included, but were not limited to, failure to (unknown) (no (unknown) (unknown) prophylaxis. The (units (unknown) date) patient will be unknown) discharged home when safe for the home (unknown) (no (unknown) (unknown) range of motion (units (unknown) date) after opening the unknown) posterior capsule it was actually quite (unknown) (no (unknown) (unknown) received (units (unkno wn) date) pre-operative unknown) antibiotics and was taken to the operating room and (unknown) (no (unknown) (unknown) relieve pain, leg (units (unknown) date) length unknown) discrepancy, dislocation, stiffness, infection, nerve (unknown) (no (unknown) (unknown) revision of the (units (unknown) date) prosthetic. unknown) (unknown) (no (unknown) (unknown) rotation guide (units ( unknown) date) placing her unknown) through a variety of different positions to dislocate (unknown) (no (unknown) (unknown) sarcoidosis (units (un known) date) unknown) (unknown) (no (unknown) (unknown) satisfactory (units (u nknown) date) anesthesia. A full unknown) time out was performed. The left leg was (unknown) (no (unknown) (unknown) self retaining (units (unknown) date) retractor. The unknown) trochanteric bursa was excised with care being (unknown) (no (unknown) (unknown) stable to about (units (unknown) date) 70-80 degrees of unknown) internal rotation. We carefully checked around (unknown) (no (unknown) (unknown) straight needle (units (unknown) date) winch driver and a Catrachita unknown) needle winch driver. Final head was placed. The (unknown) (no (unknown) (unknown) taken to avoid (units (unknown) date) the sciatic nerve, unknown) which was identified and protected throughout (unknown) (no (unknown) (unknown) the acetabulum. (units (unknown) date) Then freshened the unknown) anterior aspect of the cup and repaired the (unknown) (no (unknown) (unknown) the case. The (units ( unknown) date) short external unknown) rotators were incised and the capsulomuscular flap (unknown) (no (unknown) (unknown) was carried (units (un known) date) sharply to the unknown) fascia dago, which was divided and retracted with a (unknown) (no (unknown) (unknown) was complicated (units (unknown) date) by 3 anterior unknown) dislocations. Non-operative management has failed (unknown) (no (unknown) (unknown) was impacted onto (units (unknown) date) the stem. The unknown) acetabulum was cleared of all material and the (unknown) (no (unknown) (unknown) was no evidence (units (unknown) date) of injury to the unknown) acetabulum or problem with the liner. I did (unknown) (no (unknown) (unknown) was raised and (units (unknown) date) tagged for later unknown) repair. Intraoperative cultures were sent of (unknown) (no (unknown) (unknown) weight bearing as (units (unknown) date) tolerated and unknown) anterior and posterior hip precautions. The (unknown) (no (unknown) (unknown) well. (units (unkno wn) date) unknown) Result panel 175 (unknown) (no date) (unknown) (unknown) (no value) (units (un known) unknown) (unknown) (no date) (unknown) (unknown) No cells or (units (u nknown) organisms seen unknown) (unknown) (no date) (unknown) (unknown) No cells or (units (u nknown) organisms seen unknown) Result panel 176 (unknown) (no date) (unknown) (unknown) (no value) (units (un known) unknown) (unknown) (no date) (unknown) (unknown) Few (2-10) (units (un known) unknown) (unknown) (no date) (unknown) (unknown) No WBC seen (units (u nknown) unknown) (unknown) (no date) (unknown) (unknown) No organisms (units ( unknown) seen unknown) (unknown) (no date) (unknown) (unknown) No organisms (units ( unknown) seen unknown) Result panel 177 (unknown) (no (unknown) (unknown) (no value) (units (unk nown) date) unknown) (unknown) (no (unknown) (unknown) (1) Dislocation, (units (unknown) date) hip: unknown) (unknown) (no (unknown) (unknown) (2) H/O total (units ( unknown) date) hip arthroplasty: unknown) (unknown) (no (unknown) (unknown) (past 8 hours): (units (unknown) date) unknown) (unknown) (no (unknown) (unknown) 00:28 08/04/22 (units (unknown) date) unknown) (unknown) (no (unknown) (unknown) 08/04/22 (units (unkno wn) date) unknown) (unknown) (no (unknown) (unknown) 04:00 (units (unkno wn) date) unknown) (unknown) (no (unknown) (unknown) 4/5 hip flexors, (units (unknown) date) quadriceps, unknown) hamstrings; 5/5 DF, PF, EHL on left. Sensation to (unknown) (no (unknown) (unknown) Abrasion (units (unkno wn) date) (02/16/21) unknown) (unknown) (no (unknown) (unknown) Actual Procedure (units (unknown) date) Side Surgeon unknown) (unknown) (no (unknown) (unknown) Acute on chronic (units (unknown) date) respiratory unknown) failure (unknown) (no (unknown) (unknown) Adrenal (units (unkno wn) date) insufficiency unknown) (unknown) (no (unknown) (unknown) Age/Sex: 67 / F (units (unknown) date) unknown) (unknown) (no (unknown) (unknown) Anxiety (units (unkno wn) date) unknown) (unknown) (no (unknown) (unknown) Assessment + (units (u nknown) date) Plan Post-op unknown) (unknown) (no (unknown) (unknown) Assessment and (units (unknown) date) plan unknown) (unknown) (no (unknown) (unknown) Asthma (units (unkno wn) date) unknown) (unknown) (no (unknown) (unknown) Blood Pressure (units (unknown) date) 109/63 121/56 L unknown) (unknown) (no (unknown) (unknown) COVID-19 virus (units (unknown) date) infection unknown) (unknown) (no (unknown) (unknown) Cancer (units (unkno wn) date) unknown) (unknown) (no (unknown) (unknown) Chronic pain (units (u nknown) date) disorder unknown) (unknown) (no (unknown) (unknown) : 1955 (units (unknown) date) Acct:[id number] unknown) (unknown) (no (unknown) (unknown) Date Patient (units (u nknown) date) Seen: 08/04/22 unknown) (unknown) (no (unknown) (unknown) Date of Service: (units (unknown) date) 08/03/22 unknown) (unknown) (no (unknown) (unknown) Deep Vein (units (unkn own) date) Thrombosis/Pulmon unknown) elian Embolism Present on Admission: No (unknown) (no (unknown) (unknown) Depression (units (unk nown) date) unknown) (unknown) (no (unknown) (unknown) Dislocation, hip (units (unknown) date) unknown) (unknown) (no (unknown) (unknown) Easy (units (unkno wn) date) bruisability unknown) (unknown) (no (unknown) (unknown) Elevated (units (unkno wn) date) coronary artery unknown) calcium score (unknown) (no (unknown) (unknown) Exam Narrative: (units (unknown) date) unknown) (unknown) (no (unknown) (unknown) Exam (units (unkno wn) date) unknown) (unknown) (no (unknown) (unknown) Family History (units (unknown) date) (Reviewed unknown) 07/07/22 @ 22:43 by Lisandra Roy DO) (unknown) (no (unknown) (unknown) Father (units (unknown) date) Aneurysm unknown) (unknown) (no (unknown) (unknown) Fibromyalgia (units (u nknown) date) unknown) (unknown) (no (unknown) (unknown) Frequent falls (units (unknown) date) unknown) (unknown) (no (unknown) (unknown) GERD (units (unkno wn) date) (gastroesophageal unknown) reflux disease) (unknown) (no (unknown) (unknown) H/O total hip (units ( unknown) date) arthroplasty unknown) (04/12/17) (unknown) (no (unknown) (unknown) HTN (units (unkno wn) date) (hypertension) unknown) (unknown) (no (unknown) (unknown) History of (units (unk nown) date) bunionectomy of unknown) left great toe (09/2015) (unknown) (no (unknown) (unknown) History of (units (unk nown) date) hysterectomy unknown) (unknown) (no (unknown) (unknown) History of lung (units (unknown) date) biopsy unknown) (unknown) (no (unknown) (unknown) History of total (units (unknown) date) left hip unknown) replacement (02/19/21) (unknown) (no (unknown) (unknown) Hx of cardiac (units ( unknown) date) cath unknown) (unknown) (no (unknown) (unknown) Hx of (units (unkno wn) date) tonsillectomy unknown) (unknown) (no (unknown) (unknown) Hyperlipidemia (units (unknown) date) unknown) (unknown) (no (unknown) (unknown) Hypertension (units (u nknown) date) unknown) (unknown) (no (unknown) (unknown) Hypoxemia (units (unkn own) date) unknown) (unknown) (no (unknown) (unknown) ILD (units (unkno wn) date) (interstitial unknown) lung disease) (unknown) (no (unknown) (unknown) Interval (units (unkno wn) date) history: unknown) (unknown) (no (unknown) (unknown) [facility] (units (unknown) date) [address] [place] [address] unknown) [place] [address] (unknown) (no (unknown) (unknown) Left Evelyn A (units ( unknown) date) MD Sharad unknown) (unknown) (no (unknown) (unknown) [id number] (units (unk nown) date) unknown) (unknown) (no (unknown) (unknown) Medical History (units (unknown) date) (Updated 08/04/22 unknown) @ 06:40 by Ann Evans PA-C) (unknown) (no (unknown) (unknown) Mother (units (unknown) date) COPD (chronic unknown) obstructive pulmonary disease) (unknown) (no (unknown) (unknown) Narrative (units (unkn own) date) unknown) (unknown) (no (unknown) (unknown) Operation Date: (units (unknown) date) 08/03/22 10:45 unknown) (unknown) (no (unknown) (unknown) Osteoarthritis (units (unknown) date) unknown) (unknown) (no (unknown) (unknown) Oxygen Delivery (units (unknown) date) Method Room Air unknown) (unknown) (no (unknown) (unknown) Oxygen Flow Rate (units (unknown) date) 0 0 unknown) (unknown) (no (unknown) (unknown) Oxygen Flow Rate (units (unknown) date) 0 unknown) (unknown) (no (unknown) (unknown) PFSH (units (unkno wn) date) unknown) (unknown) (no (unknown) (unknown) Patient: (units (unkno wn) date) Gita Garcia unknown) Dk MR#: (unknown) (no (unknown) (unknown) Pneumonia (units (unkn own) date) unknown) (unknown) (no (unknown) (unknown) Postoperative (units ( unknown) date) unknown) (unknown) (no (unknown) (unknown) Procedures (units (unk nown) date) unknown) (unknown) (no (unknown) (unknown) Procedures: (units (un known) date) unknown) (unknown) (no (unknown) (unknown) Progress Note (units ( unknown) date) unknown) (unknown) (no (unknown) (unknown) Provider: (units (unkn own) date) Ann Evans P.A-C unknown) (unknown) (no (unknown) (unknown) Pt sitting up in (units (unknown) date) bed, comfortable. unknown) Eating and voiding without difficulty. 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) (unknown) (no (unknown) (unknown) Respiratory Rate (units (unknown) date) 20 17 unknown) (unknown) (no (unknown) (unknown) Sarcoid (units (unkno wn) date) neuropathy unknown) (unknown) (no (unknown) (unknown) Sarcoidosis (units (un known) date) unknown) (unknown) (no (unknown) (unknown) Signed By: (units (unk nown) date) unknown) (unknown) (no (unknown) (unknown) Smoking Status: (units (unknown) date) Never smoker unknown) (unknown) (no (unknown) (unknown) Social History (units (unknown) date) (Reviewed unknown) 07/07/22 @ 22:43 by Lisandra Roy DO) (unknown) (no (unknown) (unknown) Subjective (units (unk nown) date) unknown) (unknown) (no (unknown) (unknown) Surgical History (units (unknown) date) (Reviewed unknown) 08/03/22 @ 11:50 by Karli Mendoza RN) (unknown) (no (unknown) (unknown) Temperature 97.8 (units (unknown) date) F 97.9 F unknown) (unknown) (no (unknown) (unknown) Time Patient (units (u nknown) date) Seen: 06:37 unknown) (unknown) (no (unknown) (unknown) VTE (units (unkno wn) date) unknown) (unknown) (no (unknown) (unknown) Vital Signs (units (un known) date) unknown) (unknown) (no (unknown) (unknown) alcohol intake: (units (unknown) date) current unknown) (unknown) (no (unknown) (unknown) at home that she (units (unknown) date) needs to care unknown) for, as well as her , who weighs over 400 (unknown) (no (unknown) (unknown) concerned about (units (unknown) date) physical unknown) limitations following surgery. She has several animals (unknown) (no (unknown) (unknown) household (units (unkn own) date) members: spouse unknown) and children (unknown) (no (unknown) (unknown) light touch (units (un known) date) intact throughout unknown) LLE. Calf soft, compressible, nontender and (unknown) (no (unknown) (unknown) occupational (units (u nknown) date) status: other unknown) (Retired) (unknown) (no (unknown) (unknown) p Total Hip (units (un known) date) Arthroplasty unknown) Revision, femoral head component, posterior approach (unknown) (no (unknown) (unknown) pounds and is (units ( unknown) date) only minimally unknown) ambulatory. (unknown) (no (unknown) (unknown) without palpable (units (unknown) date) cords or masses. unknown) Aquacel dressing CDI. Result panel 178 (unknown) (no (unknown) (unknown) (no value) (units (unk nown) date) unknown) (unknown) (no (unknown) (unknown) (1) Dislocation, (units (unknown) date) hip: unknown) (unknown) (no (unknown) (unknown) (2) H/O total (units ( unknown) date) hip arthroplasty: unknown) (unknown) (no (unknown) (unknown) (past 8 hours): (units (unknown) date) unknown) (unknown) (no (unknown) (unknown) 00:28 08/04/22 (units (unknown) date) unknown) (unknown) (no (unknown) (unknown) 08/04/22 0645 (units ( unknown) date) unknown) (unknown) (no (unknown) (unknown) 08/04/22 (units (unkno wn) date) unknown) (unknown) (no (unknown) (unknown) 04:00 (units (unkno wn) date) unknown) (unknown) (no (unknown) (unknown) 4/5 hip flexors, (units (unknown) date) quadriceps, unknown) hamstrings; 5/5 DF, PF, EHL on left. Sensation to (unknown) (no (unknown) (unknown) ASA 81 mg BID x (units (unknown) date) 6 weeks for VTE unknown) prophylaxis. (unknown) (no (unknown) (unknown) Abrasion (units (unkno wn) date) (02/16/21) unknown) (unknown) (no (unknown) (unknown) Actual Procedure (units (unknown) date) Side Surgeon unknown) (unknown) (no (unknown) (unknown) Acute on chronic (units (unknown) date) respiratory unknown) failure (unknown) (no (unknown) (unknown) Adrenal (units (unkno wn) date) insufficiency unknown) (unknown) (no (unknown) (unknown) Age/Sex: 67 / F (units (unknown) date) unknown) (unknown) (no (unknown) (unknown) Anticipate d/c (units (unknown) date) home tomorrow unknown) pending work w/ PT today. (unknown) (no (unknown) (unknown) Anxiety (units (unkno wn) date) unknown) (unknown) (no (unknown) (unknown) Assessment + (units (u nknown) date) Plan Post-op unknown) (unknown) (no (unknown) (unknown) Assessment and (units (unknown) date) Plan narrative: unknown) (unknown) (no (unknown) (unknown) Assessment and (units (unknown) date) plan unknown) (unknown) (no (unknown) (unknown) Asthma (units (unkno wn) date) unknown) (unknown) (no (unknown) (unknown) At surgery (units (unk nown) date) yesterday, a rent unknown) in the anterior capsule was repaired and the (unknown) (no (unknown) (unknown) Blood Pressure (units (unknown) date) 109/63 121/56 L unknown) (unknown) (no (unknown) (unknown) COVID-19 virus (units (unknown) date) infection unknown) (unknown) (no (unknown) (unknown) Cancer (units (unkno wn) date) unknown) (unknown) (no (unknown) (unknown) Chronic pain (units (u nknown) date) disorder unknown) (unknown) (no (unknown) (unknown) : 1955 (units (unknown) date) Acct:[id number] unknown) (unknown) (no (unknown) (unknown) Date Patient (units (u nknown) date) Seen: 08/04/22 unknown) (unknown) (no (unknown) (unknown) Date of Service: (units (unknown) date) 08/03/22 unknown) (unknown) (no (unknown) (unknown) Deep Vein (units (unkn own) date) Thrombosis/Pulmon unknown) elian Embolism Present on Admission: No (unknown) (no (unknown) (unknown) Depression (units (unk nown) date) unknown) (unknown) (no (unknown) (unknown) Dislocation, hip (units (unknown) date) unknown) (unknown) (no (unknown) (unknown) Easy (units (unkno wn) date) bruisability unknown) (unknown) (no (unknown) (unknown) Elevated (units (unkno wn) date) coronary artery unknown) calcium score (unknown) (no (unknown) (unknown) Exam Narrative: (units (unknown) date) unknown) (unknown) (no (unknown) (unknown) Exam (units (unkno wn) date) unknown) (unknown) (no (unknown) (unknown) Family History (units (unknown) date) (Reviewed unknown) 07/07/22 @ 22:43 by Lisandra Roy DO) (unknown) (no (unknown) (unknown) Father (units (unknown) date) Aneurysm unknown) (unknown) (no (unknown) (unknown) Fibromyalgia (units (u nknown) date) unknown) (unknown) (no (unknown) (unknown) Frequent falls (units (unknown) date) unknown) (unknown) (no (unknown) (unknown) GERD (units (unkno wn) date) (gastroesophageal unknown) reflux disease) (unknown) (no (unknown) (unknown) Good pain (units (unkn own) date) control w/ unknown) oxycodone. (unknown) (no (unknown) (unknown) H/O total hip (units ( unknown) date) arthroplasty unknown) (04/12/17) (unknown) (no (unknown) (unknown) HTN (units (unkno wn) date) (hypertension) unknown) (unknown) (no (unknown) (unknown) History of (units (unk nown) date) bunionectomy of unknown) left great toe (09/2015) (unknown) (no (unknown) (unknown) History of (units (unk nown) date) hysterectomy unknown) (unknown) (no (unknown) (unknown) History of lung (units (unknown) date) biopsy unknown) (unknown) (no (unknown) (unknown) History of total (units (unknown) date) left hip unknown) replacement (02/19/21) (unknown) (no (unknown) (unknown) Hx of cardiac (units ( unknown) date) cath unknown) (unknown) (no (unknown) (unknown) Hx of (units (unkno wn) date) tonsillectomy unknown) (unknown) (no (unknown) (unknown) Hyperlipidemia (units (unknown) date) unknown) (unknown) (no (unknown) (unknown) Hypertension (units (u nknown) date) unknown) (unknown) (no (unknown) (unknown) Hypoxemia (units (unkn own) date) unknown) (unknown) (no (unknown) (unknown) ILD (units (unkno wn) date) (interstitial unknown) lung disease) (unknown) (no (unknown) (unknown) Interval (units (unkno wn) date) history: unknown) (unknown) (no (unknown) (unknown) [facility] (units (unknown) date) [address] unknown) [place] [address] (unknown) (no (unknown) (unknown) Left Evelyn A (units ( unknown) date) MD Sharad unknown) (unknown) (no (unknown) (unknown) [id number] (units (unk nown) date) unknown) (unknown) (no (unknown) (unknown) Medical History (units (unknown) date) (Updated 08/04/22 unknown) @ 06:40 by Ann Evans PA-C) (unknown) (no (unknown) (unknown) Mother (units (unknown) date) COPD (chronic unknown) obstructive pulmonary disease) (unknown) (no (unknown) (unknown) Narrative (units (unkn own) date) unknown) (unknown) (no (unknown) (unknown) Operation Date: (units (unknown) date) 08/03/22 10:45 unknown) (unknown) (no (unknown) (unknown) Osteoarthritis (units (unknown) date) unknown) (unknown) (no (unknown) (unknown) Oxygen Delivery (units (unknown) date) Method Room Air unknown) (unknown) (no (unknown) (unknown) Oxygen Flow Rate (units (unknown) date) 0 0 unknown) (unknown) (no (unknown) (unknown) Oxygen Flow Rate (units (unknown) date) 0 unknown) (unknown) (no (unknown) (unknown) PFSH (units (unkno wn) date) unknown) (unknown) (no (unknown) (unknown) Patient: (units (unkno wn) date) Edison Garciayl unknown) A MR#: (unknown) (no (unknown) (unknown) Pneumonia (units (unkn own) date) unknown) (unknown) (no (unknown) (unknown) Postoperative (units ( unknown) date) day: 1 unknown) (unknown) (no (unknown) (unknown) Postoperative (units ( unknown) date) unknown) (unknown) (no (unknown) (unknown) Procedures (units (unk nown) date) unknown) (unknown) (no (unknown) (unknown) Procedures: (units (un known) date) unknown) (unknown) (no (unknown) (unknown) Progress Note (units ( unknown) date) unknown) (unknown) (no (unknown) (unknown) Provider: (units (unkn own) date) Ann Evans P.A-C unknown) (unknown) (no (unknown) (unknown) Pt sitting up in (units (unknown) date) bed, comfortable. unknown) Eating and voiding without difficulty. 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 unknown) block) (unknown) (no (unknown) (unknown) Respiratory Rate (units (unknown) date) 20 17 unknown) (unknown) (no (unknown) (unknown) Sarcoid (units (unkno wn) date) neuropathy unknown) (unknown) (no (unknown) (unknown) Sarcoidosis (units (un known) date) unknown) (unknown) (no (unknown) (unknown) Signed (units (unkno wn) date) By:<Electronicall unknown) y signed by Ann Evans> (unknown) (no (unknown) (unknown) Smoking Status: (units (unknown) date) Never smoker unknown) (unknown) (no (unknown) (unknown) Social History (units (unknown) date) (Reviewed unknown) 07/07/22 @ 22:43 by Lisandra Roy DO) (unknown) (no (unknown) (unknown) Subjective (units (unk nown) date) unknown) (unknown) (no (unknown) (unknown) Surgical History (units (unknown) date) (Reviewed unknown) 08/03/22 @ 11:50 by Karli Mendoza RN) (unknown) (no (unknown) (unknown) Temperature 97.8 (units (unknown) date) F 97.9 F unknown) (unknown) (no (unknown) (unknown) Time Patient (units (u nknown) date) Seen: 06:37 unknown) (unknown) (no (unknown) (unknown) VTE (units (unkno wn) date) unknown) (unknown) (no (unknown) (unknown) Vital Signs (units (un known) date) unknown) (unknown) (no (unknown) (unknown) Will follow for (units (unknown) date) cultures and unknown) treat as appropriate. (unknown) (no (unknown) (unknown) alcohol intake: (units (unknown) date) current unknown) (unknown) (no (unknown) (unknown) at home that she (units (unknown) date) needs to care unknown) for, as well as her , who weighs over 400 (unknown) (no (unknown) (unknown) concerned about (units (unknown) date) physical unknown) limitations following surgery. She has several animals (unknown) (no (unknown) (unknown) femoral head was (units (unknown) date) replaced. unknown) (unknown) (no (unknown) (unknown) household (units (unkn own) date) members: spouse unknown) and children (unknown) (no (unknown) (unknown) light touch (units (un known) date) intact throughout unknown) LLE. Calf soft, compressible, nontender and (unknown) (no (unknown) (unknown) multiple (units (unkno wn) date) sessions of inpt unknown) PT to work on these limitations and appropriate (unknown) (no (unknown) (unknown) occupational (units (u nknown) date) status: other unknown) (Retired) (unknown) (no (unknown) (unknown) p Total Hip (units (un known) date) Arthroplasty unknown) Revision, femoral head component, posterior approach (unknown) (no (unknown) (unknown) pounds and is (units ( unknown) date) only minimally unknown) ambulatory. (unknown) (no (unknown) (unknown) restrictions for (units (unknown) date) homegoing. unknown) (unknown) (no (unknown) (unknown) without palpable (units (unknown) date) cords or masses. unknown) Aquacel dressing CDI. Result panel 179 (unknown) (no date) (unknown) (unknown) 11.3 g/dl (unkn own) (unknown) (no date) (unknown) (unknown) 34.2 % (unkn own) Result panel 180 (unknown) (no date) (unknown) (unknown) (no value) (units (un known) unknown) (unknown) (no date) (unknown) (unknown) No cells or (units (u nknown) organisms seen unknown) (unknown) (no date) (unknown) (unknown) No cells or (units (u nknown) organisms seen unknown) (unknown) (no date) (unknown) (unknown) No growth. (units (un known) unknown) Result panel 181 (unknown) (no date) (unknown) (unknown) (no value) (units (un known) unknown) (unknown) (no date) (unknown) (unknown) Few (2-10) (units (un known) unknown) (unknown) (no date) (unknown) (unknown) No WBC seen (units (u nknown) unknown) (unknown) (no date) (unknown) (unknown) No growth. (units (un known) unknown) (unknown) (no date) (unknown) (unknown) No organisms (units ( unknown) seen unknown) (unknown) (no date) (unknown) (unknown) No organisms (units ( unknown) seen unknown) Result panel 182 (unknown) (no (unknown) (unknown) (no value) (units (unk nown) date) unknown) (unknown) (no (unknown) (unknown) #: [id number] (units (un known) date) unknown) (unknown) (no (unknown) (unknown) (past 8 hours): (units (unknown) date) unknown) (unknown) (no (unknown) (unknown) 08/04/22 06:01 (units (unknown) date) unknown) (unknown) (no (unknown) (unknown) 08/05/22 0741 (units ( unknown) date) unknown) (unknown) (no (unknown) (unknown) 08/05/22 (units (unkno wn) date) unknown) (unknown) (no (unknown) (unknown) 03:04 (units (unkno wn) date) unknown) (unknown) (no (unknown) (unknown) 1 person assist (units (unknown) date) per PT unknown) (unknown) (no (unknown) (unknown) 1021 (units (unkno wn) date) unknown) (unknown) (no (unknown) (unknown) 2122 (units (unkno wn) date) unknown) (unknown) (no (unknown) (unknown) Abrasion (units (unkno wn) date) (02/16/21) unknown) (unknown) (no (unknown) (unknown) Actual Procedure (units (unknown) date) Side Surgeon unknown) (unknown) (no (unknown) (unknown) Acute on chronic (units (unknown) date) respiratory unknown) failure (unknown) (no (unknown) (unknown) Adrenal (units (unkno wn) date) insufficiency unknown) (unknown) (no (unknown) (unknown) Aerobic Culture (units (unknown) date) for wounds unknown) Preliminary 08/04/22 (unknown) (no (unknown) (unknown) Age/Sex: 67 / F (units (unknown) date) unknown) (unknown) (no (unknown) (unknown) Anaerobic (units (unkn own) date) Culture unknown) (unknown) (no (unknown) (unknown) Anxiety (units (unkno wn) date) unknown) (unknown) (no (unknown) (unknown) Assessment + (units (u nknown) date) Plan Post-op unknown) (unknown) (no (unknown) (unknown) Asthma (units (unkno wn) date) unknown) (unknown) (no (unknown) (unknown) Blood Pressure (units (unknown) date) 126/70 unknown) (unknown) (no (unknown) (unknown) C (units (unkno wn) date) unknown) (unknown) (no (unknown) (unknown) COMMENTS: (units (unkn own) date) unknown) (unknown) (no (unknown) (unknown) COVID-19 virus (units (unknown) date) infection unknown) (unknown) (no (unknown) (unknown) Cancer (units (unkno wn) date) unknown) (unknown) (no (unknown) (unknown) Chronic pain (units (u nknown) date) disorder unknown) (unknown) (no (unknown) (unknown) Comment tissue (units (unknown) date) left hip culture unknown) sensitivity gram stain (unknown) (no (unknown) (unknown) Const (units (unkno wn) date) unknown) (unknown) (no (unknown) (unknown) : 1955 (units (unknown) date) Acct:[id number] unknown) (unknown) (no (unknown) (unknown) Date Patient (units (u nknown) date) Seen: 08/05/22 unknown) (unknown) (no (unknown) (unknown) Date of Service: (units (unknown) date) 08/03/22 unknown) (unknown) (no (unknown) (unknown) Deep Vein (units (unkn own) date) Thrombosis/Pulmon unknown) elian Embolism Present on Admission: No (unknown) (no (unknown) (unknown) Depression (units (unk nown) date) unknown) (unknown) (no (unknown) (unknown) Dislocation, hip (units (unknown) date) unknown) (unknown) (no (unknown) (unknown) Disposition: SNF (units (unknown) date) unknown) (unknown) (no (unknown) (unknown) Easy (units (unkno wn) date) bruisability unknown) (unknown) (no (unknown) (unknown) Effort + (units (unkno wn) date) Inspection: unknown) normal respiratory effort and able to speak in complete (unknown) (no (unknown) (unknown) Elevated (units (unkno wn) date) coronary artery unknown) calcium score (unknown) (no (unknown) (unknown) Epithelial cells (units (unknown) date) Few (2-10) unknown) (unknown) (no (unknown) (unknown) Exam Narrative: (units (unknown) date) unknown) (unknown) (no (unknown) (unknown) Exam (units (unkno wn) date) unknown) (unknown) (no (unknown) (unknown) FAX TO: (units (unkno wn) date) unknown) (unknown) (no (unknown) (unknown) Family History (units (unknown) date) (Reviewed unknown) 08/05/22 @ 07:40 by Isirdo Ordaz PA-C) (unknown) (no (unknown) (unknown) Father (units (unknown) date) Aneurysm unknown) (unknown) (no (unknown) (unknown) Fibromyalgia (units (u nknown) date) unknown) (unknown) (no (unknown) (unknown) Fraction of (units (un known) date) Inspired Oxygen unknown) 93 (unknown) (no (unknown) (unknown) Frequent falls (units (unknown) date) unknown) (unknown) (no (unknown) (unknown) GERD (units (unkno wn) date) (gastroesophageal unknown) reflux disease) (unknown) (no (unknown) (unknown) General: (units (unkno wn) date) cooperative and unknown) comfortable (unknown) (no (unknown) (unknown) Gram Stain Final (units (unknown) date) 08/03/22 unknown) (unknown) (no (unknown) (unknown) H/O total hip (units ( unknown) date) arthroplasty unknown) (04/12/17) (unknown) (no (unknown) (unknown) HTN (units (unkno wn) date) (hypertension) unknown) (unknown) (no (unknown) (unknown) History of (units (unk nown) date) bunionectomy of unknown) left great toe (09/2015) (unknown) (no (unknown) (unknown) History of (units (unk nown) date) hysterectomy unknown) (unknown) (no (unknown) (unknown) History of lung (units (unknown) date) biopsy unknown) (unknown) (no (unknown) (unknown) History of total (units (unknown) date) left hip unknown) replacement (02/19/21) (unknown) (no (unknown) (unknown) Hx of cardiac (units ( unknown) date) cath unknown) (unknown) (no (unknown) (unknown) Hx of (units (unkno wn) date) tonsillectomy unknown) (unknown) (no (unknown) (unknown) Hyperlipidemia (units (unknown) date) unknown) (unknown) (no (unknown) (unknown) Hypertension (units (u nknown) date) unknown) (unknown) (no (unknown) (unknown) Hypoxemia (units (unkn own) date) unknown) (unknown) (no (unknown) (unknown) ILD (units (unkno wn) date) (interstitial unknown) lung disease) (unknown) (no (unknown) (unknown) Interval (units (unkno wn) date) history: unknown) (unknown) (no (unknown) (unknown) [facility] (units (unknown) date) [address] unknown) [place] [address] (unknown) (no (unknown) (unknown) L HIP TISSUE #2 (units (unknown) date) unknown) (unknown) (no (unknown) (unknown) Labs (units (unkno wn) date) unknown) (unknown) (no (unknown) (unknown) Labs: (units (unkno wn) date) unknown) (unknown) (no (unknown) (unknown) Left Evelyn A (units ( unknown) date) MD Sharad unknown) (unknown) (no (unknown) (unknown) [id number] (units (unk nown) date) unknown) (unknown) (no (unknown) (unknown) Medical History (units (unknown) date) (Reviewed unknown) 08/05/22 @ 07:40 by Isidro Ordaz PA-C) (unknown) (no (unknown) (unknown) Mother (units (unknown) date) COPD (chronic unknown) obstructive pulmonary disease) (unknown) (no (unknown) (unknown) NAD, Dressing (units ( unknown) date) CDI. Motor unknown) function intact right LE. Left foot drop. (unknown) (no (unknown) (unknown) Narrative (units (unkn own) date) unknown) (unknown) (no (unknown) (unknown) No Organism Seen (units (unknown) date) No organisms seen unknown) (unknown) (no (unknown) (unknown) No growth. (units (unk nown) date) unknown) (unknown) (no (unknown) (unknown) Nutritional (units (un known) date) Appearance: unknown) average body habitus (unknown) (no (unknown) (unknown) ORDERED: WOUND (units (unknown) date) Cx and GS unknown) (unknown) (no (unknown) (unknown) Objective (units (unkn own) date) unknown) (unknown) (no (unknown) (unknown) Operation Date: (units (unknown) date) 08/03/22 10:45 unknown) (unknown) (no (unknown) (unknown) Osteoarthritis (units (unknown) date) unknown) (unknown) (no (unknown) (unknown) Oxygen Delivery (units (unknown) date) Method Room Air unknown) (unknown) (no (unknown) (unknown) Oxygen Flow Rate (units (unknown) date) 0 unknown) (unknown) (no (unknown) (unknown) PFSH (units (unkno wn) date) unknown) (unknown) (no (unknown) (unknown) Pain is 6/10. No (units (unknown) date) N/V, Fever or unknown) chills. Patient leaves alone. (unknown) (no (unknown) (unknown) Patient: (units (unkno wn) date) Gita Garcia unknown) Dk MR#: (unknown) (no (unknown) (unknown) Pending (units (unkno wn) date) unknown) (unknown) (no (unknown) (unknown) Pneumonia (units (unkn own) date) unknown) (unknown) (no (unknown) (unknown) Postoperative (units ( unknown) date) day: 2 unknown) (unknown) (no (unknown) (unknown) Postoperative (units (u nknown) date) plan narrative: unknown) The patient will be maintained on a standard total (unknown) (no (unknown) (unknown) Postoperative (units ( unknown) date) plan: routine unknown) post-op care (unknown) (no (unknown) (unknown) Postoperative (units ( unknown) date) status: doing unknown) well (unknown) (no (unknown) (unknown) Postoperative (units ( unknown) date) unknown) (unknown) (no (unknown) (unknown) Procedure Result (units (unknown) date) Verified unknown) (unknown) (no (unknown) (unknown) Procedures (units (unk nown) date) unknown) (unknown) (no (unknown) (unknown) Procedures: (units (un known) date) unknown) (unknown) (no (unknown) (unknown) Progress Note (units ( unknown) date) unknown) (unknown) (no (unknown) (unknown) Provider: (units (unkn own) date) Isidro Ordaz unknown) P.A-C (unknown) (no (unknown) (unknown) Pulse Oximetry (units (unknown) date) 95 unknown) (unknown) (no (unknown) (unknown) Pulse Rate 75 (units ( unknown) date) unknown) (unknown) (no (unknown) (unknown) Quality (units (unkno wn) date) unknown) (unknown) (no (unknown) (unknown) RBBB (right (units (un known) date) bundle branch unknown) block) (unknown) (no (unknown) (unknown) Resp (units (unkno wn) date) unknown) (unknown) (no (unknown) (unknown) Respiratory Rate (units (unknown) date) 16 unknown) (unknown) (no (unknown) (unknown) Result Diagrams: (units (unknown) date) unknown) (unknown) (no (unknown) (unknown) SOURCE: Hip Lt (units (unknown) date) ENTR: unknown) 08/03/22-[address]: Ghazal Desir (unknown) (no (unknown) (unknown) SPDESC: RECD: (units ( unknown) date) 08/03/22-1530 unknown) SUBM DR: Evelyn Orourke MD (unknown) (no (unknown) (unknown) SPEC #: (units (unkno wn) date) [id number] unknown) ANGEL: 08/03/22 STATUS: RES REQ (unknown) (no (unknown) (unknown) Sarcoid (units (unkno wn) date) neuropathy unknown) (unknown) (no (unknown) (unknown) Sarcoidosis (units (un known) date) unknown) (unknown) (no (unknown) (unknown) Signed (units (unkno wn) date) By:<Electronicall unknown) y signed by Isidro Ordaz> (unknown) (no (unknown) (unknown) Site (units (unkno wn) date) unknown) (unknown) (no (unknown) (unknown) Smoking Status: (units (unknown) date) Never smoker unknown) (unknown) (no (unknown) (unknown) Social History (units (unknown) date) (Reviewed unknown) 08/05/22 @ 07:40 by Isidro Ordaz PA-C) (unknown) (no (unknown) (unknown) Subjective (units (unk nown) date) unknown) (unknown) (no (unknown) (unknown) Surgical History (units (unknown) date) (Reviewed unknown) 08/05/22 @ 07:40 by Isidro Ordaz PA-C) (unknown) (no (unknown) (unknown) Temperature 96 F (units (unknown) date) L unknown) (unknown) (no (unknown) (unknown) Time Patient (units (u nknown) date) Seen: 07:38 unknown) (unknown) (no (unknown) (unknown) VTE (units (unkno wn) date) unknown) (unknown) (no (unknown) (unknown) Vital Signs (units (un known) date) unknown) (unknown) (no (unknown) (unknown) White blood (units (un known) date) cells No WBC seen unknown) (unknown) (no (unknown) (unknown) [Embedded Image (units (unknown) date) Not Available] unknown) (unknown) (no (unknown) (unknown) alcohol intake: (units (unknown) date) current unknown) (unknown) (no (unknown) (unknown) compression (units (un known) date) devices for DVT unknown) prophylaxis. The patient will be discharged home (unknown) (no (unknown) (unknown) hip replacement (units (unknown) date) protocol with unknown) weight bearing as tolerated and anterior and (unknown) (no (unknown) (unknown) household (units (unkn own) date) members: spouse unknown) and children (unknown) (no (unknown) (unknown) occupational (units (u nknown) date) status: other unknown) (Retired) (unknown) (no (unknown) (unknown) p Total Hip (units (un known) date) Arthroplasty unknown) Revision, femoral head component, posterior approach (unknown) (no (unknown) (unknown) posterior hip (units ( unknown) date) precautions. The unknown) patient will receive Aspirin and sequential (unknown) (no (unknown) (unknown) sentences (units (unkn own) date) unknown) (unknown) (no (unknown) (unknown) when safe for (units ( unknown) date) the home unknown) environment. Result panel 183 (unknown) (no (unknown) (unknown) (no value) (units (unk nown) date) unknown) (unknown) (no (unknown) (unknown) (past 8 hours): (units (unknown) date) unknown) (unknown) (no (unknown) (unknown) 07/29/22 13:07 (units (unknown) date) unknown) (unknown) (no (unknown) (unknown) 08/03/22 08:33 (units (unknown) date) unknown) (unknown) (no (unknown) (unknown) 08/03/22 13:16 (units (unknown) date) unknown) (unknown) (no (unknown) (unknown) 08/03/22 18:22 (units (unknown) date) unknown) (unknown) (no (unknown) (unknown) 08/04/22 06:01 (units (unknown) date) unknown) (unknown) (no (unknown) (unknown) 08/04/22 11:37 (units (unknown) date) unknown) (unknown) (no (unknown) (unknown) 08/05/22 1110 (units ( unknown) date) unknown) (unknown) (no (unknown) (unknown) 08/05/22 (units (unkno wn) date) unknown) (unknown) (no (unknown) (unknown) 07:53 08/05/22 (units (unknown) date) unknown) (unknown) (no (unknown) (unknown) 08:05 (units (unkno wn) date) unknown) (unknown) (no (unknown) (unknown) 08:29 08/05/22 (units (unknown) date) unknown) (unknown) (no (unknown) (unknown) 1 - 5 mg PO DAILY (units (unknown) date) unknown) (unknown) (no (unknown) (unknown) 1 puff INHALATION (units (unknown) date) BID unknown) (unknown) (no (unknown) (unknown) 1 tab PO Q6H PRN (units (unknown) date) (Reason: pain) Qty: unknown) 10 0RF (unknown) (no (unknown) (unknown) 1-3 tablets p.o. [...] Spasm) Qty: 0 (unknown) (no (unknown) (unknown) 17 gm PO DAILY PRN (units (unknown) date) (Reason: unknown) Constipation) Qty: 10 0RF (unknown) (no (unknown) (unknown) 2 puff INHALATION (units (unknown) date) Q4-6H PRN (Reason: unknown) Shortness Of Breath) (unknown) (no (unknown) (unknown) 2.5 mg PO WEEKLY (units (unknown) date) unknown) (unknown) (no (unknown) (unknown) 20 mg PO [...] 60 0RF unknown) (unknown) (no (unknown) (unknown) 8 tablets weekly (units (unknown) date) unknown) (unknown) (no (unknown) (unknown) 81 mg PO BID Qty: (units (unknown) date) 60 0RF unknown) (unknown) (no (unknown) (unknown) Abrasion (02/16/21) (unit s (unknown) date) unknown) (unknown) (no (unknown) (unknown) Activity: The (units ( unknown) date) patient will be unknown) maintained on a standard total hip replacement (unknown) (no (unknown) (unknown) Acute on chronic (units (unknown) date) respiratory failure unknown) (unknown) (no (unknown) (unknown) Adrenal (units (unkno wn) date) insufficiency unknown) (unknown) (no (unknown) (unknown) Age/Sex: 67 / F (units (unknown) date) unknown) (unknown) (no (unknown) (unknown) Isidro Ordaz PA-C (units (unknown) date) unknown) (unknown) (no (unknown) (unknown) Anesthesia Type: (units (unknown) date) Spinal unknown) (unknown) (no (unknown) (unknown) Anxiety (units (unkno wn) date) unknown) (unknown) (no (unknown) (unknown) Aspirin for DVT (units (unknown) date) prophylaxis unknown) (unknown) (no (unknown) (unknown) Assessment and Plan (unit s (unknown) date) unknown) (unknown) (no (unknown) (unknown) Assessment: (units (un known) date) unknown) (unknown) (no (unknown) (unknown) Vtc Technician: Vani A (units (unknown) date) Walker unknown) (unknown) (no (unknown) (unknown) Asthma (units (unkno wn) date) unknown) (unknown) (no (unknown) (unknown) Blood Pressure (units (unknown) date) 121/63 121/63 unknown) (unknown) (no (unknown) (unknown) Blood products (units (unknown) date) transfused: none unknown) (unknown) (no (unknown) (unknown) COVID-19 virus (units (unknown) date) infection unknown) (unknown) (no (unknown) (unknown) Cancer (units (unkno wn) date) unknown) (unknown) (no (unknown) (unknown) Chief complaint: (units (unknown) date) Hip pain unknown) (unknown) (no (unknown) (unknown) Chronic pain (units (u nknown) date) disorder unknown) (unknown) (no (unknown) (unknown) TYLER Ordaz, on (units (unknown) date) 08/19/2022 @ 1:10 pm unknown) at [facility] (unknown) (no (unknown) (unknown) Closure Type: (units ( unknown) date) primary unknown) (unknown) (no (unknown) (unknown) Cold/Heat Therapy: (units (unknown) date) Apply ice to hip as unknown) needed (unknown) (no (unknown) (unknown) Comment: (units (unkno wn) date) unknown) (unknown) (no (unknown) (unknown) Consult to (units (unk nown) date) Anesthesiology unknown) Routine (unknown) (no (unknown) (unknown) Consult to (units (unk nown) date) Discharge Planning unknown) Routine (unknown) (no (unknown) (unknown) Consult to (units (unk nown) date) Occupational Therapy unknown) Evaluate + Treat (unknown) (no (unknown) (unknown) Consult to Physical (unit s (unknown) date) Therapy Evaluate + unknown) Treat (unknown) (no (unknown) (unknown) Consulting (units (unk nown) date) Provider: unknown) Anesthesiologist (unknown) (no (unknown) (unknown) Consults: (units (unkn own) date) unknown) (unknown) (no (unknown) (unknown) Continued (units (unkn own) date) unknown) (unknown) (no (unknown) (unknown) : 1955 (units (unknown) date) Acct:[id number] unknown) (unknown) (no (unknown) (unknown) Date Patient Seen: (units (unknown) date) 08/05/22 unknown) (unknown) (no (unknown) (unknown) Date of Service: (units (unknown) date) 08/03/22 unknown) (unknown) (no (unknown) (unknown) Date of admission: (units (unknown) date) unknown) (unknown) (no (unknown) (unknown) Deep Vein (units (unkn own) date) Thrombosis/Pulmonary unknown) Embolism Present on Admission: No (unknown) (no (unknown) (unknown) Depression (units (unk nown) date) unknown) (unknown) (no (unknown) (unknown) Diet/Activity/Treat (unit s (unknown) date) ments unknown) (unknown) (no (unknown) (unknown) Diet: Diet as (units ( unknown) date) Tolerated unknown) (unknown) (no (unknown) (unknown) Discharge (units (unkn own) date) Assessment + Plan unknown) (unknown) (no (unknown) (unknown) Discharge Data (units (unknown) date) unknown) (unknown) (no (unknown) (unknown) Discharge Date: (units (unknown) date) 08/05/22 unknown) (unknown) (no (unknown) (unknown) Discharge (units (unkn own) date) Diagnosis: unknown) (unknown) (no (unknown) (unknown) Discharge Health (units (unknown) date) Status unknown) (unknown) (no (unknown) (unknown) Discharge Plan (units (unknown) date) unknown) (unknown) (no (unknown) (unknown) Discharge Providers (unit s (unknown) date) unknown) (unknown) (no (unknown) (unknown) Discharge Summary (units (unknown) date) unknown) (unknown) (no (unknown) (unknown) Discharge orders + (units (unknown) date) Medications unknown) (unknown) (no (unknown) (unknown) Discharge provider: (unit s (unknown) date) unknown) (unknown) (no (unknown) (unknown) Discharge to (units (u nknown) date) [facility] [facility] facility today. (unknown) (no (unknown) (unknown) Discontinued (units (u nknown) date) unknown) (unknown) (no (unknown) (unknown) Dislocation, hip (units (unknown) date) unknown) (unknown) (no (unknown) (unknown) Easy bruisability (units (unknown) date) unknown) (unknown) (no (unknown) (unknown) Elevated coronary (units (unknown) date) artery calcium score unknown) (unknown) (no (unknown) (unknown) Estimated Blood (units (unknown) date) Loss (mL): 100 unknown) (unknown) (no (unknown) (unknown) Exam Narrative: (units (unknown) date) unknown) (unknown) (no (unknown) (unknown) Exam (units (unkno wn) date) unknown) (unknown) (no (unknown) (unknown) Family History (units (unknown) date) (Reviewed 08/05/22 @ unknown) 11:08 by Isidro Ordaz PA-C) (unknown) (no (unknown) (unknown) Father (units (unknown) date) Aneurysm unknown) (unknown) (no (unknown) (unknown) Fibromyalgia (units (u nknown) date) unknown) (unknown) (no (unknown) (unknown) Findings: (units (unkn own) date) unknown) (unknown) (no (unknown) (unknown) Follow up with (units (unknown) date) [facility] unknown) Orthopedics in 10-14 days. (unknown) (no (unknown) (unknown) Follow (units (unkno wn) date) up/Referrals: unknown) (unknown) (no (unknown) (unknown) Fraction of (units (un known) date) [employer] unknown) (unknown) (no (unknown) (unknown) Frequent falls (units (unknown) date) unknown) (unknown) (no (unknown) (unknown) GERD (units (unkno wn) date) (gastroesophageal unknown) reflux disease) (unknown) (no (unknown) (unknown) H/O total hip (units ( unknown) date) arthroplasty unknown) (04/12/17) (unknown) (no (unknown) (unknown) HTN (hypertension) (units [...] date) biopsy unknown) (unknown) (no (unknown) (unknown) History of total (units (unknown) date) left hip replacement unknown) (02/19/21) (unknown) (no (unknown) (unknown) Hospital Course (units (unknown) date) unknown) (unknown) (no (unknown) (unknown) Hospital Course: (units (unknown) date) unknown) (unknown) (no (unknown) (unknown) Hx of cardiac cath (units (unknown) date) unknown) (unknown) (no (unknown) (unknown) Hx of tonsillectomy (unit s (unknown) date) unknown) (unknown) (no (unknown) (unknown) Hyperlipidemia (units (unknown) date) unknown) (unknown) (no (unknown) (unknown) Hypertension (units (u nknown) date) unknown) (unknown) (no (unknown) (unknown) Hypoxemia (units (unkn own) date) unknown) (unknown) (no (unknown) (unknown) ILD (interstitial (units (unknown) date) lung disease) unknown) (unknown) (no (unknown) (unknown) Indications: (units (u nknown) date) unknown) (unknown) (no (unknown) (unknown) Instructions: DI (units (unknown) date) for Hip Replacement, unknown) DI for Prescription Opioid Use (unknown) (no (unknown) (unknown) [facility] (units (unknown) date) [address] unknown) [place] [address] (unknown) (no (unknown) (unknown) Ghazal Desir, (units (unknown) date) TYLER unknown) (unknown) (no (unknown) (unknown) Label Comments: (units (unknown) date) unknown) (unknown) (no (unknown) (unknown) Labs (units (unkno wn) date) unknown) (unknown) (no (unknown) (unknown) Left total hip (units (unknown) date) arthroplasty with unknown) prior anterior approach with anterior (unknown) (no (unknown) (unknown) Left total hip (units (unknown) date) revision posterior unknown) approach (unknown) (no (unknown) (unknown) [id number] (units (unk nown) date) unknown) (unknown) (no (unknown) (unknown) Medical History (units (unknown) date) (Reviewed 08/05/22 @ unknown) 11:08 by Isidro Ordaz PA-C) (unknown) (no (unknown) (unknown) 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 unknown) Difficult to dislocate even with maximum (unknown) (no (unknown) (unknown) Mother (units (unknown) date) COPD (chronic unknown) obstructive pulmonary disease) (unknown) (no (unknown) (unknown) Multidrug resistant (unit s (unknown) date) organism: No MDRO unknown) (unknown) (no (unknown) (unknown) Multimodal pain (units (unknown) date) management unknown) (unknown) (no (unknown) (unknown) Narrative (units (unkn own) date) unknown) (unknown) (no (unknown) (unknown) Narrative: (units (unk nown) date) unknown) (unknown) (no (unknown) (unknown) New (units (unkno wn) date) unknown) (unknown) (no (unknown) (unknown) Objective (units (unkn own) date) unknown) (unknown) (no (unknown) (unknown) Operative Notes (units (unknown) date) unknown) (unknown) (no (unknown) (unknown) Osteoarthritis (units (unknown) date) unknown) (unknown) (no (unknown) (unknown) Oxygen Delivery (units (unknown) date) Method Room Air unknown) (unknown) (no (unknown) (unknown) Oxygen Flow Rate 0 (units (unknown) date) unknown) (unknown) (no (unknown) (unknown) PFSH (units (unkno wn) date) unknown) (unknown) (no (unknown) (unknown) Patient (units (unkno wn) date) Disposition: SNF unknown) (unknown) (no (unknown) (unknown) Patient admitted (units (unknown) date) for the unknown) above-mentioned procedure. Patient consented to the (unknown) (no (unknown) (unknown) Patient progressing (unit s (unknown) date) status post left unknown) total hip revision posterior approach (unknown) (no (unknown) (unknown) Patient: (units (unkno wn) date) Gita Garcia unknown) MR#: (unknown) (no (unknown) (unknown) Physician (units (unkn own) date) Instructions: unknown) Evaluate and treat (unknown) (no (unknown) (unknown) Physician (units (unkn own) date) Instructions: post unknown) op MALCOLM protocol (unknown) (no (unknown) (unknown) Plan of Treatment: (units (unknown) date) unknown) (unknown) (no (unknown) (unknown) Pneumonia (units (unkn own) date) unknown) (unknown) (no (unknown) (unknown) Prescriptions: (units (unknown) date) unknown) (unknown) (no (unknown) (unknown) Primary Care (units (u nknown) date) Provider: unknown) Ghazal Desir (unknown) (no (unknown) (unknown) Primary care (units (u nknown) date) physician: unknown) (unknown) (no (unknown) (unknown) Prosthetic devices, (unit s (unknown) date) grafts, tissues, unknown) transplants, or devices: (unknown) (no (unknown) (unknown) Provider (units (unkno wn) date) unknown) (unknown) (no (unknown) (unknown) Provider: (units (unkn own) date) Isidro Ordaz P.A-C unknown) (unknown) (no (unknown) (unknown) Pulse Oximetry 95 (units (unknown) date) 97 unknown) (unknown) (no (unknown) (unknown) Pulse Rate 82 78 78 (unit s (unknown) date) unknown) (unknown) (no (unknown) (unknown) Quality (units (unkno wn) date) unknown) (unknown) (no (unknown) (unknown) RBBB (right bundle (units (unknown) date) branch block) unknown) (unknown) (no (unknown) (unknown) Reason for (units (unk nown) date) consultation: unknown) Regional block for post operative pain control (unknown) (no (unknown) (unknown) Reason for (units (unk nown) date) consultation: unknown) Surgeon requested re: Pulmonary (unknown) (no (unknown) (unknown) Reason for (units (unk nown) date) rehabilitation: unknown) Post-operative therapy (unknown) (no (unknown) (unknown) Rehab type: (units (un known) date) Physical therapy and unknown) Occupational therapy (unknown) (no (unknown) (unknown) Report to your (units (unknown) date) healthcare provider unknown) any signs of infection, such as:: chills, (unknown) (no (unknown) (unknown) Respiratory Rate 18 (unit s (unknown) date) 16 unknown) (unknown) (no (unknown) (unknown) Restrictions to (units (unknown) date) mobility: The unknown) patient will be maintained on a standard total hip (unknown) (no (unknown) (unknown) Result Diagrams: (units (unknown) date) unknown) (unknown) (no (unknown) (unknown) Rx Instructions: (units (unknown) date) unknown) (unknown) (no (unknown) (unknown) Same procedure as (units (unknown) date) scheduled: Yes unknown) (unknown) (no (unknown) (unknown) Sarcoid neuropathy (units (unknown) date) unknown) (unknown) (no (unknown) (unknown) Sarcoidosis (units (un known) date) unknown) (unknown) (no (unknown) (unknown) See progress note (units (unknown) date) unknown) (unknown) (no (unknown) (unknown) Signed (units (unkno wn) date) By:<Electronically unknown) signed by Isidro Ordaz> (unknown) (no (unknown) (unknown) Skin/Wound/Dressing (unit s (unknown) date) Care unknown) (unknown) (no (unknown) (unknown) Orourke and nephew 32 (unit s (unknown) date) mm +0 Oxinium head unknown) (unknown) (no (unknown) (unknown) Evelyn Orourke MD (units (unknown) date) [Physician] - As unknown) previously scheduled (Follow up with Isidro (unknown) (no (unknown) (unknown) Smoking Status: (units (unknown) date) Never smoker unknown) (unknown) (no (unknown) (unknown) Social History (units (unknown) date) (Reviewed 08/05/22 @ unknown) 11:08 by Isidro Ordaz PA-C) (unknown) (no (unknown) (unknown) Special (units (unkno wn) date) Rehabilitation unknown) Services (unknown) (no (unknown) (unknown) Specimen(s): other (units (unknown) date) (Cultures) unknown) (unknown) (no (unknown) (unknown) Stand Alone Forms: (units (unknown) date) Patient Portal/API, unknown) Surgery Discharge (unknown) (no (unknown) (unknown) Summary (units (unkno wn) date) unknown) (unknown) (no (unknown) (unknown) Surgeon: Evelyn Root (units (unknown) date) Sharad unknown) (unknown) (no (unknown) (unknown) Surgical History (units (unknown) date) (Reviewed 08/05/22 @ unknown) 11:08 by Isidro Ordaz PA-C) (unknown) (no (unknown) (unknown) Temperature 98.1 F (units (unknown) date) unknown) (unknown) (no (unknown) (unknown) The patient has had (unit s (unknown) date) a history of an unknown) anterior left total hip arthroplasty which (unknown) (no (unknown) (unknown) Time Patient Seen: (units (unknown) date) 11:06 unknown) (unknown) (no (unknown) (unknown) Transfer to: (units (u nknown) date) [facility] unknown) [facility] (unknown) (no (unknown) (unknown) VTE (units (unkno wn) date) unknown) (unknown) (no (unknown) (unknown) Visit (units (unkno wn) date) Report/Discharge unknown) Packet (unknown) (no (unknown) (unknown) Vital Signs (units (un known) date) unknown) (unknown) (no (unknown) (unknown) Waiting final (units ( unknown) date) culture results will unknown) treat appropriately once final. (unknown) (no (unknown) (unknown) Weight-bearing as (units (unknown) date) tolerated, anterior unknown) and posterior hip precautions (unknown) (no (unknown) (unknown) Ghazal Desir, (units (unknown) date) PA-C [Primary Care unknown) Provider] (unknown) (no (unknown) (unknown) [Embedded Image Not (unit s (unknown) date) Available] unknown) (unknown) (no (unknown) (unknown) acetaminophen 325 (units (unknown) date) mg Tablet unknown) (unknown) (no (unknown) (unknown) albuterol sulfate (units (unknown) date) 90 mcg/actuation Hfa unknown) Aerosol Inhaler (unknown) (no (unknown) (unknown) alcohol intake: (units (unknown) date) current unknown) (unknown) (no (unknown) (unknown) amitriptyline 50 mg (unit s (unknown) date) Tablet unknown) (unknown) (no (unknown) (unknown) amlodipine 5 mg (units (unknown) date) Tablet unknown) (unknown) (no (unknown) (unknown) and the patient has (unit s (unknown) date) requested revision unknown) total hip replacement. The risks, (unknown) (no (unknown) (unknown) aspirin 81 mg (units ( unknown) date) Tablet,Delayed unknown) Release (Dr/Ec) (unknown) (no (unknown) (unknown) benefits and (units (u nknown) date) alternatives to unknown) surgery were discussed with the patient prior to (unknown) (no (unknown) (unknown) capsule and soft (units (unknown) date) tissues in the unknown) anterior superior capsule.? Good stability with (unknown) (no (unknown) (unknown) ciclesonide 80 (units (unknown) date) mcg/actuation Hfa unknown) Aerosol Inhaler (unknown) (no (unknown) (unknown) cyclobenzaprine 10 (units (unknown) date) MG tablet unknown) (unknown) (no (unknown) (unknown) damage, deep venous (unit s (unknown) date) thrombosis, unknown) pulmonary embolism, stroke, coma, heart attack, (unknown) (no (unknown) (unknown) discharged to (units ( unknown) date) [facility] facility today. (unknown) (no (unknown) (unknown) fever, night (units (u nknown) date) sweats, increased unknown) pain, unusual drainage and unusual redness (unknown) (no (unknown) (unknown) folic acid 1 mg (units (unknown) date) Tablet unknown) (unknown) (no (unknown) (unknown) gabapentin (units (unk nown) date) [Neurontin] 600 MG unknown) tablet (unknown) (no (unknown) (unknown) hip precaution (units (unknown) date) unknown) (unknown) (no (unknown) (unknown) history of a left (units (unknown) date) foot drop, unknown) degenerative scoliosis, history of sarcoidosis (unknown) (no (unknown) (unknown) household members: (units (unknown) date) spouse and children unknown) (unknown) (no (unknown) (unknown) hydrocodone-acetami (unit s (unknown) date) nophen 5-325 mg unknown) tablet (unknown) (no (unknown) (unknown) hydroxychloroquine (units (unknown) date) [Plaquenil] 200 MG unknown) tablet (unknown) (no (unknown) (unknown) hyperextension (units (unknown) date) extension and unknown) maximum external rotation.? A rent in the anterior (unknown) (no (unknown) (unknown) increased offset (units (unknown) date) with a +0 head, unknown) adequate anterior capsule repair (unknown) (no (unknown) (unknown) instability and (units (unknown) date) history of 3 unknown) dislocations, severe spinal stenosis with a prior (unknown) (no (unknown) (unknown) losartan 50 mg (units (unknown) date) Tablet unknown) (unknown) (no (unknown) (unknown) methotrexate sodium (unit s (unknown) date) 2.5 mg tablet unknown) (unknown) (no (unknown) (unknown) montelukast 10 mg (units (unknown) date) Tablet unknown) (unknown) (no (unknown) (unknown) naproxen sodium 220 (unit s (unknown) date) mg Tablet unknown) (unknown) (no (unknown) (unknown) occupational (units (u nknown) date) status: other unknown) (Retired) (unknown) (no (unknown) (unknown) omeprazole 20 mg (units (unknown) date) Tablet,Delayed unknown) Release (Dr/Ec) (unknown) (no (unknown) (unknown) oxycodone 5 mg (units (unknown) date) Tablet unknown) (unknown) (no (unknown) (unknown) permanent paralysis (unit s (unknown) date) and , as well unknown) as the potential need for eventual (unknown) (no (unknown) (unknown) polyethylene glycol (unit s (unknown) date) 3350 17 gram Powder unknown) In Packet (unknown) (no (unknown) (unknown) precautions. (units (u nknown) date) unknown) (unknown) (no (unknown) (unknown) prednisone 10 mg (units (unknown) date) tablet unknown) (unknown) (no (unknown) (unknown) proceeding. Risks (units (unknown) date) discussed included, unknown) but were not limited to, failure to (unknown) (no (unknown) (unknown) protocol with (units ( unknown) date) weight bearing as unknown) tolerated and anterior and posterior hip (unknown) (no (unknown) (unknown) relieve pain, leg (units (unknown) date) length discrepancy, unknown) dislocation, stiffness, infection, nerve (unknown) (no (unknown) (unknown) replacement protocol (unit s (unknown) date) with weight bearing unknown) as tolerated and anterior and posterior (unknown) (no (unknown) (unknown) revision of the (units (unknown) date) prosthetic. unknown) (unknown) (no (unknown) (unknown) room recovering (units (unknown) date) well as in stable unknown) condition. Cultures pending. Patient will be (unknown) (no (unknown) (unknown) ropinirole 3 mg (units (unknown) date) Tablet unknown) (unknown) (no (unknown) (unknown) same. Patient taken (unit s (unknown) date) operating room on unknown) August 03, 2022. Patient back in her (unknown) (no (unknown) (unknown) take 8 tablets by (units (unknown) date) mouth EVERY WEEK unknown) (unknown) (no (unknown) (unknown) was complicated by (units (unknown) date) 3 anterior unknown) dislocations. Non-operative management has failed Result panel 184 (unknown) (no date) (unknown) (unknown) Negative (units (unkn own) unknown) (unknown) (no date) (unknown) (unknown) Negative (units (unkn own) unknown) Result panel 185 (unknown) (no date) (unknown) (unknown) (no value) (units (un known) unknown) (unknown) (no date) (unknown) (unknown) No cells or (units (u nknown) organisms seen unknown) (unknown) (no date) (unknown) (unknown) No cells or (units (u nknown) organisms seen unknown) (unknown) (no date) (unknown) (unknown) No growth. (units (un known) unknown) Result panel 186 (unknown) (no date) (unknown) (unknown) (no value) (units (un known) unknown) (unknown) (no date) (unknown) (unknown) Few (2-10) (units (un known) unknown) (unknown) (no date) (unknown) (unknown) No WBC seen (units (u nknown) unknown) (unknown) (no date) (unknown) (unknown) No growth. (units (un known) unknown) (unknown) (no date) (unknown) (unknown) No organisms (units ( unknown) seen unknown) (unknown) (no date) (unknown) (unknown) No organisms (units ( unknown) seen unknown) Result panel 187 (unknown) (no date) (unknown) (unknown) 12.4 g/dl (unkn own) (unknown) (no date) (unknown) (unknown) 37.7 % (unkn own) Result panel 188 (unknown) (no (unknown) (unknown) (no value) (units (unk nown) date) unknown) (unknown) (no (unknown) (unknown) (past 8 hours): (units (unknown) date) unknown) (unknown) (no (unknown) (unknown) ADDENDUM (units (u nknown) date) unknown) (unknown) (no (unknown) (unknown) -aspirin 81 mg (units (unknown) date) b.i.d. x6 weeks for unknown) DVT prophylaxis (unknown) (no (unknown) (unknown) -continue with (units (unknown) date) multimodal pain unknown) management (unknown) (no (unknown) (unknown) -mobilize with (units (unknown) date) PT/OT. Maintain unknown) posterior hip precautions x6 weeks. (unknown) (no (unknown) (unknown) -plan: (units (unkno wn) date) unknown) (unknown) (no (unknown) (unknown) -sarcoidosis , (units (unknown) date) anxiety/depression, unknown) fibromyalgia (unknown) (no (unknown) (unknown) -stable status post (unit s (unknown) date) left total hip unknown) arthroplasty revision for multiple (unknown) (no (unknown) (unknown) 07/29/22 13:07 (units (unknown) date) unknown) (unknown) (no (unknown) (unknown) 08/03/22 08:33 (units (unknown) date) unknown) (unknown) (no (unknown) (unknown) 08/03/22 13:16 (units (unknown) date) unknown) (unknown) (no (unknown) (unknown) 08/03/22 18:22 (units (unknown) date) unknown) (unknown) (no (unknown) (unknown) 08/04/22 06:01 (units (unknown) date) unknown) (unknown) (no (unknown) (unknown) 08/04/22 11:37 (units (unknown) date) unknown) (unknown) (no (unknown) (unknown) 08/05/22 1110 (units ( unknown) date) unknown) (unknown) (no (unknown) (unknown) 08/05/22 (units (unkno wn) date) unknown) (unknown) (no (unknown) (unknown) 08/06/22 0800 (units ( unknown) date) unknown) (unknown) (no (unknown) (unknown) 07:53 08/05/22 (units (unknown) date) unknown) (unknown) (no (unknown) (unknown) 08:05 (units (unkno wn) date) unknown) (unknown) (no (unknown) (unknown) 08:29 08/05/22 (units (unknown) date) unknown) (unknown) (no (unknown) (unknown) 1 - 5 mg PO DAILY (units (unknown) date) unknown) (unknown) (no (unknown) (unknown) 1 puff INHALATION (units (unknown) date) BID unknown) (unknown) (no (unknown) (unknown) 1 tab PO Q6H PRN (units (unknown) date) (Reason: pain) Qty: unknown) 10 0RF (unknown) (no (unknown) (unknown) 1-3 tablets p.o. [...] Spasm) Qty: 0 (unknown) (no (unknown) (unknown) 17 gm PO DAILY PRN (units (unknown) date) (Reason: unknown) Constipation) Qty: 10 0RF (unknown) (no (unknown) (unknown) 2 puff INHALATION (units (unknown) date) Q4-6H PRN (Reason: unknown) Shortness Of Breath) (unknown) (no (unknown) (unknown) 2.5 mg PO WEEKLY (units (unknown) date) unknown) (unknown) (no (unknown) (unknown) 20 mg PO [...] 60 0RF unknown) (unknown) (no (unknown) (unknown) 8 tablets weekly (units (unknown) date) unknown) (unknown) (no (unknown) (unknown) 81 mg PO BID Qty: (units (unknown) date) 60 0RF unknown) (unknown) (no (unknown) (unknown) Abrasion (02/16/21) (unit s (unknown) date) unknown) (unknown) (no (unknown) (unknown) Activity: The (units ( unknown) date) patient will be unknown) maintained on a standard total hip replacement (unknown) (no (unknown) (unknown) Acute on chronic (units (unknown) date) respiratory failure unknown) (unknown) (no (unknown) (unknown) Addendum Documented (unit s (unknown) date) By: Vani Root P.A-C unknown) Harpreet (unknown) (no (unknown) (unknown) Addendum Signed By: (unit s (unknown) date) <Electronically unknown) signed by Vani Root P.A-C Walk (unknown) (no (unknown) (unknown) Adrenal (units (unkno wn) date) insufficiency unknown) (unknown) (no (unknown) (unknown) Age/Sex: 67 / F (units (unknown) date) unknown) (unknown) (no (unknown) (unknown) Isidro Ordaz PA-C (units (unknown) date) unknown) (unknown) (no (unknown) (unknown) Anesthesia Type: (units (unknown) date) Spinal unknown) (unknown) (no (unknown) (unknown) Anxiety (units (unkno wn) date) unknown) (unknown) (no (unknown) (unknown) Aspirin for DVT (units (unknown) date) prophylaxis unknown) (unknown) (no (unknown) (unknown) Assessment and Plan (unit s (unknown) date) unknown) (unknown) (no (unknown) (unknown) Assessment: (units (un known) date) unknown) (unknown) (no (unknown) (unknown) Vtc Technician: Vani A (units (unknown) date) Walker unknown) (unknown) (no (unknown) (unknown) Asthma (units (unkno wn) date) unknown) (unknown) (no (unknown) (unknown) Blood Pressure (units (unknown) date) 121/63 121/63 unknown) (unknown) (no (unknown) (unknown) Blood products (units (unknown) date) transfused: none unknown) (unknown) (no (unknown) (unknown) COVID-19 virus (units (unknown) date) infection unknown) (unknown) (no (unknown) (unknown) Cancer (units (unkno wn) date) unknown) (unknown) (no (unknown) (unknown) Chief complaint: (units (unknown) date) Hip pain unknown) (unknown) (no (unknown) (unknown) Chronic pain (units (u nknown) date) disorder unknown) (unknown) (no (unknown) (unknown) TYLER Ordaz, on (units (unknown) date) 08/19/2022 @ 1:10 pm unknown) at [facility] (unknown) (no (unknown) (unknown) Closure Type: (units ( unknown) date) primary unknown) (unknown) (no (unknown) (unknown) Cold/Heat Therapy: (units (unknown) date) Apply ice to hip as unknown) needed (unknown) (no (unknown) (unknown) Comment: (units (unkno wn) date) unknown) (unknown) (no (unknown) (unknown) Consult to (units (unk nown) date) Anesthesiology unknown) Routine (unknown) (no (unknown) (unknown) Consult to (units (unk nown) date) Discharge Planning unknown) Routine (unknown) (no (unknown) (unknown) Consult to (units (unk nown) date) Occupational Therapy unknown) Evaluate + Treat (unknown) (no (unknown) (unknown) Consult to Physical (unit s (unknown) date) Therapy Evaluate + unknown) Treat (unknown) (no (unknown) (unknown) Consulting (units (unk nown) date) Provider: unknown) Anesthesiologist (unknown) (no (unknown) (unknown) Consults: (units (unkn own) date) unknown) (unknown) (no (unknown) (unknown) Continued (units (unkn own) date) unknown) (unknown) (no (unknown) (unknown) DC home today with (units (unknown) date) home health, once unknown) cleared by PT (unknown) (no (unknown) (unknown) : 1955 (units (unknown) date) Acct:[id number] unknown) (unknown) (no (unknown) (unknown) Date Patient Seen: (units (unknown) date) 08/05/22 unknown) (unknown) (no (unknown) (unknown) Date of Service: (units (unknown) date) 08/03/22 unknown) (unknown) (no (unknown) (unknown) Date of admission: (units (unknown) date) unknown) (unknown) (no (unknown) (unknown) Deep Vein (units (unkn own) date) Thrombosis/Pulmonary unknown) Embolism Present on Admission: No (unknown) (no (unknown) (unknown) Depression (units (unk nown) date) unknown) (unknown) (no (unknown) (unknown) Diet/Activity/Treat (unit s (unknown) date) ments unknown) (unknown) (no (unknown) (unknown) Diet: Diet as (units ( unknown) date) Tolerated unknown) (unknown) (no (unknown) (unknown) Discharge (units (unkn own) date) Assessment + Plan unknown) (unknown) (no (unknown) (unknown) Discharge Data (units (unknown) date) unknown) (unknown) (no (unknown) (unknown) Discharge Date: (units (unknown) date) 08/05/22 unknown) (unknown) (no (unknown) (unknown) Discharge (units (unkn own) date) Diagnosis: unknown) (unknown) (no (unknown) (unknown) Discharge Health (units (unknown) date) Status unknown) (unknown) (no (unknown) (unknown) Discharge Plan (units (unknown) date) unknown) (unknown) (no (unknown) (unknown) Discharge Providers (unit s (unknown) date) unknown) (unknown) (no (unknown) (unknown) Discharge Summary (units (unknown) date) unknown) (unknown) (no (unknown) (unknown) Discharge orders + (units (unknown) date) Medications unknown) (unknown) (no (unknown) (unknown) Discharge provider: (unit s (unknown) date) unknown) (unknown) (no (unknown) (unknown) Discharge to (units (u nknown) date) [place] [facility] facility today. (unknown) (no (unknown) (unknown) Discontinued (units (u nknown) date) unknown) (unknown) (no (unknown) (unknown) Dislocation, hip (units (unknown) date) unknown) (unknown) (no (unknown) (unknown) Easy bruisability (units (unknown) date) unknown) (unknown) (no (unknown) (unknown) Elevated coronary (units (unknown) date) artery calcium score unknown) (unknown) (no (unknown) (unknown) Estimated Blood (units (unknown) date) Loss (mL): 100 unknown) (unknown) (no (unknown) (unknown) Exam Narrative: (units (unknown) date) unknown) (unknown) (no (unknown) (unknown) Exam (units (unkno wn) date) unknown) (unknown) (no (unknown) (unknown) Family History (units (unknown) date) (Reviewed 08/05/22 @ unknown) 11:08 by Isidro Ordaz PA-C) (unknown) (no (unknown) (unknown) Father (units (unknown) date) Aneurysm unknown) (unknown) (no (unknown) (unknown) Fibromyalgia (units (u nknown) date) unknown) (unknown) (no (unknown) (unknown) Findings: (units (unkn own) date) unknown) (unknown) (no (unknown) (unknown) Follow up with (units (unknown) date) [facility] unknown) Orthopedics in 10-14 days. (unknown) (no (unknown) (unknown) Follow (units (unkno wn) date) up/Referrals: unknown) (unknown) (no (unknown) (unknown) Fraction of (units (un known) date) [employer] unknown) (unknown) (no (unknown) (unknown) Frequent falls (units (unknown) date) unknown) (unknown) (no (unknown) (unknown) GERD (units (unkno wn) date) (gastroesophageal unknown) reflux disease) (unknown) (no (unknown) (unknown) H/O total hip (units ( unknown) date) arthroplasty unknown) (04/12/17) (unknown) (no (unknown) (unknown) HTN (hypertension) (units [...] date) biopsy unknown) (unknown) (no (unknown) (unknown) History of total (units (unknown) date) left hip replacement unknown) (02/19/21) (unknown) (no (unknown) (unknown) Hospital Course (units (unknown) date) unknown) (unknown) (no (unknown) (unknown) Hospital Course: (units (unknown) date) unknown) (unknown) (no (unknown) (unknown) Hx of cardiac cath (units (unknown) date) unknown) (unknown) (no (unknown) (unknown) Hx of tonsillectomy (unit s (unknown) date) unknown) (unknown) (no (unknown) (unknown) Hyperlipidemia (units (unknown) date) unknown) (unknown) (no (unknown) (unknown) Hypertension (units (u nknown) date) unknown) (unknown) (no (unknown) (unknown) Hypoxemia (units (unkn own) date) unknown) (unknown) (no (unknown) (unknown) ILD (interstitial (units (unknown) date) lung disease) unknown) (unknown) (no (unknown) (unknown) Indications: (units (u nknown) date) unknown) (unknown) (no (unknown) (unknown) Instructions: DI (units (unknown) date) for Hip Replacement, unknown) DI for Prescription Opioid Use (unknown) (no (unknown) (unknown) [facility] (units (unknown) date) [address] [place] [address] unknown) [place] [address] (unknown) (no (unknown) (unknown) Ghazal Desir, (units (unknown) date) TYLER unknown) (unknown) (no (unknown) (unknown) Label Comments: (units (unknown) date) unknown) (unknown) (no (unknown) (unknown) Labs (units (unkno wn) date) unknown) (unknown) (no (unknown) (unknown) Left foot (units (unkn own) date) dorsiflexion is 4- unknown) out of 5 as compared to the right which is 5/5. 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 unknown) Difficult to dislocate even with maximum (unknown) (no (unknown) (unknown) Mother (units (unknown) date) COPD (chronic unknown) obstructive pulmonary disease) (unknown) (no (unknown) (unknown) Multidrug resistant (unit s (unknown) date) organism: No MDRO unknown) (unknown) (no (unknown) (unknown) Multimodal pain (units (unknown) date) management unknown) (unknown) (no (unknown) (unknown) Narrative (units (unkn own) date) unknown) (unknown) (no (unknown) (unknown) Narrative: (units (unk nown) date) unknown) (unknown) (no (unknown) (unknown) New (units (unkno wn) date) unknown) (unknown) (no (unknown) (unknown) Objective (units (unkn own) date) unknown) (unknown) (no (unknown) (unknown) Operative Notes (units (unknown) date) unknown) (unknown) (no (unknown) (unknown) Osteoarthritis (units (unknown) date) unknown) (unknown) (no (unknown) (unknown) Oxygen Delivery (units (unknown) date) Method Room Air unknown) (unknown) (no (unknown) (unknown) Oxygen Flow Rate 0 (units (unknown) date) unknown) (unknown) (no (unknown) (unknown) PFSH (units (unkno wn) date) unknown) (unknown) (no (unknown) (unknown) Patient (units (unkno wn) date) Disposition: SNF unknown) (unknown) (no (unknown) (unknown) Patient admitted (units (unknown) date) for the unknown) above-mentioned procedure. Patient consented to the (unknown) (no (unknown) (unknown) Patient is (units (unk nown) date) complaining of unknown) moderate left hip pain this morning. She notes she (unknown) (no (unknown) (unknown) Patient notes this (units (unknown) date) is her baseline. unknown) Able to wiggle her toes bilaterally, (unknown) (no (unknown) (unknown) Patient progressing (unit s (unknown) date) status post left unknown) total hip revision posterior approach (unknown) (no (unknown) (unknown) Patient: (units (unkno wn) date) Gita Garcia unknown) MR#: (unknown) (no (unknown) (unknown) Physical exam: (units (unknown) date) Pleasant 67-year-old unknown) female, resting comfortably in bed, no (unknown) (no (unknown) (unknown) Physician (units (unkn own) date) Instructions: unknown) Evaluate and treat (unknown) (no (unknown) (unknown) Physician (units (unkn own) date) Instructions: post unknown) op [facility]COLM protocol (unknown) (no (unknown) (unknown) Plan of Treatment: (units (unknown) date) unknown) (unknown) (no (unknown) (unknown) Pneumonia (units (unkn own) date) unknown) (unknown) (no (unknown) (unknown) Prescriptions: (units (unknown) date) unknown) (unknown) (no (unknown) (unknown) Primary Care (units (u wn) date) Provider: unknown) Ghazal Desir (unknown) (no (unknown) (unknown) Primary care (units (u ) date) physician: unknown) (unknown) (no (unknown) (unknown) Prosthetic devices, (unit s (unknown) date) grafts, tissues, unknown) transplants, or devices: (unknown) (no (unknown) (unknown) Provider (units (o wn) date) unknown) (unknown) (no (unknown) (unknown) Provider: (units (unkn own) date) Isidro Ordaz P.A-C unknown) (unknown) (no (unknown) (unknown) Pulse Oximetry 95 (units (unknown) date) 97 unknown) (unknown) (no (unknown) (unknown) Pulse Rate 82 78 78 (unit s (unknown) date) unknown) (unknown) (no (unknown) (unknown) Quality (units (o wn) date) unknown) (unknown) (no (unknown) (unknown) RBBB (right bundle (units (unknown) date) branch block) unknown) (unknown) (no (unknown) (unknown) Reason for (units (unk n) date) consultation: unknown) Regional block for post operative pain control (unknown) (no (unknown) (unknown) Reason for (units (unk ) date) consultation: unknown) Surgeon requested re: Pulmonary (unknown) (no (unknown) (unknown) Reason for (units (k ) date) rehabilitation: unknown) Post-operative therapy (unknown) (no (unknown) (unknown) Rehab type: (units (un known) date) Physical therapy and unknown) Occupational therapy (unknown) (no (unknown) (unknown) Report to your (units (unknown) date) healthcare provider unknown) any signs of infection, such as:: chills, (unknown) (no (unknown) (unknown) Respiratory Rate 18 (unit s (unknown) date) 16 unknown) (unknown) (no (unknown) (unknown) Restrictions to (units (unknown) date) mobility: The unknown) patient will be maintained on a standard total hip (unknown) (no (unknown) (unknown) Result Diagrams: (units (unknown) date) unknown) (unknown) (no (unknown) (unknown) Rx Instructions: (units (unknown) date) unknown) (unknown) (no (unknown) (unknown) Same procedure as (units (unknown) date) scheduled: Yes unknown) (unknown) (no (unknown) (unknown) Sarcoid neuropathy (units (unknown) date) unknown) (unknown) (no (unknown) (unknown) Sarcoidosis (units (un known) date) unknown) (unknown) (no (unknown) (unknown) See progress note (units (unknown) date) unknown) (unknown) (no (unknown) (unknown) Signed (units (unkno wn) date) By:<Electronically unknown) signed by Isidro Ordaz> (unknown) (no (unknown) (unknown) Skin/Wound/Dressing (unit s (unknown) date) Care unknown) (unknown) (no (unknown) (unknown) Chato 32 (unit s (unknown) date) mm +0 Oxinium head unknown) (unknown) (no (unknown) (unknown) Evelyn Orourke MD (units (unknown) date) [Physician] - As unknown) previously scheduled (Follow up with Isidro (unknown) (no (unknown) (unknown) Smoking Status: (units (unknown) date) Never smoker unknown) (unknown) (no (unknown) (unknown) Social History (units (unknown) date) (Reviewed 08/05/22 @ unknown) 11:08 by Isidro Ordaz PA-C) (unknown) (no (unknown) (unknown) Special (units (unkno wn) date) Rehabilitation unknown) Services (unknown) (no (unknown) (unknown) Specimen(s): other (units (unknown) date) (Cultures) unknown) (unknown) (no (unknown) (unknown) Stand Alone Forms: (units (unknown) date) Patient Portal/API, unknown) Surgery Discharge (unknown) (no (unknown) (unknown) Summary (units (unkno wn) date) unknown) (unknown) (no (unknown) (unknown) Surgeon: Evelyn Root (units (unknown) date) Sharad unknown) (unknown) (no (unknown) (unknown) Surgical History (units (unknown) date) (Reviewed 08/05/22 @ unknown) 11:08 by Isidro Ordaz PA-C) (unknown) (no (unknown) (unknown) Temperature 98.1 F (units (unknown) date) unknown) (unknown) (no (unknown) (unknown) The patient has had (unit s (unknown) date) a history of an unknown) anterior left total hip arthroplasty which (unknown) (no (unknown) (unknown) Time Patient Seen: (units (unknown) date) 11:06 unknown) (unknown) (no (unknown) (unknown) Transfer to: (units (u nknown) date) [facility] unknown) [facility] (unknown) (no (unknown) (unknown) VTE (units (unkno wn) date) unknown) (unknown) (no (unknown) (unknown) Visit (units (unkno wn) date) Report/Discharge unknown) Packet (unknown) (no (unknown) (unknown) Vital Signs (units (un known) date) unknown) (unknown) (no (unknown) (unknown) Waiting final (units ( unknown) date) culture results will unknown) treat appropriately once final. (unknown) (no (unknown) (unknown) Weight-bearing as (units (unknown) date) tolerated, anterior unknown) and posterior hip precautions (unknown) (no (unknown) (unknown) Weightbearing as (units (unknown) date) tolerated with front unknown) wheel walker or cane. (unknown) (no (unknown) (unknown) Ghazal Desir, (units (unknown) date) BOBBI-C [Primary Care unknown) Provider] (unknown) (no (unknown) (unknown) [Embedded Image Not (unit s (unknown) date) Available] unknown) (unknown) (no (unknown) (unknown) acetaminophen 325 (units (unknown) date) mg Tablet unknown) (unknown) (no (unknown) (unknown) acute distress. (units (unknown) date) Left hip dressing unknown) demonstrates scant bloody discharge, no (unknown) (no (unknown) (unknown) albuterol sulfate (units (unknown) date) 90 mcg/actuation Hfa unknown) Aerosol Inhaler (unknown) (no (unknown) (unknown) alcohol intake: (units (unknown) date) current unknown) (unknown) (no (unknown) (unknown) amitriptyline 50 mg (unit s (unknown) date) Tablet unknown) (unknown) (no (unknown) (unknown) amlodipine 5 mg (units (unknown) date) Tablet unknown) (unknown) (no (unknown) (unknown) and the patient has (unit s (unknown) date) requested revision unknown) total hip replacement. The risks, (unknown) (no (unknown) (unknown) aspirin 81 mg (units ( unknown) date) Tablet,Delayed unknown) Release (Dr/Ec) (unknown) (no (unknown) (unknown) available after (units (unknown) date) work only. She is unknown) anxious throughout the exam today. (unknown) (no (unknown) (unknown) benefits and (units (u nknown) date) alternatives to unknown) surgery were discussed with the patient prior to (unknown) (no (unknown) (unknown) biggest concern is (units (unknown) date) at [facility]) facility was denied upon discharge. The (unknown) (no (unknown) (unknown) capsule and soft (units (unknown) date) tissues in the unknown) anterior superior capsule.? Good stability with (unknown) (no (unknown) (unknown) ciclesonide 80 (units (unknown) date) mcg/actuation Hfa unknown) Aerosol Inhaler (unknown) (no (unknown) (unknown) cyclobenzaprine 10 (units (unknown) date) MG tablet unknown) (unknown) (no (unknown) (unknown) damage, deep venous (unit s (unknown) date) thrombosis, unknown) pulmonary embolism, stroke, coma, heart attack, (unknown) (no (unknown) (unknown) discharged to (units ( unknown) date) [facility] facility today. (unknown) (no (unknown) (unknown) dislocations (units (u nknown) date) unknown) (unknown) (no (unknown) (unknown) er> 08/06/22 0800 (units (unknown) date) unknown) (unknown) (no (unknown) (unknown) fever, night (units (u nknown) date) sweats, increased unknown) pain, unusual drainage and unusual redness (unknown) (no (unknown) (unknown) folic acid 1 mg (units (unknown) date) Tablet unknown) (unknown) (no (unknown) (unknown) gabapentin (units (unk nown) date) [Neurontin] 600 MG unknown) tablet (unknown) (no (unknown) (unknown) has a longstanding (units (unknown) date) partial left foot unknown) drop since her previous foot surgery. Her (unknown) (no (unknown) (unknown) hip precaution (units (unknown) date) unknown) (unknown) (no (unknown) (unknown) history of a left (units (unknown) date) foot drop, unknown) degenerative scoliosis, history of sarcoidosis (unknown) (no (unknown) (unknown) household members: (units (unknown) date) spouse and children unknown) (unknown) (no (unknown) (unknown) hydrocodone-acetami (unit s (unknown) date) nophen 5-325 mg unknown) tablet (unknown) (no (unknown) (unknown) hydroxychloroquine (units (unknown) date) [Plaquenil] 200 MG unknown) tablet (unknown) (no (unknown) (unknown) hyperextension (units (unknown) date) extension and unknown) maximum external rotation.? A rent in the anterior (unknown) (no (unknown) (unknown) increased offset (units (unknown) date) with a +0 head, unknown) adequate anterior capsule repair (unknown) (no (unknown) (unknown) instability and (units (unknown) date) history of 3 unknown) dislocations, severe spinal stenosis with a prior (unknown) (no (unknown) (unknown) losartan 50 mg (units (unknown) date) Tablet unknown) (unknown) (no (unknown) (unknown) methotrexate sodium (unit s (unknown) date) 2.5 mg tablet unknown) (unknown) (no (unknown) (unknown) montelukast 10 mg (units (unknown) date) Tablet unknown) (unknown) (no (unknown) (unknown) naproxen sodium 220 (unit s (unknown) date) mg Tablet unknown) (unknown) (no (unknown) (unknown) nontender to (units (u nknown) date) palpation. unknown) (unknown) (no (unknown) (unknown) occupational (units (u nknown) date) status: other unknown) (Retired) (unknown) (no (unknown) (unknown) omeprazole 20 mg (units (unknown) date) Tablet,Delayed unknown) Release (Dr/Ec) (unknown) (no (unknown) (unknown) oxycodone 5 mg (units (unknown) date) Tablet unknown) (unknown) (no (unknown) (unknown) permanent paralysis (unit s (unknown) date) and , as well unknown) as the potential need for eventual (unknown) (no (unknown) (unknown) plan is to get her (units (unknown) date) home with home unknown) health, her is not very supportive and (unknown) (no (unknown) (unknown) polyethylene glycol (unit s (unknown) date) 3350 17 gram Powder unknown) In Packet (unknown) (no (unknown) (unknown) precautions. (units (u nknown) date) unknown) (unknown) (no (unknown) (unknown) prednisone 10 mg (units (unknown) date) tablet unknown) (unknown) (no (unknown) (unknown) proceeding. Risks (units (unknown) date) discussed included, unknown) but were not limited to, failure to (unknown) (no (unknown) (unknown) protocol with (units ( unknown) date) weight bearing as unknown) tolerated and anterior and posterior hip (unknown) (no (unknown) (unknown) relieve pain, leg (units (unknown) date) length discrepancy, unknown) dislocation, stiffness, infection, nerve (unknown) (no (unknown) (unknown) replacement protocol (unit s (unknown) date) with weight bearing unknown) as tolerated and anterior and posterior (unknown) (no (unknown) (unknown) revision of the (units (unknown) date) prosthetic. unknown) (unknown) (no (unknown) (unknown) room recovering (units (unknown) date) well as in stable unknown) condition. Cultures pending. Patient will be (unknown) (no (unknown) (unknown) ropinirole 3 mg (units (unknown) date) Tablet unknown) (unknown) (no (unknown) (unknown) same. Patient taken (unit s (unknown) date) operating room on unknown) August 03, 2022. Patient back in her (unknown) (no (unknown) (unknown) sensation is (units (u nknown) date) grossly intact to unknown) light touch bilaterally, calves are soft and (unknown) (no (unknown) (unknown) she is worried (units (unknown) date) about his caregiving unknown) skills. She does have a son that is (unknown) (no (unknown) (unknown) surrounding (units (un known) date) erythema, unknown) induration, or donavan pus. Bilateral lower extremity: (unknown) (no (unknown) (unknown) take 8 tablets by (units (unknown) date) mouth EVERY WEEK unknown) (unknown) (no (unknown) (unknown) was complicated by (units (unknown) date) 3 anterior unknown) dislocations. Non-operative management has failed Result panel 189 (unknown) (no date) (unknown) (unknown) (no value) (units (un known) unknown) (unknown) (no date) (unknown) (unknown) No cells or (units (u nknown) organisms seen unknown) (unknown) (no date) (unknown) (unknown) No cells or (units (u nknown) organisms seen unknown) (unknown) (no date) (unknown) (unknown) No growth. (units (un known) unknown) Result panel 190 (unknown) (no date) (unknown) (unknown) (no value) (units (un known) unknown) (unknown) (no date) (unknown) (unknown) Few (2-10) (units (un known) unknown) (unknown) (no date) (unknown) (unknown) No WBC seen (units (u nknown) unknown) (unknown) (no date) (unknown) (unknown) No growth. (units (un known) unknown) (unknown) (no date) (unknown) (unknown) No organisms (units ( unknown) seen unknown) (unknown) (no date) (unknown) (unknown) No organisms (units ( unknown) seen unknown) Social History date description facility 2022-07-07 00:00 Never smoked tobacco (finding) [facility] 2022-08-03 00:00 Never smoked tobacco (finding) [facility] Vital Signs date measurement value units 2022-07-07 00:00 BMI 26.5 kg/m2 2022-07-07 00:00 BP_diastolic 90 mmHg 2022-07-07 00:00 BP_systolic 157 mmHg 2022-07-07 00:00 heart_rate 79 /min 2022-07-07 00:00 height_metric 160.02 cm 2022-07-07 00:00 height_standard 63 in 2022-07-07 00:00 o2_saturation 96 % 2022-07-07 00:00 respiration_rate 24 /min 2022-07-07 00:00 temperature_metric 36.72 C 2022-07-07 00:00 temperature_standard 98.1 F 2022-07-07 00:00 weight_metric 68.03 kg 2022-07-07 00:00 weight_standard 149.98 lb 2022-08-03 00:00 BMI 26.2 kg/m2 2022-08-03 00:00 height_metric 160.02 cm 2022-08-03 00:00 height_standard 63 in 2022-08-03 00:00 weight_metric 67.13 kg 2022-08-03 00:00 weight_standard 148 lb 2022-08-06 00:00 BP_diastolic 66 mmHg 2022-08-06 00:00 BP_systolic 127 mmHg 2022-08-06 00:00 heart_rate 72 /min 2022-08-06 00:00 o2_saturation 97 % 2022-08-06 00:00 respiration_rate 16 /min 2022-08-06 00:00 temperature_metric 36.72 C 2022-08-06 00:00 temperature_standard 98.1 F
[2022-08-07 00:24] LABS: MUDS CUTOFF CONCENTRATIONS CUTOFF CONC BELOW:
[2022-08-07 00:26] LABS: BILIRUBIN,URINE NEGATIVE (NEGATIVE); GLUCOSE, URINE (UA) NEGATIVE (NEGATIVE); KETONES,URINE (UA) NEGATIVE (NEGATIVE); LEUKOCYTE ESTERASE, URINE NEGATIVE (NEGATIVE); NITRITE,URINE NEGATIVE (NEGATIVE); OCCULT BLOOD,URINE NEGATIVE (NEGATIVE); PROTEIN,URINE NEGATIVE (NEGATIVE); UROBILINOGEN,URINE 0.2 (NORMAL) E.U./dL (NORMAL)
[2022-08-07 00:28] LABS: CLARITY,URINE CLEAR (CLEAR)
[2022-08-07 00:37] LABS: AMPHETAMINE SCREEN,URINE NEGATIVE (NEGATIVE); BARBITURATE SCREEN,UR NEGATIVE (NEGATIVE); BENZODIAZEPINES SCREEN, URINE NEGATIVE (NEGATIVE); COCAINE SCREEN URINE NEGATIVE (NEGATIVE); METHADONE SCREEN, URINE NEGATIVE (NEGATIVE); METHAMPHETAMINES SCREEN, URINE NEGATIVE (NEGATIVE); OPIATE SCREEN, URINE NEGATIVE (NEGATIVE); OXYCODONE SCREEN, URINE POSITIVE (NEGATIVE); PROPOXYPHENE SCREEN, URINE NEGATIVE (NEGATIVE); THC CANNABINOID SCREEN, URINE NEGATIVE (NEGATIVE); TRICYCLIC ANTIDEPRESSANT,URINE POSITIVE (NEGATIVE)
[2022-08-07 01:27] LABS: ACETAMINOPHEN < 10 ug/mL (10-30); ALBUMIN 3.4 g/dL (3.2-5.5); ALBUMIN/GLOBULIN RATIO 1.3 (1.0-2.2); ALKALINE PHOSPHATASE 70 IU/L (42-121); ALT ALANINE AMINOTRANSFERASE 19 IU/L (10-60); AST ASPARTATE AMINOTRANSFERASE 27 IU/L (10-42); BILIRUBIN,TOTAL 0.6 mg/dL (0.2-1.0); BUN - BLOOD UREA NITROGEN 24 mg/dL (6-20); CALCIUM 8.9 mg/dL (8.5-10.3); CARBON DIOXIDE - CO2 24 mmol/L (21-32); CHLORIDE 103 mmol/L (101-111); CREATININE 0.6 mg/dL (0.4-1.0); ETOH - ETHANOL < 5.0 mg/dL; GFR - MDRD 99 (>89); GLUCOSE 81 mg/dL (70-100); LIPASE 24 U/L (22-51); POTASSIUM 3.9 mmol/L (3.5-5.0); SALICYLATE < 6.0 mg/dL; SODIUM 140 mmol/L (135-145); TOTAL PROTEIN 6.1 g/dL (6.7-8.2)
[2022-08-07 01:34] LABS: BASOPHILS % (AUTO) 0.3 %; EOSINOPHILS # (AUTO) 0.1 10^3/uL (0.0-0.7); EOSINOPHILS % (AUTO) 0.7 %; HCT - HEMATOCRIT 40.2 % (37.0-47.0); HGB - HEMOGLOBIN 12.7 g/dL (12.0-16.0); LYMPHOCYTES # (AUTO) 1.5 10^3/uL (1.5-3.5); MEAN CORPUSCULAR HEMOGLOBIN 30.5 pg (27.0-31.0); MEAN CORPUSCULAR HGB CONC 31.6 g/dL (32.0-36.0); MEAN CORPUSCULAR VOLUME 96.4 fL (81.0-99.0); MONOCYTES # (AUTO) 1.1 10^3/uL (0.0-1.0); MONOCYTES % (AUTO) 9.4 %; NEUTROPHILS # (AUTO) 8.7 10^3/uL (1.5-6.6); NEUTROPHILS % (AUTO) 75.6 %; PLT - PLATELET COUNT 285 10^3/uL (130-450); RED BLOOD COUNT 4.17 10^6/uL (4.20-5.40); RED CELL DISTRIBUTION WIDTH 16.2 % (12.0-15.0); WHITE BLOOD COUNT 11.5 x10^3/uL (4.8-10.8)
[2022-08-07] MEDS ORDERED: oxyCODONE 5 MG TABLET PO STA ×2 (02:40→09:14)
[2022-08-07] MEDS ORDERED: LORazepam 0.5 MG TABLET PO STA ×2 (02:40→09:14)
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
[2022-08-07] MEDS ORDERED: LORazepam 0.5 MG TABLET PO PRN (18:37)
[2022-08-07] MEDS ORDERED: traZODone 50 MG TABLET PO PRN (19:39)
[2022-08-07] MEDS: oxyCODONE 5 MG TABLET PO PRN (20:19)
[2022-08-08] MEDS: oxyCODONE 5 MG TABLET PO PRN ×3 (02:27→17:24)
--- NOTE | 2022-08-08 09:17 | ED Physician Documentation ---
ED Addendum - Addendum Addendum: 08/08/22 09:16 Patient seen and examined at bedside. She is cooperative. Mostly uncomfortable from her left hip surgery recently and would like to get up to a chair which I asked the health ammunition assembly ii laborer to arrange. I asked her if she was still suicidal and she vacillated and said "you can never tell." Objective: Vital signs reviewed with mild hypertension General, comfortable in bed and in no distress Assessment: 1. Suicidal ideation: Telemetry psychiatric consultation recommends inpatient treatment. Currently voluntary but same consultation recommends [facility] if becoming involuntary. Multiple referrals have been made without success so far. Today being Tuesday I doubt she will be dispositioned today.
[2022-08-09 09:25] VITALS: BP 124/58
[2022-08-09] MEDS: oxyCODONE 5 MG TABLET PO PRN ×2 (09:56→16:43)
[2022-08-09] MEDS ORDERED: predniSONE 20 MG TABLET PO STA (15:16)
[2022-08-09] MEDS ORDERED: SUMAtriptan 6 MG/0.5 ML VIAL SUBQ STA (15:16)
--- NOTE | 2022-08-09 15:58 | ED Physician Documentation ---
ED Addendum - Addendum Addendum: 08/09/22 15:56 The [facility], [facility], came and evaluated the patient, does not feel that the patient meets criteria for involuntary detainment. The patient would like to try going home at this time. She would like to try staying on the trazodone, Ativan as needed and following up with her doctor. Patient is able to safety planning and states that she will be able to keep herself safe. She does request the trazodone, Ativan and a refill of her prednisone. Patient counseled regarding signs and symptoms for which I believe and urgent re-evaluation would be necessary. Patient with good understanding of and agreement to plan and is comfortable going home at this time This document was made in part using voice recognition software. While efforts are made to proofread this document, sound alike and grammatical errors may occur. Departure - Departure Disposition: Home, Self Care Clinical Impression: Anxiety Depression Qualifiers: Depression Type: unspecified Qualified Code(s): F32.A - Depression, unspecified Condition: Good Instructions: ED Depression Follow-Up: Provider,Other [Primary Care Provider] - Within 3 Days Prescriptions: LORazepam [Ativan] 0.5 mg PO BID PRN #14 tablet PRN Reason: Anxiety predniSONE [Deltasone] 10 mg PO DAILY #30 tablet traZODone [Desyrel] 50 mg PO HS #14 tablet Comments: Your prescriptions were sent to [facility] in [place]. Please follow-up with your doctor for further care. Please return if you worsen. Please follow-up as instructed by Jaimie tan forensic social worker and [facility] today. Discharge Date/Time: 08/09/22 17:40
== END 2022-08-09 17:40 | disposition home or self-care (01) ==
LOC: ED 23:54
DX: R45.851 Suicidal ideations (principal); F41.9 Anxiety disorder, unspecified; F32.A Depression, unspecified; F43.23 Adjustment disorder with mixed anxiety and depressed mood
CPT/HCPCS: 36415; 80053; 80306; 80307; 81003; 83690; 84443; 85025; 96372; 99283; 99284; A9270; G0426; G0480; J7512; Q3014; 80320; 80329; 81001; 87086; 90834

== ENCOUNTER 2023-02-16 08:59 | Outpatient (CLI) | payer MEDICARE, OTHER ==
--- NOTE | 2023-02-16 14:08 | XRAY Report ---
PROCEDURE: Chest 2 View X-Ray INDICATIONS: SOB TECHNIQUE: 2 views of the chest were acquired. COMPARISON: None. FINDINGS: Surgical changes and devices: None. Lungs and pleura: Hyperinflation and chronic interstitial changes without focal infiltrate. Elevated right hemidiaphragm Mediastinum: Mediastinal contours appear normal. Heart size is normal. Bones and chest wall: No suspicious bony lesions. Overlying soft tissues appear unremarkable. IMPRESSION: Hyperinflation and chronic interstitial changes Reviewed by: Brandin Montana MD on 02/16/2023 1:06 PM AKDT Approved by: Brandin Montana MD on 02/16/2023 1:06 PM AKDT Station ID: [id number]
== END 2023-02-16 09:00 | disposition home or self-care (01) ==
LOC: DI 08:59
PROVIDERS: ATTEND Internal Medicine Pulmonary Disease
DX: R09.02 Hypoxemia (principal)

== ENCOUNTER 2023-07-07 08:50 | Outpatient (CLI) | payer MEDICARE ==
--- NOTE | 2023-07-08 09:41 | Mammography Report ---
BILATERAL DIGITAL SCREENING MAMMOGRAM 3D/2D: 07/07/2023 CLINICAL: Routine screening. Comparison is made to exams dated: 09/11/2020 mammogram, 06/22/2019 mammogram, and 06/01/2016 mammogra m - [facility]. There are scattered areas of fibroglandular density in both breasts (category b / 25%-50% glandular t issue). No significant masses, calcifications, or other findings are seen in either breast. There has been no significant interval change. IMPRESSION: NEGATIVE There is no mammographic evidence of malignancy. A 1 year screening mammogram is recommended. Based on the Tyrer Cuzick model (a risk assessment model) the patients lifetime risk is 2.9% and her 10 year risk is 1.7%. According to the ACR, ACS, and NCCN guidelines, an annual breast MRI exam charli g with mammogram is recommended if the patients lifetime risk is 20% or greater. This exam was interpreted at Station ID: [id number]. NOTE: For mammograms, a report in lay terms will be sent to the patient. Approximately 15% of breast malignancies will not be visualized mammographically. In the management of a palpable breast mass, a negative mammogram must not discourage biopsy of a clinically suspicious lesion. Electronically Signed By: Aleks laird/rosemary:07/07/2023 12:46:48 letter sent: No_Letter ACR BI-RADS Category 1: Negative 3341F PARENCHYMAL PATTERN: (A) - The breast(s) demonstrate(s) scattered fibroglandular densities. BI-RADS CATEGORY: (1) - 1 Mammogram [id number] 1 year screening LATERALITY: (B)
== END 2023-07-07 08:51 | disposition home or self-care (01) ==
LOC: DI.N 08:50
DX: Z12.31 Encounter for screening mammogram for malignant neoplasm of breast (principal); R92.323 Mammographic fibroglandular density, bilateral breasts

== ENCOUNTER 2023-12-01 07:50 | Day surgery (SDC) | payer MEDICARE ==
[2023-12-01] MEDS: LACTATED RINGERS 1,000 ML IV ONE ×2 (08:08→10:27)
[2023-12-01] MEDS: PROPARACAINE 0.5% OPHTH DROPS 15 ML ONE (08:11)
[2023-12-01] MEDS: KETOROLAC 0.45% OPHTH DROPS ONE (08:17)
[2023-12-01] MEDS: PHENYLEPHRINE 2.5% OPHTH 2 ML DROPS ONE (08:18)
--- NOTE | 2023-12-01 08:55 | ANESTHESIA ---
Pre-Anesthesia VS, & Labs - Diagnosis R cataract - Procedure R PhacoIOL Vital Signs: Temp Pulse Resp BP Pulse Ox O2 Flow Rate 36.9 C 68 15 119/71 99 12/01/23 08:17 12/01/23 08:17 12/01/23 08:17 12/01/23 08:17 12/01/23 08:17 Height: 5 ft 3 in Weight (kg): 66.1 kg Body Mass Index: 25.8 BMI Classification: Overweight - NPO >8 hours - Is Patient ?: No Home Medications and Allergies Gabapentin 600 mg PO DAILY 01/19/14 Hydroxychloroquine [Plaquenil] 400 mg PO DAILY 01/19/14 Magnesium Oxide 500 mg PO DAILY PRN 01/19/14 Melatonin/Pyridoxine [Melatonin 3 mg Tablet] 1 tab PO DAILY PRN 01/19/14 Albuterol Sulfate [Proair Respiclick] 2 puffs IH TID PRN 05/28/20 Amitriptyline [Elavil] 50 mg PO QPM 05/28/20 Ciclesonide [Alvesco] 1 puffs INH BID PRN 05/28/20 Folic Acid 2 tab PO DAILY 05/28/20 Gabapentin 1,200 mg PO QPM 05/28/20 Meloxicam [Mobic] 7.5 mg PO BID 05/28/20 Montelukast [Singulair] 10 mg PO HS 05/28/20 Omeprazole [PriLOSEC] 20 mg PO BID 05/28/20 Ropinirole HCl [Requip] 3 mg PO QPM 05/28/20 predniSONE [Deltasone] 40 mg PO DAILY 05/28/20 Aspirin EC [Ecotrin] 1 tab PO BID 08/09/22 Losartan [Cozaar] 1 tab PO BID 08/09/22 Methotrexate [Methotrexate Sodium] 8 tab PO Q7D 08/09/22 amLODIPine [Norvasc] 1 tab PO BID 08/09/22 oxyCODONE [Roxicodone] 1 tab PO Q6H PRN 08/09/22 Allergies/Adverse Reactions: Allergies Allergy/AdvReac Type Severity Reaction Status Date / Time No Known Drug Allergies Allergy Verified 08/07/22 00:13 Anes History & Medical History - Anesthetic History Anesthesia Complications: reports: No previous complications Family history of Anesthesia Complications: Denies Family history of Malignant Hyperthermia: Denies - Medical History Cardiovascular: reports: Hypertension Pulmonary: reports: Asthma, Other (sarcoidosis) Gastrointestinal: reports: GERD Urinary: reports: None Neuro: reports: Tremors Musculoskeletal: reports: Osteoarthritis, Rheumatoid arthritis Endocrine/Autoimmune: reports: None Blood Disorders: reports: None Skin: reports: None Smoking Status: Never smoker Psychosocial: reports: No issues indicated History of Cancer?: No - Surgical History Eyes Ears Nose Throat (EENT): reports: Tonsil/Adenoidectomy Cardiothoracic: reports: Cardiac catheterization Gynecologic: reports: Hysterectomy Orthopedic: reports: Hip replacement Exam General: Alert, Oriented x3, Cooperative Dental: WNL Mouth Openin Fingerbreadth Neck Mobility: Normal Mallampati classification: II Thyromental Distance: 4-6 cm Respiratory: Lungs clear Cardiovascular: Regular rate Plan Anesthesia Type: MAC Consent for Procedure(s) Verified and Reviewed: Yes Code Status: Attempt Resuscitation ASA classification: 3-Severe systemic disease Is this case an emergency?: No
[2023-12-01] MEDS ORDERED: BSS/LIDOCAINE/EPINEPHRINE 1 ML VIAL ONE (09:02)
[2023-12-01] MEDS ORDERED: TIMOLOL 0.5% OPHTH DROPS ONE (09:02)
[2023-12-01] MEDS ORDERED: TRIAMCIN/MOXIFLOX OPHTHALMIC 0.6 ML VIAL IO ONE (09:02)
[2023-12-01] MEDS ORDERED: BRIMONIDINE 0.2% OPHTH DROPS 5 ML ONE (09:02)
[2023-12-01] MEDS ORDERED: EPINEPHrine 1 MG/ML AMP ONE (09:02)
[2023-12-01] MEDS ORDERED: MIDAZOLAM 2 MG/2 ML VIAL ONE (09:12)
[2023-12-01] MEDS: BRIMONIDINE 0.2% OPHTH DROPS 5 ML OPTH ONE (09:27)
[2023-12-01] MEDS: VANCOMYCIN OPHTH (TOPICAL) 10 MG/ML SYRINGE TOP ONE (09:28)
[2023-12-01] MEDS: TIMOLOL 0.5% OPHTH DROPS OPTH ONE (09:28)
[2023-12-01] MEDS: EPINEPHrine 1 MG/ML AMP IR ONE (09:28)
[2023-12-01] MEDS: TRIAMCIN/MOXIFLOX OPHTHALMIC 0.6 ML VIAL IO ONE (09:28)
[2023-12-01] MEDS: PROPARACAINE 0.5% OPHTH DROPS 15 ML RIGHTEYE ONE (09:28)
[2023-12-01] MEDS: BSS/LIDOCAINE/EPINEPHRINE 1 ML SYRINGE IO ONE (09:28)
[2023-12-01] MEDS ORDERED: fentaNYL 100 MCG/2 ML VIAL ONE (09:32)
[2023-12-01 09:45] VITALS: O2SAT 96
--- NOTE | 2023-12-01 09:46 | OPERATIVE REPORT ---
Operative Report - Other Other Information/Narrative: Date of Surgery: 12/01/23 Preop Dx: Visually significant cataract right eye. This was the first cataract surgery. Postop Dx: Same Procedure: Phacoemulsification with posterior chamber intraocular lens implant right eye Surgeon: Dr. Emery Bettencourt Anesthesia: Monitored anesthesia care Complications: None Operative Indications: This is a 68-year-old F with progressive vision loss in the right eye due to 2+ nuclear sclerotic and trace posterior subcapsular cataract. Best corrected visual acuity was 20/40 with glare to 20/80 vision in the right eye. Indications for surgery were: - Overall decrease in vision - Difficulty seeing words on a computer screen - Difficulty reading - Difficulty seeing words, closed captions, or game scores on TV - Difficulty driving in low light or at night - Difficulty driving at night because of headlights from other vehicles - Difficulty with glare or bright lights in any situation The patient was consented at length concerning the risks and benefits of cataract surgery after which the patient expressed a desire to proceed with surgery. Operative Procedure: The patient was taken into OR#3 and placed under monitored anesthesia care. A surgical time-out was conducted confirming correct patient, correct procedure, and correct surgical site. The patient was given topical anesthesia and then prepped and draped in the usual sterile fashion. The eye was entered at the 6 and 3 oclock positions. Intracameral Shugarcaine was injected into the anterior chamber followed by a dispersive viscoelastic. A continuous-tear curvilinear capsulorhexis was performed. The nucleus was hydrodissected and phacoemulsified. The cortex was evacuated using automated infusion and aspiration. A cohesive viscoelastic was injected into the capsular bag and a 23.5 diopter intraocular lens was inserted into the bag. Infusion and aspiration were used to evacuate the viscoelastic materials from the eye. The wounds were hydrated and the eye inflated to physiologic pressure using balanced salt solution. Approximately 0.25ml of a mixture of triamcinolone and mo xifloxacin was injected trans-sclerally into the vitreous in the inferotemporal quadrant using a 30 gauge cannula. An additional 0.25ml of a mixture of triamcinolone and moxifloxacin was injected subconjunctivally in the superior quadrant for infection and inflammation prophylaxis. Wound integrity was checked with Weck-Taylor sponges. The patient was taken from the operating room in good condition and given post-op instructions.
[2023-12-01] MEDS ORDERED: ACETAMINOPHEN 500 MG TABLET PO ONE (09:49)
[2023-12-01] MEDS: ACETAMINOPHEN 500 MG TABLET PO PRN (09:50)
[2023-12-01 10:05] VITALS: BP 106/61
--- NOTE | 2023-12-01 12:53 | ANESTHESIA POST OP EVALUATION ---
Anesthesia Post Eval - Post Anesthesia Eval Vitals: Last Vital Signs Temp 36.7 C 12/01/23 09:59 Pulse 66 12/01/23 09:59 Resp 16 12/01/23 09:59 BP 106/61 12/01/23 09:59 Pulse Ox 96 12/01/23 09:59 O2 Flow Rate CV Function Including HR & BP: Stable Pain Control: Satisfactory Nausea & Vomiting: Negative Mental Status: Baseline Respiratory Status: Airway Patent Hydration Status: Satisfactory Anesthesia Complications: None
== END 2023-12-01 07:51 | disposition home or self-care (01) ==
LOC: SDS 07:50
PROVIDERS: ATTEND Ophthalmology
DX: H25.11 Age-related nuclear cataract, right eye (principal); I10 Essential (primary) hypertension; F41.9 Anxiety disorder, unspecified; J45.909 Unspecified asthma, uncomplicated
CPT/HCPCS: 66984; A9270; J3490; J7120